=== PATIENT | male | born 1945 | race Caucasian/White ===

== ENCOUNTER 2016-10-09 08:51 | Observation (INO) ==
--- NOTE | 2016-10-09 09:13 | Emergency Department Note ---
Disposition Clinical Impression: Weakness Anemia Qualifiers: Anemia type: unspecified type Qualified Code(s): D64.9 - Disposition: Admitted As Inpatient Condition: Good Weakness HPI - General Chief complaint: ED Weakness Stated complaint: SOB/low hemoglobin Time Seen by Provider: 10/09/16 09:03 Source: patient Limitations: no limitations Nursing Notes Reviewed: Yes Vital Signs Reviewed: Yes - History of Present Illness HPI Narrative: 71-year-old male presents with concerns of increasing shortness of breath and weakness. Patient states symptoms have become progressively worse over the past 2-3 weeks. He states he has had his hemoglobin checked by his primary care provider and has not seen dropping over the past week. Patient states his most recent hemoglobin was 7.6 on Saturday. Patient denies hematochezia, melena. Had a recent colonoscopy with Dr. Casey which did not reveal an obvious source of bleeding. Patient reports she is unable to walk across the room without becoming short of breath which is abnormal for him. He has swelling in the left lower extremity over the past 2 weeks. Denies history of DVT or PE. He is not on anticoagulation medication. Pain Scale: 0 - Related Data Home Medications Medication Instructions Recorded Confirmed Amlodipine Besylate [Norvasc] 10 mg PO DAILY 02/10/15 10/09/16 Aspirin [Eloy Chewable Aspirin] 81 mg PO DAILY 02/10/15 10/09/16 Lisinopril [Zestril] 2.5 mg PO DAILY 02/10/15 10/09/16 Metoprolol Tartrate 50 mg PO BID 02/10/15 10/09/16 Simvastatin [Zocor] 20 mg PO DAILY 02/10/15 10/09/16 Renal Vitamin [Renal Caps Softgel] 1 mg PO DAILY 04/10/16 10/09/16 Previous Rx's Medication Instructions Recorded Omeprazole [PriLOSEC] 40 mg PO DAILY #30 cap 04/13/16 Allergies Allergy/AdvReac Type Severity Reaction Status Date / Time No Known Allergies Allergy Verified 10/09/16 08:58 All systems ED: reviewed and negative except as stated. Constitutional: Reports: weakness. Denies: fever, chills Cardiovascular: Reports: dyspnea on exertion. Denies: chest pain, palpitations , orthopnea, syncope Respiratory: Denies: cough, dyspnea, wheezes, hemoptysis Gastrointestinal: Denies: abdominal pain, nausea, vomiting, diarrhea, hematemesis, melena, hematochezia Musculoskeletal: Denies: back pain Past Medical History - Past Medical History Attestation: Yes The following information was validated with the patient. Source: patient Medical history: Reports: cancer, coronary artery disease, diabetes, dialysis, hyperlipidemia, hypertension, renal disease, other Surgical history: Reports: angioplasty/stent, appendectomy, other Psychiatric history: Reports: no psych history - Social History Smoking Status: Former smoker Smokeless Tobacco Status: No Alcohol use: Reports: rarely Drug use: Reports: none Physical Exam General: Alert and in no acute distress Skin: Warm, dry, intact Head: Normocephalic and atraumatic Neck: Supple, trachea midline and no tenderness Cardiovascular: RRR, no murmur, normal perfusion Respiratory: CTAB, no wheezing, cough, or respiratory distress Musculoskeletal: Normal strength, no tenderness, swelling or deformity GI: Soft, nontender, nondistended. Bowel sounds present Neuro: A&O to person, place, time and situation. No focal deficits noted on exam Psychiatric: cooperative and appropriate mood and affect. - General Limitations: no limitations General appearance: alert Course Vital Signs Temperature 98.1 F 10/09/16 08:54 Pulse Rate 70 10/09/16 08:54 Respiratory Rate 18 10/09/16 08:54 Blood Pressure 149/72 10/09/16 08:54 O2 Sat by Pulse Oximetry 93 10/09/16 08:54 Temperature 98.3 F 10/10/16 19:00 Pulse Rate 75 10/10/16 18:58 Respiratory Rate 18 10/10/16 19:00 Blood Pressure 137/57 10/10/16 19:00 O2 Sat by Pulse Oximetry 94 10/10/16 18:58 Oxygen Delivery Oxygen Delivery Nasal Cannula Weakness - Medical Records Medical records reviewed: Yes I reviewed the patient's medical records. - Lab Data Lab results reviewed: Yes I reviewed the patient's lab results. Result diagrams: 10/09/16 09:18 10/10/16 09:59 Lab Results 10/09/16 10/09/16 10/09/16 Range/Units 09:18 09:18 09:18 WBC 5.3 (4.3-11.1) K/mcL RBC 2.53 L (4.19-5.50) M/mcL Hgb 8.3 L (12.9-16.9) g/dL Hct 24.9 L (37.5-50.1) % MCV 98.4 (83.0-100.0) fL MCH 32.8 (28.0-33.3) pg MCHC 33.3 (31.6-35.5) g/dL RDW 13.5 (11.5-14.5) % Plt Count 158 (140-400) K/mcL MPV 10.3 (9.4-12.4) fL Immature Gran % 0.6 (0-4) % Seg Neutrophils % 79.4 % Lymphocytes % 10.2 % Monocytes % 6.6 % Eosinophils % 2.6 % Basophils % 0.6 % Neutrophils # 4.2 (1.6-8.9) K/mcL Lymphocytes # 0.5 L (0.6-4.6) K/mcL Monocytes # 0.4 (0.0-1.3) K/mcL Eosinophils # 0.1 (0.0-0.6) K/mcL Basophils # 0.0 (0.0-0.2) K/mcL D-Dimer (0-500) ng/mLFEU Sodium 140 (136-145) mEq/L Potassium 4.0 (3.5-4.5) mEq/L Chloride 102 (98-109) mEq/L Carbon Dioxide 24 (19-29) mEq/L BUN 27 H (8-26) mg/dL Creatinine 6.86 H (0.72-1.25) mg/dL Est GFR ( Amer) 10 L (> 60) Est GFR (Non-Af Amer) 8 L (> 60) BUN/Creatinine Ratio 4 L (6-26) Glucose 135 H (70-99) mg/dL Calculated Osmolality 297 (280-300) Calcium 9.0 (8.6-10.8) mg/dL Total Bilirubin 0.9 (0.2-1.2) mg/dL AST 16 (5-34) Units/L ALT 16 (0-55) Units/L Alkaline Phosphatase 75 (38-126) Units/L Troponin I 0.05 H* (0-0.03) ng/mL B-Natriuretic Peptide (0-100) pg/mL Serum Total Protein 6.8 (6.0-8.3) g/dL Albumin 3.3 L (3.5-5.0) g/dL Globulin 3.5 (2.4-3.5) g/dL Albumin/Globulin Ratio 0.9 L (1.1-2.2) Stool Occult Blood (Negative) Hep Bs Antigen (Nonreactive) Hep Bs Antibody mIU/mL 10/09/16 10/09/16 10/09/16 Range/Units 09:18 09:18 09:18 WBC (4.3-11.1) K/mcL RBC (4.19-5.50) M/mcL Hgb (12.9-16.9) g/dL Hct (37.5-50.1) % MCV (83.0-100.0) fL MCH (28.0-33.3) pg MCHC (31.6-35.5) g/dL RDW (11.5-14.5) % Plt Count (140-400) K/mcL MPV (9.4-12.4) fL Immature Gran % (0-4) % Seg Neutrophils % % Lymphocytes % % Monocytes % % Eosinophils % % Basophils % % Neutrophils # (1.6-8.9) K/mcL Lymphocytes # (0.6-4.6) K/mcL Monocytes # (0.0-1.3) K/mcL Eosinophils # (0.0-0.6) K/mcL Basophils # (0.0-0.2) K/mcL D-Dimer 630 H (0-500) ng/mLFEU Sodium (136-145) mEq/L Potassium (3.5-4.5) mEq/L Chloride (98-109) mEq/L Carbon Dioxide (19-29) mEq/L BUN (8-26) mg/dL Creatinine (0.72-1.25) mg/dL Est GFR ( Amer) (> 60) Est GFR (Non-Af Amer) (> 60) BUN/Creatinine Ratio (6-26) Glucose (70-99) mg/dL Calculated Osmolality (280-300) Calcium (8.6-10.8) mg/dL Total Bilirubin (0.2-1.2) mg/dL AST (5-34) Units/L ALT (0-55) Units/L Alkaline Phosphatase (38-126) Units/L Troponin I (0-0.03) ng/mL B-Natriuretic Peptide 1660 H (0-100) pg/mL Serum Total Protein (6.0-8.3) g/dL Albumin (3.5-5.0) g/dL Globulin (2.4-3.5) g/dL Albumin/Globulin Ratio (1.1-2.2) Stool Occult Blood (Negative) Hep Bs Antigen Nonreactive (Nonreactive) Hep Bs Antibody 67.50 mIU/mL 10/09/16 Range/Units 09:27 WBC (4.3-11.1) K/mcL RBC (4.19-5.50) M/mcL Hgb (12.9-16.9) g/dL Hct (37.5-50.1) % MCV (83.0-100.0) fL MCH (28.0-33.3) pg MCHC (31.6-35.5) g/dL RDW (11.5-14.5) % Plt Count (140-400) K/mcL MPV (9.4-12.4) fL Immature Gran % (0-4) % Seg Neutrophils % % Lymphocytes % % Monocytes % % Eosinophils % % Basophils % % Neutrophils # (1.6-8.9) K/mcL Lymphocytes # (0.6-4.6) K/mcL Monocytes # (0.0-1.3) K/mcL Eosinophils # (0.0-0.6) K/mcL Basophils # (0.0-0.2) K/mcL D-Dimer (0-500) ng/mLFEU Sodium (136-145) mEq/L Potassium (3.5-4.5) mEq/L Chloride (98-109) mEq/L Carbon Dioxide (19-29) mEq/L BUN (8-26) mg/dL Creatinine (0.72-1.25) mg/dL Est GFR ( Amer) (> 60) Est GFR (Non-Af Amer) (> 60) BUN/Creatinine Ratio (6-26) Glucose (70-99) mg/dL Calculated Osmolality (280-300) Calcium (8.6-10.8) mg/dL Total Bilirubin (0.2-1.2) mg/dL AST (5-34) Units/L ALT (0-55) Units/L Alkaline Phosphatase (38-126) Units/L Troponin I (0-0.03) ng/mL B-Natriuretic Peptide (0-100) pg/mL Serum Total Protein (6.0-8.3) g/dL Albumin (3.5-5.0) g/dL Globulin (2.4-3.5) g/dL Albumin/Globulin Ratio (1.1-2.2) Stool Occult Blood Negative (Negative) Hep Bs Antigen (Nonreactive) Hep Bs Antibody mIU/mL - Radiology Data Radiology results reviewed: Yes I reviewed the patient's radiology results. - EKG Data EKG attestation: Yes I reviewed and interpreted this EKG. EKG results narrative: ECG - interpreted by ED physician. Rate 70, normal sinus rhythm, no STEMI, NM, QT intervals, and QRS within normal limits
[2016-10-09 09:27] LABS: Basophils % 0.6 %; Eosinophils # 0.1 K/mcL (0.0-0.6); Eosinophils % 2.6 %; Hematocrit 24.9 % (37.5-50.1); Hemoglobin 8.3 g/dL (12.9-16.9); Immature Granulocytes % 0.6 % (0-4); Lymphocytes # 0.5 K/mcL (0.6-4.6); Lymphocytes % 10.2 %; Mean Corpuscular HGB Conc 33.3 g/dL (31.6-35.5); Mean Corpuscular Hemoglobin 32.8 pg (28.0-33.3); Mean Corpuscular Volume 98.4 fL (83.0-100.0); Mean Platelet Volume 10.3 fL (9.4-12.4); Monocytes # 0.4 K/mcL (0.0-1.3); Monocytes % 6.6 %; Neutrophils # 4.2 K/mcL (1.6-8.9); Platelet Count 158 K/mcL (140-400); Red Blood Count 2.53 M/mcL (4.19-5.50); Red Cell Distribution Width 13.5 % (11.5-14.5); Segmented Neutrophils % 79.4 %
[2016-10-09 09:40] LABS: Albumin 3.3 g/dL (3.5-5.0); Albumin/Globulin Ratio 0.9 (1.1-2.2); Bilirubin,Total 0.9 mg/dL (0.2-1.2); Globulin 3.5 g/dL (2.4-3.5); Total Protein 6.8 g/dL (6.0-8.3)
--- NOTE | 2016-10-09 14:34 | Nephrology Consult Note ---
Date of Encounter: 10/09/16 Time of Encounter: 13:30 Assessment and Plan (1) Dyspnea on exertion Current Visit: No Status: Acute Dyspnea secondary to fluid overload. Likely secondary to acute CHF in the setting of ESRD with excess fluid. Patient presents with dyspnea, reporting weight gain and lower extremity edema ( doppler negative for DVT). History of symptoms that improved with removal of excess fluid. Plan: HD for fluid removal with goal of 2 hours and net negative 3kg as tolerated by patient. (2) Acute diastolic (congestive) heart failure Current Visit: Yes Status: Acute Dyspnea likely secondary to acute diastolic CHF with fluid overload. Echo on 04/11/16 with LVEF 50%, moderate LVDD, and severely dilated left and right atriums. BNP elevated at 1660, this is relatively stable from previous. Patient had been getting regularly schedule hemodialysis 3 days weekly, but has had worsening dyspnea and fatigue for 2 weeks. Plan for HD today for fluid removal. (3) ESRD (end stage renal disease) on dialysis Current Visit: No Status: Chronic Patient of Dr. Turpin, that has regular HD on . HD today for symptomatic fluid overload. Plan for regular HD tomorrow per regular dialysis schedule. (4) Elevated troponin Current Visit: No Status: Acute Elevated at 0.05, this appears to be unchanged from patient's baseline. (5) Hypertension Current Visit: No Status: Chronic Patient reports taking AM dose of HTN medication, but admits to forgetting last night's medications. Continue to monitor blood pressure. Plan for fluid removal today with dialysis. Qualifiers: Hypertension type: essential hypertension Qualified Code(s): I10 - Essential (primary) hypertension (6) Diabetes mellitus Current Visit: Yes Status: Chronic Management per primary medicine service. 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 Qualifiers: Coronary Disease-Associated Artery/Lesion type: [place] artery [place] vs. transplanted heart: [place] heart Associated angina: without angina Qualified Code(s): I25.10 - Atherosclerotic heart disease of [place] coronary artery without angina pectoris (8) Anemia Current Visit: No Status: Chronic History of Chronic anemia. Denies blood in stool. Stool occult blood negative. Hgb 8.3 today. Continue to monitor for signs of bleeding and monitor patient's hemodynamic stability. Qualifiers: Anemia type: unspecified type Qualified Code(s): D64.9 - Anemia, unspecified History of Present Illness - Reason for Consult Consult date: 10/09/16 end stage renal disease Requesting physician: Jamshid Gil - Chief Complaint Shortness of breath, weakness - History of Present Illness Mr. Hong is a 71 year old male, patient of Dr. Turpin, that presents to the ED for increasing dyspnea and weakness for 2-3 and LLE swelling for 2 weeks. PMHx includes DM, HLD, HTN, ESRD on HD , and CAD s/p 4 stents in 2014, and anemia. Patient reports similar episode in March 2016 inwhich he underwent dialysis and reports improvement of symptoms. He notes also having colonscopy at that time which was negative for active bleeding. He currently denies any nausea voming, abdominal pain, chest pain, blood in his stool/no black stools. Past Med Surg Social Fam HX - Past Medical History Attestation: Yes The following information was validated with the patient. Source: patient, old records reviewed Medical history: cancer (?), coronary artery disease, diabetes, dialysis, hyperlipidemia, hypertension, renal disease, other Psychiatric history: no psych history - Past Surgical History Surgical History: angioplasty/stent, appendectomy, other - Social History Smoking Status: Former smoker Smokeless Tobacco Status: No Alcohol use: none Drug use: none - Family History Mother Living Status: Hx Family Cardiac Disorders: Yes Medications and Allergies Amlodipine Besylate [Norvasc] 10 mg PO DAILY 02/10/15 [History] Aspirin [Eloy Chewable Aspirin] 81 mg PO DAILY 02/10/15 [History] Lisinopril [Zestril] 2.5 mg PO DAILY 02/10/15 [History] Metoprolol Tartrate 50 mg PO BID 02/10/15 [History] Simvastatin [Zocor] 20 mg PO DAILY 02/10/15 [History] Renal Vitamin [Renal Caps Softgel] 1 mg PO DAILY 04/10/16 [History] Omeprazole [PriLOSEC] 40 mg PO DAILY #30 cap 04/13/16 [Rx] Allergies No Known Allergies Allergy (Verified 10/09/16 08:58) Review of Systems All Systems: reviewed and no additional remarkable complaints except as stated Constitutional: fatigue, weakness, weight gain Nose, mouth and throat: no disequilibrium, no dizziness Cardiovascular: leg edema, no chest pain Respiratory: dyspnea, dyspnea on exertion Gastrointestinal: no abdominal pain, no hematochezia, no melena, no nausea, no vomiting Musculoskeletal: no radiating pain into limb Integumentary: no rash Neurological: no dizziness, no syncope, no vertigo Endocrine: fatigue Exam - Vital Signs Vital signs: Initial Vital Signs Temp Pulse Resp BP Pulse Ox 98.1 F 70 18 149/72 93 10/09/16 08:54 10/09/16 08:54 10/09/16 08:54 10/09/16 08:54 10/09/16 08:54 Vital Signs - Last 8 Hours Resp BP 10/09/16 13:09 16 178/89 - General Appearance General appearance: well-developed, well-nourished, appears started age EENT: ATNC, mucous membranes moist, hearing intact, vision intact Respiratory: clear Cardiology: no murmurs, no rub, no gallops, edema (trace edema bilaterally), regular rate, regular rhythm - Dialysis Access Dialysis Vascular Access: Arteriovenous Fistula thrill: Yes bruit: Yes Gastrointestinal: normoactive bowel sounds, no tenderness, no guarding, no masses Integumentary: no rash, warm and dry Neurologic: no focal deficit, alert and oriented x3 Musculoskeletal: no deformities, no erythema, no cyanosis, no clubbing Psychiatric: mood/affect appropriate, cooperative Results - Lab Results 10/09/16 09:18 10/09/16 09:18 Most recent lab results Calcium 9.0 mg/dL (8.6-10.8) 10/09/16 09:18 Consult Discharge Plan - Plan Referrals: Tahir Herrera Jr, MD [Primary Care Provider] -
--- NOTE | 2016-10-09 15:44 | Internal Med History&Physical ---
Date of Encounter: 10/09/16 Time of Encounter: 15:35 Assessment and Plan (1) ESRD (end stage renal disease) on dialysis Current visit: No Status: Chronic Patient follows with Dr. Haro, regular dialysis days are Saturday and Saturday,last HD yesterday. renal has been consulted, planned for additional HD today given CHF findings in CXR. (2) Dyspnea on exertion Current visit: No Status: Acute possible 2/2 CHF 2/2 moderate DD. Echo done March 2016 shows moderate diastolic dysfunction, EF of 50%. Chest x-ray done today shows signs of congestive heart failure. getting additional HD today, repeat CXR tomm. denies any chest pain at this time, will continue home cardiac meds. (3) Elevated troponin Current visit: No Status: Acute elevated in the setting of CKD, always elevated on trend, no chest pain. less likely ACS> (4) Anemia Current visit: No Status: Chronic Patient denies any history of melena or hematemesis. Repeat hemoglobin today is better around 8.3 which is normally his baseline. stool occult was done at ED that is negative. He may have anemia of chronic disease secondary to CKD, recent colonoscopy in March 2016 did not show any active bleeding. if the repeat hb starts trending down he might need additional work up. Qualifiers: Anemia type: unspecified type Qualified Code(s): D64.9 - Anemia, unspecified Internal Medicine - H&P: HPI Chief complaint: sob Admitted From: Home Plans for Post Hospital Care: Home History of present illness: Mr. Hong is a 71 year old male patient of Dr. Haro's, that presents to the ED for increasing dyspnea and weakness for 2-3 and LLE swelling for 2 weeks. PMHx includes DM, HLD, HTN, ESRD on HD M/W/F and CAD s/p 4 stents in 2014, and anemia. He says he was told by the dialysis people to see Dr. Kirkland because his Hb dropped to 7.3 and is lower than his usual, when he called Dr. Kirkland , he told him to go to ED, he says basically thats why he is here. He notes having colonscopy 04/15, when they found angiectasia with no active bleeding. He currently denies any nausea voming, abdominal pain, chest pain, blood in his stool/no black stools. Pricer has been consulted from ED and he is getting additional dialysis today, his usual days are Saturday and Saturday, he has no history of missed dialysis, his last dialysis was yesterday. Chest x-ray done at ED shows mild congestion. No signs of pneumonia. Past Med Surg Social Fam HX - Past Medical History Medical history: cancer (?), coronary artery disease, diabetes, dialysis, hyperlipidemia, hypertension, renal disease, other Psychiatric history: no psych history - Past Surgical History Surgical History: angioplasty/stent, appendectomy, other - Social History Smoking Status: Former smoker Smokeless Tobacco Status: No Alcohol use: none Drug use: none - Family History Mother Living Status: Hx Family Cardiac Disorders: Yes Internal Medicine - H&P: Meds Amlodipine Besylate [Norvasc] 10 mg PO DAILY 02/10/15 [History] Aspirin [Eloy Chewable Aspirin] 81 mg PO DAILY 02/10/15 [History] Lisinopril [Zestril] 2.5 mg PO DAILY 02/10/15 [History] Metoprolol Tartrate 50 mg PO BID 02/10/15 [History] Simvastatin [Zocor] 20 mg PO DAILY 02/10/15 [History] Renal Vitamin [Renal Caps Softgel] 1 mg PO DAILY 04/10/16 [History] Omeprazole [PriLOSEC] 40 mg PO DAILY #30 cap 04/13/16 [Rx] Allergies No Known Allergies Allergy (Verified 10/09/16 08:58) All Systems PM: A 10-system review of systems was performed and is negative for pertinent findings except as documented above in the HPI. - Constitutional Constitutional: weakness - EENT Eyes: no change in vision, no discharge, no pain, no photophobia Ears: no ear discharge, no ear pain, no tinnitus Nose, mouth and throat: no dysphagia, no nasal discharge, no neck pain, no sore throat - Cardiovascular Cardiovascular ROS IM: dyspnea, dyspnea on exertion, edema, no chest pain, no diaphoresis, no lightheadedness, no palpitations, no syncope - Respiratory Respiratory: dyspnea, no cough, no wheezing, no excessive phlegm production - Gastrointestinal Gastrointestinal: no abdominal pain, no diarrhea, no hematemesis, no hematochezia, no melena, no nausea, no vomiting - Musculoskeletal Musculoskeletal ROS IM: no numbness, no tingling - Integumentary Integumentary IM: no rash, no unusual bruising - Neurological Neurological ROS: no confusion, no convulsions, no focal weakness, no numbness, no tingling, no tremor(s) - Constitutional Vitals: Temp Pulse Resp BP Pulse Ox 98.1 F 70 16 178/89 97 10/09/16 08:54 10/09/16 12:27 10/09/16 13:09 10/09/16 13:09 10/09/16 12:27 General appearance: Present: A&O X 3 Exam: HEENT: ATNC, mucous membranes moist, hearing intact, vision intact Respiratory : b/l decreased breath sounds at the bases, no wheezing or crepitations. Cardiology: no murmurs, no rub, no gallops, edema (trace edema bilaterally), regular rate, regular rhythm Gastrointestinal: normoactive bowel sounds, no tenderness, no guarding, no masses Integumentary: no rash, warm and dry Neurologic: no focal deficit, alert and oriented x3 Musculoskeletal: no deformities, no erythema, no cyanosis, no clubbing Psychiatric: mood/affect appropriate, cooperative Internal Med - H&P Results - Labs CBC & Chem 7: 10/09/16 09:18 10/09/16 09:18
[2016-10-09] MEDS ORDERED: Naloxone 0.4 MG/ML INJ IVP PRN (15:54)
[2016-10-09] MEDS: amLODIPine 5 MG TABLET PO SCH (16:31)
[2016-10-09 17:34] LABS: Hepatitis B Surface Antigen Nonreactive (Nonreactive)
[2016-10-09] MEDS ORDERED: 0.9 % Sodium Chloride 250 ML IVC PRN (17:56)
[2016-10-09] MEDS ORDERED: 0.9 % Sodium Chloride 1,000 ML PRIME SCH (18:00)
--- NOTE | 2016-10-09 18:01 | Venous Imaging Report ---
LE Venous Duplex Patient Name:Moses Hong Order Number:[id number] Procedure Date:10/09/2016 Date:1945ge:71 yrs Gender:Male Location:[facility] ED Room #: 22 Procurement Intern:Sheri Ocampo RVT Referring MD:Jamshid Gil DO material controller:Tahir Herrera MD Reading MD:Andi Goodrich MD Primary Indications:left lower extremity swelling Secondary Indications: Risk Factors Yes/No Hx of DVT No Hx of Chemotherapy No Trauma to Veins No Impressions: Normal left lower extremity deep and superficial venous exam. Normal contralateral common femoral vein. Recommendations: Critical findings reported to ED by phone by Sheri Ocampo RVT. Findings Venous Duplex Results: Right: Venous imaging of the lower extremity reveals full patency and normal vessel compressibility of the right common femoral. Doppler signals in the evaluated veins were normal. Left: Venous imaging of the lower extremity reveals full patency and normal vessel compressibility of the left distal iliac, left common femoral, left superficial femoral, left popliteal, left posterior tibial, left peroneal, left great saphenous and left lesser saphenous. Doppler signals in the evaluated veins were normal. Prior Study: No prior study available for comparison. Lower Extremity Venous Duplex Side Vein Compress Spontaneous Flow Augment Diameter (cm) Depth (cm) Left Distal Iliac Normal Yes Phasic Yes Left Common Femoral Normal Yes Phasic Yes Left Superficial Femoral Normal Yes Phasic Yes Left Popliteal Normal Yes Phasic Yes Left Posterior Tibial Normal Yes Phasic Yes Left Peroneal Normal Yes Phasic Yes Left Great Saphenous Normal Yes Phasic Yes Left Lesser Saphenous Normal Yes Phasic Yes Right Common Femoral Normal Yes Phasic Yes Updated by Andi Goodrich MD on 10/09/2016 5:54:48 PM electronically signed on 10/09/2016 5:55:04 PM with status of Final
[2016-10-09] MEDS ORDERED: 0.9 % Sodium Chloride 2,000 ML ONE (18:24)
[2016-10-10] MEDS: amLODIPine 5 MG TABLET PO SCH (07:45)
[2016-10-10] MEDS ORDERED: Aspirin 81 MG TAB.CHEW PO SCH (09:00)
--- NOTE | 2016-10-10 10:19 | Nephrology Progress Note ---
Date of Encounter: 10/10/16 Time of Encounter: 09:45 - Assessment and Plan (1) Dyspnea on exertion Current Visit: No Status: Acute Dyspnea secondary to fluid overload. Likely secondary to acute CHF in the setting of ESRD with excess fluid. Patient presents with dyspnea, reporting weight gain and lower extremity edema ( doppler negative for DVT). History of symptoms that improved with removal of excess fluid. Notes improvement with fluid removal yesterday. Reports he has a fluid restriction of 1.5L, though he notes he is not strict with following that. Plan: Regularly scheduled HD today, continue with fluid removal for symptomatic relief. (2) Acute diastolic (congestive) heart failure Current Visit: Yes Status: Acute Dyspnea likely secondary to acute diastolic CHF with fluid overload. Echo on 04/11/16 with LVEF 50%, moderate LVDD, and severely dilated left and right atriums. BNP elevated at 1660, this is relatively stable from previous. Patient had been getting regularly schedule hemodialysis 3 days weekly, but has had worsening dyspnea and fatigue for 2 weeks. Noted improvement with HD yesterday, plan for HD again today. (3) ESRD (end stage renal disease) on dialysis Current Visit: No Status: Chronic Patient of Dr. Turpin, that has regular HD on . HD yesterday for symptomatic fluid overload, plan for regularly scheduled session today. (4) Elevated troponin Current Visit: No Status: Acute Elevated at 0.05, this appears to be unchanged from patient's baseline. (5) Hypertension Current Visit: No Status: Chronic BP continues to be elevated. Patient has been taking home medications. Consider HD with fluid removal, or supplemental medications for HTN. Qualifiers: Qualified Code(s): I10 - Essential (primary) hypertension (6) Diabetes mellitus Current Visit: Yes Status: Chronic Management per primary service. Qualifiers: Qualified Code(s): E11.9 - Type 2 diabetes mellitus without complications (7) CAD (coronary artery disease) Current Visit: No Status: Chronic Management per primary service. Qualifiers: Qualified Code(s): I25.10 - Atherosclerotic heart disease of [place] coronary artery without angina pectoris (8) Anemia Current Visit: No Status: Chronic History of Chronic anemia, likely 2/2 to CKD. Denies blood in stool. Stool occult blood negative. Hgb 8.3 appears to be at patient's baseline. Qualifiers: Qualified Code(s): D64.9 - Anemia, unspecified Subjective Principal diagnosis: Acute CHF, ESRD Interval history: Patient states he feels better today, notes decreased swelling in his legs and easier breathing. No events overnight. BP continues to be elevated. Objective - Vital Signs Vital signs: Vital Signs Temp Pulse Resp BP Pulse Ox 10/10/16 07:31 98.2 F 95 17 179/93 96 10/10/16 03:18 98.9 F 69 16 179/80 91 10/09/16 23:34 98.0 F 73 16 176/80 90 10/09/16 21:18 98.4 F 73 15 170/82 92 10/09/16 21:02 97.8 F 22 164/84 10/09/16 20:30 166/83 10/09/16 20:15 159/82 10/09/16 20:00 161/82 10/09/16 19:45 172/88 10/09/16 19:30 164/78 10/09/16 19:15 168/80 10/09/16 19:00 168/80 10/09/16 18:45 166/85 10/09/16 18:30 97.4 F L 20 166/85 10/09/16 16:43 98.0 F 73 15 182/83 90 10/09/16 13:09 16 178/89 Intake and Output 10/09/16 10/10/16 10/10/16 23:59 07:59 15:59 Intake Total 720 / 720 480 / 480 Output Total 3600 / 3600 Balance -2880 / -2880 480 / 480 Intake: Oral 120 / 120 480 / 480 Intake, Rinseback and 600 / 600 Flushes Output: Urine 0 / 0 Total Dialysis Output 3600 / 3600 Other: Meal Dinner Breakfast Percent of Meal Consumed 50% 100% Weight 99.8 kg 98.2 kg Blood Glucose* 113 90 Hemodialysis Net Fluid 3000 Removed (mL) Patient Weight 10/10/16 23:59 Weight 98.2 kg - General Appearance General appearance: Present: well-developed, well-nourished, appears started age EENT: Present: ATNC, mucous membranes moist, hearing intact, vision intact. Absent: conjunctiva injected Respiratory: Present: clear Cardiology: Present: regular rate, regular rhythm. Absent: edema Dialysis Vascular Access: Arteriovenous Fistula thrill: Yes Integumentary: Present: no rash, warm and dry Neurologic: Present: no focal deficit, alert and oriented x3 Musculoskeletal: Present: no deformities, no erythema, no cyanosis, no clubbing Psychiatric: Present: mood/affect appropriate, cooperative - Lab 10/09/16 09:18 10/10/16 09:59 Most recent lab results Calcium 9.0 mg/dL (8.6-10.8) 10/09/16 09:18 Consult Discharge Plan - Plan Referrals: Tahir Herrera Jr, MD [Primary Care Provider] -
[2016-10-10 10:21] LABS: Potassium 4.2 mEq/L (3.5-4.5)
[2016-10-10] MEDS ORDERED: 0.9 % Sodium Chloride 250 ML IVC PRN (10:23)
--- NOTE | 2016-10-10 16:04 | Discharge Summary ---
Date of Encounter: 10/10/16 Time of Encounter: 11:00 - Discharge Diagnosis (1) Acute congestive heart failure Priority: Primary Status: Acute Qualifiers: Congestive heart failure type: diastolic Qualified Code(s): I50.31 - Acute diastolic (congestive) heart failure (2) ESRD (end stage renal disease) on dialysis Priority: Primary Status: Chronic (3) Anemia Priority: Primary Status: Chronic Qualifiers: Anemia type: unspecified type Qualified Code(s): D64.9 - Anemia, unspecified (4) Hypertension Priority: Secondary Status: Chronic Qualifiers: Hypertension type: essential hypertension Qualified Code(s): I10 - Essential (primary) hypertension (5) Diabetes mellitus Priority: Secondary Status: Chronic Qualifiers: Diabetes mellitus type: type 2 Diabetes mellitus complication status: without complication Diabetes mellitus mcfp insulin use: without mcfp use Qualified Code(s): E11.9 - Type 2 diabetes mellitus without complications - Discharge Medications Home Medications: Amlodipine Besylate [Norvasc] 10 mg PO DAILY 02/10/15 [History] Aspirin [Eloy Chewable Aspirin] 81 mg PO DAILY 02/10/15 [History] Lisinopril [Zestril] 2.5 mg PO DAILY 02/10/15 [History] Metoprolol Tartrate 50 mg PO BID 02/10/15 [History] Simvastatin [Zocor] 20 mg PO DAILY 02/10/15 [History] Renal Vitamin [Renal Caps Softgel] 1 mg PO DAILY 04/10/16 [History] Omeprazole [PriLOSEC] 40 mg PO DAILY #30 cap 04/13/16 [Rx] Allergies/Adverse Reactions: Allergies No Known Allergies Allergy (Verified 10/09/16 08:58) Date of admission: 10/09/16 13:05 Primary care physician: Tahir Herrera Jr, MD Consults: 10/09/16 15:55 Consult to Nephrology [CONS] Routine Consulting Provider: Kidney Vandana/LEMUEL/RYAN/WILL Reason for Consult: ESRD patinet on HD presenting with sob and b/l lower leg swelling Call Completed: Yes 10/09/16 18:00 Consult to Dialysis [CONS] ONCE 10/10/16 10:30 Consult to Dialysis [CONS] ONCE Discharging clinician: Shay Fagan Anticipated date of discharge: 10/10/16 - Patient Status Disposition: Home, Self-Care Condition: Good Functional capacity at discharge: independent ambulation Overall status at discharge: patient is back to baseline - Discharge Instructions Follow Up With: Tahir Herrera Jr, MD [Primary Care Provider] - - Diet and Activity Activity: increase activity as tolerated Diet: other (Renal diet) Interval History: Mr. Hong is a 71 year old male patient of Dr. Turpin, that presents to the ED for increasing dyspnea and weakness for 2-3 and LLE swelling for 2 weeks. PMHx includes DM, HLD, HTN, ESRD on HD M/W/F and CAD s/p 4 stents in 2014, and anemia. He says he was told by the dialysis people to see Dr. Casey because his Hb dropped to 7.3 and is lower than his usual, when he called Dr. Casey , he told him to go to ED, he says basically thats why he is here. He notes having colonscopy 04/15, when they found angiectasia with no active bleeding. He currently denies any nausea voming, abdominal pain, chest pain, blood in his stool/no black stools. Service Superintendent has been consulted from ED and he is getting additional dialysis today, his usual days are Saturday and Saturday, he has no history of missed dialysis, his last dialysis was yesterday. Chest x-ray done at ED shows mild congestion. No signs of pneumonia. Hospital course: Mr. Hong is a 71 year old male admitted for shortness of breath. He was considered fluid overload and hemodialysis has been arranged yesterday.after dialysis, his shortness of breath has improved significantly. he has a mild Hgb drop, guaiac test negative, consider caused by chronic renal disease. patient will have another hemodialysis today and plan to discharge home after HD. I saw and examined the patient today. He is awake alert, oriented 3. Vital signs stable. Stable to discharge home - Time Spent with Patient Total time spent providing and/or coordinating discharge services:25 minute Less than 30 minutes - Constitutional Vitals: Temp Pulse Resp BP Pulse Ox 97.6 F 75 16 168/54 92 10/10/16 15:07 10/10/16 15:07 10/10/16 15:07 10/10/16 15:07 10/10/16 15:07 General appearance: Present: A&O X 3 - Head Head exam: Present: atraumatic, normocephalic - Eye Eye exam: Present: PERRL, conjuntiva pink, sclera anicteric Pupils: Present: PERRL - Neck Neck exam general surgery: Present: supple, trachea midline. Absent: lymphadenopathy - Respiratory Respiratory exam: Present: CTAB. Absent: accessory muscle use, rales, rhonchi, wheezes - Cardiovascular Cardiovascular exam: Present: RRR, +S1, +S2. Absent: diastolic murmur, gallop, rubs, systolic murmur - GI/Abdominal GI/Abdominal exam: Present: normal bowel sounds, soft, no peritoneal signs. Absent: distended, tenderness - Extremities Exam Extremities exam: Present: warm, radial pulses palpable and symetrical. Absent : calf tenderness, cyanotic, pedal edema - Neurological Exam Neurological exam: Present: CN II-XII intact, oriented X3, no focal deficits. Absent: pronater drift, facial droop, speech deficit - Skin Skin exam: Present: dry, intact
--- NOTE | 2016-10-10 17:30 | Electrocardiograph Report ---
[address] [address] Test Date: 2016-10-09 Pat Name: Moses Hong Department: 103 Room: 3B45 Gender: M [employer] Tender: FLORA : 1945 Requested By: Jamshid Gil Order Number: [id number] Reading MD: Adriana Sanders Measurements Intervals Viola Rate: 70 P: 24 RI: 228 QRS: -5 QRSD: 106 T: 76 QT: 445 QTc: 466 Interpretive Statements SINUS RHYTHM WITH FIRST DEGREE AV BLOCK INCOMPLETE RIGHT BUNDLE BRANCH BLOCK NONSPECIFIC ST \T\ T-WAVE ABNORMALITY PROLONGED QT INTERVAL Electronically Signed On 10-10-2016 17:28:39 EDT by Adriana Sanders
[2016-10-10 22:32] VITALS: BP 137/57
== END 2016-10-10 19:30 | disposition home or self-care (01) ==
LOC: EMEROO 08:51 → 3BNU 08:51 → SUATTDRO 13:05 → 3BNU 13:39
PROVIDERS: ADMIT Internal Medicine Endocrinology, Diabetes & Metabolism; ATTEND Internal Medicine

== ENCOUNTER 2017-10-07 23:04 | Inpatient (IN) ==
[2017-10-07 23:53] LABS: Lymphocytes % 2.3 %; Mean Platelet Volume 10.8 fL (9.4-12.4); Red Blood Count 3.47 M/mcL (4.19-5.50)
[2017-10-07 23:54] LABS: Eosinophils % 0.6 %; Hematocrit 34.1 % (37.5-50.1); Mean Corpuscular HGB Conc 32.3 g/dL (31.6-35.5); Mean Corpuscular Hemoglobin 31.7 pg (28.0-33.3); Mean Corpuscular Volume 98.3 fL (83.0-100.0); Monocytes % 0.6 %; Neutrophils # 1.6 K/mcL (1.6-8.9); Platelet Count 100 K/mcL (140-400); Red Cell Distribution Width 14.8 % (11.5-14.5); Segmented Neutrophils % 96.5 %
[2017-10-08 00:04] LABS: VBG HCO3 24 mEq/L (21-27); VBG PCO2 34 mmHg (41-51); VBG PH 7.45 pH Units (7.32-7.42); VBG PO2 94 mmHg (25-50)
[2017-10-08 00:15] LABS: Calcium 8.9 mg/dL (8.6-10.3)
[2017-10-08 00:29] LABS: Platelet Estimate Decreased (Normal); Toxic Granulation Present (Not Present); Troponin I 0.07 ng/mL (< 0.04)
[2017-10-08] MEDS ORDERED: Furosemide 40 MG/4 ML VIAL IVP ONE (00:35)
--- NOTE | 2017-10-08 00:42 | Emergency Department Note ---
Disposition Clinical Impression: CKD (chronic kidney disease) stage V requiring chronic dialysis, Shortness of breath Fluid overload Qualifiers: Hypervolemia type: unspecified Qualified Code(s): E87.70 - Fluid overload, unspecified Disposition: Admitted As Inpatient Condition: Fair Time of Disposition: 00:52 General Adult HPI - General Chief complaint: ED Shortness of Breath/Dyspnea Stated complaint: SoB n/v/d Time Seen by Provider: 10/07/17 23:07 Source: patient, family, EMS Limitations: no limitations Nursing Notes Reviewed: Yes Vital Signs Reviewed: Yes - History of Present Illness HPI Narrative: Patient is a 72 old male that presents the emergency department with shortness of breath that began this evening. Patient denies any home oxygen use and states that his shortness of breath has been getting worse. Patient states that he is a dialysis patient who dialyzes Saturday, Saturday and Saturday. States that he did dialyze today. Patient does note some swelling in his lower extremities however he states that this is at his baseline. Patient denies any chest pain or abdominal pain at this time. Patient also reports that he has been having some vomiting and diarrhea with his shortness of breath. Pain Scale: 0 - Related Data Home Medications Medication Instructions Recorded Confirmed Amlodipine Besylate 10 mg PO DAILY 10/07/17 10/07/17 Aspirin [Lo-Dose Aspirin EC] 81 mg PO DAILY 10/07/17 10/07/17 Calcium Acetate [Phos-LO] 2,001 mg PO TIDWM 10/07/17 10/07/17 Lisinopril 2.5 mg PO DAILY 10/07/17 10/07/17 Metoprolol Tartrate 50 mg PO DAILY 10/07/17 10/07/17 Omeprazole [PriLOSEC] 40 mg PO DAILY 10/07/17 10/07/17 Renal Vitamin [Renal Caps Softgel] 1 mg PO DAILY 10/07/17 10/07/17 Simvastatin [Zocor] 20 mg PO HS 10/07/17 10/07/17 Allergies Allergy/AdvReac Type Severity Reaction Status Date / Time No Known Allergies Allergy Verified 03/12/17 07:42 All systems ED: reviewed and negative except as stated. Cardiovascular: Denies: chest pain Respiratory: Reports: dyspnea Gastrointestinal: Reports: vomiting, diarrhea. Denies: abdominal pain Past Medical History - Past Medical History Medical history: Reports: coronary artery disease, diabetes, dialysis, hyperlipidemia, hypertension, renal disease, other Surgical history: Reports: angioplasty/stent, appendectomy, other Psychiatric history: Reports: no psych history - Social History Smoking Status: Former smoker Smokeless Tobacco Status: No Alcohol use: Reports: none Drug use: Reports: none Physical Exam - General Limitations: no limitations General appearance: alert, in no apparent distress - Head Head exam: atraumatic, normocephalic - Eye Eye exam: Present: normal appearance, EOMI - Neck Neck exam: Present: normal inspection, full ROM, trachea midline - Respiratory Respiratory exam: Present: normal lung sounds bilaterally. Absent: respiratory distress, wheezes - Cardiovascular Cardiovascular exam: Present: normal rhythm, tachycardia, normal heart sounds, + S1, +S2 - Abdominal Exam Abdominal exam: Present: soft, Non-Tender, normal bowel sounds - Extremities Exam Extremities exam: Present: other (2+ pitting edema bilateral lower extremity is. ) - Neurological Exam Neurological exam: Present: alert, oriented X3 - Psychiatric Psychiatric exam: Present: normal affect, normal mood - Skin Skin exam: Present: warm, dry, intact Course Vital Signs Temperature 99.0 F 10/07/17 23:09 Pulse Rate 105 10/07/17 23:09 Respiratory Rate 18 10/07/17 23:09 Blood Pressure 169/81 10/07/17 23:09 O2 Sat by Pulse Oximetry 94 10/07/17 23:09 Temperature 99.5 F 10/08/17 03:52 Pulse Rate 95 10/08/17 03:52 Respiratory Rate 18 10/08/17 03:52 Blood Pressure 146/76 10/08/17 03:52 O2 Sat by Pulse Oximetry 93 10/08/17 03:52 Oxygen Delivery Oxygen Delivery Nasal Cannula Medical Decision Making - [facility] Narrative Medical decision making narrative: Due the patient having acute onset shortness of breath we have obtained a CBC, BMP and troponin, chest x-ray, CT of the chest and abdomen and pelvis. Troponin was mildly elevated at 0.07 however this appears to be chronic for the patient likely secondary to his chronic renal failure requiring dialysis. Patient does have a low white blood cell count of 1.7. This appears to be lower than normal. Patient has an elevated creatinine which appears to be at his baseline. CT of the chest shows there is right-sided pleural effusion which is consistent with mild congestive heart failure. There is an elevated BNP. Due to the patient likely having a CHF exacerbation we will give the patient a dose of Lasix here in the emergency department we will admit the patient for further evaluation and management. Consult the hospitalist and they have accepted the patient to their service. Patient will be admitted to the hospital this time. - Medical Records Medical records reviewed: Yes I reviewed the patient's medical records. - Lab Data Lab results reviewed: Yes I reviewed the patient's lab results. Result diagrams: 10/08/17 03:33 10/08/17 03:33 Lab Results 10/07/17 10/07/17 10/07/17 Range/Units 23:13 23:13 23:13 WBC 1.7 L (4.3-11.1) K/mcL RBC 3.47 L (4.19-5.50) M/mcL Hgb 11.0 L (12.9-16.9) g/dL Hct 34.1 L (37.5-50.1) % MCV 98.3 (83.0-100.0) fL MCH 31.7 (28.0-33.3) pg MCHC 32.3 (31.6-35.5) g/dL RDW 14.8 H (11.5-14.5) % Plt Count 100 L (140-400) K/mcL MPV 10.8 (9.4-12.4) fL Immature Gran % 0.0 (0-4) % Seg Neutrophils % 96.5 % Lymphocytes % 2.3 % Monocytes % 0.6 % Eosinophils % 0.6 % Basophils % 0.0 % Neutrophils # 1.6 (1.6-8.9) K/mcL Lymphocytes # 0.0 L (0.6-4.6) K/mcL Monocytes # 0.0 (0.0-1.3) K/mcL Eosinophils # 0.0 (0.0-0.6) K/mcL Basophils # 0.0 (0.0-0.2) K/mcL Toxic Granulation Present A (Not Present) Platelet Estimate Decreased L (Normal) VBG pH (7.32-7.42) pH Units VBG pCO2 (41-51) mmHg VBG pO2 (25-50) mmHg VBG HCO3 (21-27) mEq/L Sodium 140 (136-145) mEq/L Potassium 4.0 (3.5-5.1) mEq/L Chloride 103 (98-107) mEq/L Carbon Dioxide 25 (23-29) mEq/L BUN 27 H (8-23) mg/dL Creatinine 5.53 H (0.70-1.30) mg/dL Est GFR ( Amer) 12 L (> 60) Est GFR (Non-Af Amer) 10 L (> 60) BUN/Creatinine Ratio 5 L (6-26) Glucose 107 H (70-105) mg/dL Calculated Osmolality 296 (280-300) Lactic Acid (0.5-2.2) mmol/L Calcium 8.9 (8.6-10.3) mg/dL Total Bilirubin 2.0 H (0.3-1.0) mg/dL Direct Bilirubin 1.4 H (0.0-0.2) mg/dL Indirect Bilirubin 0.6 (0.0-1.2) mg/dL AST 219 H (13-39) Units/L ALT 147 H (7-52) Units/L Alkaline Phosphatase 138 H (34-104) Units/L Troponin I 0.07 H* (< 0.04) ng/mL B-Natriuretic Peptide 2477 H (Less than 100) pg/mL Serum Total Protein 6.5 (6.4-8.9) g/dL Albumin 4.0 (3.5-5.7) g/dL Globulin 2.5 (2.4-3.5) g/dL Albumin/Globulin Ratio 1.6 (1.1-2.2) Lipase 35 (11-82) Units/L 10/07/17 10/08/17 Range/Units 23:42 00:01 WBC (4.3-11.1) K/mcL RBC (4.19-5.50) M/mcL Hgb (12.9-16.9) g/dL Hct (37.5-50.1) % MCV (83.0-100.0) fL MCH (28.0-33.3) pg MCHC (31.6-35.5) g/dL RDW (11.5-14.5) % Plt Count (140-400) K/mcL MPV (9.4-12.4) fL Immature Gran % (0-4) % Seg Neutrophils % % Lymphocytes % % Monocytes % % Eosinophils % % Basophils % % Neutrophils # (1.6-8.9) K/mcL Lymphocytes # (0.6-4.6) K/mcL Monocytes # (0.0-1.3) K/mcL Eosinophils # (0.0-0.6) K/mcL Basophils # (0.0-0.2) K/mcL Toxic Granulation (Not Present) Platelet Estimate (Normal) VBG pH 7.45 H (7.32-7.42) pH Units VBG pCO2 34 L (41-51) mmHg VBG pO2 94 H (25-50) mmHg VBG HCO3 24 (21-27) mEq/L Sodium (136-145) mEq/L Potassium (3.5-5.1) mEq/L Chloride (98-107) mEq/L Carbon Dioxide (23-29) mEq/L BUN (8-23) mg/dL Creatinine (0.70-1.30) mg/dL Est GFR ( Amer) (> 60) Est GFR (Non-Af Amer) (> 60) BUN/Creatinine Ratio (6-26) Glucose (70-105) mg/dL Calculated Osmolality (280-300) Lactic Acid 2.9 H (0.5-2.2) mmol/L Calcium (8.6-10.3) mg/dL Total Bilirubin (0.3-1.0) mg/dL Direct Bilirubin (0.0-0.2) mg/dL Indirect Bilirubin (0.0-1.2) mg/dL AST (13-39) Units/L ALT (7-52) Units/L Alkaline Phosphatase (34-104) Units/L Troponin I (< 0.04) ng/mL B-Natriuretic Peptide (Less than 100) pg/mL Serum Total Protein (6.4-8.9) g/dL Albumin (3.5-5.7) g/dL Globulin (2.4-3.5) g/dL Albumin/Globulin Ratio (1.1-2.2) Lipase (11-82) Units/L - Radiology Data Radiology results reviewed: Yes I reviewed the patient's radiology results. Chest X-Ray 10/07/17 23:13 IMPRESSION: Mild cardiomegaly. Mild interstitial prominence without overt signs of congestive heart failure. Persistent left lower lobe mild atelectatic changes. D/ / Ajay Crawford MD / Ajay Crawford MD Interpreting Provider: Ajay Crawford MD Abdomen/Pelvis CT 10/07/17 23:20 IMPRESSION: 1. Cardiomegaly with diffuse pulmonary interlobular septal thickening and small layering right pleural effusion in keeping with mild acute congestive heart failure. 2. No acute abdominopelvic abnormality. 3. Mild splenomegaly. 4. Mild anasarca likely related to volume overload. 5. Mild sigmoid diverticulosis. 6. Moderate fat containing umbilical hernia. D/ / Omi Smart / Omi Smart Interpreting Provider: Omi Smart Chest CT 10/07/17 23:20 IMPRESSION: 1. Cardiomegaly with diffuse pulmonary interlobular septal thickening and small layering right pleural effusion in keeping with mild acute congestive heart failure. 2. No acute abdominopelvic abnormality. 3. Mild splenomegaly. 4. Mild anasarca likely related to volume overload. 5. Mild sigmoid diverticulosis. 6. Moderate fat containing umbilical hernia. D/ / Omi Smart / Omi Smart Interpreting Provider: Omi Smart Attestation Statement - Attestation Attestation: I examined this patient and my medical decision-making was reviewed with the Resident Physician. I agree with the documented findings, disposition and treatment plan as described except to the extent set forth below. Patient with findings of dyspnea, possible CHF exacerbation. We will diurese, hemoglobin shows mild anemia as well as pancytopenia.The patient does meet SIRS criteria,I would defer 30 ml / kg fluid bolus due to CHF. Patient will be admitted to hospital for evaluation of pancytopenia in the setting of anemia and CHF exacerbation.
--- NOTE | 2017-10-08 02:02 | Internal Med History&Physical ---
Date of Encounter: 10/08/17 Time of Encounter: 02:00 Internal Medicine - H&P: HPI Chief complaint: shortness of breath Admitted From: Emergency Dept Plans for Post Hospital Care: Home History of present illness: Mr. Hong is a 72 year old male with past medical history of diabetes, CAD (s/p C with 4 stents), ESRD on dialysis, HLD, HTN, and chronic fatigue syndrome who presented to [facility] on 02/06/2018 via ambulance with chief complaint of new onset shortness of breath. Per patient and his who was present at the bedside, patient started becoming short of breath at around 7 PM. At that time, he developed some nausea and an episode of vomiting. He also had one black diarrhea bowel movement at that time. Patient denied any chest pain, palpitations, or diaphoresis at the time. Patient's called EMS. On the way to the hospital, patient was noted to have a fever to 100.1. In the emergency department, patient was found to have new onset WBC of 1.7, platelets of 100, and toxic granulation. CT of the chest, abdomen and pelvis demonstrated cardiomegaly with diffuse pulmonary interlobular septal thickening and small layering right pleural effusion suggestive of mild acute congestive heart failure. Patient was given a one-time dose of IV Lasix 40 mg for presumed acute exacerbation of CHF. Patient was also tachycardic in the emergency department. Upon admission to the hospital, patient stated his shortness of breath had improved. He was complaining of a nonproductive cough. He states he has been feeling colder than usual, and felt very chilled during his onset of shortness of breath earlier in the day. Patient's said he had recently taken Pepto-Bismol which she thinks is the reason for his blackened stool. Patient receives dialysis Saturday and Saturday. He went to dialysis earlier today. He has been worked up by heme/onc in the past for his anemia with the workup largely coming back as benign. Patient does have past medical history of exposure to asbestos. He is currently resting comfortably. He denies fevers, chills, night sweats, chest pain, palpitations, abdominal pain, hematemesis, hematochezia, dysuria, or hematuria. He does still report some mild nausea and a mild cough. Past Med Surg Social Fam HX - Past Medical History Attestation: Yes The following information was validated with the patient. Source: patient, obtained from family Medical history: coronary artery disease, diabetes, dialysis, hyperlipidemia, hypertension, renal disease, other Psychiatric history: no psych history - Past Surgical History Surgical History: angioplasty/stent, appendectomy, other - Social History Smoking Status: Former smoker Smokeless Tobacco Status: No Alcohol use: none Drug use: none - Family History Mother Living Status: Hx Family Cardiac Disorders: Yes Internal Medicine - H&P: Meds Amlodipine Besylate 10 mg PO DAILY 10/07/17 [History] Aspirin [Lo-Dose Aspirin EC] 81 mg PO DAILY 10/07/17 [History] Calcium Acetate [Phos-LO] 2,001 mg PO TIDWM 10/07/17 [History] Lisinopril 2.5 mg PO DAILY 10/07/17 [History] Metoprolol Tartrate 50 mg PO DAILY 10/07/17 [History] Omeprazole [PriLOSEC] 40 mg PO DAILY 10/07/17 [History] Renal Vitamin [Renal Caps Softgel] 1 mg PO DAILY 10/07/17 [History] Simvastatin [Zocor] 20 mg PO HS 10/07/17 [History] 3 Allergy/AdvReac Type Severity Reaction Status Date / Time No Known Allergies Allergy Verified 03/12/17 07:42 All Systems PM: A 10-system review of systems was performed and is negative for pertinent findings except as documented above in the HPI. - Constitutional Constitutional: chills, fever(s), no anorexia, no lethargy, no night sweats, no weakness, no weight gain - Cardiovascular Cardiovascular ROS IM: dyspnea, dyspnea on exertion, edema, orthopnea, no chest pain, no claudication, no diaphoresis, no irregular heart rhythm, no lightheadedness, no palpitations - Respiratory Respiratory: cough, dyspnea, no chest congestion, no excessive phlegm production - Gastrointestinal Gastrointestinal: loose stools (dark in color), nausea, vomiting, no abdominal pain, no coffee ground emesis, no constipation, no cramping - Genitourinary Genitourinary ROS male: no difficulty urinating, no dysuria - Integumentary Integumentary IM: other (ecchymosis over right upper extremity. ), no unusual bruising - Endocrine Endocrine IM: cold intolerance - Hematologic/Lymphatic Hematologic/Lymphatic: easy bruising - Constitutional Vitals: Temp Pulse Resp BP Pulse Ox 99.0 F 95 18 159/76 94 10/07/17 23:09 10/08/17 00:55 10/08/17 01:55 10/08/17 01:55 10/08/17 00:55 General appearance: Present: cooperative, mild distress, A&O X 3, answers questions appropriately - Head Head exam: Present: atraumatic, normocephalic - Eye Eye exam: Present: PERRL, conjuntiva pink, sclera anicteric Pupils: Present: PERRL - Neck Neck exam general surgery: Present: supple, trachea midline. Absent: lymphadenopathy - Respiratory Respiratory exam: Present: decreased breath sounds (bilateral bases), rales ( bilaterally). Absent: accessory muscle use, rhonchi, wheezes - Cardiovascular Cardiovascular exam: Present: +S1, +S2, tachycardia (irregular). Absent: diastolic murmur, gallop, rubs, systolic murmur - GI/Abdominal GI/Abdominal exam: Present: normal bowel sounds, soft, no peritoneal signs. Absent: distended, tenderness - Extremities Exam Extremities exam: Present: pedal edema, warm, radial pulses palpable and symmetrical. Absent: calf tenderness, cyanotic Additional comments: right upper extremity fistula in place - Skin Skin exam: Present: dry, intact, warm (echymosis over right upper extremity) Internal Med - H&P Results - Labs CBC & Chem 7: 10/07/17 23:13 10/08/17 03:33 - Assessment and plan (1) Acute exacerbation of CHF (congestive heart failure) Current Visit: Yes Status: Acute Assessment and plan: A 72-year-old male with past medical history of CAD S/p 4 stents. Patient with SOB and pedal edema, which he states is chronic, somewhat improved after diuresis given in ED. - Echocardiogram in March 2016 demonstrates LVEF of 50% with left ventricular hypertrophy, left ventricular diastolic dysfunction, and dilated atria. -BMP 2400 -Daily weights, strict I's and O's. -IV diuresis. -cardiac monitoring Qualifiers: Heart failure type: unspecified Qualified Code(s): I50.9 - Heart failure, unspecified (2) Shortness of breath Current Visit: Yes Status: Acute Assessment and plan: 72-year-old male with new onset shortness of breath and tachycardia. -CT of the chest obtained in the emergency department without contrast. -Risks of pulmonary embolus outweigh risk of contrast exposure. Will get a CTA of the chest. (3) SIRS (systemic inflammatory response syndrome) Current Visit: Yes Status: Acute Assessment and plan: Patient with WBC of 1.7 and tachycardia. Lactic acid trending downwards, 2.9, then 2.3. -CT of the chest with a pleural effusion and findings consistent with exacerbation of CHF. However, patient is reporting a cough which could indicate a source of infection being the lungs. -We will provide broad-spectrum coverage as patient is on dialysis with Zosyn and vancomycin. Primary team to de-escalate as needed. -We will get a peripheral blood smear. -Blood cultures. -Due to patient's WBC and thrombocytopenia, we will look for underlying viral illnesses including a rapid influenza. (4) Elevated troponin Current Visit: No Status: Acute Assessment and plan: Likely secondary to ESRD. We will trend troponins for 2 more sets every 6 hours. (5) Melena Current Visit: Yes Status: Acute Assessment and plan: Patient with single loose bowel movement earlier in the day that he described as black. -Patient's states is secondary to Pepto-Bismol. -We will get a Hemoccult test as patient with history of angiodysplastic lesions on colonoscopy in 2017. (6) CAD (coronary artery disease) Current Visit: No Status: Chronic Assessment and plan: Continue home medications. -Aspirin, statin, NIEVES inhibitor, beta joie. Qualifiers: Coronary Disease-Associated Artery/Lesion type: [place] artery [place] vs. transplanted heart: [place] heart Associated angina: without angina Qualified Code(s): I25.10 - Atherosclerotic heart disease of [place] coronary artery without angina pectoris (7) ESRD (end stage renal disease) on dialysis Current Visit: Yes Status: Chronic Assessment and plan: Patient on chronic dialysis. (8) Anemia Current Visit: No Status: Chronic Assessment and plan: Chronic. Hemoglobin 11.0. Last hemoglobin in March 2017 was 9.4. -As patient's white blood cell count and platelets are low, and he has followed with heme/onc in the past, we will consult oncology during this hospitalization. -Primary team to call in the morning. Qualifiers: Anemia type: unspecified type Qualified Code(s): D64.9 - Anemia, unspecified (9) Hypertension Current Visit: No Status: Chronic Assessment and plan: Continue home medications. Qualifiers: Hypertension type: essential hypertension Qualified Code(s): I10 - Essential (primary) hypertension - Time Spent With Patient Total time spent is greater than 50% in coordination of care (as documented) at patient's floor/unit and/or counseling patient:
[2017-10-08] MEDS ORDERED: Naloxone 0.4 MG/ML INJ IVP PRN (02:47)
[2017-10-08] MEDS ORDERED: Piperacillin/Tazobactam 3.375 GM in 0.9 % Sodium Chloride Mini Bag 100 ML IVPB ONE (03:01)
[2017-10-08 03:10] LABS: Albumin/Globulin Ratio 1.6 (1.1-2.2); Bilirubin,Direct 1.4 mg/dL (0.0-0.2); Bilirubin,Indirect 0.6 mg/dL (0.0-1.2); Globulin 2.5 g/dL (2.4-3.5); Total Protein 6.5 g/dL (6.4-8.9)
[2017-10-08 03:53] LABS: Mean Corpuscular Hemoglobin 32.8 pg (28.0-33.3); Mean Platelet Volume 11.2 fL (9.4-12.4); Segmented Neutrophils % 95.1 %
[2017-10-08 03:55] LABS: Basophils % 0.2 %; Hematocrit 32.9 % (37.5-50.1); Hemoglobin 10.8 g/dL (12.9-16.9); Immature Granulocytes % 0.5 % (0-4); Immature Platelets 5.1 % (1.1-6.1); Lymphocytes # 0.1 K/mcL (0.6-4.6); Lymphocytes % 1.2 %; Mean Corpuscular HGB Conc 32.8 g/dL (31.6-35.5); Monocytes # 0.1 K/mcL (0.0-1.3); Neutrophils # 3.9 K/mcL (1.6-8.9); Red Blood Count 3.29 M/mcL (4.19-5.50); Red Cell Distribution Width 14.7 % (11.5-14.5)
[2017-10-08 04:09] LABS: Calcium 8.8 mg/dL (8.6-10.3); Magnesium 1.4 mg/dL (1.6-2.6); Phosphorous 2.4 mg/dL (2.7-4.5); Potassium 3.7 mEq/L (3.5-5.1)
[2017-10-08 04:16] LABS: Platelet Count 89 K/mcL (140-400)
[2017-10-08 04:17] LABS: INR 1.3; Prothrombin Time 14.6 Seconds (9.4-12.1)
[2017-10-08 04:29] LABS: Platelet Estimate Decreased (Normal); Toxic Granulation Present (Not Present)
[2017-10-08] MEDS ORDERED: Aminoglycoside Consult 1 EACH MC ONE (08:33)
[2017-10-08] MEDS: Renal Vitamin 1 MG CAPSULE PO SCH (09:53)
[2017-10-08] MEDS: Calcium Acetate 667 MG CAPSULE PO SCH ×3 (09:53→17:31)
[2017-10-08] MEDS: amLODIPine 5 MG TABLET PO SCH (09:54)
[2017-10-08] MEDS: Aspirin Enteric Coated 81 MG Tablet PO SCH (09:54)
--- NOTE | 2017-10-08 14:24 | Internal Med Progress Note ---
Date of Encounter: 10/08/17 Time of Encounter: 14:22 - Assessment and plan (1) Dyspnea on exertion Current Visit: Yes Status: Acute Assessment and plan: -Chest x-ray and chest CT both revealed pulmonary edema. -ESRD with HD, last dialysis this Saturday. -Patient produces minimum urine. -Nephrology consult, to schedule dialysis today. (2) ESRD (end stage renal disease) on dialysis Current Visit: Yes Status: Chronic Assessment and plan: - HD Saturday/Saturday/Saturday. - May need an extra dialysis today due to volume overload. (3) Elevated troponin Current Visit: No Status: Acute Assessment and plan: - Chronic troponin leak due to ESRD and CHF. - No chest pain, no EKG change. (4) Diabetes mellitus Current Visit: No Status: Chronic Assessment and plan: - EG well controlled with diet control. Qualifiers: Diabetes mellitus type: type 2 Diabetes mellitus care home insulin use: without superintendent [employer] use Diabetes mellitus complication status: without complication Qualified Code(s): E11.9 - Type 2 diabetes mellitus without complications (5) Hypertension Current Visit: No Status: Chronic Assessment and plan: -Well-controlled with current treatment. Qualifiers: Hypertension type: essential hypertension Qualified Code(s): I10 - Essential (primary) hypertension - Time Spent With Patient Total time spent is greater than 50% in coordination of care (as documented) at patient's floor/unit and/or counseling patient: Greater than 35 minutes - Subjective Interval history: c/o PND and orthopnea, denies fever, chills, or night sweats. No chest pain, or palpitation. - Constitutional Vitals: Temp Pulse Resp BP Pulse Ox 98 F 80 16 115/67 93 10/08/17 11:52 10/08/17 11:52 10/08/17 11:52 10/08/17 11:52 10/08/17 11:52 General appearance: Present: cooperative, mild distress, A&O X 3, answers questions appropriately Exam: PHYSICAL EXAMINATION: GENERAL APPEARANCE: The patient is alert, oriented and in no acute distress. HEENT: Head is normocephalic. The sinuses are nontender. Pupils are equal and reactive. The nares are patent. Oropharynx clear without lesions. NECK: Supple without lymphadenopathy. HEART: Regular rate and rhythm. LUNGS: No crackles or wheezes are heard. ABDOMEN: Soft, nontender, nondistended with good bowel sounds heard. Inguinal area is normal. EXTREMITIES: Without cyanosis, clubbing or edema. NEUROLOGICAL: Gross nonfocal. SKIN: Warm and dry without any rash. Internal Medicine: Result - Labs CBC & Chem 7: 10/08/17 03:33 04 03:33 - ABG Interpretation ABG results: PT/INR, D-dimer PT 14.6 Seconds (9.4-12.1) H 10/08/17 03:33 Consult Discharge Plan - Plan Referrals: Tahir Herrera Jr, MD [Primary Care Provider] -
[2017-10-08 19:14] LABS: Acinetobacter baumannii by PCR Not Detected (Not Detect); Candida albicans by PCR Not Detected (Not Detect); Candida glabrata by PCR Not Detected (Not Detect); Candida krusei by PCR Not Detected (Not Detect); Candida parapsilosis by PCR Not Detected (Not Detect); Candida tropicalis by PCR Not Detected (Not Detect); Enterococcus by PCR Not Detected (Not Detect); Escherichia coli by PCR ***DETECTED*** (Not Detect); Klebsiella oxytoca by PCR Not Detected (Not Detect); Klebsiella pneumoniae by PCR Not Detected (Not Detect); Pseudomonas aeruginosa by PCR Not Detected (Not Detect); Serratia marcescens by PCR Not Detected (Not Detect); Staphylococcus aureus by PCR Not Detected (Not Detect); Streptococcus agalactiae(B)PCR Not Detected (Not Detect); Streptococcus by PCR Not Detected (Not Detect); Streptococcus pneumoniae PCR Not Detected (Not Detect); Streptococcus pyogenes (A) PCR Not Detected (Not Detect); blaKPC Carbapenem-Resist Gene Not Detected (Not Detect); mecA Methicillin-Resist Gene Not Detected (Not Detect); vanA/B Vancomycin-Resist Genes Not Detected (Not Detect)
--- NOTE | 2017-10-08 19:48 | Event Note ---
Date of Encounter: 10/08/17 Time of Encounter: 19:40 Alerted by pts. nurse that the pts. microbiology report showed gram negative rods. Pts. vancomycin and Zosyn had been discontinued. Will begin levaquin 750 mg IVPB once today and follow w/500 mg IVPB Q48HR starting on October 10 d/t pts. current renal dysfunction per Pharmacy dosing and discussion w/Jamshid in Pharmacy. Will monitor pt. and f/u labs.
[2017-10-08] MEDS ORDERED: Levofloxacin 750 MG/150 ML 750 MG/150 ML BAG IVPB ONE ×2 (20:00→20:15)
[2017-10-09 05:29] LABS: Eosinophils % 0.1 %; Mean Corpuscular Volume 99.4 fL (83.0-100.0)
[2017-10-09 05:30] LABS: Basophils % 0.2 %; Hematocrit 31.7 % (37.5-50.1); Hemoglobin 10.3 g/dL (12.9-16.9); Immature Granulocytes % 4.4 % (0-4); Immature Platelets 10.8 % (1.1-6.1); Lymphocytes # 0.1 K/mcL (0.6-4.6); Lymphocytes % 1.2 %; Mean Corpuscular HGB Conc 32.5 g/dL (31.6-35.5); Mean Corpuscular Hemoglobin 32.3 pg (28.0-33.3); Monocytes # 0.4 K/mcL (0.0-1.3); Neutrophils # 7.5 K/mcL (1.6-8.9); Red Blood Count 3.19 M/mcL (4.19-5.50); Red Cell Distribution Width 14.7 % (11.5-14.5); Segmented Neutrophils % 89.1 %
[2017-10-09 05:43] LABS: Calcium 8.9 mg/dL (8.6-10.3); Potassium 5.5 mEq/L (3.5-5.1)
[2017-10-09 05:45] LABS: Platelet Count 75 K/mcL (140-400)
[2017-10-09 06:39] LABS: Platelet Estimate Decreased (Normal)
[2017-10-09 08:17] LABS: Hepatitis B Surface Antibody 4.93 mIU/mL; Hepatitis B Surface Antigen Nonreactive (Nonreactive)
[2017-10-09] MEDS ORDERED: 0.9 % Sodium Chloride 250 ML IVC PRN (08:46)
[2017-10-09] MEDS ORDERED: 0.9 % Sodium Chloride 1,000 ML PRIME SCH (09:00)
--- NOTE | 2017-10-09 11:51 | Internal Med Progress Note ---
Date of Encounter: 10/09/17 Time of Encounter: 11:49 - Assessment and plan (1) Sepsis Current Visit: Yes Status: Acute Assessment and plan: - Presented with fever, chills, tachypnea, labs revealed pancytopenia with WBC less than 2. - SIRS was suspected, and antibiotics with Zosyn and vancomycin was given upon admission. - Blood culture grows enterococcus, patient received 1 dose of Levaquin last night. - We will continue dosing Levaquin based on renal function. Qualifiers: Sepsis type: sepsis due to unspecified organism Qualified Code(s): A41.9 - Sepsis, unspecified organism (2) Dyspnea on exertion Current Visit: Yes Status: Acute Assessment and plan: -Chest x-ray and chest CT both revealed pulmonary edema, no PNA. -ESRD with HD, last dialysis this Saturday. -Patient produces minimum urine. -Nephrology consulted, to schedule dialysis today. (3) ESRD (end stage renal disease) on dialysis Current Visit: Yes Status: Chronic Assessment and plan: - HD Saturday/Saturday/Saturday. - Need dialysis today due to volume overload. (4) Elevated troponin Current Visit: No Status: Acute Assessment and plan: - Chronic troponin leak due to ESRD and CHF. - No chest pain, no EKG change. (5) Diabetes mellitus Current Visit: No Status: Chronic Assessment and plan: - EG well controlled with diet control. Qualifiers: Diabetes mellitus type: type 2 Diabetes mellitus group home insulin use: without group home use Diabetes mellitus complication status: without complication Qualified Code(s): E11.9 - Type 2 diabetes mellitus without complications (6) Hypertension Current Visit: No Status: Chronic Assessment and plan: -Well-controlled with current treatment. Qualifiers: Hypertension type: essential hypertension Qualified Code(s): I10 - Essential (primary) hypertension - Time Spent With Patient Total time spent is greater than 50% in coordination of care (as documented) at patient's floor/unit and/or counseling patient: Greater than 35 minutes - Subjective Interval history: c/o PND and orthopnea, denies fever, chills, or night sweats. No chest pain, or palpitation. - Constitutional Vitals: Temp Pulse Resp BP Pulse Ox 97.4 F L 75 18 125/78 95 10/09/17 11:12 10/09/17 11:12 10/09/17 11:12 10/09/17 11:12 10/09/17 11:12 General appearance: Present: cooperative, mild distress, A&O X 3, answers questions appropriately Exam: PHYSICAL EXAMINATION: GENERAL APPEARANCE: The patient is alert, oriented and in no acute distress. HEENT: Head is normocephalic. The sinuses are nontender. Pupils are equal and reactive. The nares are patent. Oropharynx clear without lesions. NECK: Supple without lymphadenopathy. HEART: Regular rate and rhythm. LUNGS: No crackles or wheezes are heard. ABDOMEN: Soft, nontender, nondistended with good bowel sounds heard. Inguinal area is normal. EXTREMITIES: Without cyanosis, clubbing or edema. NEUROLOGICAL: Gross nonfocal. SKIN: Warm and dry without any rash. Internal Medicine: Result - Labs CBC & Chem 7: 10/09/17 05:02 10/09/17 05:02 Labs: Short CBC 10/09/17 Range/Units 05:02 WBC 8.4 D (4.3-11.1) K/mcL Hgb 10.3 L (12.9-16.9) g/dL Hct 31.7 L (37.5-50.1) % Plt Count 75 L (140-400) K/mcL Neutrophils # 7.5 (1.6-8.9) K/mcL BMP 10/09/17 05:02 Sodium 134 L Potassium 5.5 H Chloride 99 Carbon Dioxide 23 BUN 48 H Creatinine 7.36 H Glucose 86 Calcium 8.9 - ABG Interpretation ABG results: PT/INR, D-dimer PT 14.6 Seconds (9.4-12.1) H 10/08/17 03:33 Consult Discharge Plan - Plan Referrals: Sharon Bhagat MIX TECHNICIAN [Advanced Practice Nurse] - 10/17/17 1:00 pm
[2017-10-09] MEDS: Calcium Acetate 667 MG CAPSULE PO SCH ×2 (12:36→17:32)
--- NOTE | 2017-10-09 12:47 | Nephrology Consult Note ---
Date of Encounter: 10/09/17 Time of Encounter: 12:46 Assessment and Plan (1) ESRD (end stage renal disease) on dialysis Current Visit: Yes Status: Chronic HD MWF. Renal vitamins. Renal dose medications. Renal diet. Additional dialysis and ultrafiltration as needed. He was seen on dialysis. (2) Acute exacerbation of CHF (congestive heart failure) Current Visit: Yes Status: Acute Qualifiers: Heart failure type: unspecified Qualified Code(s): I50.9 - Heart failure, unspecified (3) Hypertension Current Visit: No Status: Chronic Qualifiers: Hypertension type: essential hypertension Qualified Code(s): I10 - Essential (primary) hypertension History of Present Illness - Reason for Consult Consult date: 10/09/17 end stage renal disease - Chief Complaint ESRD - History of Present Illness Patient is seen. He is awaiting dialysis. He has no new complaint. Past Med Surg Social Fam HX - Past Medical History Medical history: coronary artery disease, diabetes, dialysis, hyperlipidemia, hypertension, renal disease, other Psychiatric history: no psych history - Past Surgical History Surgical History: angioplasty/stent, appendectomy, other - Social History Smoking Status: Former smoker Smokeless Tobacco Status: No Alcohol use: none Drug use: none - Family History Mother Living Status: Age at : 82 Hx Family Cardiac Disorders: Yes Hx Family Cancer: Yes (stomach) Medications and Allergies Amlodipine Besylate 10 mg PO DAILY 10/07/17 [History] Aspirin [Lo-Dose Aspirin EC] 81 mg PO DAILY 10/07/17 [History] Calcium Acetate [Phos-LO] 2,001 mg PO TIDWM 10/07/17 [History] Lisinopril 2.5 mg PO DAILY 10/07/17 [History] Metoprolol Tartrate 50 mg PO DAILY 10/07/17 [History] Omeprazole [PriLOSEC] 40 mg PO DAILY 10/07/17 [History] Simvastatin [Zocor] 20 mg PO HS 10/07/17 [History] Triphocaps 1 tab PO DAILY 10/08/17 [History] 3 Allergy/AdvReac Type Severity Reaction Status Date / Time No Known Allergies Allergy Verified 10/08/17 08:52 Review of Systems All Systems: reviewed and no additional remarkable complaints except as stated ( As documented in history of present illness.) Exam - Vital Signs Vital signs: Initial Vital Signs Temp Pulse Resp BP Pulse Ox 99.0 F 105 18 169/81 94 10/07/17 23:09 10/07/17 23:09 10/07/17 23:09 10/07/17 23:09 10/07/17 23:09 Vital Signs - Last 8 Hours Temp Pulse Resp BP Pulse Ox 10/09/17 11:12 97.4 F L 75 18 125/78 95 10/09/17 09:25 93 10/09/17 09:23 16 93 10/09/17 08:08 97.8 F 76 18 117/68 95 10/09/17 05:37 98.0 F Intake and Output 10/08/17 10/09/17 10/09/17 23:59 07:59 15:59 Intake Total 120 / 120 240 / 240 240 / 240 Output Total 100 / 100 100 / 100 Balance 20 / 20 140 / 140 240 / 240 Intake: Oral 120 / 120 240 / 240 240 / 240 Output: Urine 100 / 100 100 / 100 Other: Meal Dinner Breakfast Percent of Meal Consumed 5% 50% Stool Size Small Stool Consistency loose Stool Characteristics Mucoid Stool Color Green Weight 95 kg Blood Glucose* 76 75 97 Patient Weight 10/09/17 23:59 Weight 95 kg - General Appearance General appearance: well-developed, well-nourished EENT: ATNC Neck: supple Respiratory: clear Cardiology: edema, regular rate - Dialysis Access Dialysis Vascular Access: Arteriovenous Fistula (Right forearm) thrill: Yes bruit: Yes Gastrointestinal: no tenderness Integumentary: warm and dry Neurologic: alert and oriented x3 Musculoskeletal: no cyanosis Psychiatric: mood/affect appropriate Results - Lab Results 10/09/17 05:02 10/09/17 05:02 Most recent lab results Calcium 8.9 mg/dL (8.6-10.3) 10/09/17 05:02 Phosphorus 2.4 mg/dL (2.7-4.5) L 10/08/17 03:33 Magnesium 1.4 mg/dL (1.6-2.6) L 10/08/17 03:33 Consult Discharge Plan - Plan Referrals: Sharon Bhagat LINING MAKER [Advanced Practice Nurse] - 10/17/17 1:00 pm
[2017-10-09] MEDS ORDERED: 0.9 % Sodium Chloride 1,000 ML ONE (16:21)
[2017-10-09] MEDS: amLODIPine 5 MG TABLET PO SCH (17:32)
[2017-10-09] MEDS: Aspirin Enteric Coated 81 MG Tablet PO SCH (17:32)
[2017-10-09] MEDS: Renal Vitamin 1 MG CAPSULE PO SCH (17:33)
[2017-10-09] MEDS: *HR* Heparin 5,000 UNIT/ML VIAL SQ SCH (17:34)
[2017-10-09] MEDS ORDERED: Levofloxacin 500 MG/100 ML 500 MG/100 ML BAG IVPB SCH (21:00)
[2017-10-10] MEDS: *HR* Heparin 5,000 UNIT/ML VIAL SQ SCH ×2 (05:48→16:23)
[2017-10-10 06:04] LABS: Hematocrit 31.2 % (37.5-50.1); Hemoglobin 10.3 g/dL (12.9-16.9); Mean Corpuscular Hemoglobin 32.8 pg (28.0-33.3); Mean Corpuscular Volume 99.4 fL (83.0-100.0); Mean Platelet Volume 11.9 fL (9.4-12.4); Red Blood Count 3.14 M/mcL (4.19-5.50); Red Cell Distribution Width 14.5 % (11.5-14.5)
[2017-10-10 06:06] LABS: Platelet Count 72 K/mcL (140-400)
[2017-10-10 06:20] LABS: Calcium 8.7 mg/dL (8.6-10.3); Potassium 4.2 mEq/L (3.5-5.1)
[2017-10-10] MEDS: amLODIPine 5 MG TABLET PO SCH (10:18)
[2017-10-10] MEDS: Renal Vitamin 1 MG CAPSULE PO SCH (10:18)
[2017-10-10] MEDS: Aspirin Enteric Coated 81 MG Tablet PO SCH (10:19)
[2017-10-10] MEDS: Calcium Acetate 667 MG CAPSULE PO SCH ×4 (10:28→16:23)
[2017-10-10] MEDS ORDERED: cefTRIAXone 2,000 MG in Water for inj. (sterile) 20 ML 20 ML IVP SCH (12:00)
--- NOTE | 2017-10-10 12:49 | Nephrology Progress Note ---
Date of Encounter: 10/10/17 Time of Encounter: 12:47 - Assessment and Plan (1) ESRD (end stage renal disease) on dialysis Current Visit: Yes Status: Chronic Plan for HD tomorrow Continue renal diet Avoid nephrotoxins if possible (2) Dyspnea on exertion Current Visit: Yes Status: Acute per primary team (3) Sepsis Current Visit: Yes Status: Acute per primary team Qualifiers: Sepsis type: sepsis due to unspecified organism Qualified Code(s): A41.9 - Sepsis, unspecified organism Subjective Principal diagnosis: ESRD on dialysis, sepsis Interval history: Patient seen and examined. States he is not feeling well. Objective - Vital Signs Vital signs: Vital Signs Temp Pulse Resp BP Pulse Ox 10/10/17 11:04 92 10/10/17 10:43 92 10/10/17 10:20 93 10/10/17 07:30 97.9 F 70 17 130/67 93 10/10/17 04:23 98.3 F 71 15 130/70 94 10/09/17 21:00 98.1 F 83 17 129/69 93 10/09/17 17:30 87 16 125/63 96 10/09/17 17:25 98.0 F 18 157/72 10/09/17 17:10 135/74 10/09/17 16:55 127/70 10/09/17 16:40 139/69 10/09/17 16:25 128/72 10/09/17 16:10 136/72 10/09/17 15:55 123/66 10/09/17 15:40 122/68 10/09/17 15:25 129/69 10/09/17 15:10 125/71 10/09/17 14:55 120/68 10/09/17 14:40 128/68 10/09/17 14:25 129/68 10/09/17 14:10 129/70 10/09/17 13:55 129/70 10/09/17 13:40 97.7 F 18 129/70 Intake and Output 10/09/17 10/10/17 10/10/17 23:59 07:59 15:59 Intake Total 280 / 280 400 / 400 380 / 380 Output Total 3600 / 3600 0 / 0 0 / 0 Balance -3320 / -3320 400 / 400 380 / 380 Intake: IV Fluids 100 / 100 20 / 20 Rocephin 2,000 MG In Water for 20 / 20 inj. (sterile) 20 ML @ 600 mls/ hr IVP Q24H [facility] Rx#:[id number] Levaquin Premix 500mg/100mL 500 100 / 100 mg In 100 ml @ 66.667 mls/hr IVPB Q48H [facility] Rx#:[id number] Oral 180 / 180 400 / 400 360 / 360 Output: Urine 0 / 0 0 / 0 Total Dialysis (HD) Output 3600 / 3600 Other: Meal Dinner Breakfast Percent of Meal Consumed 25% 90% Weight 93.6 kg Blood Glucose* 89 76 99 Hemodialysis Net Fluid Removed 3000 (mL) Patient Weight 10/10/17 23:59 Weight 93.6 kg - General Appearance General appearance: Present: well-developed, well-nourished EENT: Present: ATNC, mucous membranes moist, hearing intact, vision intact Neck: Present: supple Respiratory: Present: clear Cardiology: Present: no edema, normal S1, normal S2 Dialysis Vascular Access: Arteriovenous Fistula Gastrointestinal: Present: no tenderness, no guarding Integumentary: Present: warm and dry Neurologic: Present: alert and oriented x3 Psychiatric: Present: mood/affect appropriate, cooperative - Lab 10/10/17 05:23 10/10/17 05:23 Most recent lab results Calcium 8.7 mg/dL (8.6-10.3) 10/10/17 05:23 Phosphorus 2.4 mg/dL (2.7-4.5) L 10/08/17 03:33 Magnesium 1.4 mg/dL (1.6-2.6) L 10/08/17 03:33 Consult Discharge Plan - Plan Referrals: Sharon Bhagat, [employer] [Advanced Practice Nurse] - 10/17/17 1:00 pm
--- NOTE | 2017-10-10 16:09 | Internal Med Progress Note ---
Date of Encounter: 10/10/17 Time of Encounter: 16:05 - Assessment and plan (1) Sepsis Current Visit: Yes Status: Acute Assessment and plan: - Presented with fever, chills, tachypnea, labs revealed pancytopenia with WBC less than 2 on admission. - SIRS was suspected, and antibiotics with Zosyn and vancomycin was given upon admission. - Blood culture grows enterococcus, Antibiotics subsequently was D escalated to Levaquin. Sensitivity results this morning showed resistant to Levaquin, antibiotics changed to Rocephin by pharmacist, appreciated their help. - Patient received 1 dose of Rocephin this morning. Qualifiers: Sepsis type: sepsis due to unspecified organism Qualified Code(s): A41.9 - Sepsis, unspecified organism (2) Dyspnea on exertion Current Visit: Yes Status: Acute Assessment and plan: -Chest x-ray and chest CT both revealed pulmonary edema, no PNA. Received HD yesterday, dyspnea improved. He will have another dialysis tomorrow. (3) ESRD (end stage renal disease) on dialysis Current Visit: Yes Status: Chronic Assessment and plan: - HD Saturday/Saturday/Saturday. Have HD yesterday, HD scheduled tomorrow. (4) Elevated troponin Current Visit: No Status: Acute (5) Diabetes mellitus Current Visit: No Status: Chronic Assessment and plan: - EG well controlled with diet control. 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 Qualifiers: Hypertension type: essential hypertension Qualified Code(s): I10 - Essential (primary) hypertension - Time Spent With Patient Total time spent is greater than 50% in coordination of care (as documented) at patient's floor/unit and/or counseling patient: Greater than 35 minutes - Subjective Interval history: Patient reported improved breathing. He has no fever, chills, or night sweats. - Constitutional Vitals: Temp Pulse Resp BP Pulse Ox 97.7 F 69 17 125/68 92 10/10/17 15:47 10/10/17 15:47 10/10/17 15:47 10/10/17 15:47 10/10/17 15:47 General appearance: Present: cooperative, mild distress, A&O X 3, answers questions appropriately Exam: PHYSICAL EXAMINATION: GENERAL APPEARANCE: The patient is alert, oriented and in no acute distress. HEENT: Head is normocephalic. The sinuses are nontender. Pupils are equal and reactive. The nares are patent. Oropharynx clear without lesions. NECK: Supple without lymphadenopathy. HEART: Regular rate and rhythm. LUNGS: No crackles or wheezes are heard. ABDOMEN: Soft, nontender, nondistended with good bowel sounds heard. Inguinal area is normal. EXTREMITIES: Without cyanosis, clubbing or edema. NEUROLOGICAL: Gross nonfocal. SKIN: Warm and dry without any rash. Internal Medicine: Result - Labs CBC & Chem 7: 10/10/17 05:23 10/10/17 05:23 Labs: Short CBC 10/10/17 Range/Units 05:23 WBC 5.4 (4.3-11.1) K/mcL Hgb 10.3 L (12.9-16.9) g/dL Hct 31.2 L (37.5-50.1) % Plt Count 72 L (140-400) K/mcL BMP 10/10/17 05:23 Sodium 136 Potassium 4.2 Chloride 95 L Carbon Dioxide 31 H BUN 37 H Creatinine 5.75 H Glucose 73 Calcium 8.7 - ABG Interpretation ABG results: PT/INR, D-dimer PT 14.6 Seconds (9.4-12.1) H 10/08/17 03:33 Consult Discharge Plan - Plan Referrals: Sharon Bhagat CNP [Advanced Practice Nurse] - 10/17/17 1:00 pm
[2017-10-10] MEDS: Acetaminophen 325 MG TABLET PO PRN (16:29)
--- NOTE | 2017-10-10 16:53 | Electrocardiograph Report ---
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
[2017-10-10] MEDS ORDERED: Levofloxacin 500 MG/100 ML 500 MG/100 ML BAG IVPB SCH (20:00)
[2017-10-11 05:21] LABS: Hemoglobin 10.2 g/dL (12.9-16.9); Mean Corpuscular Volume 97.2 fL (83.0-100.0)
[2017-10-11 05:23] LABS: Hematocrit 30.8 % (37.5-50.1); Immature Platelets 7.4 % (1.1-6.1); Mean Corpuscular HGB Conc 33.1 g/dL (31.6-35.5); Mean Corpuscular Hemoglobin 32.2 pg (28.0-33.3); Mean Platelet Volume 12.6 fL (9.4-12.4); Red Blood Count 3.17 M/mcL (4.19-5.50); Red Cell Distribution Width 14.2 % (11.5-14.5)
[2017-10-11 05:37] LABS: Calcium 8.7 mg/dL (8.6-10.3); Potassium 4.2 mEq/L (3.5-5.1)
[2017-10-11] MEDS: *HR* Heparin 5,000 UNIT/ML VIAL SQ SCH ×2 (06:06→17:47)
[2017-10-11] MEDS ORDERED: 0.9 % Sodium Chloride 250 ML IVC PRN (07:52)
[2017-10-11] MEDS ORDERED: 0.9 % Sodium Chloride 1,000 ML PRIME SCH (08:00)
[2017-10-11] MEDS ORDERED: 0.9 % Sodium Chloride 1,000 ML ONE (08:10)
[2017-10-11] MEDS: Calcium Acetate 667 MG CAPSULE PO SCH ×3 (08:33→17:47)
[2017-10-11] MEDS: Renal Vitamin 1 MG CAPSULE PO SCH (08:33)
[2017-10-11] MEDS: Aspirin Enteric Coated 81 MG Tablet PO SCH (08:33)
[2017-10-11] MEDS: Acetaminophen 325 MG TABLET PO PRN (08:37)
--- NOTE | 2017-10-11 12:47 | Internal Med Progress Note ---
Date of Encounter: 10/11/17 Time of Encounter: 12:44 - Assessment and plan (1) Sepsis Current Visit: Yes Status: Acute Assessment and plan: - Presented with fever, chills, tachypnea, labs revealed pancytopenia with WBC less than 2 on admission. - SIRS was suspected, and antibiotics with Zosyn and vancomycin was given upon admission. - Blood culture grows E.coli., Antibiotics subsequently was de-escalated to Levaquin. Sensitivity showed resistant to Levaquin, ABX changed to rocephin . change to oral augmentin today, plan to dc tomorrow if continue to do well. Plan: Patient admitted for sepsis and dyspnea. Chest x-ray and CT chest no PE. Fluid overloaded on physical exam. Received 2 times dialysis since admission. Received antibiotics for sepsis. Blood culture grew Escherichia coli, and about his de-escalated to oral Augmentin, plan to discharge tomorrow if continuing doing well. Qualifiers: Sepsis type: Escherichia coli, in Qualified Code(s): P36.4 - Sepsis of due to Escherichia coli (2) Dyspnea on exertion Current Visit: Yes Status: Acute Assessment and plan: -Chest x-ray and chest CT both revealed pulmonary edema, no PNA. Received HD yesterday, dyspnea improved. Had HD today. (3) ESRD (end stage renal disease) on dialysis Current Visit: Yes Status: Chronic Assessment and plan: - HD Saturday/Saturday/Saturday. HD today. (4) Elevated troponin Current Visit: No Status: Acute Assessment and plan: - Chronic troponin leak due to ESRD and CHF. - No chest pain, no EKG change. (5) Diabetes mellitus Current Visit: No Status: Chronic Assessment and plan: - EG well controlled with diet control. 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 Qualifiers: Hypertension type: essential hypertension Qualified Code(s): I10 - Essential (primary) hypertension - Time Spent With Patient Total time spent is greater than 50% in coordination of care (as documented) at patient's floor/unit and/or counseling patient: Greater than 35 minutes - Subjective Interval history: Patient reported improved breathing. He has no fever, chills, or night sweats. - Constitutional Vitals: Temp Pulse Resp BP Pulse Ox 97.4 F L 69 18 146/75 94 10/11/17 09:20 10/11/17 07:09 10/11/17 09:20 10/11/17 12:20 10/11/17 08:47 General appearance: Present: cooperative, mild distress, A&O X 3, answers questions appropriately Exam: PHYSICAL EXAMINATION: GENERAL APPEARANCE: The patient is alert, oriented and in no acute distress. HEENT: Head is normocephalic. The sinuses are nontender. Pupils are equal and reactive. The nares are patent. Oropharynx clear without lesions. NECK: Supple without lymphadenopathy. HEART: Regular rate and rhythm. LUNGS: No crackles or wheezes are heard. ABDOMEN: Soft, nontender, nondistended with good bowel sounds heard. Inguinal area is normal. EXTREMITIES: Without cyanosis, clubbing or edema. NEUROLOGICAL: Gross nonfocal. SKIN: Warm and dry without any rash. Internal Medicine: Result - Labs CBC & Chem 7: 10/11/17 04:56 10/11/17 04:56 Labs: Short CBC 10/11/17 Range/Units 04:56 WBC 4.3 (4.3-11.1) K/mcL Hgb 10.2 L (12.9-16.9) g/dL Hct 30.8 L (37.5-50.1) % Plt Count 68 L (140-400) K/mcL BMP 10/11/17 04:56 Sodium 134 L Potassium 4.2 Chloride 95 L Carbon Dioxide 28 BUN 51 H Creatinine 7.15 H Glucose 101 Calcium 8.7 - ABG Interpretation ABG results: PT/INR, D-dimer PT 14.6 Seconds (9.4-12.1) H 10/08/17 03:33 Consult Discharge Plan - Plan Referrals: Sharon Bhagat CNP [Advanced Practice Nurse] - 10/17/17 1:00 pm
[2017-10-11] MEDS: amLODIPine 5 MG TABLET PO SCH (14:07)
--- NOTE | 2017-10-11 16:24 | Nephrology Progress Note ---
Date of Encounter: 10/12/17 Time of Encounter: 15:00 - Assessment and Plan (1) ESRD (end stage renal disease) on dialysis Current Visit: Yes Status: Chronic next HD planned for saturday outpatient (2) Sepsis Current Visit: Yes Status: Resolved Abx per primary team, will need po regimen or iv that can be taken in HD Will repeat blood culture after abx in outpatient Qualifiers: Sepsis type: Escherichia coli Qualified Code(s): A41.51 - Sepsis due to Escherichia coli [E. coli] Subjective Principal diagnosis: ESRD on dialysis, sepsis Interval history: Pt ashia and examined feeling very tired, at bedside Objective - Vital Signs Vital signs: Vital Signs Temp Pulse Resp BP Pulse Ox 10/11/17 13:15 97.2 F L 18 160/77 10/11/17 12:50 150/77 10/11/17 12:35 154/79 10/11/17 12:20 146/75 10/11/17 12:05 154/79 10/11/17 11:50 156/79 10/11/17 11:35 156/82 10/11/17 11:20 151/78 10/11/17 11:05 136/78 10/11/17 10:50 152/70 10/11/17 10:35 149/78 10/11/17 10:20 144/82 10/11/17 10:05 138/75 10/11/17 09:50 153/74 10/11/17 09:35 136/76 10/11/17 09:20 97.4 F L 18 138/75 10/11/17 08:47 94 10/11/17 07:09 98.9 F 69 16 139/73 94 10/11/17 07:05 97.8 F 98 16 130/60 91 10/11/17 03:53 98.6 F 70 16 136/69 94 10/10/17 21:00 96 10/10/17 19:20 99.3 F 71 19 116/74 96 Intake and Output 10/11/17 10/11/17 10/11/17 07:59 15:59 23:59 Intake Total 200 / 200 600 / 600 Output Total 3600 / 3600 Balance 200 / 200 -3000 / -3000 Intake: Oral 200 / 200 0 / 0 Intake, Rinseback and Flushes 600 / 600 Output: Urine 0 / 0 Total Dialysis (HD) Output 3600 / 3600 Other: Stool Size Copious Stool Consistency soft Stool Color Brown # Voids 0 # Bowel Movements 1 Weight 94.1 kg Blood Glucose* 99 Hemodialysis Net Fluid Removed 3000 (mL) Patient Weight 10/11/17 23:59 Weight 94.1 kg - General Appearance General appearance: Present: chronically ill, frail EENT: Present: ATNC, mucous membranes moist Neck: Present: no JVD, supple Respiratory: Present: clear Cardiology: Present: no edema, normal S1, normal S2 Gastrointestinal: Present: no tenderness, no guarding Integumentary: Present: warm and dry Neurologic: Present: no focal deficit Musculoskeletal: Present: no deformities Psychiatric: Present: mood/affect appropriate, cooperative - Lab 10/12/17 04:33 10/12/17 04:33 Most recent lab results Calcium 8.7 mg/dL (8.6-10.3) 10/11/17 04:56 Phosphorus 2.4 mg/dL (2.7-4.5) L 10/08/17 03:33 Magnesium 1.4 mg/dL (1.6-2.6) L 10/08/17 03:33 Consult Discharge Plan - Plan Instructions: Amoxicillin/Clavulanate Potassium (By mouth), Heart Failure (DC) , Diabetes Mellitus Type 2 in Adults (DC), Sepsis (DC) Referrals: Sharon Bhagat CNP [Advanced Practice Nurse] - 10/17/17 1:00 pm Prescriptions: Amoxicillin/Clavulanate [Augmentin] 250 mg PO BIDWM #23 tablet
[2017-10-11] MEDS: Amoxicillin/Clavulanate 250 MG TABLET PO SCH (17:47)
[2017-10-11 20:27] LABS: Bilirubin,Urine Small (Negative); Blood,Urine Small (Negative); Clarity,Urine Cloudy (Clear); Color,Urine Dark Yellow (Yellow); Glucose,Urine (UA) 100 mg/dL (Normal); Ketones,Urine Trace mg/dL (Negative); Leukocyte Esterase,Urine Moderate (Negative); Nitrite,Urine Negative (Negative); Protein,Urine >=300 mg/dL (Neg-Trace); Specific Gravity,Urine 1.018 (1.010-1.025); Urobilinogen,Urine Normal (Normal)
[2017-10-11 20:29] LABS: Bacteria,Urine None Seen per hpf (None-Few); Hyaline Casts,Urine Few per lpf (None-Few); RBC,Urine 15-30 per hpf (0-3); Squamous Epithelial Cell,Urine Many per lpf (None-Few); WBC,Urine 50-100 per hpf (0-3)
[2017-10-11 21:23] LABS: Transitional Epi Cells,Urine Few per hpf (None-Few)
[2017-10-12 04:59] LABS: Mean Platelet Volume 12.5 fL (9.4-12.4)
[2017-10-12 05:01] LABS: Hematocrit 31.9 % (37.5-50.1); Hemoglobin 10.4 g/dL (12.9-16.9); Immature Platelets 8.6 % (1.1-6.1); Mean Corpuscular HGB Conc 32.6 g/dL (31.6-35.5); Mean Corpuscular Hemoglobin 31.9 pg (28.0-33.3); Mean Corpuscular Volume 97.9 fL (83.0-100.0); Red Blood Count 3.26 M/mcL (4.19-5.50); Red Cell Distribution Width 14.1 % (11.5-14.5)
[2017-10-12] MEDS: *HR* Heparin 5,000 UNIT/ML VIAL SQ SCH (06:17)
[2017-10-12 06:48] VITALS: BP 141/82
[2017-10-12] MEDS: Calcium Acetate 667 MG CAPSULE PO SCH ×2 (08:04→12:11)
[2017-10-12] MEDS: Renal Vitamin 1 MG CAPSULE PO SCH (08:05)
[2017-10-12] MEDS: Amoxicillin/Clavulanate 250 MG TABLET PO SCH (08:05)
[2017-10-12] MEDS: Aspirin Enteric Coated 81 MG Tablet PO SCH (08:05)
[2017-10-12] MEDS: amLODIPine 5 MG TABLET PO SCH (08:05)
--- NOTE | 2017-10-12 12:56 | Discharge Summary ---
- NOTES TO OUTPATIENT PROVIDER Notes to Outpatient Provider: Pt admitted with E coli bacteremia. Repeat blood cx negative at 24 hours. Going home on PO Augmentin. Orders not resulted at time of discharge: Pending orders 10/11/17 10:18 Culture,Blood,Additional [BC] Routine 10/13/17 04:00 Chem 7 [Basic Metabolic Panel] AM 0400 Complete Blood Count w/o Diff [HEME] AM 04010/14/17 04:00 Chem 7 [Basic Metabolic Panel] AM 0400 Complete Blood Count w/o Diff [HEME] AM 04010/15/17 04:00 Chem 7 [Basic Metabolic Panel] AM 0400 Complete Blood Count w/o Diff [HEME] AM 04010/16/17 04:00 Chem 7 [Basic Metabolic Panel] AM 0400 Complete Blood Count w/o Diff [HEME] AM 04010/17/17 04:00 Chem 7 [Basic Metabolic Panel] AM 0400 Complete Blood Count w/o Diff [HEME] AM 0400 Date of Encounter: 10/12/17 Time of Encounter: 12:54 - Discharge Diagnosis (1) Sepsis Priority: Primary Status: Resolved Qualifiers: Sepsis type: Escherichia coli Qualified Code(s): A41.51 - Sepsis due to Escherichia coli [E. coli] (2) Acute exacerbation of CHF (congestive heart failure) Priority: Secondary Status: Resolved Qualifiers: Heart failure type: diastolic Qualified Code(s): I50.33 - Acute on chronic diastolic (congestive) heart failure (3) ESRD (end stage renal disease) on dialysis Priority: Secondary Status: Chronic (4) Elevated troponin Priority: Secondary Status: Resolved (5) Hypertension Priority: Secondary Status: Chronic Qualifiers: Hypertension type: essential hypertension Qualified Code(s): I10 - Essential (primary) hypertension (6) Diabetes mellitus Priority: Secondary Status: Chronic Qualifiers: Diabetes mellitus type: type 2 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 Diabetes mellitus complication status: with kidney complications Diabetes mellitus complication detail: with chronic kidney disease Chronic kidney disease stage: on chronic dialysis Qualified Code(s) : E11.22 - Type 2 diabetes mellitus with diabetic chronic kidney disease; N18.6 - End stage renal disease; N18.6 - End stage renal disease; N18.6 - End stage renal disease; N18.6 - End stage renal disease; Z99.2 - Dependence on renal dialysis; Z99.2 - Dependence on renal dialysis; Z99.2 - Dependence on renal dialysis; Z99.2 - Dependence on renal dialysis (7) CAD (coronary artery disease) Priority: Secondary Status: Chronic Qualifiers: Coronary Disease-Associated Artery/Lesion type: [place] artery [place] vs. transplanted heart: [place] heart Associated angina: without angina Qualified Code(s): I25.10 - Atherosclerotic heart disease of [place] coronary artery without angina pectoris (8) Anemia Priority: Secondary Status: Chronic Qualifiers: Anemia type: due to chronic kidney disease Chronic kidney disease stage: on chronic dialysis Qualified Code(s): N18.6 - End stage renal disease; D63.1 - Anemia in chronic kidney disease; D63.1 - Anemia in chronic kidney disease; Z99.2 - Dependence on renal dialysis; Z99.2 - Dependence on renal dialysis; Z99.2 - Dependence on renal dialysis; Z99.2 - Dependence on renal dialysis Hospital course: Mr. Hong is a 72 year old male with ESRD on HD presented to the ED with worsening dyspnea. He was felt to have exac CHF and admitted for further treatment. Mr Hong was admitted to [facility]. He was also noted to have a low grade fever and pancytopenia. Blood cx ordered and abx started. His blood cx grew E coli which was resistent to Levaquin. Abx were changed to Rocephin and then to PO Augmentin. He was seen by nephrology and dialysis continued. His CBC improved with treatment of his E coli sepsis. He was tolerating the medications and remained afebrile. Today he feels well. He is tolerating PO Augmentin. He is afebrile. His repeat blood cx are negative at 24 hours. He feels baseline and is ready for discharge home. He will complete 2 week course of abx (through 10/23). Discharge discussed with: patient, family - Time Spent with Patient Total time spent providing and/or coordinating discharge services: 41min - Discharge Medications Prescriptions: Amoxicillin/Clavulanate [Augmentin] 250 mg PO BIDWM #23 tablet Home Medications: Amlodipine Besylate 10 mg PO DAILY 10/07/17 [History] Aspirin [Lo-Dose Aspirin EC] 81 mg PO DAILY 10/07/17 [History] Calcium Acetate [Phos-LO] 2,001 mg PO TIDWM 10/07/17 [History] Lisinopril 2.5 mg PO DAILY 10/07/17 [History] Metoprolol Tartrate 50 mg PO DAILY 10/07/17 [History] Omeprazole [PriLOSEC] 40 mg PO DAILY 10/07/17 [History] Simvastatin [Zocor] 20 mg PO HS 10/07/17 [History] Triphocaps 1 tab PO DAILY 10/08/17 [History] Amoxicillin/Clavulanate [Augmentin] 250 mg PO BIDWM #23 tablet 10/12/17 [Rx] Allergies/Adverse Reactions: 3 Allergy/AdvReac Type Severity Reaction Status Date / Time No Known Allergies Allergy Verified 10/08/17 08:52 Date of admission: 10/08/17 11:45 Primary care physician: Tahir Herrera Jr, MD Consults: 10/08/17 15:56 Consult to Nephrology [CONS] Routine Consulting Provider: Kidney Vandana/LEMUEL/RYAN/WILL Reason for Consult: patient a M/W/F diaylsis patient at [facility]. Admitted for SOB R/T fluid overload Time Notified: 15:57 Call Completed: Yes 10/09/17 09:00 Consult to Dialysis [CONS] ONCE 10/11/17 08:00 Consult to Dialysis [CONS] ONCE Discharging clinician: Mio Nath Anticipated date of discharge: 10/12/17 - Constitutional Vitals: Temp Pulse Resp BP Pulse Ox 98.9 F 69 16 141/82 92 10/12/17 06:47 10/12/17 06:47 10/12/17 08:11 10/12/17 06:47 10/12/17 08:11 General appearance: Present: cooperative, A&O X 3, answers questions appropriately - Head Head exam: Present: normocephalic - Eye Eye exam: Present: conjuntiva pink - ENT ENT exam: Present: mucous membranes moist - Respiratory Respiratory exam: Present: CTAB. Absent: rales, rhonchi, wheezes - Cardiovascular Cardiovascular exam: Present: RRR. Absent: tachycardia - GI/Abdominal GI/Abdominal exam: Present: soft. Absent: tenderness - Extremities Exam Extremities exam: Present: warm. Absent: tenderness - Neurological Exam Neurological exam: Present: alert, oriented X3 - Skin Skin exam: Present: dry, warm - Patient Status Disposition: Home, Self-Care Condition: Good Functional capacity at discharge: independent ambulation Overall status at discharge: patient is progressing back to baseline - Discharge Instructions Follow Up With: Sharon Bhagat CNP [Advanced Practice Nurse] - 10/17/17 1:00 pm - Diet and Activity Activity: resume usual activities as tolerated Diet: advance to your usual diet
--- NOTE | 2017-10-12 14:43 | Nephrology Progress Note ---
Date of Encounter: 10/12/17 Time of Encounter: 13:00 - Assessment and Plan (1) ESRD (end stage renal disease) on dialysis Current Visit: Yes Status: Chronic next HD planned for saturday outpatient (2) Sepsis Current Visit: Yes Status: Resolved Abx per primary team, now on augmentin Will repeat blood culture after abx in outpatient Qualifiers: Sepsis type: Escherichia coli Qualified Code(s): A41.51 - Sepsis due to Escherichia coli [E. coli] Subjective Principal diagnosis: ESRD on dialysis, sepsis Interval history: Pt seen and examined with at bedside and feels much better today and is eager to go home Objective - Vital Signs Vital signs: Vital Signs Temp Pulse Resp BP Pulse Ox 10/12/17 08:11 16 92 10/12/17 06:47 98.9 F 69 15 141/82 94 10/12/17 03:24 98.4 F 73 16 143/81 94 10/11/17 23:20 98.2 F 69 17 142/81 94 10/11/17 19:54 98.3 F 71 17 125/68 91 10/11/17 17:09 97.6 F 72 16 136/71 Intake and Output 10/11/17 10/12/17 10/12/17 23:59 07:59 15:59 Intake Total 575 / 575 450 / 450 Output Total 0 / 0 0 / 0 Balance 575 / 575 450 / 450 Intake: Oral 575 / 575 450 / 450 Output: Urine 0 / 0 0 / 0 Other: # Voids 1 Weight 91.1 kg Blood Glucose* 99 91 135 Patient Weight 10/12/17 23:59 Weight 91.1 kg - General Appearance General appearance: Present: frail (NAD) EENT: Present: ATNC, mucous membranes moist Neck: Present: no JVD, supple Respiratory: Present: clear Cardiology: Present: no edema, normal S1, normal S2 Dialysis Vascular Access: Arteriovenous Fistula thrill: Yes bruit: Yes Gastrointestinal: Present: no tenderness, no guarding Integumentary: Present: warm and dry Neurologic: Present: no focal deficit Musculoskeletal: Present: no deformities Psychiatric: Present: mood/affect appropriate, cooperative - Lab 10/12/17 04:33 10/12/17 04:33 Most recent lab results Calcium 9.0 mg/dL (8.6-10.3) 10/12/17 04:33 Phosphorus 2.4 mg/dL (2.7-4.5) L 10/08/17 03:33 Magnesium 1.4 mg/dL (1.6-2.6) L 10/08/17 03:33 Consult Discharge Plan - Plan Instructions: Amoxicillin/Clavulanate Potassium (By mouth), Heart Failure (DC) , Diabetes Mellitus Type 2 in Adults (DC), Sepsis (DC) Referrals: Sharon Bhagat CNP [Advanced Practice Nurse] - 10/17/17 1:00 pm Prescriptions: Amoxicillin/Clavulanate [Augmentin] 250 mg PO BIDWM #23 tablet
== END 2017-10-12 14:41 | disposition home or self-care (01) | DRG 871 ==
LOC: 2NENU 23:04 → EMEROO 23:04 → 2NENU 10-08 01:58
PROVIDERS: ADMIT Family Medicine; ATTEND Internal Medicine

== ENCOUNTER 2018-02-08 12:28 | Inpatient (IN) ==
--- NOTE | 2018-02-08 12:56 | Emergency Department Note ---
Disposition Clinical Impression: Elevated troponin I level, Hypoxemia, Retroperitoneal hematoma, Abdominal wall hematoma, Pelvic hematoma, ESRD (end stage renal disease) on dialysis Altered mental status Qualifiers: Altered mental status type: unspecified Qualified Code(s): R41.82 - Altered mental status, unspecified Abdominal pain Qualifiers: Abdominal location: left lower quadrant Qualified Code(s): R10.32 - Left lower quadrant pain Disposition: Admitted As Inpatient Condition: Fair General Adult HPI - General Chief complaint: ED Weakness Stated complaint: lethargic Time Seen by Provider: 02/08/18 12:36 Source: EMS Limitations: altered mental status Nursing Notes Reviewed: Yes Vital Signs Reviewed: Yes - History of Present Illness Pain Scale: 4 - Related Data Home Medications Medication Instructions Recorded Confirmed Amlodipine Besylate 10 mg PO DAILY 10/07/17 02/08/18 Aspirin [Lo-Dose Aspirin EC] 81 mg PO DAILY 10/07/17 02/08/18 Calcium Acetate [Phos-LO] 2,001 mg PO TIDWM 10/07/17 02/08/18 Lisinopril 2.5 mg PO DAILY 10/07/17 02/08/18 Metoprolol Tartrate 50 mg PO DAILY 10/07/17 02/08/18 Omeprazole [PriLOSEC] 40 mg PO DAILY 10/07/17 02/08/18 Simvastatin [Zocor] 20 mg PO HS 10/07/17 02/08/18 Renal Vitamin [Renal Caps Softgel] 1 mg PO DAILY 02/07/18 02/08/18 Previous Rx's Medication Instructions Recorded Docusate [Colace] 100 mg PO DAILY 10 Days #10 capsule 02/07/18 OxyCODONE Immed Rel [Roxicodone 5 5 mg PO Q6HR PRN 7 Days #28 tablet 02/07/18 MG] Allergies Allergy/AdvReac Type Severity Reaction Status Date / Time No Known Allergies Allergy Verified 01/30/18 11:03 Past Medical History - Past Medical History Medical history: Reports: CHF, coronary artery disease, diabetes, dialysis, GERD , hyperlipidemia, hypertension, renal disease, other Surgical history: Reports: appendectomy, other Psychiatric history: Reports: no psych history - Social History Smoking Status: Former smoker Smokeless Tobacco Status: No Alcohol use: Reports: none Drug use: Reports: none Physical Exam - General Limitations: altered mental status General appearance: lethargic Course Vital Signs Temperature 98.1 F 02/08/18 12:31 Pulse Rate 85 02/08/18 12:31 Respiratory Rate 18 02/08/18 12:31 Blood Pressure 107/60 02/08/18 12:31 O2 Sat by Pulse Oximetry 90 02/08/18 12:31 Temperature 98.2 F 02/08/18 17:15 Pulse Rate 82 02/08/18 17:15 Respiratory Rate 16 02/08/18 17:15 Blood Pressure 109/65 02/08/18 17:15 O2 Sat by Pulse Oximetry 91 02/08/18 17:36 Oxygen Delivery Oxygen Delivery Nasal Cannula Medical Decision Making - Lab Data Result diagrams: 02/08/18 12:55 02/08/18 12:55 Lab Results 02/08/18 02/08/18 02/08/18 Range/Units 12:55 12:55 12:55 WBC 12.5 H (4.3-11.1) K/mcL RBC 2.79 L (4.19-5.50) M/mcL Hgb 9.4 L (12.9-16.9) g/dL Hct 28.0 L (37.5-50.1) % MCV 100.4 H (83.0-100.0) fL MCH 33.7 H (28.0-33.3) pg MCHC 33.6 (31.6-35.5) g/dL RDW 14.3 (11.5-14.5) % Plt Count 186 (140-400) K/mcL MPV 10.6 (9.4-12.4) fL Immature Gran % 0.4 (0-4) % Seg Neutrophils % 89.1 % Lymphocytes % 2.5 % Monocytes % 7.8 % Eosinophils % 0.0 % Basophils % 0.2 % Neutrophils # 11.1 H (1.6-8.9) K/mcL Lymphocytes # 0.3 L (0.6-4.6) K/mcL Monocytes # 1.0 (0.0-1.3) K/mcL Eosinophils # 0.0 (0.0-0.6) K/mcL Basophils # 0.0 (0.0-0.2) K/mcL PT (9.4-12.1) Seconds INR APTT (26.0-36.0) Seconds VBG pH (7.32-7.42) pH Units VBG pCO2 (41-51) mmHg VBG pO2 (25-50) mmHg VBG HCO3 (21-27) mEq/L Sodium (136-145) mEq/L Potassium (3.5-5.1) mEq/L Chloride (98-107) mEq/L Carbon Dioxide (23-29) mEq/L BUN (8-23) mg/dL Creatinine (0.70-1.30) mg/dL Est GFR ( Amer) (> 60) Est GFR (Non-Af Amer) (> 60) BUN/Creatinine Ratio (6-26) Glucose (70-105) mg/dL POC Glucose (70-99) mg/dL Calculated Osmolality (280-300) Lactic Acid 1.9 (0.5-2.2) mmol/L Calcium (8.6-10.3) mg/dL Phosphorus 6.8 H (2.7-4.5) mg/dL Magnesium 1.7 (1.6-2.6) mg/dL Total Bilirubin (0.3-1.0) mg/dL AST (13-39) Units/L ALT (7-52) Units/L Alkaline Phosphatase (34-104) Units/L Troponin I (< 0.04) ng/mL Serum Total Protein (6.4-8.9) g/dL Albumin (3.5-5.7) g/dL Globulin (2.4-3.5) g/dL Albumin/Globulin Ratio (1.1-2.2) Hep Bs Antigen (Nonreactive) 02/08/18 02/08/18 02/08/18 Range/Units 12:55 12:55 12:55 WBC (4.3-11.1) K/mcL RBC (4.19-5.50) M/mcL Hgb (12.9-16.9) g/dL Hct (37.5-50.1) % MCV (83.0-100.0) fL MCH (28.0-33.3) pg MCHC (31.6-35.5) g/dL RDW (11.5-14.5) % Plt Count (140-400) K/mcL MPV (9.4-12.4) fL Immature Gran % (0-4) % Seg Neutrophils % % Lymphocytes % % Monocytes % % Eosinophils % % Basophils % % Neutrophils # (1.6-8.9) K/mcL Lymphocytes # (0.6-4.6) K/mcL Monocytes # (0.0-1.3) K/mcL Eosinophils # (0.0-0.6) K/mcL Basophils # (0.0-0.2) K/mcL PT 13.3 H (9.4-12.1) Seconds INR 1.2 APTT 30.2 (26.0-36.0) Seconds VBG pH (7.32-7.42) pH Units VBG pCO2 (41-51) mmHg VBG pO2 (25-50) mmHg VBG HCO3 (21-27) mEq/L Sodium 137 (136-145) mEq/L Potassium 5.0 (3.5-5.1) mEq/L Chloride 98 (98-107) mEq/L Carbon Dioxide 22 L (23-29) mEq/L BUN 30 H (8-23) mg/dL Creatinine 6.62 H (0.70-1.30) mg/dL Est GFR ( Amer) 10 L (> 60) Est GFR (Non-Af Amer) 8 L (> 60) BUN/Creatinine Ratio 5 L (6-26) Glucose 101 (70-105) mg/dL POC Glucose (70-99) mg/dL Calculated Osmolality 290 (280-300) Lactic Acid (0.5-2.2) mmol/L Calcium 8.7 (8.6-10.3) mg/dL Phosphorus (2.7-4.5) mg/dL Magnesium (1.6-2.6) mg/dL Total Bilirubin 0.8 (0.3-1.0) mg/dL AST 14 (13-39) Units/L ALT 7 (7-52) Units/L Alkaline Phosphatase 66 (34-104) Units/L Troponin I 0.17 H* (< 0.04) ng/mL Serum Total Protein 6.3 L (6.4-8.9) g/dL Albumin 3.7 (3.5-5.7) g/dL Globulin 2.6 (2.4-3.5) g/dL Albumin/Globulin Ratio 1.4 (1.1-2.2) Hep Bs Antigen Nonreactive (Nonreactive) 02/08/18 02/08/18 Range/Units 13:00 13:07 WBC (4.3-11.1) K/mcL RBC (4.19-5.50) M/mcL Hgb (12.9-16.9) g/dL Hct (37.5-50.1) % MCV (83.0-100.0) fL MCH (28.0-33.3) pg MCHC (31.6-35.5) g/dL RDW (11.5-14.5) % Plt Count (140-400) K/mcL MPV (9.4-12.4) fL Immature Gran % (0-4) % Seg Neutrophils % % Lymphocytes % % Monocytes % % Eosinophils % % Basophils % % Neutrophils # (1.6-8.9) K/mcL Lymphocytes # (0.6-4.6) K/mcL Monocytes # (0.0-1.3) K/mcL Eosinophils # (0.0-0.6) K/mcL Basophils # (0.0-0.2) K/mcL PT (9.4-12.1) Seconds INR APTT (26.0-36.0) Seconds VBG pH 7.28 L (7.32-7.42) pH Units VBG pCO2 49 (41-51) mmHg VBG pO2 49 (25-50) mmHg VBG HCO3 23 (21-27) mEq/L Sodium (136-145) mEq/L Potassium (3.5-5.1) mEq/L Chloride (98-107) mEq/L Carbon Dioxide (23-29) mEq/L BUN (8-23) mg/dL Creatinine (0.70-1.30) mg/dL Est GFR ( Amer) (> 60) Est GFR (Non-Af Amer) (> 60) BUN/Creatinine Ratio (6-26) Glucose (70-105) mg/dL POC Glucose 91 (70-99) mg/dL Calculated Osmolality (280-300) Lactic Acid (0.5-2.2) mmol/L Calcium (8.6-10.3) mg/dL Phosphorus (2.7-4.5) mg/dL Magnesium (1.6-2.6) mg/dL Total Bilirubin (0.3-1.0) mg/dL AST (13-39) Units/L ALT (7-52) Units/L Alkaline Phosphatase (34-104) Units/L Troponin I (< 0.04) ng/mL Serum Total Protein (6.4-8.9) g/dL Albumin (3.5-5.7) g/dL Globulin (2.4-3.5) g/dL Albumin/Globulin Ratio (1.1-2.2) Hep Bs Antigen (Nonreactive) Attestation Statement - Attestation Attestation: This documentation is done with the assistance of Dragon dictation. Despite efforts made to ensure accuracy, there may be inaccuracies in leasing property manager or spelling and typographical errors. I examined this patient and my medical decision-making was reviewed with the Resident Physician. I agree with the documented findings, disposition and treatment plan as described except to the extent set forth below. Patient seen and evaluated by Dr. Law myself, agree with his evaluation and management plan, supervise care the patient's stay. Patient presents today postop from hernia surgery. thinks she has been a little more sleepy than usual he is getting oxycodone twice a day he does not have any myosis. This could be due to that however we are going to do some lab work image his abdomen also since is some tenderness in the area and there is no signs of secondary infection. And then we will reassess once those are back and speak with surgery. Chest X-Ray 02/08/18 12:37 IMPRESSION: Basilar opacities due to pleural effusions and atelectasis. D/ / 02/08/2018 13:45:08 Lul Alfonso MD / [facility] Interpreting Provider: Lul Alfonso MD Abdomen/Pelvis CT 02/08/18 12:41 IMPRESSION: Acute pelvic and retroperitoneal hematoma. Smaller ventral abdominal wall hematoma. Moderate right and small left pleural effusions with basilar atelectasis. D/ / Lul Alfonso MD / Lul Alfonso MD Interpreting Provider: Lul Alfonso MD 1400 hrs.: We will speak with surgery and then probable admission. 1445 hrs.: Patient's hemoglobin is dropping about 3 points. That may be consistent with a hematoma in his abdomen. He also has chronic renal insufficiency we will speak with nephrology. And surgery. And admission.
[2018-02-08 13:12] LABS: VBG HCO3 23 mEq/L (21-27); VBG PCO2 49 mmHg (41-51); VBG PH 7.28 pH Units (7.32-7.42); VBG PO2 49 mmHg (25-50)
--- NOTE | 2018-02-08 13:13 | Emergency Department Note ---
Disposition Clinical Impression: Elevated troponin I level, Hypoxemia, Retroperitoneal hematoma, Pelvic hematoma , ESRD (end stage renal disease) on dialysis Altered mental status Qualifiers: Altered mental status type: unspecified Qualified Code(s): R41.82 - Altered mental status, unspecified Abdominal pain Qualifiers: Abdominal location: left lower quadrant Qualified Code(s): R10.32 - Left lower quadrant pain Abdominal wall hematoma Qualifiers: Encounter type: initial encounter Qualified Code(s): S30.1XXA - Contusion of abdominal wall, initial encounter Disposition: Admitted As Inpatient Condition: Fair Time of Disposition: 16:17 General Adult HPI - General Chief complaint: ED Weakness Stated complaint: lethargic Time Seen by Provider: 02/08/18 12:36 Source: EMS Limitations: altered mental status Nursing Notes Reviewed: Yes Vital Signs Reviewed: Yes - History of Present Illness HPI Narrative: Patient is a 73-year-old male who presents to [facility] ED with a chief complaint of lethargy. is concerned since he has been not as vocally responsive today. States he also is complaining of left lower quadrant abdominal pain. States he just had a hernia repair done by Dr. York yesterday. Patient states he was pain-free when he went home. states she has been giving him oxycodone 5 mg every 6 hours as prescribed. Denies any nausea, vomiting, fever or chills. No chest pain, difficulty breathing, problems with urination or bowel movements. Per EMS, when they arrived, his oxygen saturation was in the 70s on room air. Patient is not normally on any home oxygen. He has no history of COPD or smoking. Onset (ago): Just [employer] Pain Severity: moderate Pain Scale: 4 Consistency: constant Improves with: nothing Worsens with: nothing Associated symptoms: Reports: confusion Treatments Prior to Arrival: none - Related Data Home Medications Medication Instructions Recorded Confirmed Amlodipine Besylate 10 mg PO DAILY 10/07/17 02/08/18 Aspirin [Lo-Dose Aspirin EC] 81 mg PO DAILY 10/07/17 02/08/18 Calcium Acetate [Phos-LO] 2,001 mg PO TIDWM 10/07/17 02/08/18 Lisinopril 2.5 mg PO DAILY 10/07/17 02/08/18 Metoprolol Tartrate 50 mg PO DAILY 10/07/17 02/08/18 Omeprazole [PriLOSEC] 40 mg PO DAILY 10/07/17 02/08/18 Simvastatin [Zocor] 20 mg PO HS 10/07/17 02/08/18 Renal Vitamin [Renal Caps Softgel] 1 mg PO DAILY 02/07/18 02/08/18 Previous Rx's Medication Instructions Recorded Docusate [Colace] 100 mg PO DAILY 10 Days #10 capsule 02/07/18 OxyCODONE Immed Rel [Roxicodone 5 5 mg PO Q6HR PRN 7 Days #28 tablet 02/07/18 MG] Allergies Allergy/AdvReac Type Severity Reaction Status Date / Time No Known Allergies Allergy Verified 01/30/18 11:03 All systems ED: reviewed and negative except as stated. Past Medical History - Past Medical History Attestation: Yes The following information was validated with the patient. Source: patient Medical history: Reports: CHF, coronary artery disease, diabetes, dialysis, GERD , hyperlipidemia, hypertension, renal disease, other Surgical history: Reports: appendectomy, other Psychiatric history: Reports: no psych history - Social History Smoking Status: Former smoker Smokeless Tobacco Status: No Alcohol use: Reports: none Drug use: Reports: none Physical Exam - General Limitations: altered mental status General appearance: lethargic - Head Head exam: atraumatic, normocephalic, normal inspection - Eye Eye exam: Present: EOMI - ENT ENT exam: normal exam, normal oropharynx, mucous membranes moist - Neck Neck exam: Present: normal inspection, full ROM, trachea midline - Chest Chest inspection: Present: normal inspection, symmetric chest wall rise - Respiratory Respiratory exam: Present: normal lung sounds bilaterally - Cardiovascular Cardiovascular exam: Present: regular rate, normal rhythm, normal heart sounds - Abdominal Exam Abdominal exam: Present: soft, tenderness Abdominal tenderness: Present: LLQ, moderate - Extremities Exam Extremities exam: Present: normal inspection, full ROM. Absent: tenderness, pedal edema - Neurological Exam Neurological exam: Present: alert - Psychiatric Psychiatric exam: Present: normal affect, normal mood - Skin Skin exam: Present: warm, dry, intact, normal color Course Course Narrative: Patient seen and examined. Complaining of left lower quadrant abdominal pain and lethargy. Patient is awake and able to answer my questions. However his oxygen saturation on room air was as well as 69% with good waveform. He was immediately placed on nasal cannula at 6 L and then a nonrebreather and his oxygen improved to 91%. Patient denies any chest pain or difficulty breathing. Generalized workup including lab work, EKG, chest x-ray, urine analysis and a CT of the abdomen and pelvis ordered. - Reevaluation(s) Reevaluation #1: Patient's lab work shows an anemia of 9.4. Previously over 12. He has signs of acute pelvic and retroperitoneal hematoma as well as umbilical hematoma. I discussed these findings with surgery Dr. Booth who will see the patient in consultation. She would like Sanjiv ordered. Patient's lab work shows a potassium of 5, creatinine of over 6. However he is a dialysis patient. I discussed patient's findings with recreation technician Dr. Broussard who states they will get patient set up for dialysis possibly tonight. I discussed the patient with hospitalist Dr. Nath who has accepted patient for admission. Time: 16:15 Vital Signs Temperature 98.1 F 02/08/18 12:31 Pulse Rate 85 02/08/18 12:31 Respiratory Rate 18 02/08/18 12:31 Blood Pressure 107/60 02/08/18 12:31 O2 Sat by Pulse Oximetry 90 02/08/18 12:31 Temperature 98.1 F 02/08/18 12:31 Pulse Rate 81 02/08/18 15:51 Respiratory Rate 14 02/08/18 13:29 Blood Pressure 139/66 02/08/18 15:51 O2 Sat by Pulse Oximetry 93 02/08/18 15:51 Oxygen Delivery Oxygen Delivery Nasal Cannula Medical Decision Making - Medical Records Medical records reviewed: Yes I reviewed the patient's medical records. - Lab Data Lab results reviewed: Yes I reviewed the patient's lab results. Result diagrams: 02/08/18 12:55 02/08/18 12:55 Lab Results 02/08/18 02/08/18 02/08/18 Range/Units 12:55 12:55 12:55 WBC 12.5 H (4.3-11.1) K/mcL RBC 2.79 L (4.19-5.50) M/mcL Hgb 9.4 L (12.9-16.9) g/dL Hct 28.0 L (37.5-50.1) % MCV 100.4 H (83.0-100.0) fL MCH 33.7 H (28.0-33.3) pg MCHC 33.6 (31.6-35.5) g/dL RDW 14.3 (11.5-14.5) % Plt Count 186 (140-400) K/mcL MPV 10.6 (9.4-12.4) fL Immature Gran % 0.4 (0-4) % Seg Neutrophils % 89.1 % Lymphocytes % 2.5 % Monocytes % 7.8 % Eosinophils % 0.0 % Basophils % 0.2 % Neutrophils # 11.1 H (1.6-8.9) K/mcL Lymphocytes # 0.3 L (0.6-4.6) K/mcL Monocytes # 1.0 (0.0-1.3) K/mcL Eosinophils # 0.0 (0.0-0.6) K/mcL Basophils # 0.0 (0.0-0.2) K/mcL PT (9.4-12.1) Seconds INR APTT (26.0-36.0) Seconds VBG pH (7.32-7.42) pH Units VBG pCO2 (41-51) mmHg VBG pO2 (25-50) mmHg VBG HCO3 (21-27) mEq/L Sodium (136-145) mEq/L Potassium (3.5-5.1) mEq/L Chloride (98-107) mEq/L Carbon Dioxide (23-29) mEq/L BUN (8-23) mg/dL Creatinine (0.70-1.30) mg/dL Est GFR ( Amer) (> 60) Est GFR (Non-Af Amer) (> 60) BUN/Creatinine Ratio (6-26) Glucose (70-105) mg/dL POC Glucose (70-99) mg/dL Calculated Osmolality (280-300) Lactic Acid 1.9 (0.5-2.2) mmol/L Calcium (8.6-10.3) mg/dL Phosphorus 6.8 H (2.7-4.5) mg/dL Magnesium 1.7 (1.6-2.6) mg/dL Total Bilirubin (0.3-1.0) mg/dL AST (13-39) Units/L ALT (7-52) Units/L Alkaline Phosphatase (34-104) Units/L Troponin I (< 0.04) ng/mL Serum Total Protein (6.4-8.9) g/dL Albumin (3.5-5.7) g/dL Globulin (2.4-3.5) g/dL Albumin/Globulin Ratio (1.1-2.2) Hep Bs Antigen (Nonreactive) 02/08/18 02/08/18 02/08/18 Range/Units 12:55 12:55 12:55 WBC (4.3-11.1) K/mcL RBC (4.19-5.50) M/mcL Hgb (12.9-16.9) g/dL Hct (37.5-50.1) % MCV (83.0-100.0) fL MCH (28.0-33.3) pg MCHC (31.6-35.5) g/dL RDW (11.5-14.5) % Plt Count (140-400) K/mcL MPV (9.4-12.4) fL Immature Gran % (0-4) % Seg Neutrophils % % Lymphocytes % % Monocytes % % Eosinophils % % Basophils % % Neutrophils # (1.6-8.9) K/mcL Lymphocytes # (0.6-4.6) K/mcL Monocytes # (0.0-1.3) K/mcL Eosinophils # (0.0-0.6) K/mcL Basophils # (0.0-0.2) K/mcL PT 13.3 H (9.4-12.1) Seconds INR 1.2 APTT 30.2 (26.0-36.0) Seconds VBG pH (7.32-7.42) pH Units VBG pCO2 (41-51) mmHg VBG pO2 (25-50) mmHg VBG HCO3 (21-27) mEq/L Sodium 137 (136-145) mEq/L Potassium 5.0 (3.5-5.1) mEq/L Chloride 98 (98-107) mEq/L Carbon Dioxide 22 L (23-29) mEq/L BUN 30 H (8-23) mg/dL Creatinine 6.62 H (0.70-1.30) mg/dL Est GFR ( Amer) 10 L (> 60) Est GFR (Non-Af Amer) 8 L (> 60) BUN/Creatinine Ratio 5 L (6-26) Glucose 101 (70-105) mg/dL POC Glucose (70-99) mg/dL Calculated Osmolality 290 (280-300) Lactic Acid (0.5-2.2) mmol/L Calcium 8.7 (8.6-10.3) mg/dL Phosphorus (2.7-4.5) mg/dL Magnesium (1.6-2.6) mg/dL Total Bilirubin 0.8 (0.3-1.0) mg/dL AST 14 (13-39) Units/L ALT 7 (7-52) Units/L Alkaline Phosphatase 66 (34-104) Units/L Troponin I 0.17 H* (< 0.04) ng/mL Serum Total Protein 6.3 L (6.4-8.9) g/dL Albumin 3.7 (3.5-5.7) g/dL Globulin 2.6 (2.4-3.5) g/dL Albumin/Globulin Ratio 1.4 (1.1-2.2) Hep Bs Antigen Nonreactive (Nonreactive) 02/08/18 02/08/18 Range/Units 13:00 13:07 WBC (4.3-11.1) K/mcL RBC (4.19-5.50) M/mcL Hgb (12.9-16.9) g/dL Hct (37.5-50.1) % MCV (83.0-100.0) fL MCH (28.0-33.3) pg MCHC (31.6-35.5) g/dL RDW (11.5-14.5) % Plt Count (140-400) K/mcL MPV (9.4-12.4) fL Immature Gran % (0-4) % Seg Neutrophils % % Lymphocytes % % Monocytes % % Eosinophils % % Basophils % % Neutrophils # (1.6-8.9) K/mcL Lymphocytes # (0.6-4.6) K/mcL Monocytes # (0.0-1.3) K/mcL Eosinophils # (0.0-0.6) K/mcL Basophils # (0.0-0.2) K/mcL PT (9.4-12.1) Seconds INR APTT (26.0-36.0) Seconds VBG pH 7.28 L (7.32-7.42) pH Units VBG pCO2 49 (41-51) mmHg VBG pO2 49 (25-50) mmHg VBG HCO3 23 (21-27) mEq/L Sodium (136-145) mEq/L Potassium (3.5-5.1) mEq/L Chloride (98-107) mEq/L Carbon Dioxide (23-29) mEq/L BUN (8-23) mg/dL Creatinine (0.70-1.30) mg/dL Est GFR ( Amer) (> 60) Est GFR (Non-Af Amer) (> 60) BUN/Creatinine Ratio (6-26) Glucose (70-105) mg/dL POC Glucose 91 (70-99) mg/dL Calculated Osmolality (280-300) Lactic Acid (0.5-2.2) mmol/L Calcium (8.6-10.3) mg/dL Phosphorus (2.7-4.5) mg/dL Magnesium (1.6-2.6) mg/dL Total Bilirubin (0.3-1.0) mg/dL AST (13-39) Units/L ALT (7-52) Units/L Alkaline Phosphatase (34-104) Units/L Troponin I (< 0.04) ng/mL Serum Total Protein (6.4-8.9) g/dL Albumin (3.5-5.7) g/dL Globulin (2.4-3.5) g/dL Albumin/Globulin Ratio (1.1-2.2) Hep Bs Antigen (Nonreactive) - Radiology Data Radiology results reviewed: Yes I reviewed the patient's radiology results. Chest X-Ray 02/08/18 12:37 IMPRESSION: Basilar opacities due to pleural effusions and atelectasis. D/ / 02/08/2018 13:45:08 Lul Alfonso MD / [facility] Interpreting Provider: Lul Alfonso MD Abdomen/Pelvis CT 02/08/18 12:41 IMPRESSION: Acute pelvic and retroperitoneal hematoma. Smaller ventral abdominal wall hematoma. Moderate right and small left pleural effusions with basilar atelectasis. D/ / 02/08/2018 13:58:16 Lul Alfonso MD / [facility] Interpreting Provider: Lul Alfonso MD - EKG Data EKG #1 EKG attestation: Yes I reviewed and interpreted this EKG. EKG results narrative: EKG done at 1235 shows normal sinus rhythm with a rate of [address] elevation. Mild ST depression noted in leads 1, aVL, V5 and V6. First-degree AV block noted. Appears unchanged from prior EKG done 10/07/2017.
[2018-02-08 13:25] LABS: Magnesium 1.7 mg/dL (1.6-2.6); Phosphorous 6.8 mg/dL (2.7-4.5)
[2018-02-08 13:27] LABS: Basophils % 0.2 %; Hemoglobin 9.4 g/dL (12.9-16.9); Immature Granulocytes % 0.4 % (0-4); Lymphocytes # 0.3 K/mcL (0.6-4.6); Lymphocytes % 2.5 %; Mean Corpuscular HGB Conc 33.6 g/dL (31.6-35.5); Mean Corpuscular Hemoglobin 33.7 pg (28.0-33.3); Mean Corpuscular Volume 100.4 fL (83.0-100.0); Mean Platelet Volume 10.6 fL (9.4-12.4); Monocytes % 7.8 %; Neutrophils # 11.1 K/mcL (1.6-8.9); Platelet Count 186 K/mcL (140-400); Red Blood Count 2.79 M/mcL (4.19-5.50); Red Cell Distribution Width 14.3 % (11.5-14.5); Segmented Neutrophils % 89.1 %
[2018-02-08 13:28] LABS: Albumin 3.7 g/dL (3.5-5.7); Albumin/Globulin Ratio 1.4 (1.1-2.2); Bilirubin,Total 0.8 mg/dL (0.3-1.0); Calcium 8.7 mg/dL (8.6-10.3); Globulin 2.6 g/dL (2.4-3.5); Total Protein 6.3 g/dL (6.4-8.9)
[2018-02-08 13:33] LABS: Troponin I 0.17 ng/mL (< 0.04)
[2018-02-08] MEDS ORDERED: Piperacillin/Tazobactam 3.375 GM in 0.9 % Sodium Chloride Mini Bag 100 ML IVPB ONE (14:41)
[2018-02-08 15:15] LABS: INR 1.2; Prothrombin Time 13.3 Seconds (9.4-12.1)
[2018-02-08 15:18] LABS: Activated Partial Thrombo Time 30.2 Seconds (26.0-36.0)
[2018-02-08 16:04] LABS: Hepatitis B Surface Antigen Nonreactive (Nonreactive)
--- NOTE | 2018-02-08 16:48 | Internal Med History&Physical ---
<Nette Phelps Blade - Last Filed: 02/08/18 17:44> Date of Encounter: 02/08/18 Time of Encounter: 16:43 Internal Medicine - H&P: HPI Chief complaint: Abdominal Pain, dyspnea, and Hypoxia Admitted From: Home Plans for Post Hospital Care: Home History of present illness: Mr. Hong is a 73 year old male with history of ESRD with dialysis, height HTN, DM, CHF, and elevated troponin. Patient presents to the ED with complaints of left lower quadrant pain and hypoxia. The patient indicated that he had a hernia repair done yesterday he began to have some abnormal discomfort today. EGD discovered with CT scan that the patient had an acute pelvic and retroperitoneal hematoma and a smaller ventral abdominal wall hematoma. Chest x -ray showed basilar opacities due to pleural effusion and atelectasis. Surgery consulted in the ED and evaluated patient. Patient's creatinine is 6.62, BUN 30 , sodium is 137, potassium is 5.0, and troponin is 0.17. Patient denies any chest pain, only shortness of breath. History of cardiac disease and previous elevated troponins. Lactate is 1.9. Spoke with nephrology, , he indicated his team plans for dialysis (maybe a partial treatment) this evening. WBC is 12.5, will continue pipercillin Q8 hours IV. Past Med Surg Social Fam HX - Past Medical History Medical history: CHF, coronary artery disease, diabetes, dialysis, GERD, hyperlipidemia, hypertension, renal disease, other Additional medical history: kidney disease, fistula, bph, hx rheumatic fever, chronic fatigue, ESRD, anemia, CVD, cardiac stents x 4 Psychiatric history: no psych history - Past Surgical History Surgical History: appendectomy, other Additional surgical history: ear surgery, cardiac stents, fistula, BCC, lung bx , PTCA, Hernia - Social History Smoking Status: Former smoker Smokeless Tobacco Status: No Alcohol use: none Drug use: none - Family History Mother Living Status: Hx Family Cardiac Disorders: Yes Hx Family Cancer: Yes (stomach) Internal Medicine - H&P: Meds Amlodipine Besylate 10 mg PO DAILY 10/07/17 [History] Aspirin [Lo-Dose Aspirin EC] 81 mg PO DAILY 10/07/17 [History] Calcium Acetate [Phos-LO] 2,001 mg PO TIDWM 10/07/17 [History] Lisinopril 2.5 mg PO DAILY 10/07/17 [History] Metoprolol Tartrate 50 mg PO DAILY 10/07/17 [History] Omeprazole [PriLOSEC] 40 mg PO DAILY 10/07/17 [History] Simvastatin [Zocor] 20 mg PO HS 10/07/17 [History] Docusate [Colace] 100 mg PO DAILY 10 Days #10 capsule 02/07/18 [Rx] OxyCODONE Immed Rel [Roxicodone 5 MG] 5 mg PO Q6HR PRN 7 Days #28 tablet [Rx] Renal Vitamin [Renal Caps Softgel] 1 mg PO DAILY 02/07/18 [History] 3 Allergy/AdvReac Type Severity Reaction Status Date / Time No Known Allergies Allergy Verified 01/30/18 11:03 All Systems PM: A 10-system review of systems was performed and is negative for pertinent findings except as documented above in the HPI. - Constitutional Constitutional: no chills, no fever(s), no night sweats - EENT Eyes: no change in vision, no discharge, no pain, no photophobia Ears: no ear discharge, no ear pain, no tinnitus Nose, mouth and throat: no dysphagia, no nasal discharge, no neck pain, no sore throat - Cardiovascular Cardiovascular ROS IM: dyspnea, no chest pain, no diaphoresis, no lightheadedness, no palpitations, no syncope - Respiratory Respiratory: dyspnea, no cough, no wheezing, no excessive phlegm production - Gastrointestinal Gastrointestinal: abdominal pain, no diarrhea, no hematemesis, no hematochezia, no melena, no nausea, no vomiting - Musculoskeletal Musculoskeletal ROS IM: no numbness, no tingling - Integumentary Integumentary IM: no rash, no unusual bruising - Neurological Neurological ROS: no confusion, no convulsions, no focal weakness, no numbness, no tingling, no tremor(s) - Hematologic/Lymphatic Hematologic/Lymphatic: no easy bruising - Constitutional Vitals: Temp Pulse Resp BP Pulse Ox 98.1 F 81 14 139/66 93 02/08/18 12:31 02/08/18 15:51 02/08/18 13:29 02/08/18 15:51 02/08/18 15:51 General appearance: Present: A&O X 3, answers questions appropriately - Head Head exam: Present: atraumatic, normocephalic - Eye Eye exam: Present: PERRL, conjuntiva pink, sclera anicteric Pupils: Present: PERRL - Neck Neck exam general surgery: Present: supple, trachea midline. Absent: lymphadenopathy - Respiratory Respiratory exam: Present: CTAB. Absent: accessory muscle use, rales, rhonchi, wheezes - Cardiovascular Cardiovascular exam: Present: RRR, +S1, +S2. Absent: diastolic murmur, gallop, rubs, systolic murmur - GI/Abdominal GI/Abdominal exam: Present: normal bowel sounds, soft, no peritoneal signs. Absent: distended, tenderness - Extremities Exam Extremities exam: Present: warm, radial pulses palpable and symmetrical. Absent : calf tenderness, cyanotic, pedal edema - Neurological Exam Neurological exam: Present: CN II-XII intact, oriented X3, no focal deficits. Absent: pronater drift, facial droop, speech deficit - Skin Skin exam: Present: dry, intact Internal Med - H&P Results - Labs CBC & Chem 7: 02/08/18 12:55 02/08/18 12:55 - Assessment and plan (1) Retroperitoneal hematoma Current Visit: Yes Status: Acute Assessment and plan: Surgery is managing H and H q6 h Monitor daily labs Will continue Pipercillin for leukocytosis of 12.5 (2) Elevated troponin I level Current Visit: Yes Status: Chronic Assessment and plan: Trend serial cardiac troponins, elevation possibly due to hypoxia and blood loss Monitor daily labs Patient has had elevated troponins in past History of cardiac disease with stents (3) Hypoxemia Current Visit: Yes Status: Acute Assessment and plan: Likely related to need for HD Oxygen prn to keep sats gt 92% Respiratory consult Incentive spirometry basilar opacities related to pleural effusions and atelectasis (4) Diabetes mellitus Current Visit: No Status: Chronic Assessment and plan: Blood sugar is 91, patient indicated he has been off metformin due to blood sugar controlled since starting hemodialysis Monitor daily labs Qualifiers: Diabetes mellitus type: type 2 Diabetes mellitus exterminator termite insulin use: without [facility] use Diabetes mellitus complication status: with kidney complications Diabetes mellitus complication detail: with chronic kidney disease Chronic kidney disease stage: on chronic dialysis Qualified Code(s) : E11.22 - Type 2 diabetes mellitus with diabetic chronic kidney disease; N18.6 - End stage renal disease; Z99.2 - Dependence on renal dialysis (5) Hypertension Current Visit: Yes Status: Chronic Assessment and plan: Blood pressure controlled 109/65. Continue home meds-metoprolol, lisinopril and amlodipine Qualifiers: Hypertension type: essential hypertension Qualified Code(s): I10 - Essential (primary) hypertension (6) ESRD (end stage renal disease) on dialysis Current Visit: Yes Status: Chronic Assessment and plan: Discussed case with nephrology. Plan for dialysis this evening. Monitor daily labs Strict I and O's - Time Spent With Patient Total time spent is greater than 50% in coordination of care (as documented) at patient's floor/unit and/or counseling patient: 25 - 35 minutes <Alex Key - Last Filed: 02/08/18 18:29> Date of Encounter: 02/08/18 Internal Medicine - H&P: HPI History of present illness: Mr. Hong is a 73 year old male All Systems PM: A 10-system review of systems was performed and is negative for pertinent findings except as documented above in the HPI. - Constitutional Vitals: Temp Pulse Resp BP Pulse Ox 98.2 F 82 16 109/65 91 02/08/18 17:15 02/08/18 17:15 02/08/18 17:15 02/08/18 17:15 02/08/18 17:36 Internal Med - H&P Results - Labs CBC & Chem 7: 02/08/18 12:55 02/08/18 12:55 - Attending Attestation I have seen the patient and performed my own history and physical examination. I have discussed the case with the admitting KELLY MACHINE OPERATOR, and I agree with her assessment and plan of care as documented in her H&P. Briefly, patient admitted for increased lethargy, altered mental status, and hypoxemia after undergoing hernia surgery yesterday. CT abdomen/pelvis today showed multiple hematomas. Surgery has been consulted and is following. Will await their recommendations. NPO overnight. Serial H&Hs. Transfuse if necessary. Place on cardiac technologist and trend cardiac enzymes (chronically elevated but above baseline, no chest pain). Will consult RT for hypoxemia. Continue supplemental O2 and wean as tolerated to room air. Hypoxemia likely secondary to fluid overload with bilateral pleural effusions and atelectasis. Nephrology is consulted and plan to start hemodialysis tonight. Start incentive spirometry. Recheck labwork in AM. - Time Spent With Patient Total time spent is greater than 50% in coordination of care (as documented) at patient's floor/unit and/or counseling patient:
[2018-02-08] MEDS ORDERED: Naloxone 0.4 MG/ML INJ IVP PRN (17:05)
--- NOTE | 2018-02-08 17:06 | General Surgery Consult Note ---
<Nette Phelps - Last Filed: 02/08/18 17:21> Date of Encounter: 02/08/18 Assessment and Plan (1) Retroperitoneal hematoma Current Visit: Yes Status: Acute (2) Elevated troponin I level Current Visit: Yes Status: Acute (3) Hypoxemia Current Visit: Yes Status: Acute (4) Diabetes mellitus Current Visit: No Status: Chronic Qualifiers: Diabetes mellitus type: type 2 Diabetes mellitus longterm insulin use: without post framer use Diabetes mellitus complication status: with kidney complications Diabetes mellitus complication detail: with chronic kidney disease Chronic kidney disease stage: on chronic dialysis Qualified Code(s) : E11.22 - Type 2 diabetes mellitus with diabetic chronic kidney disease; N18.6 - End stage renal disease; Z99.2 - Dependence on renal dialysis (5) Hypertension Current Visit: No Status: Chronic Qualifiers: Hypertension type: essential hypertension Qualified Code(s): I10 - Essential (primary) hypertension (6) ESRD (end stage renal disease) on dialysis Current Visit: Yes Status: Chronic Medications and Allergies Amlodipine Besylate 10 mg PO DAILY 10/07/17 [History] Aspirin [Lo-Dose Aspirin EC] 81 mg PO DAILY 10/07/17 [History] Calcium Acetate [Phos-LO] 2,001 mg PO TIDWM 10/07/17 [History] Lisinopril 2.5 mg PO DAILY 10/07/17 [History] Metoprolol Tartrate 50 mg PO DAILY 10/07/17 [History] Omeprazole [PriLOSEC] 40 mg PO DAILY 10/07/17 [History] Simvastatin [Zocor] 20 mg PO HS 10/07/17 [History] Docusate [Colace] 100 mg PO DAILY 10 Days #10 capsule 02/07/18 [Rx] OxyCODONE Immed Rel [Roxicodone 5 MG] 5 mg PO Q6HR PRN 7 Days #28 tablet [Rx] Renal Vitamin [Renal Caps Softgel] 1 mg PO DAILY 02/07/18 [History] 3 Allergy/AdvReac Type Severity Reaction Status Date / Time No Known Allergies Allergy Verified 01/30/18 11:03 Review of Systems All systems PM: The remainder of the systems were reviewed and are negative General Surgery Exam Initial Vital Signs Temp Pulse Resp BP Pulse Ox 98.1 F 85 18 107/60 90 02/08/18 12:31 08/11/18 12:31 02/08/18 12:31 02/08/18 12:31 02/08/18 12:31 Exam Initial Vital Signs Temp Pulse Resp BP Pulse Ox 98.1 F 85 18 107/60 90 02/08/18 12:31 02/08/18 12:31 02/08/18 12:31 02/08/18 12:31 02/08/18 12:31 Results - Labs 02/08/18 12:55 02/08/18 12:55 Abnormal lab results WBC 12.5 K/mcL (4.3-11.1) H 02/08/18 12:55 RBC 2.79 M/mcL (4.19-5.50) L 02/08/18 12:55 Hgb 9.4 g/dL (12.9-16.9) L 02/08/18 12:55 Hct 28.0 % (37.5-50.1) L 02/08/18 12:55 MCV 100.4 fL (83.0-100.0) H 02/08/18 12:55 MCH 33.7 pg (28.0-33.3) H 02/08/18 12:55 Neutrophils # 11.1 K/mcL (1.6-8.9) H 02/08/18 12:55 Lymphocytes # 0.3 K/mcL (0.6-4.6) L 02/08/18 12:55 PT 13.3 Seconds (9.4-12.1) H 02/08/18 12:55 VBG pH 7.28 pH Units (7.32-7.42) L 02/08/18 13:07 Carbon Dioxide 22 mEq/L (23-29) L 02/08/18 12:55 BUN 30 mg/dL (8-23) H 02/08/18 12:55 Creatinine 6.62 mg/dL (0.70-1.30) H 02/08/18 12:55 Est GFR ( Amer) 10 (> 60) L 02/08/18 12:55 Est GFR (Non-Af Amer) 8 (> 60) L 02/08/18 12:55 BUN/Creatinine Ratio 5 (6-26) L 02/08/18 12:55 Phosphorus 6.8 mg/dL (2.7-4.5) H 02/08/18 12:55 Troponin I 0.17 ng/mL (< 0.04) H* 02/08/18 12:55 Serum Total Protein 6.3 g/dL (6.4-8.9) L 02/08/18 12:55 All other labs normal. Consult Discharge Plan - Plan Referrals: Tahir Herrera Jr, MD [Primary Care Provider] - <GrettaGurmeet brothersCharissa E - Last Filed: 02/09/18 05:35> Date of Encounter: 02/09/18 Time of Encounter: 17:03 Assessment and Plan (1) Abdominal wall hematoma Current Visit: Yes Status: Acute Trend H&H Serial Abdominal exams IV fluids as per primary pain control as per primary Possible follow up imaging Supportive care Qualifiers: Encounter type: initial encounter Qualified Code(s): S30.1XXA - Contusion of abdominal wall, initial encounter (2) Pelvic hematoma Current Visit: Yes Status: Acute Trend H&H Serial Abdominal exams IV fluids as per primary pain control as per primary Possible follow up imaging Supportive care History of Present Illness Consult date: 02/08/18 Reason for consult: abdominal pain Requesting physician: Aide Law History of present illness: Patient had abdominal hernia and left inguinal hernia repair yesterday with Dr. York. When he went home he had some groin pain and abdominal pain, his called in asking about pain medication last night. He started taking his pain medication about 8:30 last night. Second pill was given approximately 6 hours later. This did not help. Today he still has pain in his abdomen. Also is very tired. His states he has only had a few subsequent broth and some ice and water since getting home. He had an abdomen and pelvis CT without contrast in the ED. Past Med Surg Social Fam HX - Past Medical History Medical history: CHF, coronary artery disease, diabetes, dialysis, GERD, hyperlipidemia, hypertension, renal disease, other Additional medical history: kidney disease, fistula, bph, hx rheumatic fever, chronic fatigue, ESRD, anemia, CVD, cardiac stents x 4 Psychiatric history: no psych history - Past Surgical History Surgical History: appendectomy, other Additional surgical history: ear surgery, cardiac stents, fistula, BCC, lung bx , PTCA, Hernia - Social History Smoking Status: Former smoker Smokeless Tobacco Status: No Alcohol use: none Drug use: none - Family History Mother Living Status: Hx Family Cardiac Disorders: Yes Hx Family Cancer: Yes (stomach) Review of Systems All systems PM: The remainder of the systems were reviewed and are negative - Constitutional as per HPI - Cardiovascular no chest pain, no irregular heart rhythm, no radiating jaw, neck or arm pain - Respiratory dyspnea, no cough, no chest congestion - Gastrointestinal abdominal pain, other (Has not had a bowel movement or flatus since surgery yesterday.) General Surgery Exam Initial Vital Signs Temp Pulse Resp BP Pulse Ox 98.1 F 85 18 107/60 90 02/08/18 12:31 02/08/18 12:31 02/08/18 12:31 02/08/18 12:31 02/08/18 12:31 - General physical appearance well developed, well nourished, moderate distress, moderate pain - Respiratory normal expansion, normal respiratory effort, clear to auscultation - Cardiovascular Cardiovascular exam: Present: RRR, murmurs (2+ murmur heard at the aortic listening post, known to the patient ) - Abdomen Abdomen general surgery: Present: bowel sounds present, tender Abdominal Tenderness: Present: epigastic - Incision Incision: Present: clean and dry, intact - Integumentary Integumentary general surgery: Present: warm and dry, no abnormal pigmentation - Neurologic Present: other (Patient answers questions properly, but does doze off occasionally. States he has been very tired.) - Musculoskeletal Present: normal posture - Psychiatric Psychiatric general surgery: Present: oriented to person, oriented to place, oriented to time Exam Initial Vital Signs Temp Pulse Resp BP Pulse Ox 98.1 F 85 18 107/60 90 02/08/18 12:31 02/08/18 12:31 02/08/18 12:31 02/08/18 12:31 02/08/18 12:31 Results - Labs 02/09/18 03:20 02/09/18 03:20 Abnormal lab results WBC 12.5 K/mcL (4.3-11.1) H 02/08/18 12:55 RBC 2.79 M/mcL (4.19-5.50) L 02/08/18 12:55 Hgb 9.4 g/dL (12.9-16.9) L 02/08/18 12:55 Hct 28.0 % (37.5-50.1) L 02/08/18 12:55 MCV 100.4 fL (83.0-100.0) H 02/08/18 12:55 MCH 33.7 pg (28.0-33.3) H 02/08/18 12:55 Neutrophils # 11.1 K/mcL (1.6-8.9) H 02/08/18 12:55 Lymphocytes # 0.3 K/mcL (0.6-4.6) L 02/08/18 12:55 PT 13.3 Seconds (9.4-12.1) H 02/08/18 12:55 VBG pH 7.28 pH Units (7.32-7.42) L 02/08/18 13:07 Carbon Dioxide 22 mEq/L (23-29) L 02/08/18 12:55 BUN 30 mg/dL (8-23) H 02/08/18 12:55 Creatinine 6.62 mg/dL (0.70-1.30) H 02/08/18 12:55 Est GFR ( Amer) 10 (> 60) L 02/08/18 12:55 Est GFR (Non-Af Amer) 8 (> 60) L 02/08/18 12:55 BUN/Creatinine Ratio 5 (6-26) L 02/08/18 12:55 Phosphorus 6.8 mg/dL (2.7-4.5) H 02/08/18 12:55 Troponin I 0.17 ng/mL (< 0.04) H* 02/08/18 12:55 Serum Total Protein 6.3 g/dL (6.4-8.9) L 02/08/18 12:55 All other labs normal. <Meli Booth - Last Filed: 02/09/18 14:32> Date of Encounter: 02/08/18 Assessment and Plan (1) Postoperative haemorrhage Current Visit: Yes Status: Acute discussed with the patient and his family that I have viewed his CT scan and it appears he has had a postoperative bleed from his surgical site with blood in left groin and in pelvis. Discussed that these usually stop on their own and do not require IR or surgical intervention we will plan conservative therapy currently trend Hb hold aspirin prn pain control npo serial abdominal exams Qualifiers: Surgical complication system/body Area: circulatory system Procedure type: non-circulatory Qualified Code(s): I97.620 - Postprocedural hemorrhage of a circulatory system organ or structure following other procedure History of Present Illness History of present illness: Patient states when he went home he was feeling ok after his robotic left inguinal and umbilical hernia repairs. He started having increasing pain during the night. The pain has progressed that he is having difficulting bending. He has no appetite. He was having shortness of breath and EMS was called and patients O2 sats were in the 70's. He was transported to the hospital where labs showed a decreased Hb and CT showed hemorrhage likely from left groin surgical site with blood at left groin and in pelvis. Past Med Surg Social Fam HX - Past Medical History Source: patient Review of Systems All systems PM: reviewed and no additional remarkable complaints except as stated All systems PM: The remainder of the systems were reviewed and are negative General Surgery Exam Initial Vital Signs Temp Pulse Resp BP Pulse Ox 98.1 F 85 18 107/60 90 02/08/18 12:31 02/08/18 12:31 02/08/18 12:31 02/08/18 12:31 02/08/18 12:31 - General physical appearance well developed, well nourished, moderate distress, moderate pain - Eyes PERRL, normal ocular movement - ENT normal mucosa, normocephalic - Neck trachea midline - Respiratory normal expansion, clear to auscultation - Cardiovascular Cardiovascular exam: Present: RRR - Abdomen Abdomen general surgery: Present: soft, tender Abdominal Tenderness: Present: LUQ, LLQ, suprapubic - Incision Incision: Present: clean and dry, intact - Integumentary Integumentary general surgery: Present: warm and dry, no abnormal pigmentation - Neurologic Present: CN 2-12 grossly intact - Musculoskeletal Present: normal posture - Psychiatric Psychiatric general surgery: Present: A&Ox3, oriented to time Exam Initial Vital Signs Temp Pulse Resp BP Pulse Ox 98.1 F 85 18 107/60 90 02/08/18 12:31 02/08/18 12:31 02/08/18 12:31 02/08/18 12:31 02/08/18 12:31 Results - Labs 02/09/18 13:05 02/09/18 03:20 Abnormal lab results RBC 2.42 M/mcL (4.19-5.50) L 02/09/18 03:20 Hgb 8.0 g/dL (12.9-16.9) L 02/09/18 13:05 Hct 23.6 % (37.5-50.1) L 02/09/18 13:05 MCH 33.9 pg (28.0-33.3) H 02/09/18 03:20 Plt Count 132 K/mcL (140-400) L 02/09/18 03:20 Lymphocytes # 0.5 K/mcL (0.6-4.6) L 02/09/18 03:20 PT 13.3 Seconds (9.4-12.1) H 02/08/18 12:55 VBG pH 7.28 pH Units (7.32-7.42) L 02/08/18 13:07 BUN 25 mg/dL (8-23) H 02/09/18 03:20 Creatinine 5.03 mg/dL (0.70-1.30) H 02/09/18 03:20 Est GFR ( Amer) 14 (> 60) L 02/09/18 03:20 Est GFR (Non-Af Amer) 11 (> 60) L 02/09/18 03:20 BUN/Creatinine Ratio 5 (6-26) L 02/09/18 03:20 POC Glucose 101 mg/dL (70-99) H 02/08/18 17:11 Calcium 8.4 mg/dL (8.6-10.3) L 02/09/18 03:20 Phosphorus 6.8 mg/dL (2.7-4.5) H 02/08/18 12:55 Troponin I 0.73 ng/mL (< 0.04) H* 02/09/18 03:20 B-Natriuretic Peptide 1282 pg/mL (Less than 100) H 02/08/18 17:30 Serum Total Protein 6.3 g/dL (6.4-8.9) L 02/08/18 12:55 HDL Cholesterol 22 mg/dL (40-59) L 02/09/18 03:20 Diabetes panel 02/09/18 Range/Units 03:20 Sodium 137 (136-145) mEq/L Potassium 4.3 (3.5-5.1) mEq/L Chloride 99 (98-107) mEq/L Carbon Dioxide 27 (23-29) mEq/L BUN 25 H (8-23) mg/dL Creatinine 5.03 H (0.70-1.30) mg/dL Glucose 101 (70-105) mg/dL Calcium 8.4 L (8.6-10.3) mg/dL Triglycerides 75 (< 150) mg/dL HDL Cholesterol 22 L (40-59) mg/dL Calcium panel 02/09/18 Range/Units 03:20 Calcium 8.4 L (8.6-10.3) mg/dL Pituitary panel 02/09/18 Range/Units 03:20 Sodium 137 (136-145) mEq/L Potassium 4.3 (3.5-5.1) mEq/L Chloride 99 (98-107) mEq/L Carbon Dioxide 27 (23-29) mEq/L BUN 25 H (8-23) mg/dL Creatinine 5.03 H (0.70-1.30) mg/dL Glucose 101 (70-105) mg/dL Calcium 8.4 L (8.6-10.3) mg/dL Adrenal panel 02/09/18 Range/Units 03:20 Sodium 137 (136-145) mEq/L Potassium 4.3 (3.5-5.1) mEq/L Chloride 99 (98-107) mEq/L Carbon Dioxide 27 (23-29) mEq/L BUN 25 H (8-23) mg/dL Creatinine 5.03 H (0.70-1.30) mg/dL Glucose 101 (70-105) mg/dL Calcium 8.4 L (8.6-10.3) mg/dL All other labs normal. - Imaging CT scan - abdomen: report reviewed, image reviewed CT scan - pelvis: report reviewed, image reviewed - Attending Attestation I examined this patient and my medical decision-making was reviewed with the Resident Physician. I agree with the documented findings, disposition and treatment plan as described except to the extent set forth below.
[2018-02-08] MEDS ORDERED: 0.9 % Sodium Chloride 1,000 ML ONE (17:43)
[2018-02-08] MEDS ORDERED: 0.9 % Sodium Chloride 250 ML IVC PRN (17:54)
[2018-02-08] MEDS: 0.9 % Sodium Chloride 1,000 ML PRIME SCH (18:45)
[2018-02-08 22:28] LABS: Hematocrit 27.1 % (37.5-50.1); Hemoglobin 9.1 g/dL (12.9-16.9)
[2018-02-09] MEDS: Piperacillin/Tazobactam 3.375 GM in 0.9 % Sodium Chloride Mini Bag 100 ML IVPB SCH ×2 (00:33→12:33)
[2018-02-09 03:29] LABS: Basophils % 0.4 %; Eosinophils % 0.3 %; Hematocrit 24.2 % (37.5-50.1); Hemoglobin 8.2 g/dL (12.9-16.9); Immature Granulocytes % 0.3 % (0-4); Lymphocytes # 0.5 K/mcL (0.6-4.6); Lymphocytes % 6.9 %; Mean Corpuscular HGB Conc 33.9 g/dL (31.6-35.5); Mean Corpuscular Hemoglobin 33.9 pg (28.0-33.3); Monocytes # 0.7 K/mcL (0.0-1.3); Monocytes % 9.5 %; Neutrophils # 6.4 K/mcL (1.6-8.9); Platelet Count 132 K/mcL (140-400); Red Blood Count 2.42 M/mcL (4.19-5.50); Red Cell Distribution Width 14.4 % (11.5-14.5); Segmented Neutrophils % 82.6 %
[2018-02-09 03:49] LABS: Calcium 8.4 mg/dL (8.6-10.3); Potassium 4.3 mEq/L (3.5-5.1)
--- NOTE | 2018-02-09 08:10 | Nephrology Consult Note ---
Date of Encounter: 02/09/18 Time of Encounter: 08:08 Assessment and Plan (1) ESRD (end stage renal disease) on dialysis Current Visit: Yes Status: Chronic ESRD on HD MWF with typical time of 210 min via RUE AVF and typical heparin bolus at [facility] of treatment of 2000 units. Based upon the [facility] mobile EHR, I see that he had 183 min of dialysis on 02/06/18 (to work around his surgery date) and prior to that on his typical Monday 02/05: 212 min of dialysis. I arranged for a short evening dialysis treatment last night (Saturday evening) for missed HD. His next dialysis would be planned to resume MWF timing. (2) Constipation Current Visit: Yes Status: Acute The pt said that he's not had a BM since surgery. Will defer to the Surgery team. Qualifiers: Constipation type: unspecified constipation type Qualified Code(s): K59.00 - Constipation, unspecified (3) Abdominal wall hematoma Current Visit: Yes Status: Acute Appreciate Gen Surg Qualifiers: Encounter type: initial encounter Qualified Code(s): S30.1XXA - Contusion of abdominal wall, initial encounter History of Present Illness - Reason for Consult Consult date: 02/08/18 end stage renal disease Requesting physician: Mio Nath - Chief Complaint ESRD - History of Present Illness 73 y/o gentleman with a pmh of ESRD who presented with worsen abd pain and findings of RP bleed s/p recent abd surgery. Nephrology was consulted as he is a dialysis pt and yesterday he was arranged in the evening for HD d/t missed treatments. He did not affirm active N/V, though he has felt quite weak since the surgery on Saturday and was largely unable to stand/walk, according to his . He denied any unilateral weakness or slurred speech. He did not affirm F/ C or worsening shortness of breath or active CP. He still has some abd discomfort he affirmed. He reported that he's not had a BM since the surgery. Past Med Surg Social Fam HX - Past Medical History Medical history: CHF, coronary artery disease, diabetes, dialysis, GERD, hyperlipidemia, hypertension, renal disease, other Additional medical history: kidney disease, fistula, bph, hx rheumatic fever, chronic fatigue, ESRD, anemia, CVD, cardiac stents x 4 Psychiatric history: no psych history - Past Surgical History Surgical History: appendectomy, other Additional surgical history: ear surgery, cardiac stents, fistula, BCC, lung bx , PTCA, Hernia - Social History Smoking Status: Former smoker Smokeless Tobacco Status: No Alcohol use: none Drug use: none - Family History Mother Adopted: Marvel: Alda Living Status: Hx Family Cardiac Disorders: Yes Hx Family Cancer: Yes (stomach) Medications and Allergies Amlodipine Besylate 10 mg PO DAILY 10/07/17 [History] Aspirin [Lo-Dose Aspirin EC] 81 mg PO DAILY 10/07/17 [History] Calcium Acetate [Phos-LO] 2,001 mg PO TIDWM 10/07/17 [History] Lisinopril 2.5 mg PO DAILY 10/07/17 [History] Metoprolol Tartrate 50 mg PO DAILY 10/07/17 [History] Omeprazole [PriLOSEC] 40 mg PO DAILY 10/07/17 [History] Simvastatin [Zocor] 20 mg PO HS 10/07/17 [History] Docusate [Colace] 100 mg PO DAILY 10 Days #10 capsule 02/07/18 [Rx] OxyCODONE Immed Rel [Roxicodone 5 MG] 5 mg PO Q6HR PRN 7 Days #28 tablet [Rx] Renal Vitamin [Renal Caps Softgel] 1 mg PO DAILY 02/07/18 [History] 3 Allergy/AdvReac Type Severity Reaction Status Date / Time No Known Allergies Allergy Verified 01/30/18 11:03 Review of Systems All Systems: reviewed and no additional remarkable complaints except as stated Exam - Vital Signs Vital signs: Initial Vital Signs Temp Pulse Resp BP Pulse Ox 98.1 F 85 18 107/60 90 02/08/18 12:31 02/08/18 12:31 02/08/18 12:31 02/08/18 12:31 02/08/18 12:31 Vital Signs - Last 8 Hours Temp Pulse Resp BP Pulse Ox 02/09/18 07:28 98.2 F 76 17 153/85 96 02/09/18 03:58 98.8 F 75 15 126/76 95 Intake and Output 02/08/18 02/09/18 02/09/18 23:59 07:59 15:59 Intake Total 600 / 600 Output Total 3100 / 3100 Balance -2500 / -2500 Intake: Oral 0 / 0 Intake, Rinseback and Flushes 600 / 600 Output: Urine 0 / 0 Total Dialysis (HD) Output 3100 / 3100 Other: Weight 95.5 kg Blood Glucose* 96 100 Hemodialysis Net Fluid Removed 2500 (mL) - General Appearance General appearance: well-developed, well-nourished, appears started age, chronically ill, fatigue, frail EENT: ATNC, PERRL, mucous membranes moist Neck: supple Respiratory: clear Cardiology: no murmurs, edema (2-3+ LLE edema and 2+ RLLE (the pt said that this is about normal for him)), regular rhythm, normal S1, normal S2 - Dialysis Access Dialysis Vascular Access: Arteriovenous Fistula (RUE AVF) thrill: Yes bruit: Yes Gastrointestinal: hypoactive bowel sounds, tenderness (in the mid line near epigastrum), guarding, distended (mildly but not rigid) Integumentary: warm and dry Neurologic: no asterixis, alert and oriented x3 Musculoskeletal: no cyanosis, no clubbing Psychiatric: mood/affect appropriate, cooperative Results - Lab Results 02/09/18 13:05 02/09/18 03:20 Most recent lab results Calcium 8.4 mg/dL (8.6-10.3) L 02/09/18 03:20 Phosphorus 6.8 mg/dL (2.7-4.5) H 02/08/18 12:55 Magnesium 1.7 mg/dL (1.6-2.6) 02/08/18 12:55 I reviewed the labs, vitals, imaging, med lists progress notes in both [facility] and [facility] EHR. Consult Discharge Plan - Plan Referrals: Tahir Herrera Jr, MD [Primary Care Provider] -
[2018-02-09] MEDS: Renal Vitamin 1 CAP CAPSULE PO SCH (08:32)
[2018-02-09] MEDS: Calcium Acetate 667 MG CAPSULE PO SCH ×3 (08:33→16:44)
[2018-02-09] MEDS: amLODIPine 5 MG TABLET PO SCH (08:33)
--- NOTE | 2018-02-09 10:06 | General Surgery Progress Note ---
<Charissa Solorzano E - Last Filed: 02/09/18 10:02> Date of Encounter: 02/09/18 Time of Encounter: 10:02 - Assessment and Plan (1) Abdominal wall hematoma Current Visit: Yes Status: Acute trend H&H (Hgb decreased to 8.2 today compared to 9.1 on admission. Hct decreased to 24.2 from 27.2 on admission) Serial abdominal exams IV fluids as per primary pain control as per primary possible follow up imaging supportive care Qualifiers: Encounter type: initial encounter Qualified Code(s): S30.1XXA - Contusion of abdominal wall, initial encounter (2) Pelvic hematoma Current Visit: Yes Status: Acute trend H&H (Hgb decreased to 8.2 today compared to 9.1 on admission. Hct decreased to 24.2 from 27.2 on admission) Serial abdominal exams IV fluids as per primary pain control as per primary possible follow up imaging supportive care Subjective Patient reports: feels better, still having pain, flatus, no bowel movement, other (PAtient states he is feeling a bit better today and although he is still haivng pain it is not as bad. ) Objective Vital Signs - Last 8 Hours Temp Pulse Resp BP Pulse Ox 02/09/18 07:28 98.2 F 76 17 153/85 96 02/09/18 03:58 98.8 F 75 15 126/76 95 Intake and Output 02/08/18 02/09/18 02/09/18 23:59 07:59 15:59 Intake Total 600 / 600 100 / 100 Output Total 3100 / 3100 Balance -2500 / -2500 100 / 100 Intake: IV Fluids 100 / 100 Zosyn 3.375 GM In 0.9 % Sodium 100 / 100 Chloride (Mini-Bag +) 100 ML @ 25 mls/hr IVPB Q12H [facility] Rx#: [id number] Oral 0 / 0 0 / 0 Intake, Rinseback and Flushes 600 / 600 Output: Urine 0 / 0 Total Dialysis (HD) Output 3100 / 3100 Other: Meal Breakfast Percent of Meal Consumed 0% Weight 95.5 kg Blood Glucose* 96 100 Hemodialysis Net Fluid Removed 2500 (mL) - General physical appearance well developed, well nourished, moderate distress - Respiratory normal expansion, normal respiratory effort crackles: bilateral (lower lobes) - Cardiovascular Cardiovascular exam: Present: RRR, murmurs (2+ murmur heard at luis aortic post) - Abdomen Abdomen: Present: bowel sounds present, soft, tender Abdominal Tenderness: diffusely - Incision Incision: Present: clean and dry, intact - Integumentary no rash, no growths, no abnormal pigmentation - Musculoskeletal normal posture - Psychiatric oriented to time, oriented to person, oriented to place - Labs 02/09/18 03:20 02/09/18 03:20 Diabetes panel 02/09/18 Range/Units 03:20 Sodium 137 (136-145) mEq/L Potassium 4.3 (3.5-5.1) mEq/L Chloride 99 (98-107) mEq/L Carbon Dioxide 27 (23-29) mEq/L BUN 25 H (8-23) mg/dL Creatinine 5.03 H (0.70-1.30) mg/dL Glucose 101 (70-105) mg/dL Calcium 8.4 L (8.6-10.3) mg/dL Triglycerides 75 (< 150) mg/dL HDL Cholesterol 22 L (40-59) mg/dL Calcium panel 02/09/18 Range/Units 03:20 Calcium 8.4 L (8.6-10.3) mg/dL Pituitary panel 02/09/18 Range/Units 03:20 Sodium 137 (136-145) mEq/L Potassium 4.3 (3.5-5.1) mEq/L Chloride 99 (98-107) mEq/L Carbon Dioxide 27 (23-29) mEq/L BUN 25 H (8-23) mg/dL Creatinine 5.03 H (0.70-1.30) mg/dL Glucose 101 (70-105) mg/dL Calcium 8.4 L (8.6-10.3) mg/dL Adrenal panel 02/09/18 Range/Units 03:20 Sodium 137 (136-145) mEq/L Potassium 4.3 (3.5-5.1) mEq/L Chloride 99 (98-107) mEq/L Carbon Dioxide 27 (23-29) mEq/L BUN 25 H (8-23) mg/dL Creatinine 5.03 H (0.70-1.30) mg/dL Glucose 101 (70-105) mg/dL Calcium 8.4 L (8.6-10.3) mg/dL Consult Discharge Plan - Plan Referrals: Tahir Herrera Jr, MD [Primary Care Provider] - <Meli Booth - Last Filed: 02/09/18 14:35> Date of Encounter: 02/09/18 - Assessment and Plan (1) Postoperative haemorrhage Current Visit: Yes Status: Acute continue conservative therapy currently Hb 8.0, trend ok diet prn pain control discussed with patient and his family that it is likely he has stopped bleeding , will take weeks for body to reabsorb blood he has fluid beneath his umbilical hernia repair and it is not a recurrence, they understand OOB to chair with meal ambulate with assistance DR York will return tomorrow Qualifiers: Surgical complication system/body Area: circulatory system Procedure type: non-circulatory Qualified Code(s): I97.620 - Postprocedural hemorrhage of a circulatory system organ or structure following other procedure Subjective Patient reports: no new complaints, feels better, still having pain, pain is less, flatus, no bowel movement Objective Vital Signs - Last 8 Hours Temp Pulse Resp BP Pulse Ox 02/09/18 11:47 97.8 F 88 17 133/84 97 02/09/18 07:28 98.2 F 76 17 153/85 96 Intake and Output 02/08/18 02/09/18 02/09/18 23:59 07:59 15:59 Intake Total 600 / 600 220 / 220 Output Total 3100 / 3100 Balance -2500 / -2500 220 / 220 Intake: IV Fluids 100 / 100 Zosyn 3.375 GM In 0.9 % Sodium 100 / 100 Chloride (Mini-Bag +) 100 ML @ 25 mls/hr IVPB Q12H [facility] Rx#: [id number] Oral 0 / 0 120 / 120 Intake, Rinseback and Flushes 600 / 600 Output: Urine 0 / 0 Total Dialysis (HD) Output 3100 / 3100 Other: Meal Lunch Percent of Meal Consumed 25% Weight 95.5 kg Blood Glucose* 96 100 122 Hemodialysis Net Fluid Removed 2500 (mL) - General physical appearance well developed, well nourished, no distress, moderate pain - Eyes PERRL, normal ocular movement - ENT normal mucosa, normocephalic - Neck Neck exam: trachea midline - Respiratory normal expansion, normal respiratory effort - Cardiovascular Cardiovascular exam: Present: RRR - Abdomen Abdomen: Present: soft, tender Abdominal Tenderness: LUQ, LLQ, suprapubic - Incision Incision: Present: clean and dry, intact - Integumentary no rash, no growths - Neurologic CN 2-12 grossly intact - Musculoskeletal normal posture - Psychiatric oriented to time, oriented to person, oriented to place, speech is normal, memory intact - Labs 02/09/18 13:05 02/09/18 03:20 Diabetes panel 02/09/18 Range/Units 03:20 Sodium 137 (136-145) mEq/L Potassium 4.3 (3.5-5.1) mEq/L Chloride 99 (98-107) mEq/L Carbon Dioxide 27 (23-29) mEq/L BUN 25 H (8-23) mg/dL Creatinine 5.03 H (0.70-1.30) mg/dL Glucose 101 (70-105) mg/dL Calcium 8.4 L (8.6-10.3) mg/dL Triglycerides 75 (< 150) mg/dL HDL Cholesterol 22 L (40-59) mg/dL Calcium panel 02/09/18 Range/Units 03:20 Calcium 8.4 L (8.6-10.3) mg/dL Pituitary panel 02/09/18 Range/Units 03:20 Sodium 137 (136-145) mEq/L Potassium 4.3 (3.5-5.1) mEq/L Chloride 99 (98-107) mEq/L Carbon Dioxide 27 (23-29) mEq/L BUN 25 H (8-23) mg/dL Creatinine 5.03 H (0.70-1.30) mg/dL Glucose 101 (70-105) mg/dL Calcium 8.4 L (8.6-10.3) mg/dL Adrenal panel 02/09/18 Range/Units 03:20 Sodium 137 (136-145) mEq/L Potassium 4.3 (3.5-5.1) mEq/L Chloride 99 (98-107) mEq/L Carbon Dioxide 27 (23-29) mEq/L BUN 25 H (8-23) mg/dL Creatinine 5.03 H (0.70-1.30) mg/dL Glucose 101 (70-105) mg/dL Calcium 8.4 L (8.6-10.3) mg/dL - Attending Attestation I examined this patient and my medical decision-making was reviewed with the Resident Physician. I agree with the documented findings, disposition and treatment plan as described except to the extent set forth below.
--- NOTE | 2018-02-09 10:11 | Internal Med Progress Note ---
Hospitalist Progress Note - Encounter Date of Encounter: 02/09/18 Time of Encounter: 10:08 - Subjective Interval History: Patient had no acute events overnight. He still has moderate abdominal tenderness, worse with movement, but better than yesterday. Breathing is much better after dialysis yesterday evening. He denies fever, chills, chest pain, nausea, or vomiting. He has no other complaints at this time. - Exam Vitals: Temp Pulse Resp BP Pulse Ox 98.2 F 76 17 153/85 96 02/09/18 07:28 02/09/18 07:28 02/09/18 07:28 02/09/18 07:28 02/09/18 07:28 Exam: Gen - Awake, alert, sitting up in chair, no acute distress HEENT - NCAT, PERRLA, EOMI, hearing grossly intact, oropharynx benign CV - RRR, normal S1 and S2, no M/R/G, trace BLE edema Resp - Normal WOB, CTAB, no W/R/R GI - Soft, non-distended, mild TTP diffusely across abdomen without rebound or guarding, multiple surgical scars on abdomen, normal bowel sounds, no HSP Skin - Warm, dry, no rashes/lesions/ulcers Psych - Normal mood and affect, no depression or anxiety - Assessment and Plan (1) Retroperitoneal hematoma Current Visit: Yes Status: Acute Assessment and Plan: Surgery consulted; appreciate input. Pain is improved, but still significant. Hemoglobin down 1 point to 8.2. Continue to observe with serial abdominal examinations. Continue supportive care with pain control. Continue IV zosyn per surgery recommendations. Leukocytosis improved today. Recheck H/H this afternoon and CBC in AM. Consider re-imaging if condition worsens. (2) Abdominal wall hematoma Current Visit: Yes Status: Acute Assessment and Plan: Management as per above. (3) Pelvic hematoma Current Visit: Yes Status: Acute Assessment and Plan: Management as per above. (4) Altered mental status Current Visit: Yes Status: Resolved Assessment and Plan: Resolved. (5) ESRD (end stage renal disease) on dialysis Current Visit: Yes Status: Chronic Assessment and Plan: Nephrology consulted; appreciate input. Continue MWF dialysis schedule. Recheck BMP in AM. (6) Elevated troponin I level Current Visit: Yes Status: Chronic Assessment and Plan: Trended up a little. No chest pain. Low suspicion for ACS at this time. Likely secondary to demand ischemia from blood loss anemia and hypoxemia. Continue telemetry. (7) Hypertension Current Visit: Yes Status: Chronic Assessment and Plan: Continue home medications. (8) Acute diastolic (congestive) heart failure Current Visit: Yes Status: Acute Assessment and Plan: Fluid overloaded. Much better after dialysis yesterday evening. Continue supplemental O2 PRN; wean as tolerated to room air. Continue dialysis as per above. Continue home medications. (9) DVT prophylaxis Current Visit: Yes Status: Acute Assessment and Plan: Continue SCDs. Defer anticoagulation due to hematomas and anemia. - Time Spent with Patient Total time spent is greater than 50% in coordination of care (as documented) at patient's floor/unit and/or counseling patient: less than 15 minutes Plan of Care Discussed with: patient (Nurse) Internal Medicine: Result - Labs CBC & Chem 7: 02/09/18 03:20 02/09/18 03:20 Labs: Short CBC 02/08/18 02/09/18 Range/Units 21:40 03:20 WBC 7.7 (4.3-11.1) K/mcL Hgb 9.1 L 8.2 L (12.9-16.9) g/dL Hct 27.1 L 24.2 L (37.5-50.1) % Plt Count 132 L (140-400) K/mcL Neutrophils # 6.4 (1.6-8.9) K/mcL BMP 02/09/18 03:20 Sodium 137 Potassium 4.3 Chloride 99 Carbon Dioxide 27 BUN 25 H Creatinine 5.03 H Glucose 101 Calcium 8.4 L Cardiac Enzymes 02/08/18 02/09/18 Range/Units 21:40 03:20 Troponin I 0.67 H* 0.73 H* (< 0.04) ng/mL - ABG Interpretation ABG results: PT/INR, D-dimer PT 13.3 Seconds (9.4-12.1) H 02/08/18 12:55 - VTE Reasons for not Prescribing Prophylaxis: Medical contraindication (Hematomas/ Anemia) Documentation of Mechanical Device: Intermittent pneumatic compression device Consult Discharge Plan - Plan Referrals: Tahir Herrera Jr, MD [Primary Care Provider] - (2) Abdominal wall hematoma Qualifiers: Encounter type: initial encounter Qualified Code(s): S30.1XXA - Contusion of abdominal wall, initial encounter (4) Altered mental status Qualifiers: Altered mental status type: unspecified Qualified Code(s): R41.82 - Altered mental status, unspecified (7) Hypertension Qualifiers: Hypertension type: essential hypertension Qualified Code(s): I10 - Essential (primary) hypertension
[2018-02-09 13:14] LABS: Hematocrit 23.6 % (37.5-50.1)
[2018-02-09] MEDS: *HR* OxyCODONE Immed Rel 5 MG TABLET PO PRN (14:04)
[2018-02-10 01:47] LABS: Hepatitis B Surface Antibody 0.94 mIU/mL
[2018-02-10] MEDS: Piperacillin/Tazobactam 3.375 GM in 0.9 % Sodium Chloride Mini Bag 100 ML IVPB SCH ×2 (03:10→16:53)
[2018-02-10 05:17] LABS: Basophils % 0.3 %; Eosinophils # 0.1 K/mcL (0.0-0.6); Eosinophils % 1.5 %; Hemoglobin 7.7 g/dL (12.9-16.9); Immature Granulocytes % 0.6 % (0-4); Lymphocytes # 0.5 K/mcL (0.6-4.6); Lymphocytes % 6.5 %; Mean Corpuscular HGB Conc 33.5 g/dL (31.6-35.5); Mean Corpuscular Hemoglobin 33.8 pg (28.0-33.3); Mean Corpuscular Volume 100.9 fL (83.0-100.0); Mean Platelet Volume 10.6 fL (9.4-12.4); Monocytes # 0.6 K/mcL (0.0-1.3); Monocytes % 7.9 %; Platelet Count 149 K/mcL (140-400); Red Blood Count 2.28 M/mcL (4.19-5.50); Red Cell Distribution Width 14.3 % (11.5-14.5); Segmented Neutrophils % 83.2 %
[2018-02-10 05:44] LABS: Calcium 8.2 mg/dL (8.6-10.3); Potassium 4.5 mEq/L (3.5-5.1)
[2018-02-10] MEDS ORDERED: 0.9 % Sodium Chloride 250 ML IVC PRN (07:15)
[2018-02-10] MEDS: *HR* OxyCODONE Immed Rel 5 MG TABLET PO PRN ×2 (07:28→20:32)
[2018-02-10] MEDS ORDERED: 0.9 % Sodium Chloride 1,000 ML ONE (07:49)
--- NOTE | 2018-02-10 08:05 | General Surgery Progress Note ---
<Charissa Solorzano E - Last Filed: 02/10/18 08:03> Date of Encounter: 02/10/18 Time of Encounter: 08:03 - Assessment and Plan (1) Abdominal wall hematoma Current Visit: Yes Status: Acute trend H&H (Hgb decreased to 8.2 today compared to 9.1 on admission. Hct decreased to 24.2 from 27.2 on admission) Serial abdominal exams IV fluids as per primary pain control as per primary possible follow up imaging supportive care Qualifiers: Encounter type: initial encounter Qualified Code(s): S30.1XXA - Contusion of abdominal wall, initial encounter (2) Pelvic hematoma Current Visit: Yes Status: Acute trend H&H (Hgb decreased to 8.2 today compared to 9.1 on admission. Hct decreased to 24.2 from 27.2 on admission) Serial abdominal exams IV fluids as per primary pain control as per primary possible follow up imaging supportive care Subjective Patient reports: feels better, flatus, bowel movement Objective Vital Signs - Last 8 Hours Temp Pulse Resp BP Pulse Ox 02/10/18 07:17 98.1 F 89 17 135/79 95 02/10/18 03:36 98.5 F 92 15 117/74 97 Intake and Output 02/09/18 02/10/18 02/10/18 23:59 07:59 15:59 Intake Total 100 / 100 Balance 100 / 100 Intake: IV Fluids 100 / 100 Zosyn 3.375 GM In 0.9 % Sodium 100 / 100 Chloride (Mini-Bag +) 100 ML @ 25 mls/hr IVPB Q12H [facility] Rx#: [id number] Other: Weight 96.4 kg Blood Glucose* 137 122 - General physical appearance well developed, well nourished, no distress - Respiratory normal expansion, normal respiratory effort, clear to auscultation - Cardiovascular Cardiovascular exam: Present: RRR, murmurs (3+ aortic post) - Abdomen Abdomen: Present: bowel sounds present, soft, tender Abdominal Tenderness: diffusely - Musculoskeletal normal posture - Psychiatric oriented to time, oriented to person, oriented to place - Labs 02/10/18 04:50 02/10/18 04:50 Diabetes panel 02/10/18 Range/Units 04:50 Sodium 133 L (136-145) mEq/L Potassium 4.5 (3.5-5.1) mEq/L Chloride 99 (98-107) mEq/L Carbon Dioxide 24 (23-29) mEq/L BUN 40 H (8-23) mg/dL Creatinine 6.56 H (0.70-1.30) mg/dL Glucose 122 H (70-105) mg/dL Calcium 8.2 L (8.6-10.3) mg/dL Calcium panel 02/10/18 Range/Units 04:50 Calcium 8.2 L (8.6-10.3) mg/dL Pituitary panel 02/10/18 Range/Units 04:50 Sodium 133 L (136-145) mEq/L Potassium 4.5 (3.5-5.1) mEq/L Chloride 99 (98-107) mEq/L Carbon Dioxide 24 (23-29) mEq/L BUN 40 H (8-23) mg/dL Creatinine 6.56 H (0.70-1.30) mg/dL Glucose 122 H (70-105) mg/dL Calcium 8.2 L (8.6-10.3) mg/dL Adrenal panel 02/10/18 Range/Units 04:50 Sodium 133 L (136-145) mEq/L Potassium 4.5 (3.5-5.1) mEq/L Chloride 99 (98-107) mEq/L Carbon Dioxide 24 (23-29) mEq/L BUN 40 H (8-23) mg/dL Creatinine 6.56 H (0.70-1.30) mg/dL Glucose 122 H (70-105) mg/dL Calcium 8.2 L (8.6-10.3) mg/dL - VTE Reasons for not Prescribing Prophylaxis: Medical contraindication (Hematomas/ Anemia) Documentation of Mechanical Device: Intermittent pneumatic compression device Consult Discharge Plan - Plan Referrals: Tahir Herrera Jr, MD [Primary Care Provider] - <Andrey York - Last Filed: 02/11/18 07:57> Date of Encounter: 02/11/18 Objective Vital Signs - Last 8 Hours Temp Pulse Resp BP Pulse Ox 02/11/18 07:27 97.6 F 80 17 116/64 97 02/11/18 04:08 97.8 F 89 16 143/84 97 02/11/18 00:46 98.4 F 60 14 120/75 96 Intake and Output 02/10/18 02/10/1818 15:59 23:59 07:59 Intake Total 960 / 960 100 / 100 Output Total 3600 / 3600 Balance -2640 / -2640 100 / 100 Intake: IV Fluids 100 / 100 Zosyn 3.375 GM In 0.9 % Sodium 100 / 100 Chloride (Mini-Bag +) 100 ML @ 25 mls/hr IVPB 0500,1700 [facility] Rx #:[id number] Oral 360 / 360 Intake, Rinseback and Flushes 600 / 600 Output: Urine 0 / 0 Total Dialysis (HD) Output 3600 / 3600 Other: Meal Lunch Percent of Meal Consumed 50% Weight 90.945 kg Blood Glucose* 115 168 111 Hemodialysis Net Fluid Removed 3000 (mL) Patient Weight 02/11/18 23:59 Weight 90.945 kg - Labs 02/11/18 03:59 02/11/18 03:59 Diabetes panel 02/11/18 Range/Units 03:59 Sodium 136 (136-145) mEq/L Potassium 4.0 (3.5-5.1) mEq/L Chloride 98 (98-107) mEq/L Carbon Dioxide 27 (23-29) mEq/L BUN 30 H (8-23) mg/dL Creatinine 5.12 H (0.70-1.30) mg/dL Glucose 108 H (70-105) mg/dL Calcium 8.8 (8.6-10.3) mg/dL Calcium panel 02/11/18 Range/Units 03:59 Calcium 8.8 (8.6-10.3) mg/dL Pituitary panel 02/11/18 Range/Units 03:59 Sodium 136 (136-145) mEq/L Potassium 4.0 (3.5-5.1) mEq/L Chloride 98 (98-107) mEq/L Carbon Dioxide 27 (23-29) mEq/L BUN 30 H (8-23) mg/dL Creatinine 5.12 H (0.70-1.30) mg/dL Glucose 108 H (70-105) mg/dL Calcium 8.8 (8.6-10.3) mg/dL Adrenal panel 02/11/18 Range/Units 03:59 Sodium 136 (136-145) mEq/L Potassium 4.0 (3.5-5.1) mEq/L Chloride 98 (98-107) mEq/L Carbon Dioxide 27 (23-29) mEq/L BUN 30 H (8-23) mg/dL Creatinine 5.12 H (0.70-1.30) mg/dL Glucose 108 H (70-105) mg/dL Calcium 8.8 (8.6-10.3) mg/dL - Attending Attestation patient seen and examined; i have reviewed all labs, imaging, and notes including this one. I agree with the above assessment and plan
[2018-02-10] MEDS: Renal Vitamin 1 CAP CAPSULE PO SCH (08:22)
[2018-02-10] MEDS: Calcium Acetate 667 MG CAPSULE PO SCH ×3 (08:23→16:52)
[2018-02-10] MEDS: amLODIPine 5 MG TABLET PO SCH (08:25)
[2018-02-10] MEDS: 0.9 % Sodium Chloride 1,000 ML PRIME SCH (09:55)
--- NOTE | 2018-02-10 11:18 | Nephrology Progress Note ---
<Madelny Guardado - Last Filed: 02/10/18 13:08> Date of Encounter: 02/10/18 Time of Encounter: 11:16 - Assessment and Plan (1) ESRD (end stage renal disease) on dialysis Status: Chronic ESRD on HD MWF HD ordered today. Renal dose all medications and avoid nephrotoxins. Renal diet, if able to eat. Plan for HD Saturday. (2) Abdominal wall hematoma Status: Acute Per surgery. Qualifiers: Encounter type: initial encounter Qualified Code(s): S30.1XXA - Contusion of abdominal wall, initial encounter (3) HTN (hypertension) Status: Acute BP is 111/76 at bedside, stable. Qualifiers: Qualified Code(s): I10 - Essential (primary) hypertension Subjective Principal diagnosis: lethargic Interval history: Pt seen and examined during HD, tolerating well. Denies CP,SOB,nausea/vomiting or diarrhea. Objective - Vital Signs Vital signs: Vital Signs Temp Pulse Resp BP Pulse Ox 02/10/18 10:40 111/76 02/10/18 10:25 116/73 02/10/18 10:10 117/73 02/10/18 09:55 97.5 F L 17 120/74 02/10/18 08:34 95 02/10/18 07:17 98.1 F 89 17 135/79 95 02/10/18 03:36 98.5 F 92 15 117/74 97 02/09/18 23:37 98.2 F 77 16 114/81 97 02/09/18 19:15 98.5 F 88 15 99/55 96 02/09/18 16:20 97.9 F 84 17 119/76 95 02/09/18 11:47 97.8 F 88 17 133/84 97 Intake and Output 02/09/18 02/10/18 02/10/18 23:59 07:59 15:59 Intake Total 100 / 100 840 / 840 Balance 100 / 100 840 / 840 Intake: IV Fluids 100 / 100 Zosyn 3.375 GM In 0.9 % Sodium 100 / 100 Chloride (Mini-Bag +) 100 ML @ 25 mls/hr IVPB Q12H [facility] Rx#: [id number] Oral 240 / 240 Intake, Rinseback and Flushes 600 / 600 Other: Meal Breakfast Percent of Meal Consumed 50% Weight 96.4 kg Blood Glucose* 137 122 Hemodialysis Net Fluid Removed 671 (mL) - General Appearance General appearance: Present: well-developed, well-nourished, appears started age EENT: Present: ATNC, hearing intact, vision intact Neck: Present: supple Respiratory: Present: clear Cardiology: Present: edema (Trace bilateral lower extremity edema noted.), normal S1, normal S2 Dialysis Vascular Access: Arteriovenous Fistula thrill: Yes bruit: Yes Gastrointestinal: Present: normoactive bowel sounds, no tenderness, no guarding Integumentary: Present: no rash, warm and dry Neurologic: Present: alert and oriented x3 Psychiatric: Present: mood/affect appropriate, cooperative - Lab 02/10/18 04:50 02/10/18 04:50 Most recent lab results Calcium 8.2 mg/dL (8.6-10.3) L 02/10/18 04:50 Phosphorus 6.8 mg/dL (2.7-4.5) H 02/08/18 12:55 Magnesium 1.7 mg/dL (1.6-2.6) 02/08/18 12:55 - VTE Reasons for not Prescribing Prophylaxis: Medical contraindication (Hematomas/ Anemia) Documentation of Mechanical Device: Intermittent pneumatic compression device Consult Discharge Plan - Plan Instructions: Anemia (GEN) Referrals: Tahir Herrera Jr, MD [Primary Care Provider] - 02/18/18 2:00 pm (Please follow up as schedule with Sharon Bhagat) <Yesenia King - Last Filed: 02/21/18 10:04> Date of Encounter: 02/10/18 - Assessment and Plan (1) ESRD (end stage renal disease) on dialysis Status: Chronic (2) Abdominal wall hematoma Status: Acute Qualifiers: Encounter type: initial encounter Qualified Code(s): S30.1XXA - Contusion of abdominal wall, initial encounter (3) HTN (hypertension) Status: Acute Qualifiers: Qualified Code(s): I10 - Essential (primary) hypertension (4) Anemia Status: Acute Qualifiers: Qualified Code(s): D64.9 - Anemia, unspecified Objective - Lab 02/13/18 05:28 02/13/18 05:28 Most recent lab results Calcium 9.2 mg/dL (8.6-10.3) 02/13/18 05:28 Phosphorus 6.8 mg/dL (2.7-4.5) H 02/08/18 12:55 Magnesium 1.7 mg/dL (1.6-2.6) 02/08/18 12:55 - Attending Attestation I examined this patient and my medical decision-making was reviewed with the Resident Physician/PARTITION SETTER. I agree with the documented findings, disposition and treatment plan as described except to the extent set forth below. Pt seen and examined on HD doing well. Feels tired though. Hgb noted at 7.7. Exam shows elderly male NAD with LE edema bilat. Continue HD with UF as tolerated. Transfusion parameters per primary team.
[2018-02-10 15:47] LABS: Hematocrit 25.2 % (37.5-50.1); Hemoglobin 8.6 g/dL (12.9-16.9)
--- NOTE | 2018-02-10 16:08 | Internal Med Progress Note ---
Hospitalist Progress Note - Encounter Date of Encounter: 02/10/18 Time of Encounter: 16:06 - Subjective Interval History: Patient had no acute events overnight. He still has moderate abdominal tenderness, though slightly better today. Breathing is "good" per patient, but still with significant supplemental O2 requirement. He denies fever, chills, chest pain, nausea, or vomiting. He has no other complaints at this time. - Exam Vitals: Temp Pulse Resp BP Pulse Ox 97.2 F L 89 16 111/75 95 02/10/18 13:50 02/10/18 07:17 02/10/18 13:50 02/10/18 13:50 02/10/18 08:34 Exam: Gen - Awake, alert, no acute distress HEENT - NCAT, PERRLA, EOMI, hearing grossly intact, oropharynx benign CV - RRR, normal S1 and S2, no M/R/G, trace BLE edema Resp - Normal WOB, CTAB, no W/R/R GI - Soft, non-distended, mild TTP diffusely across abdomen without rebound or guarding, multiple surgical scars on abdomen, normal bowel sounds, no HSP Skin - Warm, dry, no rashes/lesions/ulcers Psych - Normal mood and affect, no depression or anxiety - Assessment and Plan (1) Retroperitoneal hematoma Current Visit: Yes Status: Acute Assessment and Plan: Surgery consulted; appreciate input. Pain is slowly improving. Hemoglobin continues to trend down to 7.7 today. Continue to observe with serial abdominal examinations. Continue supportive care with pain control. Continue IV zosyn per surgery recommendations. Leukocytosis resolved. Recheck H/H this afternoon and CBC in AM. Consider re-imaging if condition worsens. (2) Abdominal wall hematoma Current Visit: Yes Status: Acute Assessment and Plan: Management as per above. (3) Pelvic hematoma Current Visit: Yes Status: Acute Assessment and Plan: Management as per above. (4) Altered mental status Current Visit: Yes Status: Resolved Assessment and Plan: Resolved. (5) ESRD (end stage renal disease) on dialysis Current Visit: Yes Status: Chronic Assessment and Plan: Nephrology consulted; appreciate input. Continue MWF dialysis schedule. Recheck BMP in AM. (6) Elevated troponin I level Current Visit: Yes Status: Chronic Assessment and Plan: Trended up to 0.73. No chest pain. Low suspicion for ACS at this time. Likely secondary to demand ischemia from blood loss anemia and hypoxemia. Continue telemetry. (7) Hypertension Current Visit: Yes Status: Chronic Assessment and Plan: Continue home medications. (8) Acute diastolic (congestive) heart failure Current Visit: Yes Status: Acute Assessment and Plan: Fluid overloaded. Much better after dialysis. Continue supplemental O2 PRN; wean as tolerated to room air. Continue dialysis as per above. Continue home medications. (9) DVT prophylaxis Current Visit: Yes Status: Acute Assessment and Plan: Continue SCDs. Defer anticoagulation due to hematomas and anemia. - Time Spent with Patient Total time spent is greater than 50% in coordination of care (as documented) at patient's floor/unit and/or counseling patient: less than 15 minutes Plan of Care Discussed with: patient (Family, Nurse, Pharmacist, Case Management ) Internal Medicine: Result - Labs CBC & Chem 7: 02/10/18 15:09 02/10/18 04:50 Labs: Short CBC 02/10/18 02/10/18 Range/Units 04:50 15:09 WBC 7.2 (4.3-11.1) K/mcL Hgb 7.7 L 8.6 L (12.9-16.9) g/dL Hct 23.0 L 25.2 L (37.5-50.1) % Plt Count 149 (140-400) K/mcL Neutrophils # 6.0 (1.6-8.9) K/mcL BMP 02/10/18 04:50 Sodium 133 L Potassium 4.5 Chloride 99 Carbon Dioxide 24 BUN 40 H Creatinine 6.56 H Glucose 122 H Calcium 8.2 L - ABG Interpretation ABG results: PT/INR, D-dimer PT 13.3 Seconds (9.4-12.1) H 02/08/18 12:55 - VTE Reasons for not Prescribing Prophylaxis: Medical contraindication (Hematomas/ Anemia) Documentation of Mechanical Device: Intermittent pneumatic compression device Consult Discharge Plan - Plan Referrals: Tahir Herrera Jr, MD [Primary Care Provider] - (2) Abdominal wall hematoma Qualifiers: Encounter type: initial encounter Qualified Code(s): S30.1XXA - Contusion of abdominal wall, initial encounter (4) Altered mental status Qualifiers: Altered mental status type: unspecified Qualified Code(s): R41.82 - Altered mental status, unspecified (7) Hypertension Qualifiers: Hypertension type: essential hypertension Qualified Code(s): I10 - Essential (primary) hypertension
--- NOTE | 2018-02-10 16:23 | Electrocardiograph Report ---
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
--- NOTE | 2018-02-10 16:30 | Electrocardiograph Report ---
[address] [place] [address] Test Date: 2018-02-08 Pat Name: Moses Hong Department: 102 Room: 2A37 Gender: M Him Tech: Daniel : 1945 Requested By: Aide Law Order Number: [id number] Reading MD: Adriana Sanders Measurements Intervals [place] Rate: 91 P: 82 [place]: 244 QRS: -30 QRSD: 108 T: 93 QT: 394 QTc: 443 Interpretive Statements SINUS RHYTHM WITH FIRST DEGREE AV BLOCK BORDERLINE LEFT AXIS DEVIATION [QRS AXIS < -20] ST DEVIATION AND MODERATE T-WAVE ABNORMALITY, CONSIDER LATERAL ISCHEMIA [-0.1+ mV T WAVE IN I/aVL/V5/V6] Electronically Signed On 02-10-2018 16:28:48 EDT by Adriana Sanders
[2018-02-11 04:53] LABS: Basophils % 0.3 %; Eosinophils # 0.2 K/mcL (0.0-0.6); Eosinophils % 2.4 %; Hemoglobin 7.7 g/dL (12.9-16.9); Immature Granulocytes % 0.3 % (0-4); Lymphocytes # 0.5 K/mcL (0.6-4.6); Lymphocytes % 8.3 %; Mean Corpuscular HGB Conc 33.5 g/dL (31.6-35.5); Mean Corpuscular Hemoglobin 33.3 pg (28.0-33.3); Mean Corpuscular Volume 99.6 fL (83.0-100.0); Mean Platelet Volume 10.6 fL (9.4-12.4); Monocytes # 0.5 K/mcL (0.0-1.3); Monocytes % 8.3 %; Neutrophils # 4.9 K/mcL (1.6-8.9); Platelet Count 175 K/mcL (140-400); Red Blood Count 2.31 M/mcL (4.19-5.50); Red Cell Distribution Width 14.2 % (11.5-14.5); Segmented Neutrophils % 80.4 %
[2018-02-11] MEDS: Piperacillin/Tazobactam 3.375 GM in 0.9 % Sodium Chloride Mini Bag 100 ML IVPB SCH ×2 (05:17→16:49)
[2018-02-11 05:18] LABS: Calcium 8.8 mg/dL (8.6-10.3)
--- NOTE | 2018-02-11 07:46 | General Surgery Progress Note ---
<Charissa Solorzano E - Last Filed: 02/11/18 07:43> Date of Encounter: 02/11/18 Time of Encounter: 07:43 - Assessment and Plan (1) Abdominal wall hematoma Current Visit: Yes Status: Acute trend H&H (hemoglobin yesterday of 7.7, later was measured 8.6. Morning labs hemoglobin 7.7 hematocrit 23.) Serial abdominal exams IV fluids as per primary pain control as per primary possible follow up imaging supportive care Continue to monitor clinical status Qualifiers: Encounter type: initial encounter Qualified Code(s): S30.1XXA - Contusion of abdominal wall, initial encounter (2) Pelvic hematoma Current Visit: Yes Status: Acute trend H&H (hemoglobin managing at 7.7 yesterday later measured at 8.6. Today's labs show hemoglobin 7.7 hematocrit 23.) Serial abdominal exams IV fluids as per primary pain control as per primary possible follow up imaging supportive care Continue to monitor clinical course Subjective Patient reports: feels better, flatus, bowel movement, other (Patient states he is starting to feel better. Feels that he can tolerate more food.) Objective Vital Signs - Last 8 Hours Temp Pulse Resp BP Pulse Ox 02/11/18 07:27 97.6 F 80 17 116/64 97 02/11/18 04:08 97.8 F 89 16 143/84 97 02/11/18 00:46 98.4 F 60 14 120/75 96 Intake and Output 02/10/18 02/10/18 02/11/18 15:59 23:59 07:59 Intake Total 960 / 960 100 / 100 Output Total 3600 / 3600 Balance -2640 / -2640 100 / 100 Intake: IV Fluids 100 / 100 Zosyn 3.375 GM In 0.9 % Sodium 100 / 100 Chloride (Mini-Bag +) 100 ML @ 25 mls/hr IVPB 0500,1700 [facility] Rx #:[id number] Oral 360 / 360 Intake, Rinseback and Flushes 600 / 600 Output: Urine 0 / 0 Total Dialysis (HD) Output 3600 / 3600 Other: Meal Lunch Percent of Meal Consumed 50% Weight 90.945 kg Blood Glucose* 115 168 111 Hemodialysis Net Fluid Removed 3000 (mL) Patient Weight 02/11/18 23:59 Weight 90.945 kg - General physical appearance well developed, well nourished, moderate distress - Respiratory normal expansion, normal respiratory effort, clear to auscultation - Cardiovascular Cardiovascular exam: Present: RRR, murmurs (3+ aortic post) - Abdomen Abdomen: Present: bowel sounds present, soft, tender (Left lower quadrant to minimal palpation, slightly tender diffusely to moderate palpation) Abdominal Tenderness: LLQ - Incision Incision: Present: clean and dry, intact - Musculoskeletal normal posture - Psychiatric oriented to time, oriented to person, oriented to place - Labs 02/11/18 03:59 02/11/18 03:59 Diabetes panel 02/11/18 Range/Units 03:59 Sodium 136 (136-145) mEq/L Potassium 4.0 (3.5-5.1) mEq/L Chloride 98 (98-107) mEq/L Carbon Dioxide 27 (23-29) mEq/L BUN 30 H (8-23) mg/dL Creatinine 5.12 H (0.70-1.30) mg/dL Glucose 108 H (70-105) mg/dL Calcium 8.8 (8.6-10.3) mg/dL Calcium panel 02/11/18 Range/Units 03:59 Calcium 8.8 (8.6-10.3) mg/dL Pituitary panel 02/11/18 Range/Units 03:59 Sodium 136 (136-145) mEq/L Potassium 4.0 (3.5-5.1) mEq/L Chloride 98 (98-107) mEq/L Carbon Dioxide 27 (23-29) mEq/L BUN 30 H (8-23) mg/dL Creatinine 5.12 H (0.70-1.30) mg/dL Glucose 108 H (70-105) mg/dL Calcium 8.8 (8.6-10.3) mg/dL Adrenal panel 02/11/18 Range/Units 03:59 Sodium 136 (136-145) mEq/L Potassium 4.0 (3.5-5.1) mEq/L Chloride 98 (98-107) mEq/L Carbon Dioxide 27 (23-29) mEq/L BUN 30 H (8-23) mg/dL Creatinine 5.12 H (0.70-1.30) mg/dL Glucose 108 H (70-105) mg/dL Calcium 8.8 (8.6-10.3) mg/dL - VTE Reasons for not Prescribing Prophylaxis: Medical contraindication (Hematomas/ Anemia) Documentation of Mechanical Device: Intermittent pneumatic compression device Consult Discharge Plan - Plan Referrals: Tahir Herrera Jr, MD [Primary Care Provider] - <Andrey York - Last Filed: 02/11/18 08:12> Date of Encounter: 02/11/18 Objective Vital Signs - Last 8 Hours Temp Pulse Resp BP Pulse Ox 02/11/18 07:27 97.6 F 80 17 116/64 97 02/11/18 04:08 97.8 F 89 16 143/84 97 02/11/18 00:46 98.4 F 60 14 120/75 96 Intake and Output 02/10/18 02/11/18 02/11/18 23:59 07:59 15:59 Intake Total 100 / 100 Balance 100 / 100 Intake: IV Fluids 100 / 100 Zosyn 3.375 GM In 0.9 % Sodium 100 / 100 Chloride (Mini-Bag +) 100 ML @ 25 mls/hr IVPB 0500,1700 [facility] Rx #:[id number] Other: Weight 90.945 kg Blood Glucose* 168 111 Patient Weight 02/11/18 23:59 Weight 90.945 kg - Labs 02/11/18 03:59 02/11/18 03:59 Diabetes panel 02/11/18 Range/Units 03:59 Sodium 136 (136-145) mEq/L Potassium 4.0 (3.5-5.1) mEq/L Chloride 98 (98-107) mEq/L Carbon Dioxide 27 (23-29) mEq/L BUN 30 H (8-23) mg/dL Creatinine 5.12 H (0.70-1.30) mg/dL Glucose 108 H (70-105) mg/dL Calcium 8.8 (8.6-10.3) mg/dL Calcium panel 02/11/18 Range/Units 03:59 Calcium 8.8 (8.6-10.3) mg/dL Pituitary panel 02/11/18 Range/Units 03:59 Sodium 136 (136-145) mEq/L Potassium 4.0 (3.5-5.1) mEq/L Chloride 98 (98-107) mEq/L Carbon Dioxide 27 (23-29) mEq/L BUN 30 H (8-23) mg/dL Creatinine 5.12 H (0.70-1.30) mg/dL Glucose 108 H (70-105) mg/dL Calcium 8.8 (8.6-10.3) mg/dL Adrenal panel 02/11/18 Range/Units 03:59 Sodium 136 (136-145) mEq/L Potassium 4.0 (3.5-5.1) mEq/L Chloride 98 (98-107) mEq/L Carbon Dioxide 27 (23-29) mEq/L BUN 30 H (8-23) mg/dL Creatinine 5.12 H (0.70-1.30) mg/dL Glucose 108 H (70-105) mg/dL Calcium 8.8 (8.6-10.3) mg/dL - Attending Attestation patient seen and examined. i have reviewed all labs, imaging, and notes, including this one. i agree with the above assessment and plan and wish to add the following... s/p robotic UHR and LIHR while still on ASA per cards recommendations; patient had expected hematoma post op with drop in hgb of ~ 3g; currently at hgb of 7.7 , hemodynamically stable; platelets are appropriate; patient with appetite and bowel function; recommend advancing diet as tolerated cont current pain regimen transfuse as needed per primary team no acute surgery needed; general surgery will sign off; please call with any new questions or concerns
[2018-02-11] MEDS: Renal Vitamin 1 CAP CAPSULE PO SCH (09:04)
[2018-02-11] MEDS: Calcium Acetate 667 MG CAPSULE PO SCH ×3 (09:04→16:49)
--- NOTE | 2018-02-11 10:31 | Nephrology Progress Note ---
<Madelyn Guardado - Last Filed: 02/11/18 13:36> Date of Encounter: 02/11/18 Time of Encounter: 10:29 - Assessment and Plan (1) ESRD (end stage renal disease) on dialysis Status: Chronic ESRD on HD MWF HD completed yesterday, without complication. Renal dose all medications and avoid nephrotoxins. Renal diet. (2) Abdominal wall hematoma Status: Acute Per surgery. Qualifiers: Encounter type: initial encounter Qualified Code(s): S30.1XXA - Contusion of abdominal wall, initial encounter (3) HTN (hypertension) Status: Acute BP is 111/76 at bedside, stable. Qualifiers: Qualified Code(s): I10 - Essential (primary) hypertension (4) Anemia Status: Acute Goal Hgb is 10-11. Hgb is 7.7 today was 8.6 last night. If Hgb is still low, will order 2 units PRBCs to be infused with HD tomorrow. Qualifiers: Qualified Code(s): D64.9 - Anemia, unspecified Subjective Principal diagnosis: lethargic Interval history: Pt seen and examined doing well. Denies CP,SOB,nausea/vomiting or diarrhea. Objective - Vital Signs Vital signs: Vital Signs Temp Pulse Resp BP Pulse Ox 02/11/18 07:27 97.6 F 80 17 116/64 97 02/11/18 04:08 97.8 F 89 16 143/84 97 02/11/18 00:46 98.4 F 60 14 120/75 96 02/10/18 20:40 95 02/10/18 18:59 98.7 F 90 18 116/69 95 02/10/18 16:26 97.9 F 89 17 153/84 95 02/10/18 13:50 97.2 F L 16 111/75 02/10/18 13:25 107/66 02/10/18 13:10 100/72 02/10/18 12:55 112/63 02/10/18 12:40 111/68 02/10/18 12:25 120/77 02/10/18 12:10 118/72 02/10/18 11:55 122/73 02/10/18 11:40 114/76 02/10/18 11:25 115/66 02/10/18 11:10 112/73 02/10/18 10:55 114/74 02/10/18 10:40 111/76 Intake and Output 02/10/18 02/11/18 02/11/18 23:59 07:59 15:59 Intake Total 100 / 100 380 / 380 Balance 100 / 100 380 / 380 Intake: IV Fluids 100 / 100 Zosyn 3.375 GM In 0.9 % Sodium 100 / 100 Chloride (Mini-Bag +) 100 ML @ 25 mls/hr IVPB 0500,1700 [facility] Rx #:[id number] Oral 380 / 380 Other: Meal Breakfast Percent of Meal Consumed 60% Weight 90.945 kg Blood Glucose* 168 111 Patient Weight 02/11/18 23:59 Weight 90.945 kg - General Appearance General appearance: Present: well-developed, well-nourished EENT: Present: ATNC, hearing intact, vision intact Neck: Present: supple Respiratory: Present: clear Cardiology: Present: edema (+1 pitting edema noted to bilat lower extremities.) , normal S1, normal S2 Dialysis Vascular Access: Arteriovenous Fistula thrill: Yes bruit: Yes Gastrointestinal: Present: normoactive bowel sounds, no tenderness, no guarding Integumentary: Present: no rash, warm and dry Neurologic: Present: alert and oriented x3 Psychiatric: Present: mood/affect appropriate, cooperative - Lab 02/11/18 03:59 02/11/18 03:59 Most recent lab results Calcium 8.8 mg/dL (8.6-10.3) 02/11/18 03:59 Phosphorus 6.8 mg/dL (2.7-4.5) H 02/08/18 12:55 Magnesium 1.7 mg/dL (1.6-2.6) 02/08/18 12:55 - VTE Reasons for not Prescribing Prophylaxis: Medical contraindication (Hematomas/ Anemia) Documentation of Mechanical Device: Intermittent pneumatic compression device Consult Discharge Plan - Plan Instructions: Anemia (GEN) Referrals: Tahir Herrera Jr, MD [Primary Care Provider] - 02/18/18 2:00 pm (Please follow up as schedule with Sharon Bhagat) <Yesenia King - Last Filed: 02/21/18 11:23> Date of Encounter: 02/11/18 - Assessment and Plan (1) ESRD (end stage renal disease) on dialysis Status: Chronic (2) Abdominal wall hematoma Status: Acute Qualifiers: Encounter type: initial encounter Qualified Code(s): S30.1XXA - Contusion of abdominal wall, initial encounter (3) HTN (hypertension) Status: Acute Qualifiers: Qualified Code(s): I10 - Essential (primary) hypertension (4) Anemia Status: Acute Qualifiers: Qualified Code(s): D64.9 - Anemia, unspecified Objective - Lab 02/13/18 05:28 02/13/18 05:28 Most recent lab results Calcium 9.2 mg/dL (8.6-10.3) 02/13/18 05:28 Phosphorus 6.8 mg/dL (2.7-4.5) H 02/08/18 12:55 Magnesium 1.7 mg/dL (1.6-2.6) 02/08/18 12:55 - Attending Attestation I examined this patient and my medical decision-making was reviewed with the Resident Physician/SITE INSPECTOR. I agree with the documented findings, disposition and treatment plan as described except to the extent set forth below. Pt seen and examined feeling tired. s/p HD yesterday which he tolerated well. Exam NAD, LE edema present. Abdomen with small surgical incisions with no drainage. Labs reviewed with low hgb noted. Next HD planned tomorrow. Will consider transfusion pRBCs if hgb continues to drop.
[2018-02-11] MEDS: *HR* OxyCODONE Immed Rel 5 MG TABLET PO PRN (11:19)
[2018-02-11] MEDS: amLODIPine 5 MG TABLET PO SCH (11:34)
[2018-02-11] MEDS ORDERED: Acetaminophen IV 1,000 MG/100 ML INFUS..BTL IVPB SCH (12:00)
--- NOTE | 2018-02-11 13:19 | Internal Med Progress Note ---
Hospitalist Progress Note - Encounter Date of Encounter: 02/11/18 Time of Encounter: 13:00 - Exam Vitals: Temp Pulse Resp BP Pulse Ox 97.8 F 81 18 160/89 98 02/11/18 11:29 02/11/18 11:29 02/11/18 11:29 02/11/18 11:29 02/11/18 11:29 Exam: Gen - Awake, alert, no acute distress HEENT - NCAT, PERRLA, EOMI, hearing grossly intact, oropharynx benign CV - RRR, normal S1 and S2, no M/R/G, trace BLE edema Resp - Normal WOB, CTAB, no W/R/R GI - Soft, non-distended, mild TTP diffusely across abdomen without rebound or guarding, multiple surgical scars on abdomen, normal bowel sounds, no HSP Skin - Warm, dry, no rashes/lesions/ulcers Psych - Normal mood and affect, no depression or anxiety - Assessment and Plan (1) Retroperitoneal hematoma Current Visit: Yes Status: Acute Assessment and Plan: Surgery consulted; appreciate input. Pain is slowly improving. Hemoglobin continues to trend down to 7.7 today. Continue to observe with serial abdominal examinations. Continue supportive care with pain control. Continue IV zosyn per surgery recommendations. Leukocytosis resolved. Recheck H/H this afternoon and CBC in AM. 02/11 Plan to transfuse one unit PRBC in am during dialysis if hemoglobin continues to drop (2) Acute diastolic (congestive) heart failure Current Visit: Yes Status: Acute Assessment and Plan: Fluid overloaded. Much better after dialysis. Continue supplemental O2 PRN; wean as tolerated to room air. Continue dialysis as per above. Continue home medications. (3) ESRD (end stage renal disease) on dialysis Current Visit: Yes Status: Chronic Assessment and Plan: Nephrology consulted; appreciate input. Continue MWF dialysis schedule. Recheck BMP in AM. (4) Hypertension Current Visit: Yes Status: Chronic Assessment and Plan: Continue home medications. (5) Altered mental status Current Visit: Yes Status: Resolved Assessment and Plan: Resolved. (6) Elevated troponin I level Current Visit: Yes Status: Chronic Assessment and Plan: Trended up to 0.73. No chest pain. Low suspicion for ACS at this time. Likely secondary to demand ischemia from blood loss anemia and hypoxemia. Continue telemetry. (7) Abdominal wall hematoma Current Visit: Yes Status: Acute Assessment and Plan: Management as per above. (8) Pelvic hematoma Current Visit: Yes Status: Acute Assessment and Plan: Management as per above. (9) DVT prophylaxis Current Visit: Yes Status: Acute Assessment and Plan: Continue SCDs. Defer anticoagulation due to hematomas and anemia. - Time Spent with Patient Total time spent is greater than 50% in coordination of care (as documented) at patient's floor/unit and/or counseling patient: Internal Medicine: Result - Labs CBC & Chem 7: 02/11/18 03:59 02/11/18 03:59 Labs: Short CBC 02/10/18 02/11/18 Range/Units 15:09 03:59 WBC 6.2 (4.3-11.1) K/mcL Hgb 8.6 L 7.7 L (12.9-16.9) g/dL Hct 25.2 L 23.0 L (37.5-50.1) % Plt Count 175 (140-400) K/mcL Neutrophils # 4.9 (1.6-8.9) K/mcL BMP 02/11/18 03:59 Sodium 136 Potassium 4.0 Chloride 98 Carbon Dioxide 27 BUN 30 H Creatinine 5.12 H Glucose 108 H Calcium 8.8 - ABG Interpretation ABG results: PT/INR, D-dimer PT 13.3 Seconds (9.4-12.1) H 02/08/18 12:55 - VTE Reasons for not Prescribing Prophylaxis: Medical contraindication Documentation of Mechanical Device: Intermittent pneumatic compression device Consult Discharge Plan - Plan Referrals: Tahir Herrera Jr, MD [Primary Care Provider] - (4) Hypertension Qualifiers: Hypertension type: essential hypertension Qualified Code(s): I10 - Essential (primary) hypertension (5) Altered mental status Qualifiers: Altered mental status type: unspecified Qualified Code(s): R41.82 - Altered mental status, unspecified (7) Abdominal wall hematoma Qualifiers: Encounter type: initial encounter Qualified Code(s): S30.1XXA - Contusion of abdominal wall, initial encounter
--- NOTE | 2018-02-11 17:50 | Electrocardiograph Report ---
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
[2018-02-11] MEDS: Acetaminophen 325 MG TABLET PO PRN (20:22)
[2018-02-12 04:37] LABS: Hematocrit 23.7 % (37.5-50.1); Hemoglobin 7.9 g/dL (12.9-16.9); Mean Corpuscular HGB Conc 33.3 g/dL (31.6-35.5); Mean Corpuscular Hemoglobin 33.5 pg (28.0-33.3); Mean Corpuscular Volume 100.4 fL (83.0-100.0); Mean Platelet Volume 10.4 fL (9.4-12.4); Platelet Count 174 K/mcL (140-400); Red Blood Count 2.36 M/mcL (4.19-5.50); Red Cell Distribution Width 14.4 % (11.5-14.5)
[2018-02-12 04:53] LABS: Potassium 4.2 mEq/L (3.5-5.1)
[2018-02-12] MEDS: Calcium Acetate 667 MG CAPSULE PO SCH ×3 (07:54→16:43)
[2018-02-12] MEDS: Renal Vitamin 1 CAP CAPSULE PO SCH (07:55)
[2018-02-12] MEDS: Acetaminophen 325 MG TABLET PO PRN ×2 (07:58→19:49)
[2018-02-12] MEDS ORDERED: 0.9 % Sodium Chloride 250 ML IVC PRN (08:13)
[2018-02-12] MEDS ORDERED: 0.9 % Sodium Chloride 1,000 ML PRIME SCH (08:15)
[2018-02-12] MEDS ORDERED: 0.9 % Sodium Chloride 1,000 ML ONE ×2 (08:38→09:51)
--- NOTE | 2018-02-12 10:12 | Internal Med Progress Note ---
Hospitalist Progress Note - Encounter Date of Encounter: 02/12/18 Time of Encounter: 10:00 - Subjective Interval History: No acute events overnight - Exam Vitals: Temp Pulse Resp BP Pulse Ox 97.9 F 75 17 156/91 98 02/12/18 07:25 02/12/18 07:25 02/12/18 07:25 02/12/18 07:25 02/12/18 07:25 Exam: Gen - Awake, alert, no acute distress HEENT - NCAT, PERRLA, EOMI, hearing grossly intact, oropharynx benign CV - RRR, normal S1 and S2, no M/R/G, trace BLE edema Resp - Normal WOB, CTAB, no W/R/R GI - Soft, non-distended, mild TTP diffusely across abdomen without rebound or guarding, multiple surgical scars on abdomen, normal bowel sounds, no HSP Skin - Warm, dry, no rashes/lesions/ulcers Psych - Normal mood and affect, no depression or anxiety - Assessment and Plan (1) Retroperitoneal hematoma Current Visit: Yes Status: Acute Assessment and Plan: Surgery consulted; appreciate input. Pain is slowly improving. Hemoglobin continues to trend down to 7.7 today. Continue to observe with serial abdominal examinations. Continue supportive care with pain control. Continue IV zosyn per surgery recommendations. Leukocytosis resolved. Recheck H/H this afternoon and CBC in AM. 02/12 Went for hemodialysis this am. Hemoglobin trended up to 7.9 from 7.7. Was transfused 2units of PRBC this am (2) Acute diastolic (congestive) heart failure Current Visit: Yes Status: Acute Assessment and Plan: Fluid overloaded. Much better after dialysis. Continue supplemental O2 PRN; wean as tolerated to room air. Continue dialysis as per above. Continue home medications. (3) ESRD (end stage renal disease) on dialysis Current Visit: Yes Status: Chronic Assessment and Plan: Nephrology consulted; appreciate input. Continue MWF dialysis schedule. Recheck BMP in AM. (4) Hypertension Current Visit: Yes Status: Chronic Assessment and Plan: Continue home medications. (5) Altered mental status Current Visit: Yes Status: Resolved Assessment and Plan: Resolved. (6) Elevated troponin I level Current Visit: Yes Status: Chronic Assessment and Plan: Trended up to 0.73. No chest pain. Low suspicion for ACS at this time. Likely secondary to demand ischemia from blood loss anemia and hypoxemia. Continue telemetry. (7) Abdominal wall hematoma Current Visit: Yes Status: Acute Assessment and Plan: Management as per above. (8) Pelvic hematoma Current Visit: Yes Status: Acute Assessment and Plan: Management as per above. (9) DVT prophylaxis Current Visit: Yes Status: Acute Assessment and Plan: Continue SCDs. Defer anticoagulation due to hematomas and anemia. - Time Spent with Patient Total time spent is greater than 50% in coordination of care (as documented) at patient's floor/unit and/or counseling patient: Internal Medicine: Result - Labs CBC & Chem 7: 02/12/18 03:48 02/12/18 03:48 Labs: Short CBC 02/12/18 Range/Units 03:48 WBC 6.0 (4.3-11.1) K/mcL Hgb 7.9 L (12.9-16.9) g/dL Hct 23.7 L (37.5-50.1) % Plt Count 174 (140-400) K/mcL BMP 02/12/18 03:48 Sodium 134 L Potassium 4.2 Chloride 97 L Carbon Dioxide 26 BUN 38 H Creatinine 6.39 H Glucose 125 H Calcium 9.0 - ABG Interpretation ABG results: PT/INR, D-dimer PT 13.3 Seconds (9.4-12.1) H 02/08/18 12:55 - VTE Reasons for not Prescribing Prophylaxis: Medical contraindication Documentation of Mechanical Device: Intermittent pneumatic compression device Consult Discharge Plan - Plan Referrals: Tahir Herrera Jr, MD [Primary Care Provider] - (4) Hypertension Qualifiers: Hypertension type: essential hypertension Qualified Code(s): I10 - Essential (primary) hypertension (5) Altered mental status Qualifiers: Altered mental status type: unspecified Qualified Code(s): R41.82 - Altered mental status, unspecified (7) Abdominal wall hematoma Qualifiers: Encounter type: initial encounter Qualified Code(s): S30.1XXA - Contusion of abdominal wall, initial encounter
--- NOTE | 2018-02-12 11:15 | Nephrology Progress Note ---
<Madelyn Guardado - Last Filed: 02/12/18 11:13> Date of Encounter: 02/12/18 Time of Encounter: 11:13 - Assessment and Plan (1) ESRD (end stage renal disease) on dialysis Status: Chronic ESRD on HD MWF HD ordered today. Renal dose all medications and avoid nephrotoxins. Renal diet. (2) Abdominal wall hematoma Status: Acute Per surgery. Qualifiers: Encounter type: initial encounter Qualified Code(s): S30.1XXA - Contusion of abdominal wall, initial encounter (3) HTN (hypertension) Status: Acute BP is 118/67 at bedside, stable. Qualifiers: Qualified Code(s): I10 - Essential (primary) hypertension (4) Anemia Status: Acute Goal Hgb is 10-11. Hgb 7.9 today. 2 units PRBCS given in HD. 1 time order of 200 mcg of Aranesp ordered for today. Qualifiers: Qualified Code(s): D64.9 - Anemia, unspecified Subjective Principal diagnosis: lethargic Interval history: Pt seen and examined during HD. Denies CP,SOB,nausea/vomiting or diarrhea. Objective - Vital Signs Vital signs: Vital Signs Temp Pulse Resp BP Pulse Ox 02/12/18 10:50 97.2 F L 74 18 118/67 02/12/18 10:45 130/71 02/12/18 10:30 126/71 02/12/18 10:15 127/71 02/12/18 10:00 122/71 02/12/18 09:45 142/76 02/12/18 09:30 97.2 F L 18 139/79 02/12/18 07:25 97.9 F 75 17 156/91 98 02/12/18 04:40 97.6 F 81 15 146/89 96 02/11/18 23:22 97.6 F 89 16 123/70 86 02/11/18 20:28 98 02/11/18 19:07 97.6 F 84 16 136/76 98 02/11/18 16:09 97.7 F 82 18 133/69 96 02/11/18 11:29 97.8 F 81 18 160/89 98 Intake and Output 02/11/18 02/12/18 02/12/18 23:59 07:59 15:59 Intake Total 240 / 240 780 / 780 Output Total 150 / 150 Balance 90 / 90 780 / 780 Intake: Oral 240 / 240 180 / 180 Blood Product 0 / 0 Rbcs Leuko Poor As-1 Unit 0 / 0 [id number] Intake, Rinseback and Flushes 600 / 600 Output: Urine 150 / 150 Other: Meal Dinner Percent of Meal Consumed 85% 45% Stool Size Smear Stool Consistency soft Stool Color Brown # Bowel Movements 1 Weight 92.079 kg Blood Glucose* 140 115 109 Hemodialysis Net Fluid Removed 1175 (mL) - General Appearance General appearance: Present: well-developed, well-nourished EENT: Present: ATNC, hearing intact, vision intact Neck: Present: supple Respiratory: Present: clear Cardiology: Present: edema (+2 pitting edema noted to LLE (chronic) RLE is +1.) , normal S1, normal S2 Dialysis Vascular Access: Arteriovenous Fistula thrill: Yes bruit: Yes Gastrointestinal: Present: normoactive bowel sounds, no tenderness, no guarding Integumentary: Present: no rash, warm and dry Neurologic: Present: alert and oriented x3 Psychiatric: Present: mood/affect appropriate, cooperative - Lab 02/12/18 03:48 02/12/18 03:48 Most recent lab results Calcium 9.0 mg/dL (8.6-10.3) 02/12/18 03:48 Phosphorus 6.8 mg/dL (2.7-4.5) H 02/08/18 12:55 Magnesium 1.7 mg/dL (1.6-2.6) 02/08/18 12:55 - VTE Reasons for not Prescribing Prophylaxis: Medical contraindication Documentation of Mechanical Device: Intermittent pneumatic compression device Consult Discharge Plan - Plan Instructions: Anemia (GEN) Referrals: Tahir Herrera Jr, MD [Primary Care Provider] - 02/18/18 2:00 pm (Please follow up as schedule with Sharon Bhagat) <Yesenia King - Last Filed: 02/21/18 12:41> Date of Encounter: 02/12/18 - Assessment and Plan (1) ESRD (end stage renal disease) on dialysis Status: Chronic (2) Abdominal wall hematoma Status: Acute Qualifiers: Encounter type: initial encounter Qualified Code(s): S30.1XXA - Contusion of abdominal wall, initial encounter (3) HTN (hypertension) Status: Acute Qualifiers: Qualified Code(s): I10 - Essential (primary) hypertension (4) Anemia Status: Acute Qualifiers: Qualified Code(s): D64.9 - Anemia, unspecified Objective - Lab 02/13/18 05:28 02/13/18 05:28 Most recent lab results Calcium 9.2 mg/dL (8.6-10.3) 02/13/18 05:28 Phosphorus 6.8 mg/dL (2.7-4.5) H 02/08/18 12:55 Magnesium 1.7 mg/dL (1.6-2.6) 02/08/18 12:55 - Attending Attestation I examined this patient and my medical decision-making was reviewed with the Resident Physician/[employer]. I agree with the documented findings, disposition and treatment plan as described except to the extent set forth below. Pt seen and examined on HD doing well. No new complaints. Exam unremarkable except for LE edema. Hgb at 7.9. Continue HD with UF as tolerated. Will transfuse 2unit pRBCs with HD today.
[2018-02-12] MEDS: amLODIPine 5 MG TABLET PO SCH (11:35)
[2018-02-12] MEDS ORDERED: Acetaminophen 325 MG TABLET PO PRN (12:00)
[2018-02-13 05:50] LABS: Basophils # 0.1 K/mcL (0.0-0.2); Basophils % 0.9 %; Eosinophils # 0.2 K/mcL (0.0-0.6); Eosinophils % 3.5 %; Hematocrit 30.1 % (37.5-50.1); Immature Granulocytes % 0.6 % (0-4); Lymphocytes # 0.6 K/mcL (0.6-4.6); Lymphocytes % 8.6 %; Mean Corpuscular HGB Conc 33.2 g/dL (31.6-35.5); Mean Corpuscular Hemoglobin 32.2 pg (28.0-33.3); Mean Corpuscular Volume 96.8 fL (83.0-100.0); Monocytes # 0.6 K/mcL (0.0-1.3); Monocytes % 9.6 %; Platelet Count 180 K/mcL (140-400); Red Blood Count 3.11 M/mcL (4.19-5.50); Red Cell Distribution Width 15.7 % (11.5-14.5); Segmented Neutrophils % 76.8 %
[2018-02-13 06:06] LABS: Calcium 9.2 mg/dL (8.6-10.3); Potassium 3.9 mEq/L (3.5-5.1)
--- NOTE | 2018-02-13 06:35 | Event Note ---
Date of Encounter: 02/13/18 Time of Encounter: 05:00 Called to patient's room by the nurse for concerning swelling in the left inguinal area and scrotum that had previously not been noticed. Patient has history of hematoma, and anemia s/p hernia repair last week. Patient states that he had not felt it before, though denied pain. Ordered stat CT abdomen and pelvis to evaluate if the hematoma was worsening, also ordered stat H&H as his morning lab work had not been drawn at that time. Results of the CT showed stable pelvic retroperitoneal hematoma, ventral periumbilical abdominal wall fluid collection focal gas component, slightly increased in size. There were also persistent pleural effusions and basilar atelectasis. Patient's hemoglobin came back at 10.0, from 7.9 previously. Patient was transfused yesterday. We will continue to monitor at this time.
[2018-02-13] MEDS: amLODIPine 5 MG TABLET PO SCH (08:48)
[2018-02-13] MEDS: Renal Vitamin 1 CAP CAPSULE PO SCH (08:48)
[2018-02-13] MEDS: Calcium Acetate 667 MG CAPSULE PO SCH ×2 (08:49→12:15)
--- NOTE | 2018-02-13 08:56 | Discharge Summary ---
Orders not resulted at time of discharge: Pending orders 02/14/18 04:00 Basic Metabolic Panel AM 0400 CBC no Diff [Complete Blood Count w/o Diff] [HEME] AM 04002/15/18 04:00 Basic Metabolic Panel AM 0400 CBC no Diff [Complete Blood Count w/o Diff] [HEME] AM 0400 02/16/18 04:00 Basic Metabolic Panel AM 0400 CBC no Diff [Complete Blood Count w/o Diff] [HEME] AM 04002/17/18 04:00 Basic Metabolic Panel AM 0400 CBC no Diff [Complete Blood Count w/o Diff] [HEME] AM 0400 Date of Encounter: 02/13/18 Time of Encounter: 08:45 - Discharge Diagnosis (1) Retroperitoneal hematoma Priority: Primary Status: Acute Assessment and Plan: 73 year old male with history of ESRD with dialysis, height HTN, DM, CHF, and elevated troponin. Patient presents to the ED with complaints of left lower quadrant pain and hypoxia. The patient indicated that he had a hernia repair done on 02/07 and he began to have some abnormal discomfort afterwards. CT scan done in the ED showed that the patient had an acute pelvic and retroperitoneal hematoma and a smaller ventral abdominal wall hematoma. Surgery was consulted and he was seen by them daily. He had serial abdominal exams and pain control for his abdominal wall and pelvic hematoma. He had a leukocytosis on admission which resolved with a course of zosyn. He also had a mild drop in his hemoglobin during his hospital course and was transfused 2 units of PRBC. His post transfusion hemoglobin was 10 and stayed stable. Surgery determined there was no acute need for any surgical intervention based on his clinical progression and imaging and he was discharged once cleared by them. He was also noted to have acute diastolic CHF and this resolved with regular dialysis. He remained mildly hypoxic and has qualified for home oxygen which he was provided with. He was discharged home in a stable condition and will follow up with surgery. 35minutes was spent discharging this patient. (2) Acute diastolic (congestive) heart failure Priority: Secondary Status: Acute (3) ESRD (end stage renal disease) on dialysis Priority: Secondary Status: Chronic (4) Hypertension Priority: Secondary Status: Chronic Qualifiers: Hypertension type: essential hypertension Qualified Code(s): I10 - Essential (primary) hypertension (5) Elevated troponin I level Priority: Secondary Status: Chronic (6) Abdominal wall hematoma Priority: Secondary Status: Acute Qualifiers: Encounter type: initial encounter Qualified Code(s): S30.1XXA - Contusion of abdominal wall, initial encounter (7) Pelvic hematoma Priority: Secondary Status: Acute (8) DVT prophylaxis Priority: Secondary Status: Acute Hospital course: Mr. Hong is a 73 year old male - Time Spent with Patient Total time spent providing and/or coordinating discharge services: - Discharge Medications Home Medications: Amlodipine Besylate 10 mg PO DAILY 10/07/17 [History] Aspirin [Lo-Dose Aspirin EC] 81 mg PO DAILY 10/07/17 [History] Calcium Acetate [Phos-LO] 2,001 mg PO TIDWM 10/07/17 [History] Lisinopril 2.5 mg PO DAILY 10/07/17 [History] Metoprolol Tartrate 75 mg PO BID 10/07/17 [History] Omeprazole [PriLOSEC] 40 mg PO DAILY 10/07/17 [History] Simvastatin [Zocor] 20 mg PO HS 10/07/17 [History] Docusate [Colace] 100 mg PO DAILY 10 Days #10 capsule 02/07/18 [Rx] OxyCODONE Immed Rel [Roxicodone 5 MG] 5 mg PO Q6HR PRN 7 Days #28 tablet [Rx] Renal Vitamin [Renal Caps Softgel] 1 mg PO DAILY 02/07/18 [History] Allergies/Adverse Reactions: 3 Allergy/AdvReac Type Severity Reaction Status Date / Time No Known Allergies Allergy Verified 01/30/18 11:03 Date of admission: 02/11/18 11:23 Primary care physician: Tahir Herrera Jr, MD Consults: 02/12/18 08:15 Consult to Dialysis [CONS] ONCE - Constitutional Vitals: Temp Pulse Resp BP Pulse Ox 97.7 F 89 16 155/89 99 02/13/18 07:09 02/13/18 07:09 02/13/18 07:09 02/13/18 07:09 02/13/18 07:09 General appearance: Present: A&O X 3, answers questions appropriately - Head Head exam: Present: atraumatic, normocephalic - Eye Eye exam: Present: PERRL, conjuntiva pink, sclera anicteric Pupils: Present: PERRL - Neck Neck exam general surgery: Present: supple, trachea midline. Absent: lymphadenopathy - Respiratory Respiratory exam: Present: CTAB. Absent: accessory muscle use, rales, rhonchi, wheezes - Cardiovascular Cardiovascular exam: Present: RRR, +S1, +S2. Absent: diastolic murmur, gallop, rubs, systolic murmur - GI/Abdominal GI/Abdominal exam: Present: normal bowel sounds, soft, no peritoneal signs. Absent: distended, tenderness - Extremities Exam Extremities exam: Present: warm, radial pulses palpable and symmetrical. Absent : calf tenderness, cyanotic, pedal edema - Neurological Exam Neurological exam: Present: CN II-XII intact, oriented X3, no focal deficits. Absent: pronater drift, facial droop, speech deficit - Skin Skin exam: Present: dry, intact - Patient Status Disposition: Home, Self-Care Condition: Fair - Discharge Instructions Instructions: Anemia (GEN) Follow Up With: Tahir Herrera Jr, MD [Primary Care Provider] - 02/18/18 2:00 pm (Please follow up as schedule with Sharon Bhagat) - VTE Reasons for not Prescribing Prophylaxis: Medical contraindication Documentation of Mechanical Device: Intermittent pneumatic compression device
[2018-02-13 11:15] VITALS: BP 143/79
--- NOTE | 2018-02-13 11:32 | Nephrology Progress Note ---
Date of Encounter: 02/13/18 Time of Encounter: 11:29 - Assessment and Plan (1) ESRD (end stage renal disease) on dialysis Current Visit: Yes Status: Chronic ESRD on HD MWF Renal dose all medications and avoid nephrotoxins. Renal diet. (2) Anemia Current Visit: Yes Status: Acute Goal Hgb is 10-11. Hgb is 10 today. Qualifiers: Qualified Code(s): D64.9 - Anemia, unspecified (3) Abdominal wall hematoma Current Visit: Yes Status: Acute Per surgery. Qualifiers: Encounter type: initial encounter Qualified Code(s): S30.1XXA - Contusion of abdominal wall, initial encounter (4) HTN (hypertension) Current Visit: Yes Status: Acute BP is 143/79 at bedside, stable. Qualifiers: Qualified Code(s): I10 - Essential (primary) hypertension Subjective Principal diagnosis: lethargic Interval history: Pt seen and examined doing well. Denies CP,SOB,nausea/vomiting or diarrhea. States he is ready to go home. Objective - Vital Signs Vital signs: Vital Signs Temp Pulse Resp BP Pulse Ox 02/13/18 11:07 97.1 F L 82 16 143/79 92 02/13/18 07:09 97.7 F 89 16 155/89 99 02/13/18 00:56 97.9 F 89 16 136/81 99 02/12/18 19:56 98 02/12/18 19:28 98 F 74 15 146/68 98 02/12/18 16:28 97.5 F L 84 19 135/76 99 02/12/18 14:17 97 02/12/18 13:36 97.4 F L 18 135/77 02/12/18 13:00 131/74 02/12/18 12:45 137/65 02/12/18 12:33 97.0 F L 78 18 131/68 02/12/18 12:30 144/76 02/12/18 12:15 134/73 02/12/18 12:02 97.2 F L 76 18 141/78 02/12/18 12:00 136/72 02/12/18 11:47 97.2 F L 78 18 138/80 02/12/18 11:45 130/70 02/12/18 11:44 138/80 02/12/18 11:35 97.1 F L 77 18 133/72 02/12/18 11:30 135/67 Intake and Output 02/12/18 02/13/18 02/13/18 23:59 07:59 15:59 Intake Total 120 / 120 Balance 120 / 120 Intake: Oral 120 / 120 Other: Meal Dinner Percent of Meal Consumed 10% Weight 93.5 kg Blood Glucose* 138 110 100 Patient Weight 02/13/18 23:59 Weight 93.5 kg - General Appearance General appearance: Present: well-developed, well-nourished EENT: Present: ATNC, hearing intact, vision intact Neck: Present: supple Respiratory: Present: clear Cardiology: Present: edema (LLE +2 pitting edema (chronic) RLE + 1 pitting edema.), normal S1, normal S2 Dialysis Vascular Access: Arteriovenous Fistula thrill: Yes bruit: Yes Gastrointestinal: Present: normoactive bowel sounds, no tenderness, no guarding Integumentary: Present: no rash, warm and dry Neurologic: Present: alert and oriented x3 Psychiatric: Present: mood/affect appropriate, cooperative - Lab 02/13/18 05:28 02/13/18 05:28 Most recent lab results Calcium 9.2 mg/dL (8.6-10.3) 02/13/18 05:28 Phosphorus 6.8 mg/dL (2.7-4.5) H 02/08/18 12:55 Magnesium 1.7 mg/dL (1.6-2.6) 02/08/18 12:55 - VTE Reasons for not Prescribing Prophylaxis: Medical contraindication Documentation of Mechanical Device: Intermittent pneumatic compression device Consult Discharge Plan - Plan Instructions: Anemia (GEN) Referrals: Tahir Herrera Jr, MD [Primary Care Provider] - 02/18/18 2:00 pm (Please follow up as schedule with Sharon Bhagat)
== END 2018-02-13 12:21 | disposition home or self-care (01) | DRG 919 ==
LOC: 2ANU 12:28 → EMEROO 12:28 → 2ANU 16:49
PROVIDERS: ADMIT Internal Medicine; ATTEND Internal Medicine

== ENCOUNTER 2018-11-03 05:28 | Inpatient (IN) ==
--- NOTE | 2018-11-03 05:37 | Emergency Department Note ---
Disposition Clinical Impression: Generalized weakness, Pneumonia, Frequent falls Disposition: Admitted As Inpatient Condition: Undetermined General Adult HPI - General Stated complaint: head injury Time Seen by Provider: 11/03/18 05:32 - Related Data Home Medications Medication Instructions Recorded Confirmed Amlodipine Besylate 10 mg PO DAILY 10/07/17 11/03/18 Aspirin [Lo-Dose Aspirin EC] 81 mg PO DAILY 10/07/17 11/03/18 Lisinopril 2.5 mg PO DAILY 10/07/17 11/03/18 Metoprolol Tartrate 50 mg PO DAILY 10/07/17 11/03/18 Omeprazole [PriLOSEC] 40 mg PO DAILY 10/07/17 11/03/18 Simvastatin [Zocor] 20 mg PO HS 10/07/17 11/03/18 Renal Vitamin [Renal Caps Softgel] 1 mg PO DAILY 02/07/18 11/03/18 Warfarin [Coumadin] 2 mg PO MOWEFR 05/30/18 11/03/18 Albuterol Sulfate [Ventolin Hfa] 2 puff IH Q4H PRN 11/03/18 11/03/18 Calcium Acetate [Phos-LO] 2,001 mg PO TIDWM 11/03/18 11/03/18 Furosemide [Lasix] 80 mg PO SUTUTHSA@0900 11/03/18 11/03/18 Midodrine HCl 2.5 mg PO MOWEFR@0800 PRN MDD On 11/03/18 11/03/18 Dialysis Days Warfarin Sodium 3 mg PO SUTUTHSA 11/03/18 11/03/18 Allergies Allergy/AdvReac Type Severity Reaction Status Date / Time No Known Allergies Allergy Verified 11/03/18 06:06 Past Medical History - Past Medical History Medical history: Reports: CHF, coronary artery disease, diabetes, dialysis, GERD, hyperlipidemia, hypertension, renal disease, other Surgical history: Reports: appendectomy, other Psychiatric history: Reports: no psych history - Social History Smoking Status: Former smoker Smokeless Tobacco Status: No Alcohol use: Reports: none Drug use: Reports: none Course Vital Signs Temperature 97.6 F 11/03/18 05:33 Pulse Rate 89 11/03/18 05:33 Respiratory Rate 20 11/03/18 05:33 Blood Pressure 139/86 11/03/18 05:33 O2 Sat by Pulse Oximetry 86 11/03/18 05:33 Temperature 97.5 F L 11/04/18 12:00 Pulse Rate 88 11/04/18 12:00 Respiratory Rate 18 11/04/18 12:00 Blood Pressure 145/84 11/04/18 12:00 O2 Sat by Pulse Oximetry 96 11/04/18 12:00 Oxygen Delivery Oxygen Delivery Room Air Medical Decision Making - Lab Data Result diagrams: 11/04/18 01:21 11/04/18 01:21 Lab Results 11/03/18 11/03/18 11/03/18 Range/Units 06:28 06:28 06:28 WBC 6.4 (4.3-11.1) K/mcL RBC 2.97 L (4.19-5.50) M/mcL Hgb 9.7 L (12.9-16.9) g/dL Hct 30.8 L (37.5-50.1) % MCV 103.7 H (83.0-100.0) fL MCH 32.7 (28.0-33.3) pg MCHC 31.5 L (31.6-35.5) g/dL RDW 14.7 H (11.5-14.5) % Plt Count 146 (140-400) K/mcL MPV 10.9 (9.4-12.4) fL Immature Gran % 0.6 (0-4) % Seg Neutrophils % 85.5 % Lymphocytes % 4.2 % Monocytes % 5.9 % Eosinophils % 3.0 % Basophils % 0.8 % Neutrophils # 5.5 (1.6-8.9) K/mcL Lymphocytes # 0.3 L (0.6-4.6) K/mcL Monocytes # 0.4 (0.0-1.3) K/mcL Eosinophils # 0.2 (0.0-0.6) K/mcL Basophils # 0.1 (0.0-0.2) K/mcL PT 33.5 H (9.4-12.1) Seconds INR 3.0 APTT 43.1 H (26.0-36.0) Seconds Sodium 139 (136-145) mEq/L Potassium 5.0 (3.5-5.1) mEq/L Chloride 100 (98-107) mEq/L Carbon Dioxide 26 (23-29) mEq/L BUN 40 H (8-23) mg/dL Creatinine 6.69 H (0.70-1.30) mg/dL Est GFR ( Amer) 10 L (> 60) Est GFR (Non-Af Amer) 8 L (> 60) BUN/Creatinine Ratio 6 (6-26) Glucose 139 H (70-105) mg/dL Calculated Osmolality 300 (280-300) Lactic Acid (0.5-2.2) mmol/L Calcium 8.9 (8.6-10.3) mg/dL Phosphorus (2.7-4.5) mg/dL Magnesium 1.9 (1.6-2.6) mg/dL Total Bilirubin (0.3-1.0) mg/dL AST (13-39) Units/L ALT (7-52) Units/L Alkaline Phosphatase (34-104) Units/L Troponin I 0.03 (< 0.04) ng/mL B-Natriuretic Peptide (Less than 100) pg/mL Serum Total Protein (6.4-8.9) g/dL Albumin (3.5-5.7) g/dL Globulin (2.4-3.5) g/dL Albumin/Globulin Ratio (1.1-2.2) Procalcitonin (0.00-0.15) ng/mL TSH 2.178 (0.340-5.600) mcIU/mL Hep Bs Antigen (Nonreactive) Hep Bs Antibody (10.00 - ) mIU/mL 11/03/18 11/03/18 11/03/18 Range/Units 06:28 08:10 08:10 WBC (4.3-11.1) K/mcL RBC (4.19-5.50) M/mcL Hgb (12.9-16.9) g/dL Hct (37.5-50.1) % MCV (83.0-100.0) fL MCH (28.0-33.3) pg MCHC (31.6-35.5) g/dL RDW (11.5-14.5) % Plt Count (140-400) K/mcL MPV (9.4-12.4) fL Immature Gran % (0-4) % Seg Neutrophils % % Lymphocytes % % Monocytes % % Eosinophils % % Basophils % % Neutrophils # (1.6-8.9) K/mcL Lymphocytes # (0.6-4.6) K/mcL Monocytes # (0.0-1.3) K/mcL Eosinophils # (0.0-0.6) K/mcL Basophils # (0.0-0.2) K/mcL PT (9.4-12.1) Seconds INR APTT (26.0-36.0) Seconds Sodium (136-145) mEq/L Potassium (3.5-5.1) mEq/L Chloride (98-107) mEq/L Carbon Dioxide (23-29) mEq/L BUN (8-23) mg/dL Creatinine (0.70-1.30) mg/dL Est GFR ( Amer) (> 60) Est GFR (Non-Af Amer) (> 60) BUN/Creatinine Ratio (6-26) Glucose (70-105) mg/dL Calculated Osmolality (280-300) Lactic Acid 0.7 (0.5-2.2) mmol/L Calcium (8.6-10.3) mg/dL Phosphorus (2.7-4.5) mg/dL Magnesium (1.6-2.6) mg/dL Total Bilirubin (0.3-1.0) mg/dL AST (13-39) Units/L ALT (7-52) Units/L Alkaline Phosphatase (34-104) Units/L Troponin I (< 0.04) ng/mL B-Natriuretic Peptide 960 H (Less than 100) pg/mL Serum Total Protein (6.4-8.9) g/dL Albumin (3.5-5.7) g/dL Globulin (2.4-3.5) g/dL Albumin/Globulin Ratio (1.1-2.2) Procalcitonin 1.06 H (0.00-0.15) ng/mL TSH (0.340-5.600) mcIU/mL Hep Bs Antigen (Nonreactive) Hep Bs Antibody (10.00 - ) mIU/mL 11/03/18 11/04/18 11/04/18 Range/Units 15:00 01:21 01:21 WBC 5.6 (4.3-11.1) K/mcL RBC 2.85 L (4.19-5.50) M/mcL Hgb 9.4 L (12.9-16.9) g/dL Hct 29.4 L (37.5-50.1) % MCV 103.2 H (83.0-100.0) fL MCH 33.0 (28.0-33.3) pg MCHC 32.0 (31.6-35.5) g/dL RDW 14.5 (11.5-14.5) % Plt Count 133 L (140-400) K/mcL MPV 10.8 (9.4-12.4) fL Immature Gran % 0.2 (0-4) % Seg Neutrophils % 82.5 % Lymphocytes % 6.3 % Monocytes % 7.6 % Eosinophils % 2.5 % Basophils % 0.9 % Neutrophils # 4.6 (1.6-8.9) K/mcL Lymphocytes # 0.4 L (0.6-4.6) K/mcL Monocytes # 0.4 (0.0-1.3) K/mcL Eosinophils # 0.1 (0.0-0.6) K/mcL Basophils # 0.1 (0.0-0.2) K/mcL PT 37.3 H (9.4-12.1) Seconds INR 3.3 APTT (26.0-36.0) Seconds Sodium (136-145) mEq/L Potassium (3.5-5.1) mEq/L Chloride (98-107) mEq/L Carbon Dioxide (23-29) mEq/L BUN (8-23) mg/dL Creatinine (0.70-1.30) mg/dL Est GFR ( Amer) (> 60) Est GFR (Non-Af Amer) (> 60) BUN/Creatinine Ratio (6-26) Glucose (70-105) mg/dL Calculated Osmolality (280-300) Lactic Acid (0.5-2.2) mmol/L Calcium (8.6-10.3) mg/dL Phosphorus (2.7-4.5) mg/dL Magnesium (1.6-2.6) mg/dL Total Bilirubin (0.3-1.0) mg/dL AST (13-39) Units/L ALT (7-52) Units/L Alkaline Phosphatase (34-104) Units/L Troponin I (< 0.04) ng/mL B-Natriuretic Peptide (Less than 100) pg/mL Serum Total Protein (6.4-8.9) g/dL Albumin (3.5-5.7) g/dL Globulin (2.4-3.5) g/dL Albumin/Globulin Ratio (1.1-2.2) Procalcitonin (0.00-0.15) ng/mL TSH (0.340-5.600) mcIU/mL Hep Bs Antigen Nonreactive (Nonreactive) Hep Bs Antibody 17.74 (10.00 - ) mIU/mL 11/04/18 Range/Units 01:21 WBC (4.3-11.1) K/mcL RBC (4.19-5.50) M/mcL Hgb (12.9-16.9) g/dL Hct (37.5-50.1) % MCV (83.0-100.0) fL MCH (28.0-33.3) pg MCHC (31.6-35.5) g/dL RDW (11.5-14.5) % Plt Count (140-400) K/mcL MPV (9.4-12.4) fL Immature Gran % (0-4) % Seg Neutrophils % % Lymphocytes % % Monocytes % % Eosinophils % % Basophils % % Neutrophils # (1.6-8.9) K/mcL Lymphocytes # (0.6-4.6) K/mcL Monocytes # (0.0-1.3) K/mcL Eosinophils # (0.0-0.6) K/mcL Basophils # (0.0-0.2) K/mcL PT (9.4-12.1) Seconds INR APTT (26.0-36.0) Seconds Sodium 138 (136-145) mEq/L Potassium 4.2 (3.5-5.1) mEq/L Chloride 100 (98-107) mEq/L Carbon Dioxide 28 (23-29) mEq/L BUN 27 H (8-23) mg/dL Creatinine 5.45 H (0.70-1.30) mg/dL Est GFR ( Amer) 13 L (> 60) Est GFR (Non-Af Amer) 10 L (> 60) BUN/Creatinine Ratio 5 L (6-26) Glucose 95 (70-105) mg/dL Calculated Osmolality 291 (280-300) Lactic Acid (0.5-2.2) mmol/L Calcium 8.9 (8.6-10.3) mg/dL Phosphorus 4.6 H (2.7-4.5) mg/dL Magnesium 1.8 (1.6-2.6) mg/dL Total Bilirubin 0.6 (0.3-1.0) mg/dL AST 15 (13-39) Units/L ALT 10 (7-52) Units/L Alkaline Phosphatase 59 (34-104) Units/L Troponin I (< 0.04) ng/mL B-Natriuretic Peptide (Less than 100) pg/mL Serum Total Protein 6.5 (6.4-8.9) g/dL Albumin 3.5 (3.5-5.7) g/dL Globulin 3.0 (2.4-3.5) g/dL Albumin/Globulin Ratio 1.2 (1.1-2.2) Procalcitonin (0.00-0.15) ng/mL TSH (0.340-5.600) mcIU/mL Hep Bs Antigen (Nonreactive) Hep Bs Antibody (10.00 - ) mIU/mL Attestation Statement - Attestation Attestation: For this encounter, I have reviewed the POWDER CARRIER or PA documentation, treatment plan, and medical decision making; and I have had face to face time with this patient. [id number] time provided Patient arrives after mechanical fall. He has a hematoma and abrasion to his posterior occiput. The patient is otherwise alert. He does take Coumadin. CT head ordered by the nurse practitioner
--- NOTE | 2018-11-03 06:03 | Emergency Department Note ---
Disposition Clinical Impression: Generalized weakness Fall with injury Qualifiers: Encounter type: initial encounter Qualified Code(s): W19.XXXA - Unspecified fall, initial encounter Disposition: Still a Patient Condition: Undetermined Fall HPI - General Chief Complaint: ED Fall Stated Complaint: head injury Time Seen by Provider: 11/03/18 05:32 Source: patient, family, EMS Mode of arrival: private vehicle Limitations: no limitations Nursing Notes Reviewed: Yes Vital Signs Reviewed: Yes - History of Present Illness HPI Narrative: 73-year-old male with multiple comorbidities presents emergency department after sustaining a fall. Patient was utilizing his walker in ago the walker to ambulate to the car, he fell hitting the back of his head off a concrete, he did have positive loss of consciousness, he was down for a couple of minutes before coming to. states patient was alert and oriented at baseline when he did come to wheeze complaining of head pain, neck pain. Patient states he has chronic shortness of breath, he is on 5 L of oxygen at home, he states this has not been worse but it is "hard to breathe, I always feel like I cannot breathe". States patient has becoming more and more weak over the last several months. She states he used to utilize 3 L of O2 per the last several months he has been on 5 L, he can only take a couple steps at the time, he absolutely has to use his walker now. She states continues to follow-up, he is on dialysis but he just seems to be declining. denies any fevers, coughing, increasing breathing, edema. 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 Fall From: other Fall Witnessed: yes Place Fall Occurred: street Loss of Consciousness: yes Prolonged Down Time?: no Symptoms Prior to Fall: none Context: other Location of injury: head Severity: mild Associated symptoms (after fall): Reports: neck pain - Related Data Home Medications Medication Instructions Recorded Confirmed Amlodipine Besylate 10 mg PO DAILY 10/07/17 05/30/18 Aspirin [Lo-Dose Aspirin EC] 81 mg PO DAILY 10/07/17 05/30/18 Lisinopril 2.5 mg PO DAILY 10/07/17 05/30/18 Metoprolol Tartrate 50 mg PO DAILY 10/07/17 05/30/18 Omeprazole [PriLOSEC] 40 mg PO DAILY 10/07/17 05/30/18 Simvastatin [Zocor] 20 mg PO HS 10/07/17 05/30/18 Renal Vitamin [Renal Caps Softgel] 1 mg PO DAILY 02/07/18 05/30/18 Warfarin [Coumadin] 2 mg PO DAILY 05/30/18 05/30/18 Furosemide [Lasix] 80 mg PO 11/03/18 11/03/18 Midodrine HCl 2.5 mg PO PRN MDD on dialysis days 11/03/18 Allergies Allergy/AdvReac Type Severity Reaction Status Date / Time No Known Allergies Allergy Verified 11/03/18 06:06 All systems ED: reviewed and negative except as stated. Review of Systems: As Per HPI Constitutional: Denies: fever, chills Cardiovascular: Denies: chest pain, palpitations Respiratory: Denies: cough, dyspnea Gastrointestinal: Denies: abdominal pain Musculoskeletal: Reports: neck pain. Denies: back pain Integumentary: Reports: abrasion Neurological: Reports: weakness (Not new, chronic over several months). Denies: headache, numbness, paresthesias, abnormal gait Fall PMH - Past Medical History Medical history: Reports: CHF, coronary artery disease, diabetes, dialysis, GERD, hyperlipidemia, hypertension, renal disease, other Surgical history: Reports: appendectomy, other Psychiatric history: Reports: no psych history - Social History Smoking Status: Former smoker Alcohol use: Reports: none Drug use: Reports: none Physical Exam - General Limitations: no limitations General appearance: alert, in no apparent distress - Head Head exam: atraumatic, normocephalic, normal inspection - Eye Eye exam: Present: normal appearance - ENT ENT exam: mucous membranes moist - Neck Neck exam: Present: normal inspection, full ROM, trachea midline - Chest Chest inspection: Present: normal inspection, symmetric chest wall rise - Respiratory Respiratory exam: Present: normal lung sounds bilaterally - Cardiovascular Cardiovascular exam: Present: regular rate, normal rhythm, normal heart sounds - Extremities Exam Extremities exam: Present: normal inspection, full ROM. Absent: tenderness, pedal edema - Back Exam Back exam: Present: normal inspection - Neurological Exam Neurological exam: Present: alert, oriented X3 - Psychiatric Psychiatric exam: Present: normal affect, normal mood - Skin Skin exam: Present: warm, dry, intact, normal color Course Course Narrative: Well-hydrated female in no acute distress. He is alert and oriented 3, neurologically intact. Patient does have an abrasion with secondary hematoma to the occipital region of the head, no step-offs, deformities. He does have pain in the neck again no step-offs or deformities, is on a severely midline however retouch to the posterior neck he complains of pain, lungs are severely diminished. He is 88-92% on 5 L, no edema, heart rate regular rhythm. We will obtain CT of the head and neck, coagulation labs for the fall, patient stating increasing weakness, we will obtain basic labs to ensure no medical reason for the declination. At this time care [facility]. Vital Signs Temperature 97.6 F 11/03/18 05:33 Pulse Rate 89 11/03/18 05:33 Respiratory Rate 20 11/03/18 05:33 Blood Pressure 139/86 11/03/18 05:33 O2 Sat by Pulse Oximetry 86 11/03/18 05:33 Temperature 97.6 F 11/03/18 05:33 Pulse Rate 89 11/03/18 05:33 Respiratory Rate 20 11/03/18 05:33 Blood Pressure 139/86 11/03/18 05:33 O2 Sat by Pulse Oximetry 86 11/03/18 05:33 Oxygen Delivery Oxygen Delivery Nasal Cannula S.B.A.R. - S.B.A.R. Situation: Demographics, MOA Background: Presenting Complaint, Relevant PMH, Meds, & Allergies Assessment: Vital Signs, Course and respsone to treatment, Exam Concerns, Patient/Family Expectation, Pertinant Lab Results, Outstanding Labs Recommendation: Barrier(s) to disposition, Recommendation based on pending studies, treatments, or consults S.B.A.R. Report Given to: Ronald Johnson CNP S.B.A.R. Repor Time: 06:00
[2018-11-03] MEDS ORDERED: Tdap (Boostrix) Vaccine 0.5 ML SYRINGE IM ONE (06:07)
[2018-11-03 06:38] LABS: Basophils # 0.1 K/mcL (0.0-0.2); Basophils % 0.8 %; Eosinophils # 0.2 K/mcL (0.0-0.6); Hematocrit 30.8 % (37.5-50.1); Hemoglobin 9.7 g/dL (12.9-16.9); Immature Granulocytes % 0.6 % (0-4); Lymphocytes # 0.3 K/mcL (0.6-4.6); Lymphocytes % 4.2 %; Mean Corpuscular HGB Conc 31.5 g/dL (31.6-35.5); Mean Corpuscular Hemoglobin 32.7 pg (28.0-33.3); Mean Corpuscular Volume 103.7 fL (83.0-100.0); Mean Platelet Volume 10.9 fL (9.4-12.4); Monocytes # 0.4 K/mcL (0.0-1.3); Monocytes % 5.9 %; Neutrophils # 5.5 K/mcL (1.6-8.9); Platelet Count 146 K/mcL (140-400); Red Blood Count 2.97 M/mcL (4.19-5.50); Red Cell Distribution Width 14.7 % (11.5-14.5); Segmented Neutrophils % 85.5 %
[2018-11-03 06:44] LABS: Prothrombin Time 33.5 Seconds (9.4-12.1)
[2018-11-03 06:46] LABS: Activated Partial Thrombo Time 43.1 Seconds (26.0-36.0)
[2018-11-03 06:56] LABS: Calcium 8.9 mg/dL (8.6-10.3)
[2018-11-03] MEDS ORDERED: Azithromycin 500 MG in D5% in Water 250 ML IVPB ONE (07:20)
[2018-11-03] MEDS ORDERED: cefTRIAXone 2,000 MG in 0.9 % Sodium Chloride Mini Bag 100 ML IVPB ONE (07:20)
--- NOTE | 2018-11-03 07:28 | Emergency Department Note ---
Disposition Clinical Impression: Generalized weakness, Frequent falls Pneumonia Qualifiers: Pneumonia type: due to unspecified organism Laterality: right Lung location: unspecified part of lung Qualified Code(s): J18.9 - Pneumonia, unspecified organism Disposition: Admitted As Inpatient Condition: Undetermined Referrals: Tahir Herrera Jr, MD [Primary Care Provider] - Forms: ED Satisfaction Letter General Adult HPI - General Chief complaint: ED Fall Stated complaint: head injury Time Seen by Provider: 11/03/18 05:32 Source: patient, family, EMS Mode of arrival: private vehicle Limitations: no limitations - History of Present Illness Pain Scale: 5 - Related Data Home Medications Medication Instructions Recorded Confirmed Amlodipine Besylate 10 mg PO DAILY 10/07/17 11/03/18 Aspirin [Lo-Dose Aspirin EC] 81 mg PO DAILY 10/07/17 11/03/18 Lisinopril 2.5 mg PO DAILY 10/07/17 11/03/18 Metoprolol Tartrate 50 mg PO DAILY 10/07/17 11/03/18 Omeprazole [PriLOSEC] 40 mg PO DAILY 10/07/17 11/03/18 Simvastatin [Zocor] 20 mg PO HS 10/07/17 11/03/18 Renal Vitamin [Renal Caps Softgel] 1 mg PO DAILY 02/07/18 11/03/18 Warfarin [Coumadin] 2 mg PO DAILY 05/30/18 11/03/18 Furosemide [Lasix] 80 mg PO 11/03/18 11/03/18 Midodrine HCl 2.5 mg PO PRN MDD on dialysis days 11/03/18 Allergies Allergy/AdvReac Type Severity Reaction Status Date / Time No Known Allergies Allergy Verified 11/03/18 06:06 Constitutional: Denies: fever, chills Cardiovascular: Denies: chest pain, palpitations Respiratory: Denies: cough, dyspnea Gastrointestinal: Denies: abdominal pain Musculoskeletal: Reports: neck pain. Denies: back pain Integumentary: Reports: abrasion Neurological: Reports: weakness (Not new, chronic over several months). Denies: headache, numbness, paresthesias, abnormal gait Past Medical History - Past Medical History Medical history: Reports: CHF, coronary artery disease, diabetes, dialysis, GERD, hyperlipidemia, hypertension, renal disease, other Surgical history: Reports: appendectomy, other Psychiatric history: Reports: no psych history - Social History Smoking Status: Former smoker Smokeless Tobacco Status: No Alcohol use: Reports: none Drug use: Reports: none Physical Exam - General Limitations: no limitations General appearance: alert, in no apparent distress Course Vital Signs Temperature 97.6 F 11/03/18 05:33 Pulse Rate 89 11/03/18 05:33 Respiratory Rate 20 11/03/18 05:33 Blood Pressure 139/86 11/03/18 05:33 O2 Sat by Pulse Oximetry 86 11/03/18 05:33 Temperature 97.6 F 11/03/18 05:33 Pulse Rate 88 11/03/18 06:15 Respiratory Rate 20 11/03/18 06:15 Blood Pressure 128/81 11/03/18 06:15 O2 Sat by Pulse Oximetry 97 11/03/18 06:17 Oxygen Delivery Oxygen Delivery Nasal Cannula Medical Decision Making - MDM Narrative Medical decision making narrative: Site out from shift coordinator provider: Genesis Mane PRODUCTION RECOVERY OPERATOR: 73-year-old male presents for fall evaluation. Patient was walking with walker at home. Suddenly he fe ll on the ground and hit his back of the head. Patient lost consciousness for a few minutes. Patient reported generalized weakness in the past several months. Patient reported hard to breathe. Patient is on home oxygen. Patient has history of end stage renal disease, on dialysis (Saturday), [place], on Coumadin, CHF. Denied hospitalization in the past 3 months. Labs: Hemoglobin 9.7 (on his baseline). Chest x-ray indicated right pleura infusion, which indicated pneumonia. Blood culture and lactic acid ordered. Patient started antibiotics Rocephin and Azithromycin. Pt is alert and oriented, no headache, back to his baseline mental status, negative head and cervical CT. Patient will be admitted to hospital for IV antibiotics. Dr. Bertrand has seen the patient and agrees the above plan. - Lab Data Lab results reviewed: Yes I reviewed the patient's lab results. Result diagrams: 11/03/18 06:28 11/03/18 06:28 Lab Results 11/03/18 11/03/18 11/03/18 Range/Units 06:28 06:28 06:28 WBC 6.4 (4.3-11.1) K/mcL RBC 2.97 L (4.19-5.50) M/mcL Hgb 9.7 L (12.9-16.9) g/dL Hct 30.8 L (37.5-50.1) % MCV 103.7 H (83.0-100.0) fL MCH 32.7 (28.0-33.3) pg MCHC 31.5 L (31.6-35.5) g/dL RDW 14.7 H (11.5-14.5) % Plt Count 146 (140-400) K/mcL MPV 10.9 (9.4-12.4) fL Immature Gran % 0.6 (0-4) % Seg Neutrophils % 85.5 % Lymphocytes % 4.2 % Monocytes % 5.9 % Eosinophils % 3.0 % Basophils % 0.8 % Neutrophils # 5.5 (1.6-8.9) K/mcL Lymphocytes # 0.3 L (0.6-4.6) K/mcL Monocytes # 0.4 (0.0-1.3) K/mcL Eosinophils # 0.2 (0.0-0.6) K/mcL Basophils # 0.1 (0.0-0.2) K/mcL PT 33.5 H (9.4-12.1) Seconds INR 3.0 APTT 43.1 H (26.0-36.0) Seconds Sodium 139 (136-145) mEq/L Potassium 5.0 (3.5-5.1) mEq/L Chloride 100 (98-107) mEq/L Carbon Dioxide 26 (23-29) mEq/L BUN 40 H (8-23) mg/dL Creatinine 6.69 H (0.70-1.30) mg/dL Est GFR ( Amer) 10 L (> 60) Est GFR (Non-Af Amer) 8 L (> 60) BUN/Creatinine Ratio 6 (6-26) Glucose 139 H (70-105) mg/dL Calculated Osmolality 300 (280-300) Calcium 8.9 (8.6-10.3) mg/dL B-Natriuretic Peptide (Less than 100) pg/mL 11/03/18 Range/Units 06:28 WBC (4.3-11.1) K/mcL RBC (4.19-5.50) M/mcL Hgb (12.9-16.9) g/dL Hct (37.5-50.1) % MCV (83.0-100.0) fL MCH (28.0-33.3) pg MCHC (31.6-35.5) g/dL RDW (11.5-14.5) % Plt Count (140-400) K/mcL MPV (9.4-12.4) fL Immature Gran % (0-4) % Seg Neutrophils % % Lymphocytes % % Monocytes % % Eosinophils % % Basophils % % Neutrophils # (1.6-8.9) K/mcL Lymphocytes # (0.6-4.6) K/mcL Monocytes # (0.0-1.3) K/mcL Eosinophils # (0.0-0.6) K/mcL Basophils # (0.0-0.2) K/mcL PT (9.4-12.1) Seconds INR APTT (26.0-36.0) Seconds Sodium (136-145) mEq/L Potassium (3.5-5.1) mEq/L Chloride (98-107) mEq/L Carbon Dioxide (23-29) mEq/L BUN (8-23) mg/dL Creatinine (0.70-1.30) mg/dL Est GFR ( Amer) (> 60) Est GFR (Non-Af Amer) (> 60) BUN/Creatinine Ratio (6-26) Glucose (70-105) mg/dL Calculated Osmolality (280-300) Calcium (8.6-10.3) mg/dL B-Natriuretic Peptide 960 H (Less than 100) pg/mL - Radiology Data Radiology results reviewed: Yes I reviewed the patient's radiology results. EXAMINATION: SINGLE XRAY VIEW OF THE CHEST 11/03/2018 5:50 am COMPARISON: 09/02/2018 HISTORY: ORDERING SYSTEM PROVIDED HISTORY: SOB FINDINGS: Pulmonary edema is present. There is right pleural effusion and there is bibasilar airspace disease. The heart size is mildly to moderately enlarged. There is no discernible pneumothorax. XR/XR chest 1V portable IMPRESSION: Pulmonary edema with right pleural effusion and bibasilar atelectasis and/or pneumonia. D/ / Maulik Zarate MD / Maulik Zarate MD Interpreting Provider: Maulik Zarate MD ORY: ORDERING SYSTEM PROVIDED HISTORY: fall with injury FINDINGS: BRAIN/VENTRICLES: There is no acute intracranial hemorrhage, mass effect or midline shift. No abnormal extra-axial fluid collection. The rosenberg-white differentiation is maintained without evidence of an acute infarct. There is no evidence of hydrocephalus. ORBITS: The visualized portion of the orbits demonstrate no acute abnormality. SINUSES: The visualized paranasal sinuses demonstrate no acute abnormality. Opacification of the bilateral mastoids. SOFT TISSUES/SKULL: Left posterior scalp edema without underlying calvarial fracture. CT/CT head/brain wo con IMPRESSION: No acute intracranial abnormality. Opacification of the bilateral mastoid air cells. D/ / Cristhian Magana MD / Cristhian Magana MD Interpreting Provider: Cristhian Magana MD ARISON: None. HISTORY: ORDERING SYSTEM PROVIDED HISTORY: fall with injury FINDINGS: BONES/ALIGNMENT: There is no evidence of an acute cervical spine fracture. There is normal alignment of the cervical spine. DEGENERATIVE CHANGES: No significant degenerative changes. SOFT TISSUES: There is a right-sided pleural effusion CT/CT cervical spine wo con IMPRESSION: Normal CT scan cervical spine Right-sided pleural effusion D/ / Hector Vázquez MD / Hector Vázquez MD Interpreting Provider: Hector Vázquez MD
--- NOTE | 2018-11-03 07:59 | Emergency Department Note ---
Disposition Clinical Impression: Generalized weakness, Frequent falls Pneumonia Qualifiers: Pneumonia type: due to unspecified organism Laterality: right Lung location: unspecified part of lung Qualified Code(s): J18.9 - Pneumonia, unspecified organism Disposition: Admitted As Inpatient Condition: Undetermined Referrals: Tahir Herrera Jr, MD [Primary Care Provider] - Forms: ED Satisfaction Letter General Adult HPI - General Chief complaint: ED Fall Stated complaint: head injury Time Seen by Provider: 11/03/18 05:32 Source: patient, family, EMS Mode of arrival: private vehicle Limitations: no limitations Nursing Notes Reviewed: Yes Vital Signs Reviewed: Yes - History of Present Illness Pain Scale: 5 - Related Data Home Medications Medication Instructions Recorded Confirmed Amlodipine Besylate 10 mg PO DAILY 10/07/17 11/03/18 Aspirin [Lo-Dose Aspirin EC] 81 mg PO DAILY 10/07/17 11/03/18 Lisinopril 2.5 mg PO DAILY 10/07/17 11/03/18 Metoprolol Tartrate 50 mg PO DAILY 10/07/17 11/03/18 Omeprazole [PriLOSEC] 40 mg PO DAILY 10/07/17 11/03/18 Simvastatin [Zocor] 20 mg PO HS 10/07/17 11/03/18 Renal Vitamin [Renal Caps Softgel] 1 mg PO DAILY 02/07/18 11/03/18 Warfarin [Coumadin] 2 mg PO DAILY 05/30/18 11/03/18 Furosemide [Lasix] 80 mg PO 11/03/18 11/03/18 Midodrine HCl 2.5 mg PO PRN MDD on dialysis days 11/03/18 Allergies Allergy/AdvReac Type Severity Reaction Status Date / Time No Known Allergies Allergy Verified 11/03/18 06:06 Constitutional: Denies: fever, chills Cardiovascular: Denies: chest pain, palpitations Respiratory: Denies: cough, dyspnea Gastrointestinal: Denies: abdominal pain Musculoskeletal: Reports: neck pain. Denies: back pain Integumentary: Reports: abrasion Neurological: Reports: weakness (Not new, chronic over several months). Denies: headache, numbness, paresthesias, abnormal gait Past Medical History - Past Medical History Medical history: Reports: CHF, coronary artery disease, diabetes, dialysis, GERD, hyperlipidemia, hypertension, renal disease, other Surgical history: Reports: appendectomy, other Psychiatric history: Reports: no psych history - Social History Smoking Status: Former smoker Smokeless Tobacco Status: No Alcohol use: Reports: none Drug use: Reports: none Physical Exam - General Limitations: no limitations General appearance: alert, in no apparent distress Course Vital Signs Temperature 97.6 F 11/03/18 05:33 Pulse Rate 89 11/03/18 05:33 Respiratory Rate 20 11/03/18 05:33 Blood Pressure 139/86 11/03/18 05:33 O2 Sat by Pulse Oximetry 86 11/03/18 05:33 Temperature 97.6 F 11/03/18 05:33 Pulse Rate 88 11/03/18 06:15 Respiratory Rate 20 11/03/18 06:15 Blood Pressure 128/81 11/03/18 06:15 O2 Sat by Pulse Oximetry 97 11/03/18 06:17 Oxygen Delivery Oxygen Delivery Nasal Cannula Medical Decision Making - Lab Data Result diagrams: 11/03/18 06:28 11/03/18 06:28 Lab Results 11/03/18 11/03/18 11/03/18 Range/Units 06:28 06:28 06:28 WBC 6.4 (4.3-11.1) K/mcL RBC 2.97 L (4.19-5.50) M/mcL Hgb 9.7 L (12.9-16.9) g/dL Hct 30.8 L (37.5-50.1) % MCV 103.7 H (83.0-100.0) fL MCH 32.7 (28.0-33.3) pg MCHC 31.5 L (31.6-35.5) g/dL RDW 14.7 H (11.5-14.5) % Plt Count 146 (140-400) K/mcL MPV 10.9 (9.4-12.4) fL Immature Gran % 0.6 (0-4) % Seg Neutrophils % 85.5 % Lymphocytes % 4.2 % Monocytes % 5.9 % Eosinophils % 3.0 % Basophils % 0.8 % Neutrophils # 5.5 (1.6-8.9) K/mcL Lymphocytes # 0.3 L (0.6-4.6) K/mcL Monocytes # 0.4 (0.0-1.3) K/mcL Eosinophils # 0.2 (0.0-0.6) K/mcL Basophils # 0.1 (0.0-0.2) K/mcL PT 33.5 H (9.4-12.1) Seconds INR 3.0 APTT 43.1 H (26.0-36.0) Seconds Sodium 139 (136-145) mEq/L Potassium 5.0 (3.5-5.1) mEq/L Chloride 100 (98-107) mEq/L Carbon Dioxide 26 (23-29) mEq/L BUN 40 H (8-23) mg/dL Creatinine 6.69 H (0.70-1.30) mg/dL Est GFR ( Amer) 10 L (> 60) Est GFR (Non-Af Amer) 8 L (> 60) BUN/Creatinine Ratio 6 (6-26) Glucose 139 H (70-105) mg/dL Calculated Osmolality 300 (280-300) Calcium 8.9 (8.6-10.3) mg/dL B-Natriuretic Peptide (Less than 100) pg/mL 11/03/18 Range/Units 06:28 WBC (4.3-11.1) K/mcL RBC (4.19-5.50) M/mcL Hgb (12.9-16.9) g/dL Hct (37.5-50.1) % MCV (83.0-100.0) fL MCH (28.0-33.3) pg MCHC (31.6-35.5) g/dL RDW (11.5-14.5) % Plt Count (140-400) K/mcL MPV (9.4-12.4) fL Immature Gran % (0-4) % Seg Neutrophils % % Lymphocytes % % Monocytes % % Eosinophils % % Basophils % % Neutrophils # (1.6-8.9) K/mcL Lymphocytes # (0.6-4.6) K/mcL Monocytes # (0.0-1.3) K/mcL Eosinophils # (0.0-0.6) K/mcL Basophils # (0.0-0.2) K/mcL PT (9.4-12.1) Seconds INR APTT (26.0-36.0) Seconds Sodium (136-145) mEq/L Potassium (3.5-5.1) mEq/L Chloride (98-107) mEq/L Carbon Dioxide (23-29) mEq/L BUN (8-23) mg/dL Creatinine (0.70-1.30) mg/dL Est GFR ( Amer) (> 60) Est GFR (Non-Af Amer) (> 60) BUN/Creatinine Ratio (6-26) Glucose (70-105) mg/dL Calculated Osmolality (280-300) Calcium (8.6-10.3) mg/dL B-Natriuretic Peptide 960 H (Less than 100) pg/mL Attestation Statement - Attestation Attestation: Patient was a sign out from the evening ER physician Dr. Hernandez. Patient had a minor head injury after fall. No lacerations no headache CT is negative here. We will bring him into the hospital as he has been having weakness and has a pneumonia. Has not been in the hospital since May. So we will treat him as an outpatient pneumonia. Family is in agreement with plan. Hospitalist wondering if he should be transferred to [place] for head trauma but he does not meet any criteria is alert person place and time GCS is 15 he has no injury negative for bleed. So I think it appropriate that he stays here. I told him that they could come down and evaluate the patient if they felt uncomfortable with that they could transfer him but they said to go ahead and admit him here. Patient's agreement with plan
[2018-11-03] MEDS ORDERED: Naloxone 0.4 MG/ML INJ IVP PRN (08:36)
[2018-11-03] MEDS ORDERED: 0.9 % Sodium Chloride 2,000 ML ONE ×2 (08:36→12:10)
--- NOTE | 2018-11-03 08:49 | Internal Med History&Physical ---
Date of Encounter: 11/03/18 Time of Encounter: 08:46 Internal Medicine - H&P: HPI Chief complaint: LOC, fall head trauma Admitted From: Home Plans for Post Hospital Care: Transfer [facility] History of present illness: Mr. Hong is a 73 year old male with history of ESRD on dialysis MWF, CHF, severe obstructive pulmonary disease and CAD presented to the emergency department with complaint of fall adn head trauma +ve LOC. As per patient and at bedside he was walking to his car using his walker a nd next thing her remebers was that he was on the ground. He reports that he hit the back of his head however denies loss of consciousness. He denies pre-or post fall diaphoresis, chest pain, palpi tations, vision changes, headache, nausea, shortness of breath. He did also report that he hit his back. He denies mechanical fall. He reports that he has been weak for many months now and has been following up with his primary care physician however the cause is unknown. He denies bowel or bladder incontinence, denies seizure like activity, there was no foaming of the mouth or tongue biting. reports that immediately after he fell his eyes were open however for about 2-3 minutes he was unable to communicate verbally with her. He reports that his weakness is chronic and has been using his walker. Does have history of falls however no recent falls with head trauma. He has atrial fibrillation and is on Coumadin. In addition to above he is had chronic shortness of breath, follows up with Dr. Farias who did a thoracocentesis in August 2018 which was negative for malignancy or infection. He is compliant with his fluid restriction however when asked how much is his fluid restriction he cannot modify. Currently he denies headache, vision changes, neck pain, nausea, vomiting, diarr hea, chest pain, SOB, orthopnea, PND. does report some back pain however denies saddle anesthesia, leag weakness, leg numbness or paresthesia. On the emergency department CT head and cervical spine was negative for any acute abnormalities. i discussed with ED physician who has cleared the patient from trauma perspective. i discussed/ recommended transfer to trauma center, that given his age and therapeutic INR he is at risk of ICH, SDH however he recommended against transferring the patient to a facility with capabilities for neurosurgery and trauma understanding that he is at risk for ICH. he communicated to me that he cannot report back to his supervisor blood of why he has transferred a patient with negative head CT. i again explained that he is at risk of ICH and SDH which can happen a few hours after the initial fall. case was discussed with director pharmacology who discussed case with neurologist and it was recommended to me to admit patient to [facility] and follow his neurological status and repeat CT head in 48hrs and if there is signs of ICH then we can transfer the patient. the patiet understands the risks of ICH and he is agreeable for admission Past Med Surg Social Fam HX - Past Medical History Medical history: CHF, coronary artery disease, diabetes, dialysis, GERD, hyperlipidemia, hypertension, renal disease, other Additional medical history: kidney disease, fistula, bph, hx rheumatic fever, chronic fatigue, ESRD, anemia, CVD, cardiac stents x 4 Psychiatric history: no psych history - Past Surgical History Surgical History: appendectomy, other Additional surgical history: ear surgery, cardiac stents, fistula, BCC, lung bx, PTCA, Hernia - Social History Smoking Status: Former smoker Smokeless Tobacco Status: No Alcohol use: none Drug use: none - Family History Mother Adopted: No Living Status: Hx Family Cardiac Disorders: Yes Hx Family Respiratory Disorders: No Hx Family Cancer: No Hx Family GI Disorders: No Hx Family Endocrine Disorder: No Hx Family Neuromuscular Disorders: No Hx Family Neurologic Disorders: No Hx Family HEENT Disorders: No Hx Family Autoimmune Disorders: No Internal Medicine - H&P: Meds Amlodipine Besylate 10 mg PO DAILY 10/07/17 [History] Aspirin [Lo-Dose Aspirin EC] 81 mg PO DAILY 10/07/17 [History] Lisinopril 2.5 mg PO DAILY 10/07/17 [History] Metoprolol Tartrate 50 mg PO DAILY 10/07/17 [History] Omeprazole [PriLOSEC] 40 mg PO DAILY 10/07/17 [History] Simvastatin [Zocor] 20 mg PO HS 10/07/17 [History] Renal Vitamin [Renal Caps Softgel] 1 mg PO DAILY 02/07/18 [History] Warfarin [Coumadin] 2 mg PO DAILY 05/30/18 [History] Calcium Acetate [Phos-LO] 2,001 mg PO TIDWM 11/03/18 [History] Furosemide [Lasix] 80 mg PO SUTUTHSA@0900 05/06/19 [History] Midodrine HCl 2.5 mg PO MOWEFR@0800 PRN MDD On Dialysis Days 11/03/18 [History] Allergy/AdvReac Type Severity Reaction Status Date / Time No Known Allergies Allergy Verified 11/03/18 06:06 All Systems PM: A 10-system review of systems was performed and is negative for pertinent findings except as documented above in the HPI. - Constitutional Vitals: Temp Pulse Resp BP Pulse Ox 97.6 F 88 20 128/81 97 11/03/18 05:33 11/03/18 06:15 11/03/18 06:15 11/03/18 06:15 11/03/18 06:17 Exam: General: Patient is alert, oriented, no acute distress, looks ill Head: atraumatic, normocephalic, no bruising noticed Eye: normal appearance, PERRL, no scleral icterus, no conjunctival injection ENT: mucous membranes moist, normal external ear exam Neck: normal inspection, trachea midline, full ROM Chest: normal inspection, symmetric chest rise Respiratory: breath soundsBLT, absent breath sound sin the Right posterior lung field infrascapularly, has crackles of the LLL Cardiovascular: irregular s1 and s2 No clicks, rubs, gallops, or murmors. Abdomen: Bowel sounds present normoactive x-4 quadrants. Abdomen is soft, nondistended. no Epigastric tenderness. No guarding or rebound. No organomegaly noted, obese musculoskeletal: Spontaneously moving all extremities. 3 + edema of bilateral LE below knee R>L , no calf tenderness Skin: warm, dry, intact. right forearm with AV fistula with thrill and bruit Neuro: Alert and oriented x 3 moving all extremities, no focal deficit, CN 2-12 intact , sensation intact Psych: Patient's affect is normal in addition to that Internal Med - H&P Results - Labs CBC & Chem 7: 11/03/18 06:28 11/03/18 06:28 Labs: Short CBC 11/03/18 Range/Units 06:28 WBC 6.4 (4.3-11.1) K/mcL Hgb 9.7 L (12.9-16.9) g/dL Hct 30.8 L (37.5-50.1) % Plt Count 146 (140-400) K/mcL Neutrophils # 5.5 (1.6-8.9) K/mcL BMP 11/03/18 06:28 Sodium 139 Potassium 5.0 Chloride 100 Carbon Dioxide 26 BUN 40 H Creatinine 6.69 H Glucose 139 H Calcium 8.9 - EKG Data -: EKG Interpreted by Myself (afib, incomplete Rbbb and LAFB, prolonged QT 501) - EKG Data Prior EKG available for review: yes When compared to previous EKG: there are significant changes - Impressions ITS Impressions Cervical Spine CT 11/03/18 05:37 IMPRESSION: Normal CT scan cervical spine Right-sided pleural effusion D/ / Hector Vázquez MD / Hector Vázquez MD Interpreting Provider: Hector Vázquez MD Head CT 11/03/18 05:37 IMPRESSION: No acute intracranial abnormality. Opacification of the bilateral mastoid air cells. D/ / Cristhian Magana MD / Cristhian Magana MD Interpreting Provider: Cristhian Magana MD Chest X-Ray 11/03/18 05:39 IMPRESSION: Pulmonary edema with right pleural effusion and bibasilar atelectasis and/or pneumonia. D/ / Maulik Zarate MD / Maulik Zarate MD Interpreting Provider: Maulik Zarate MD - Assessment and Plan (1) Headache, post-traumatic, acute Current Visit: Yes Status: Acute Assessment and plan: s/p fall and LOC has therapeutic INR as he is on coumadin i discussed with ED physician who has cleared the patient from trauma perspective. i discussed/ recommended transfer to trauma center, that given his age and therapeutic INR he is at risk of ICH, SDH however he recommended against transferring the patient to a facility with capabilities for neurosurgery and trauma understanding that he is at risk for ICH. case was discussed with director pharmacology/ neurologist and he recommended to admit patient to [facility] and follow his neurological status and repeat CT head in 48hrs and if there is signs of ICH then we will transfer patient continue with neurochecks aspiration, fall precautions if he develops neurological deficit get CT head stat CT thoracic spine and lumbar spine ordered - follow as he also hit his back hold coumadin for now as his INR is therapeutic At [address] head in AM if WNL consider resuming coumadin Pt/OT consulted Qualifiers: Intractability: not intractable Qualified Code(s): G44.319 - Acute post- traumatic headache, not intractable (2) Syncope and collapse Current Visit: Yes Status: Acute Assessment and plan: syncope r/o arrhythmia vs vasovagal rule out other etiologies cardiac monitoring cardiology consulted as he has new ekg changes RBBB, LAFB TTE troponin stat neurochecks Q4H orthostatics carotid doppler TTE 2018- LVEF 45%. Mildly dilated left ventricle. Mild global left ventricular systolic dysfunction. Atypical septal motion consistent with bundle branch block. Moderate left ventricular diastolic dysfunction. Mildly dilated right ventricle with normal function. Severely dilated left atrium. Severely dilated right atrium. Mild mitral regurgitation. Mild tricuspid regurgitation. Severe pulmonary hypertension. Estimated RVSP is 64 mmHg. (3) Pulmonary edema Current Visit: Yes Status: Acute Assessment and plan: most likely secondary to fluid overload and acute on chrnic systolic + diastolic CHF BNP 960 TTE ordered nephrology consulted for dialysis continue home medication if not CI Strict I/O daily weights FR to <1500 bipap if in respiratory distress CXR with pulm edema and with right pleural effusion and bibasilar atelectasis and/or pneumonia. TTE 2018- LVEF 45%. Mildly dilated left ventricle. Mild global left ventricular systolic dysfunction. Atypical septal motion consistent with bundle branch block. Moderate left ventricular diastolic dysfunction. Mildly dilated right ventricle with normal function. Severely dilated left atrium. Severely dilated right atrium. Mild mitral regurgitation. Mild tricuspid regurgitation. Severe pulmonary hypertension. Estimated RVSP is 64 mmHg. Qualifiers: Chronicity: acute Qualified Code(s): J81.0 - Acute pulmonary edema (4) Pleural effusion, right Current Visit: Yes Status: Acute Assessment and plan: s/p thoracocentesis by Dr. marshall in august 2018 pathology was negatiev for malignancy obtain CXR post dialysis if not improved consider pulm consult for repeat th oracocentesis CT thoracic spine is pending follow to see if there is any lung abnormalities. was started on Abx for CAP will continue (5) CAP (community acquired pneumonia) Current Visit: Yes Status: Acute Assessment and plan: ceftraixone and azithromycin makes urine- urine antigens consider thoracocentesis if no improvemet with dialysis Duo-nebs Sputm cx influenza procalcitonin Qualifiers: Laterality: right Lung location: lower lobe of lung Qualified Code(s): J18.1 - Lobar pneumonia, unspecified organism (6) Frequent falls Current Visit: Yes Status: Acute Assessment and plan: PT/OT consulted CT head negative TSH CT thoracic spine and lumbar spine orthostatics. (7) ESRD (end stage renal disease) on dialysis Current Visit: No Status: Chronic Assessment and plan: nephrology consulted for dialysis Phosphorus in AM continue with renal vitamins rest of the management as per nephrology (8) Swelling of lower extremity Current Visit: Yes Status: Acute Assessment and plan: bilateral lower extremity swelling R>L dvt study ordered (9) Pulmonary HTN Current Visit: Yes Status: Acute Assessment and plan: Severe pulmonary hypertension. Estimated RVSP is 64 mmHg omn TTE in 2018 PFTs 08/2018- Spirometry shows severe to very severe airway obstructive pattern continue with oxygen via nasal cannula Duo-nebs (10) Weakness Current Visit: Yes Status: Acute Assessment and plan: reports increasing weakness for the past few months TSH, Pt/OT ordered rest of the management and work up as above (11) Chronic disease anemia Current Visit: Yes Status: Acute Assessment and plan: H/h at baseline continue to monitor H/h closely transfuse <7 (12) Prolonged QT interval Current Visit: Yes Status: Acute Assessment and plan: QT 501 magnesium stat cardiac monitoring serial EKGs (13) HTN (hypertension) Current Visit: No Status: Acute Assessment and plan: continue home medications if not CI Qualifiers: Hypertension type: unspecified secondary hypertension Qualified Code(s): I15.9 - Secondary hypertension, unspecified; I15 - Secondary hypertension (14) DVT prophylaxis Current Visit: No Status: Acute Assessment and plan: therapeutic INR - Time Spent With Patient Total time spent is greater than 50% in coordination of care (as documented) at patient's floor/unit and/or counseling patient:
[2018-11-03 09:35] LABS: Troponin I 0.03 ng/mL (< 0.04)
--- NOTE | 2018-11-03 09:36 | Electrocardiograph Report ---
[address] [place], [place] [address] Test Date: 2018-11-03 Pat Name: Moses Hong Department: [id number] Room: 2A39 Gender: M Size Changer: : 1945 Requested By: Alejandra Quan Order Number: [id number] Reading MD: Adriana Sanders Measurements Intervals [place] Rate: 88 P: OK: QRS: -47 QRSD: 113 T: 75 QT: 414 QTc: 501 Interpretive Statements Atrial fibrillation Incomplete RBBB and LAFB Abnormal R-wave progression, late transition Electronically Signed On 11-03-2018 9:34:55 EDT by Adriana Sanders
[2018-11-03] MEDS ORDERED: cefTRIAXone 2,000 MG in 0.9 % Sodium Chloride Mini Bag 100 ML IVPB SCH (10:00)
[2018-11-03 10:03] LABS: Magnesium 1.9 mg/dL (1.6-2.6)
[2018-11-03 10:17] LABS: Thyroid Stimulating Hormone 2.178 mcIU/mL (0.340-5.600)
[2018-11-03] MEDS: Ipratropium/Albuterol Neb 3 ML IH SCH ×3 (10:59→20:10)
[2018-11-03] MEDS ORDERED: Calcium Acetate 667 MG CAPSULE PO SCH (12:00)
[2018-11-03] MEDS: Renal Vitamin 1 CAP CAPSULE PO SCH (12:19)
[2018-11-03] MEDS: Calcium Acetate 667 MG CAPSULE PO SCH ×2 (12:23→17:52)
--- NOTE | 2018-11-03 13:17 | Nephrology Consult Note ---
Date of Encounter: 11/03/18 Time of Encounter: 12:00 Assessment and Plan (1) ESRD (end stage renal disease) on dialysis Current Visit: No Status: Chronic - Patient to resume HD MWF schedule with ultrafiltration as tolerated. - Hgb at baseline. - Renal diet. - Fluid restrictions. - Resume renal related home meds. (2) Peripheral edema Current Visit: Yes Status: Acute - DVT study pending. (3) CAP (community acquired pneumonia) Current Visit: Yes Status: Acute Qualifiers: Laterality: right Lung location: lower lobe of lung Qualified Code(s): J18.1 - Lobar pneumonia, unspecified organism (4) Pleural effusion, right Current Visit: Yes Status: Chronic - s/p thoracocentesis by Dr. marshall in august 2018 - pathology was negatiev for malignancy - obtain CXR post dialysis if not improved consider pulm consult for repeat thoracocentesis - was staretd for Abx for CAP will continue History of Present Illness - Reason for Consult Consult date: 11/03/18 - Chief Complaint S/P head trauma, LOC - History of Present Illness Patient is a 73 year old male with history of ESRD on dialysis MWF, CHF, severe obstructive pulmonary disease and CAD presented to the emergency department with complaint of fall and head trauma with LOC. Denies mechanical fall. Reports chronic weakness. Denies bowel or bladder incontinence, denies seizure like activity, there was no foaming of the mouth or tongue biting. reports that immediately after he fell his eyes were open however for about 2-3 minutes he was unable to communicate verbally with her. He has atrial fibrillation and is on Coumadin. When seen today, patient says his FAJARDO has improved and says it is at a 3/10 in severity. He denies any dizziness or light-headedness. Denies any chest pain. Denies any SOB. Denies nausea or vomiting. Does admit to increased LE swelling in both legs. Past Med Surg Social Fam HX - Past Medical History Medical history: CHF, coronary artery disease, diabetes, dialysis, GERD, hyperlipidemia, hypertension, renal disease, other Additional medical history: kidney disease, fistula, bph, hx rheumatic fever, chronic fatigue, ESRD, anemia, CVD, cardiac stents x 4 Psychiatric history: no psych history - Past Surgical History Surgical History: appendectomy, other Additional surgical history: ear surgery, cardiac stents, fistula, BCC, lung bx, PTCA, Hernia x2 - Social History Smoking Status: Former smoker Smokeless Tobacco Status: No Alcohol use: none Drug use: none - Family History Mother Adopted: No Living Status: Hx Family Cardiac Disorders: Yes Hx Family Respiratory Disorders: No Hx Family Cancer: No Hx Family GI Disorders: No Hx Family Endocrine Disorder: No Hx Family Neuromuscular Disorders: No Hx Family Neurologic Disorders: No Hx Family HEENT Disorders: No Hx Family Autoimmune Disorders: No Medications and Allergies Amlodipine Besylate 10 mg PO DAILY 10/07/17 [History] Aspirin [Lo-Dose Aspirin EC] 81 mg PO DAILY 10/07/17 [History] Lisinopril 2.5 mg PO DAILY 10/07/17 [History] Metoprolol Tartrate 50 mg PO DAILY 10/07/17 [History] Omeprazole [PriLOSEC] 40 mg PO DAILY 10/07/17 [History] Simvastatin [Zocor] 20 mg PO HS 10/07/17 [History] Renal Vitamin [Renal Caps Softgel] 1 mg PO DAILY 02/07/18 [History] Warfarin [Coumadin] 2 mg PO DAILY 05/30/18 [History] Calcium Acetate [Phos-LO] 2,001 mg PO TIDWM 11/03/18 [History] Furosemide [Lasix] 80 mg PO SUTUTHSA@0900 11/03/18 [History] Midodrine HCl 2.5 mg PO MOWEFR@0800 PRN MDD On Dialysis Days 11/03/18 [History] Allergy/AdvReac Type Severity Reaction Status Date / Time No Known Allergies Allergy Verified 11/03/18 06:06 Review of Systems Constitutional: headache(s), no fever(s) Nose, mouth and throat: headache(s), no dizziness Cardiovascular: edema, irregular heart rhythm, leg edema, syncope, no chest pain, no chest pain at rest, no chest pain with activity, no dyspnea, no lightheadedness Respiratory: no cough, no dyspnea Gastrointestinal: no abdominal pain, no nausea, no vomiting Musculoskeletal: muscle weakness Neurological: headache(s), syncope, weakness, no confusion, no convulsions, no dizziness Exam - Vital Signs Vital signs: Initial Vital Signs Temp Pulse Resp BP Pulse Ox 97.6 F 89 20 139/86 86 11/03/18 05:33 11/03/18 05:33 11/03/18 05:33 11/03/18 05:33 11/03/18 05:33 Vital Signs - Last 8 Hours Temp Pulse Resp BP Pulse Ox 11/03/18 12:02 97.6 F 82 20 119/69 91 11/03/18 10:59 18 92 11/03/18 09:58 16 126/82 11/03/18 06:17 97 11/03/18 06:15 88 20 128/81 96 11/03/18 06:00 90 20 129/86 97 11/03/18 05:33 97.6 F 89 20 139/86 86 Intake and Output 11/02/18 11/03/18 11/03/18 23:59 07:59 15:59 Intake Total 220 / 220 Balance 220 / 220 Intake: IV Fluids 100 / 100 Rocephin 2,000 MG In 0.9 % 100 / 100 Sodium Chloride (Mini-Bag +) 100 ML @ 200 mls/hr IVPB ONCE ONE Rx#:[id number] Oral 120 / 120 Other: Meal Lunch Percent of Meal Consumed 20% Weight 95.254 kg Patient Weight 11/03/18 23:59 Weight 95.254 kg - General Appearance General appearance: well-developed, well-nourished EENT: mucous membranes moist Additional Comments: Wound on back of neck bandaged. Neck: no JVD Respiratory: clear Cardiology: no murmurs, no rub, no gallops, edema, irregular rhythm (Atrial Fibrillation), normal S1, normal S2 Integumentary: no rash, warm and dry Neurologic: no focal deficit, alert and oriented x3 Musculoskeletal: no deformities, no erythema, no cyanosis, no clubbing Psychiatric: mood/affect appropriate, cooperative Results - Lab Results 11/03/18 06:28 11/03/18 06:28 Most recent lab results 11/03/18 06:28 Calcium 8.9 Magnesium 1.9 Consult Discharge Plan - Plan Referrals: Tahir Herrera Jr, MD [Primary Care Provider] -
[2018-11-03] MEDS ORDERED: *HR* Heparin 10,000 UNIT/10 ML VIAL IV PRN (13:56)
[2018-11-03] MEDS ORDERED: 0.9 % Sodium Chloride 250 ML IVC PRN (13:56)
[2018-11-03] MEDS ORDERED: 0.9 % Sodium Chloride 1,000 ML PRIME SCH (14:00)
--- NOTE | 2018-11-03 16:19 | Pulmonology Consult Note ---
Date of Encounter: 11/03/18 Time of Encounter: 15:00 Assessment and Plan (1) Pulmonary HTN Status: Chronic This is secondary type of pulmonary hypertension and I suspect his symptoms with loss of consciousness might be related to this, however he chronically had have volume overload and unfortunately dialysis is not been optimal for fluid management that might help his symptoms even though he is very compliant. Patient already is on anticoagulation and he was started empirically with bronchodilator and he feels it was helping him for that reason I will add Symbicort that might help him more. This is very complicated situation and they have explained to him this as outpatient. (2) Pleural effusion, right Status: Chronic This is chronic in nature and previously had thoracentesis mainly to check if he would clinically feels better with his severe dyspnea, unfortunately this did not help and that this time with his coagulopathy there is no plan for any procedure and I have explained to the patient if he feels that we could try again and see the result then this can be done when his INR level at least less than 2 and he will think about it. I have also explained to him the other option will be more invasive and evaluation by thoracic surgeon, but we both agreed this is more invasive and he is not candidate at this time. (3) Pneumonia Status: Suspected I do not feel strongly pneumonia is the cause, however empiric treatment is reasonable unti cultures comes back. There is evidence of mucous plugs and explained to patient about bronchoscopy and he will think about it, however he is coagulopathic and he is at risk of bleeding. Qualifiers: Pneumonia type: due to unspecified organism Laterality: right Lung location: unspecified part of lung Qualified Code(s): J18.9 - Pneumonia, unspecified organism (4) ESRD (end stage renal disease) on dialysis Status: Chronic History of Present Illness Consult date: 11/03/18 Requesting physician: Alejandra Quan Reason for consult: pleural effusion, abnormal CXR/CT Chief complaint: Fall History of present illness: This is a pleasant 73-year-old male who is known to me from outpatient Hospital and he has diagnosis of secondary pulmonary hypertension and also has been having worsening of shortness of breath. He has not officially been diagnosed with COPD, however he has significant hypoxia mainly on exertion and is very limited. He does have chronic pleural effusion and he had thoracentesis as outpatient without significant improvement in his condition. Patient was empirically started on bronchodilator as outpatient and he feels there is some improvement. Patient was admitted to the hospital after fall and apparently had loss of consciousness. Patient has end-stage renal disease and also history of congestive heart failure. He feels his shortness of breath is getting worse and denies any significant productive cough or wheezing. He denies any fever or chills. Patient is being on warfarin and he is coagulopathic from the treatment. He does have history of atrial fibrillation on Coumadin. He had trauma workup and was found to have pleural effusion and pulmonary consulted for evaluation. Past Med Surg Social Fam HX - Past Medical History Medical history: CHF, coronary artery disease, diabetes, dialysis, GERD, hyperlipidemia, hypertension, renal disease, other Additional medical history: kidney disease, fistula, bph, hx rheumatic fever, chronic fatigue, ESRD, anemia, CVD, cardiac stents x 4 Psychiatric history: no psych history - Past Surgical History Surgical History: appendectomy, other Additional surgical history: ear surgery, cardiac stents, fistula, BCC, lung bx, PTCA, Hernia x2 - Social History Smoking Status: Former smoker Smokeless Tobacco Status: No Alcohol use: none Drug use: none - Family History Mother Adopted: No Living Status: Hx Family Cardiac Disorders: Yes Hx Family Respiratory Disorders: No Hx Family Cancer: No Hx Family GI Disorders: No Hx Family Endocrine Disorder: No Hx Family Neuromuscular Disorders: No Hx Family Neurologic Disorders: No Hx Family HEENT Disorders: No Hx Family Autoimmune Disorders: No Medications and Allergies Amlodipine Besylate 10 mg PO DAILY 10/07/17 [History] Aspirin [Lo-Dose Aspirin EC] 81 mg PO DAILY 10/07/17 [History] Lisinopril 2.5 mg PO DAILY 10/07/17 [History] Metoprolol Tartrate 50 mg PO DAILY 10/07/17 [History] Omeprazole [PriLOSEC] 40 mg PO DAILY 10/07/17 [History] Simvastatin [Zocor] 20 mg PO HS 10/07/17 [History] Renal Vitamin [Renal Caps Softgel] 1 mg PO DAILY 02/07/18 [History] Warfarin [Coumadin] 2 mg PO MOWEFR 05/30/18 [History] Albuterol Sulfate [Ventolin Hfa] 2 puff IH Q4H PRN 11/03/18 [History] Calcium Acetate [Phos-LO] 2,001 mg PO TIDWM 11/03/18 [History] Furosemide [Lasix] 80 mg PO SUTUTHSA@0900 11/03/18 [History] Midodrine HCl 2.5 mg PO MOWEFR@0800 PRN MDD On Dialysis Days 11/03/18 [History] Warfarin Sodium 3 mg PO SUTUTHSA 11/03/18 [History] Doxycycline 100 mg PO BID #10 capsule 11/07/18 [Rx] Allergy/AdvReac Type Severity Reaction Status Date / Time No Known Allergies Allergy Verified 11/03/18 06:06 All Systems: The remainder of the systems were reviewed and are negative Physical Examination Vital Signs: Please refer to nursing documentation for vital signs General appearance: appears uncomfortable Eyes: nonicteric ENT: oropharynx dry Neck: supple, JVD Effort: mildly labored Auscultation: left: rales, right: diminished breath sounds Percussion: left: not dull, right: dull Cardiovascular: irregular rhythm, murmur noted Gastrointestinal: normoactive bowel sounds, non-distended Extremities: edema normal mental status, non-focal exam mood appropriate Results - Laboratory Findings CBC and BMP: 11/07/18 02:00 11/07/18 02:00 PT/INR, D-dimer PT 33.5 Seconds (9.4-12.1) H 11/03/18 06:28 Abnormal lab findings: Abnormal lab results RBC 2.97 M/mcL (4.19-5.50) L 11/03/18 06:28 Hgb 9.7 g/dL (12.9-16.9) L 11/03/18 06:28 Hct 30.8 % (37.5-50.1) L 11/03/18 06:28 MCV 103.7 fL (83.0-100.0) H 11/03/18 06:28 MCHC 31.5 g/dL (31.6-35.5) L 11/03/18 06:28 RDW 14.7 % (11.5-14.5) H 11/03/18 06:28 0.3 K/mcL (0.6-4.6) L 11/03/18 06:28 PT 33.5 Seconds (9.4-12.1) H 11/03/18 06:28 APTT 43.1 Seconds (26.0-36.0) H 11/03/18 06:28 BUN 40 mg/dL (8-23) H 11/03/18 06:28 6.69 mg/dL (0.70-1.30) H 11/03/18 06:28 Est GFR ( Amer) 10 (> 60) L 11/03/18 06:28 Est GFR (Non-Af Amer) 8 (> 60) L 11/03/18 06:28 Glucose 139 mg/dL (70-105) H 11/03/18 06:28 B-Natriuretic Peptide 960 pg/mL (Less than 100) H 11/03/18 06:28 1.06 ng/mL (0.00-0.15) H 11/03/18 08:10 - Microbiology Findings Microbiology Findings: Microbiology, Last 48 Hours 11/03/18 12:00 Influenza Types A,B Antigen - Final Nasopharyngeal 11/03/18 08:05 Blood Culture - Preliminary Peripheral Venipuncture Culture is incubating and being continuously monitored for growth. Final report to follow. 11/03/18 08:10 Blood Culture - Preliminary Peripheral Venipuncture Culture is incubating and being continuously monitored for growth. Final report to follow. - Diagnostic Findings CT scan - chest: report reviewed, image reviewed - Clinical Findings Intake & Output: Intake & Output 11/03/18 11/03/18 11/03/18 07:59 15:59 23:59 Intake Total 220 / 220 Balance 220 / 220 Weight 95.254 kg Consult Discharge Plan - Plan Instructions: Community-acquired Pneumonia (DC) Referrals: Tahir Herrera Jr, MD [Primary Care Provider] - Prescriptions: Doxycycline 100 mg PO BID #10 capsule
[2018-11-03 16:27] LABS: Hepatitis B Surface Antibody 17.74 mIU/mL
[2018-11-03 16:39] LABS: Hepatitis B Surface Antigen Nonreactive (Nonreactive)
[2018-11-03] MEDS: Doxycycline 100 MG in 0.9 % Sodium Chloride Mini Bag 100 ML IVPB SCH (17:53)
--- NOTE | 2018-11-03 19:06 | Event Note ---
Date of Encounter: 11/03/18 Time of Encounter: 19:04 I have received a call from echo office today and from nursing staff at 6:59 pm reporting headache in this patient. I am not following this patient and have had no interaction with him. Unclear why staff is paging me as pt is listed under admitter provider correctly. I informed staff immediately they had contacted the wrong provider and I personally informed the admitting physician and the two it programmer analyst physicians of the call, whom called the floor immediately .
[2018-11-03] MEDS: Budesonide/Formoterol 160/4.5 1 PUFF INH IH SCH (20:10)
[2018-11-03] MEDS ORDERED: *HR* Dextrose 50 % in Water (Syg) 50 ML SYRINGE IVP PRN (20:12)
[2018-11-03] MEDS ORDERED: Dextrose Gel 15 GM/37.5 ML TUBE PO PRN ×2 (20:12)
[2018-11-03] MEDS ORDERED: D5% in Water 1,000 ML IVC PRN (20:12)
[2018-11-04] MEDS: Ipratropium/Albuterol Neb 3 ML IH SCH ×7 (00:17→23:03)
[2018-11-04 01:37] LABS: Basophils # 0.1 K/mcL (0.0-0.2); Basophils % 0.9 %; Eosinophils # 0.1 K/mcL (0.0-0.6); Eosinophils % 2.5 %; Hematocrit 29.4 % (37.5-50.1); Hemoglobin 9.4 g/dL (12.9-16.9); Immature Granulocytes % 0.2 % (0-4); Lymphocytes # 0.4 K/mcL (0.6-4.6); Lymphocytes % 6.3 %; Mean Corpuscular Volume 103.2 fL (83.0-100.0); Mean Platelet Volume 10.8 fL (9.4-12.4); Monocytes # 0.4 K/mcL (0.0-1.3); Monocytes % 7.6 %; Neutrophils # 4.6 K/mcL (1.6-8.9); Platelet Count 133 K/mcL (140-400); Red Blood Count 2.85 M/mcL (4.19-5.50); Red Cell Distribution Width 14.5 % (11.5-14.5); Segmented Neutrophils % 82.5 %
[2018-11-04 01:44] LABS: INR 3.3; Prothrombin Time 37.3 Seconds (9.4-12.1)
[2018-11-04 01:56] LABS: Albumin 3.5 g/dL (3.5-5.7); Albumin/Globulin Ratio 1.2 (1.1-2.2); Bilirubin,Total 0.6 mg/dL (0.3-1.0); Calcium 8.9 mg/dL (8.6-10.3); Magnesium 1.8 mg/dL (1.6-2.6); Phosphorous 4.6 mg/dL (2.7-4.5); Potassium 4.2 mEq/L (3.5-5.1); Total Protein 6.5 g/dL (6.4-8.9)
[2018-11-04] MEDS: Doxycycline 100 MG in 0.9 % Sodium Chloride Mini Bag 100 ML IVPB SCH (06:38)
[2018-11-04] MEDS: Calcium Acetate 667 MG CAPSULE PO SCH ×3 (08:11→16:52)
[2018-11-04] MEDS: Renal Vitamin 1 CAP CAPSULE PO SCH (08:12)
[2018-11-04] MEDS: cefTRIAXone 2,000 MG in Water for inj. (sterile) 20 ML 20 ML IVP SCH (08:16)
[2018-11-04] MEDS: Furosemide 40 MG TABLET PO SCH (08:24)
[2018-11-04] MEDS ORDERED: Aspirin Enteric Coated 81 MG Tablet PO SCH (09:00)
--- NOTE | 2018-11-04 11:29 | Cardiology Consult Note ---
<Tosha Ramirez - Last Filed: 11/04/18 11:44> Date of Encounter: 11/04/18 Time of Encounter: 10:00 Assessment and Plan (1) Syncope Current Visit: Yes Status: Acute Per cardiology: -Patient reports fall, then syncopal episode after hitting head on pavement. -Reports loss of bowel. -TTE with LVEF preserved, no wall motion abnormalities. -No events on telemetry. -ECG with a.fib, HR 88. -Suspect syncope related to fall with injury. -Anticipate sign off once seen and evaluated by . Qualifiers: Syncope type: unspecified Qualified Code(s): R55 - Syncope and collapse (2) CHF (congestive heart failure) Current Visit: Yes Status: Acute Per cardiology: -Known CHF. Chest x-ray with pulmonary edema. -ON po lasix that he takes on days without dialysis. Patient reports limited urine output even with dialysis. -ESRD on dialysis M, W, F. -volume overloaded on exam, patient states chronic. -TTE with LVEF 55-60%, previously 45%. -On BB. -Strict i/os, fluid restriction, daily weights. -Appreciate nephrology recs regarding volume status. Qualifiers: Heart failure type: diastolic Heart failure chronicity: acute on chronic Qualified Code(s): I50.33 - Acute on chronic diastolic (congestive) heart failure (3) CAP (community acquired pneumonia) Current Visit: Yes Status: Acute Per cardiology: -CAP noted. -Management per primary service. Qualifiers: Laterality: right Lung location: lower lobe of lung Qualified Code(s): J18.1 - Lobar pneumonia, unspecified organism Discussion w patient/family: The assessment and plan as outlined above was discussed with the patient and/or family members who expressed understanding and agreement. All questions were answered. Thank you for involving us in the care of your patient. Please call with any questions. Discussed and reviewed with . History of Present Illness Consult date: 11/03/18 Requesting physician: Alejandra Quan Consult reason: syncope Chief complaint: fall, injury History of present illness: Mr. Hong is a 73 year old male with a relevant past medical history of DM, chronic a.fib, HTN, chronic fatigue, HLD, ESRD on HD, CAD s/p PCI, chronic anemia, who presented after syncopal event at home. Patient states he was walking to his car to go to dialysis, when he felt dizzy, lightheaded. Patient states he started to fall and hit his head on the pavement. Patient states he remembers hitting his head and then he does not remember anything for a few minutes. Patient then presented to [facility]. Patient reports loss of bowel during episode. Denies chest pain. Denies palpitations or fluttering. States he feels better today. Past Med Surg Social Fam HX - Past Medical History Attestation: Yes The following information was validated with the patient. Source: patient, old records reviewed Medical history: CHF, coronary artery disease, diabetes, dialysis, GERD, hyperlipidemia, hypertension, renal disease, other Additional medical history: kidney disease, fistula, bph, hx rheumatic fever, chronic fatigue, ESRD, anemia, CVD, cardiac stents x 4 Psychiatric history: no psych history - Past Surgical History Surgical History: appendectomy, other Additional surgical history: ear surgery, cardiac stents, fistula, BCC, lung bx, PTCA, Hernia x2 - Social History Smoking Status: Former smoker Smokeless Tobacco Status: No Alcohol use: none Drug use: none - Family History Mother Adopted: No Living Status: Hx Family Cardiac Disorders: Yes Hx Family Respiratory Disorders: No Hx Family Cancer: No Hx Family GI Disorders: No Hx Family Endocrine Disorder: No Hx Family Neuromuscular Disorders: No Hx Family Neurologic Disorders: No Hx Family HEENT Disorders: No Hx Family Autoimmune Disorders: No Medications and Allergies Amlodipine Besylate 10 mg PO DAILY 10/07/17 [History] Aspirin [Lo-Dose Aspirin EC] 81 mg PO DAILY 10/07/17 [History] Lisinopril 2.5 mg PO DAILY 10/07/17 [History] Metoprolol Tartrate 50 mg PO DAILY 10/07/17 [History] Omeprazole [PriLOSEC] 40 mg PO DAILY 10/07/17 [History] Simvastatin [Zocor] 20 mg PO HS 10/07/17 [History] Renal Vitamin [Renal Caps Softgel] 1 mg PO DAILY 02/07/18 [History] Warfarin [Coumadin] 2 mg PO MOWEFR 05/30/18 [History] Albuterol Sulfate [Ventolin Hfa] 2 puff IH Q4H PRN 11/03/18 [History] Calcium Acetate [Phos-LO] 2,001 mg PO TIDWM 11/03/18 [History] Furosemide [Lasix] 80 mg PO SUTUTHSA@0900 11/03/18 [History] Midodrine HCl 2.5 mg PO MOWEFR@0800 PRN MDD On Dialysis Days 11/03/18 [History] Warfarin Sodium 3 mg PO SUTUTHSA 11/03/18 [History] Allergy/AdvReac Type Severity Reaction Status Date / Time No Known Allergies Allergy Verified 11/03/18 06:06 All Systems Review: The remainder of the systems were reviewed and are negative - Cardiovascular Cardiovascular: as per HPI - Neurological Neurological: syncope Physical Examination Vital Signs, Last 4 Hours Temp Pulse Resp BP Pulse Ox 11/04/18 08:18 97.4 F L 108 18 145/79 92 General: Conversant, No Apparent Distress HEENT: Normocephaly, Mucus Membranes Moist, Other (Dressing noted to back of head. ) Neck: No JVD, Normal carotid pulses Cardiac: Normal S1 and S2, No Murmur, Other (Irregularly irregular. ) Lungs: Normal Breath Sounds, No Wheeze, Rales, Rhonchi Neuro: Alert and responsive, No focal deficits noted Abdomen: Soft, Non-Tender Skin: No rashes noted on visualized skin Musculoskeletal: No Chest Wall Tenderness Extremities: No Clubbing, No Cyanosis, Normal Pulses, Other (2+ bilateral lower extremity pitting edema noted. ) Results 11/04/18 01:21 11/04/18 01:21 Lab Results Impressions Echocardiogram Limited Views 11/03/18 08:43 Impressions: LVEF 55-60%. Mild concentric left ventricular hypertrophy. Atypical septal motion consistent with bundle branch block. Severely dilated left atrium. Severely dilated right atrium. There is a trivial pericardial effusion present. Left Ventricular Wall Motion: Rest Echo Findings All wall segments showed normal motion. Findings: Study Quality * Technically adequate exam. ECG Findings * Atrial fibrillation. Left Ventricle * LVEF 55-60%. * Mild concentric left ventricular hypertrophy. * Atypical septal motion consistent with bundle branch block. Left Atrium * Severely dilated left atrium. Right Atrium * Severely dilated right atrium. Pericardium * There is a trivial pericardial effusion present. Head CT 11/03/18 19:03 IMPRESSION: No acute intracranial abnormality. Diffuse atrophic changes with findings suggesting chronic microvascular ischemia D/ / Ajay Teran MD / Ajay Teran MD Interpreting Provider: Ajay Teran MD Head CT 11/04/18 07:00 IMPRESSION: No acute intracranial abnormality. Left parietal scalp swelling. Partial opacification of the mastoid air cells. D/ / 11/04/2018 08:03:59 Dany Yoo MD / veronica Interpreting Provider: Dany Yoo MD Active Medications Albuterol/Ipratropium (Duoneb) 3 ml IH [id number] [facility] Stop: 05/05/19 12:01 Last Admin: 11/04/18 11:51 Dose: Not Given Documented by: Aspirin (Aspirin Ec) 81 mg PO DAILY [facility] Stop: 05/06/19 09:01 Budesonide/Formoterol Fumarate (Symbicort) 2 puff IH BIDR [facility]; Protocol Stop: 05/05/19 22:01 Last Admin: 11/04/18 11:51 Dose: Not Given Documented by: Calcium Acetate (Phos-Lo) 2,001 mg PO TIDWM [facility] Stop: 05/05/19 12:01 Last Admin: 11/04/18 11:52 Dose: 2,001 mg Documented by: Dextrose/Water (Dextrose 50% (Syg)) 25 ml IVP AD PRN PRN Reason: Hypoglycemia Stop: 05/05/19 20:13 Doxycycline Hyclate (Doxycycline) 100 mg PO BID [facility] Stop: 05/06/19 21:01 Furosemide (Lasix) 80 mg PO SUTUTHSA@0900 [facility] Stop: 05/06/19 09:01 Last Admin: 11/04/18 08:24 Dose: 80 mg Documented by: Glucagon (Glucagen) 1 mg IM ONCE PRN PRN Reason: Hypoglycemia Stop: 05/05/19 20:13 Glucose (Gluctose) 15 gm PO ONCE PRN PRN Reason: Hypoglycemia Stop: 05/05/19 20:13 Glucose (Gluctose) 30 gm PO ONCE PRN PRN Reason: Hypoglycemia Stop: 05/05/19 20:13 Heparin Sodium (Porcine) (Heparin) 3,000 unit IV ONCE PRN PRN Reason: heparin load Ceftriaxone Sodium 2,000 mg/ (Sterile Water) 20 mls @ 600 mls/hr IVP Q24H [facility] Stop: 05/06/19 09:01 Last Admin: 11/04/18 08:16 Dose: 600 mls/hr Documented by: Sodium Chloride (0.9 % Sodium Chloride) 250 mls @ 937.5 mls/hr IVC .Q16M PRN PRN Reason: Hypotension Stop: 05/05/19 13:57 Sodium Chloride (0.9 % Sodium Chloride) 1,000 mls @ 0 mls/hr PRIME .Q0M [facility] Stop: 05/05/19 14:01 Dextrose (Dextrose 5%) 1,000 mls @ 100 mls/hr IVC .Q10H PRN PRN Reason: HYPOGLYCEMIA Stop: 05/05/19 20:13 Lisinopril (Zestril) 2.5 mg PO DAILY [facility] Stop: 05/06/19 09:01 Last Admin: 11/04/18 08:12 Dose: 2.5 mg Documented by: Metoprolol Tartrate (Lopressor) 25 mg PO BID [facility] Stop: 05/05/19 09:01 Last Admin: 11/04/18 08:12 Dose: 25 mg Documented by: Midodrine (Proamatine) 2.5 mg PO MOWEFR@0800 PRN PRN Reason: SEE COMMENTS Naloxone HCl (Narcan) 0.4 mg IVP Q2MPRN PRN PRN Reason: SEE COMMENTS Stop: 05/05/19 08:37 Omeprazole (Prilosec) 40 mg PO DAILY@0730 [facility] Stop: 05/05/19 10:31 Last Admin: 11/04/18 08:12 Dose: 40 mg Documented by: Simvastatin (Zocor) 20 mg PO HS [facility]; Protocol Stop: 05/05/19 21:01 Last Admin: 11/03/18 21:49 Dose: 20 mg Documented by: Vitamin B Complex/Vit C/Folic Acid (Renal Caps Softgel) 1 cap PO DAILY [facility] Stop: 05/05/19 09:01 Last Admin: 11/04/18 08:12 Dose: 1 cap Documented by: Laboratory Tests 11/03/18 11/03/18 11/04/18 06:28 06:28 01:21 Hgb 9.4 L Plt Count 133 L INR Creatinine Troponin I 0.03 B-Natriuretic Peptide 960 H 11/04/18 11/04/18 01:21 01:21 Hgb Plt Count INR 3.3 Creatinine 5.45 H Troponin I B-Natriuretic Peptide - Imaging and Cardiology Chest Xray: report reviewed Echo: report reviewed - EKG Interpretation EKG results cardiology: personally reviewed (ECG with a.fib, HR 88.), other (Telemetry reviewed with average HR previous 12 hours noted to be 97, a.fib. PVCs noted.) Consult Discharge Plan - Plan Referrals: Tahir Herrera Jr, MD [Primary Care Provider] - <Adriana Sanders - Last Filed: 11/04/18 12:20> Date of Encounter: 11/04/18 - Attending Attestation I examined this patient and my medical decision-making was reviewed with the PLUGGER. I agree with the documented findings, disposition and treatment plan as described. Mr. Hong appears to have felt weak in his legs and then fell. Upon falling, he hit his head and passed out. Cardiac workup has not demonstrated a cause for his presentation. No events on telemetry. No acute ECG findings. Normal heart rates. TTE with preserved LVEF. No further cardiac testing is warranted. Will defer fluid management to Nephrology. Signing off. Recommend outpatient follow up. Assessment and Plan Discussion w patient/family: The assessment and plan as outlined above was discussed with the patient and/or family members who expressed understanding and agreement. All questions were answered. Thank you for involving us in the care of your patient. Please call with any questions. History of Present Illness History of present illness: Mr. Hong is a 73 year old male All Systems Review: The remainder of the systems were reviewed and are negative Physical Examination Vital Signs, Last 4 Hours Temp Pulse Resp BP Pulse Ox 11/04/18 12:00 97.5 F L 88 18 145/84 96 Results 11/04/18 01:21 11/04/18 01:21 Lab Results 11/04/18 11/04/18 11/04/18 01:21 01:21 01:21 WBC 5.6 Hgb 9.4 L Hct 29.4 L Plt Count 133 L INR 3.3 Sodium 138 Potassium 4.2 Chloride 100 Carbon Dioxide 28 BUN 27 H Creatinine 5.45 H Glucose 95 Calcium 8.9 Magnesium 1.8 Total Bilirubin 0.6 AST 15 ALT 10 Alkaline Phosphatase 59
[2018-11-04] MEDS: Budesonide/Formoterol 160/4.5 1 PUFF INH IH SCH ×2 (11:51→19:41)
[2018-11-04] MEDS ORDERED: Azithromycin 250 MG TABLET PO SCH (12:30)
--- NOTE | 2018-11-04 12:44 | Internal Med Progress Note ---
Hospitalist Progress Note - Encounter Date of Encounter: 11/04/18 Time of Encounter: 12:42 - Subjective Interval History: I have seen and evaluated the patient at bedside. Patient reports still feeling short of breath, but better when compared to yesterday. He denies headache, nausea, or vomiting episodes. - Exam Vitals: Temp Pulse Resp BP Pulse Ox 97.5 F L 88 18 145/84 96 11/04/18 12:00 11/04/18 12:00 11/04/18 12:00 11/04/18 12:00 11/04/18 12:00 Exam: Vitals: Reviewed. General: Alert and oriented 4. In no acute distress. Cardiovascular: Irregularly regular, normal S1 & S2, no rubs, murmurs or gallops. Lungs: Decreased breath sounds in the right lower lobe, no wheezes or crackles. Abdomen: Tight, non-tender, no rigidity. Extremities: 2+ edema in the lower extremity bilaterally Neurological: Normal cognition and motor skills. Rest of the physical exam is non contributory - Assessment and Plan (1) ESRD (end stage renal disease) on dialysis Current Visit: No Status: Chronic Assessment and Plan: Continue renal replacement therapy. Nephrology recommendation. Fluid restriction to 1.5 L a day. (2) HTN (hypertension) Current Visit: No Status: Chronic Assessment and Plan: Blood pressure is well controlled on lisinopril 2.5 mg by mouth daily. (3) Frequent falls Current Visit: Yes Status: Acute Assessment and Plan: PT/OT ordered (4) Headache, post-traumatic, acute Current Visit: Yes Status: Chronic Assessment and Plan: Patient denies headache, nausea or vomiting. CT/CT head/brain wo con IMPRESSION: No acute intracranial abnormality. Left parietal scalp swelling. Partial opacification of the mastoid air cell Plan We will continue to closely monitor as patient is on warfarin. (5) Chronic disease anemia Current Visit: Yes Status: Chronic Assessment and Plan: H&H has been a stable, follow-up and transfuse per protocol. (6) Syncope and collapse Current Visit: Yes Status: Acute Assessment and Plan: Unclear etiology possible secondary to pulmonary hypertension. Continue telemetry monitoring. (7) Pulmonary HTN Current Visit: Yes Status: Chronic (8) Pleural effusion, right Current Visit: Yes Status: Chronic Assessment and Plan: As per patient's he had a thoracentesis done less than a month ago. Pulmonology consulted, recommendation appreciated. (9) Prolonged QT interval Current Visit: Yes Status: Acute (10) CAP (community acquired pneumonia) Current Visit: Yes Status: Acute Assessment and Plan: Chest CT C4. Complete collapse of the right lower lobe with suspected mucous plugging. Recommend follow-up to resolution to exclude an underlying mass. 5. Persistent large right pleural effusion, potentially partially loculated. Plan continue ceftriaxone 1 g IV daily, azithromycin 500 mg by mouth ordered. Urine for atypical organism on the sputum cultures ORDERED. Pulmonary PT. Incentive spirometry. (11) CHF (congestive heart failure) Current Visit: Yes Status: Chronic Assessment and Plan: Patient with 2+ pitting edema in the lower extremity. Nephrology consulted for assistance in diuresis. And on fluid restriction to 1.5 L a day, plus daily weight and strict intake and output. (12) CAD (coronary artery disease) Current Visit: No Status: Chronic Assessment and Plan: On aspirin 81 mg by mouth daily. (13) COPD (chronic obstructive pulmonary disease) Current Visit: Yes Status: Chronic Assessment and Plan: No wheezing on auscultation. Continue bronchodilators. Symbicort. DVT Prophylaxis: Patient on warfarin with an INR therapeutic. - Summary of Assessment and Plan Summary of Assessment and Plan: Patient to remain in the hospital following a fall, with a head trauma. Close monitoring for deterioration in his mental status as patient is on warfarin. Pneumonia. - Time Spent with Patient Total time spent is greater than 50% in coordination of care (as documented) at patient's floor/unit and/or counseling patient: Greater than 35 minutes (40) Plan of Care Discussed with: patient (his and the nurse) Internal Medicine: Result - Labs CBC & Chem 7: 11/04/18 01:21 11/04/18 01:21 Labs: Short CBC 11/04/18 Range/Units 01:21 WBC 5.6 (4.3-11.1) K/mcL Hgb 9.4 L (12.9-16.9) g/dL Hct 29.4 L (37.5-50.1) % Plt Count 133 L (140-400) K/mcL Neutrophils # 4.6 (1.6-8.9) K/mcL BMP 11/04/18 01:21 Sodium 138 Potassium 4.2 Chloride 100 Carbon Dioxide 28 BUN 27 H Creatinine 5.45 H Glucose 95 Calcium 8.9 Liver Function 11/04/18 Range/Units 01:21 Total Bilirubin 0.6 (0.3-1.0) mg/dL AST 15 (13-39) Units/L ALT 10 (7-52) Units/L Alkaline Phosphatase 59 (34-104) Units/L Albumin 3.5 (3.5-5.7) g/dL - ABG Interpretation ABG results: PT/INR, D-dimer PT 37.3 Seconds (9.4-12.1) H 11/04/18 01:21 - Impressions Impressions Echocardiogram Limited Views 11/03/18 08:43 Impressions: LVEF 55-60%. Mild concentric left ventricular hypertrophy. Atypical septal motion consistent with bundle branch block. Severely dilated left atrium. Severely dilated right atrium. There is a trivial pericardial effusion present. Left Ventricular Wall Motion: Rest Echo Findings All wall segments showed normal motion. Findings: Study Quality * Technically adequate exam. ECG Findings * Atrial fibrillation. Left Ventricle * LVEF 55-60%. * Mild concentric left ventricular hypertrophy. * Atypical septal motion consistent with bundle branch block. Left Atrium * Severely dilated left atrium. Right Atrium * Severely dilated right atrium. Pericardium * There is a trivial pericardial effusion present. Head CT 11/03/18 19:03 IMPRESSION: No acute intracranial abnormality. Diffuse atrophic changes with findings suggesting chronic microvascular ischemia D/ / Ajay Teran MD / Ajay Teran MD Interpreting Provider: Ajay Teran MD Head CT 11/04/18 07:00 IMPRESSION: No acute intracranial abnormality. Left parietal scalp swelling. Partial opacification of the mastoid air cells. D/ / 11/04/2018 08:03:59 Dany Yoo MD / veronica Interpreting Provider: Dany Yoo MD Consult Discharge Plan - Plan Referrals: Tahir Herrera Jr, MD [Primary Care Provider] - (2) HTN (hypertension) Qualifiers: Hypertension type: unspecified secondary hypertension Qualified Code(s): I15.9 - Secondary hypertension, unspecified; I15 - Secondary hypertension (4) Headache, post-traumatic, acute Qualifiers: Intractability: not intractable Qualified Code(s): G44.319 - Acute post- traumatic headache, not intractable (10) CAP (community acquired pneumonia) Qualifiers: Laterality: right Lung location: lower lobe of lung Qualified Code(s): J18.1 - Lobar pneumonia, unspecified organism (11) CHF (congestive heart failure) Qualifiers: Heart failure type: diastolic Heart failure chronicity: acute on chronic Qualified Code(s): I50.33 - Acute on chronic diastolic (congestive) heart failure (12) CAD (coronary artery disease) Qualifiers: Coronary Disease-Associated Artery/Lesion type: [place] artery [place] vs. transplanted heart: [place] heart Associated angina: without angina Qualified Code(s): I25.10 - Atherosclerotic heart disease of [place] coronary artery without angina pectoris (13) COPD (chronic obstructive pulmonary disease) Qualifiers: COPD type: unspecified COPD Qualified Code(s): J44.9 - Chronic obstructive pulmonary disease, unspecified
--- NOTE | 2018-11-04 16:55 | Pulmonology Progress Note ---
Date of Encounter: 11/04/18 Time of Encounter: 07:30 Assessment and Plan (1) Pulmonary HTN Current Visit: Yes Status: Chronic This is chronic in nature and volume management with hemodialysis is very important. (2) Pleural effusion, right Current Visit: Yes Status: Chronic This is chronic and patient stated he is feeling much better today with current treatment and bronchodilators. There is no intervention and continue bronchodilators when he is discharged home and follow-up as outpatient. Please call for any questions. (3) Pneumonia Current Visit: Yes Status: Suspected Qualifiers: Pneumonia type: due to unspecified organism Laterality: right Lung location: unspecified part of lung Qualified Code(s): J18.9 - Pneumonia, unspecified organism (4) ESRD (end stage renal disease) on dialysis Current Visit: No Status: Chronic Subjective Principal diagnosis: Dyspnea Interval history: Patient stated he is feeling much better and he is able to breath better and he feels the inhalers is working. Objective PUL Vital signs: Last Vital Signs Temp 98.2 F 11/04/18 16:45 Pulse 98 11/04/18 16:45 Resp 15 11/04/18 16:45 BP 162/81 11/04/18 16:45 Pulse Ox 94 11/04/18 16:45 General appearance: no acute distress Eyes: nonicteric ENT: oropharynx moist Neck: supple Effort: normal Auscultation: left: clear, right: diminished breath sounds Percussion: left: not dull, right: dull Tactile fremitus: left: diminished Cardiovascular: irregular rhythm, murmur noted Extremities: no cyanosis, edema normal mental status, non-focal exam mood appropriate Results - Laboratory Findings CBC and BMP: 11/04/18 01:21 11/04/18 01:21 PT/INR, D-dimer PT 37.3 Seconds (9.4-12.1) H 11/04/18 01:21 Abnormal lab findings: Abnormal lab results RBC 2.85 M/mcL (4.19-5.50) L 11/04/18 01:21 Hgb 9.4 g/dL (12.9-16.9) L 11/04/18 01:21 Hct 29.4 % (37.5-50.1) L 11/04/18 01:21 MCV 103.2 fL (83.0-100.0) H 11/04/18 01:21 MCHC 31.5 g/dL (31.6-35.5) L 11/03/18 06:28 RDW 14.7 % (11.5-14.5) H 11/03/18 06:28 Plt Count 133 K/mcL (140-400) L 11/04/18 01:21 0.4 K/mcL (0.6-4.6) L 11/04/18 01:21 PT 37.3 Seconds (9.4-12.1) H 11/04/18 01:21 APTT 43.1 Seconds (26.0-36.0) H 11/03/18 06:28 BUN 27 mg/dL (8-23) H 11/04/18 01:21 5.45 mg/dL (0.70-1.30) H 11/04/18 01:21 Est GFR ( Amer) 13 (> 60) L 11/04/18 01:21 Est GFR (Non-Af Amer) 10 (> 60) L 11/04/18 01:21 5 (6-26) L 11/04/18 01:21 Glucose 139 mg/dL (70-105) H 11/03/18 06:28 Phosphorus 4.6 mg/dL (2.7-4.5) H 11/04/18 01:21 B-Natriuretic Peptide 960 pg/mL (Less than 100) H 11/03/18 06:28 1.06 ng/mL (0.00-0.15) H 11/03/18 08:10 - Microbiology Findings Microbiology Findings: Microbiology, Last 48 Hours 11/03/18 12:00 Influenza Types A,B Antigen - Final Nasopharyngeal 11/03/18 08:05 Blood Culture - Preliminary Peripheral Venipuncture Culture is incubating and being continuously monitored for growth. Final report to follow. 11/03/18 08:10 Blood Culture - Preliminary Peripheral Venipuncture Culture is incubating and being continuously monitored for growth. Final report to follow. - Clinical Findings Intake & Output: Intake & Output 11/04/18 11/04/18 11/04/18 07:59 15:59 23:59 Intake Total 400 / 640 240 / 640 Output Total 0 / 0 Balance 400 / 640 240 / 640 Consult Discharge Plan - Plan Referrals: Tahir Herrera Jr, MD [Primary Care Provider] -
[2018-11-04] MEDS: Doxycycline 100 MG CAPSULE PO SCH (20:33)
--- NOTE | 2018-11-04 23:35 | Nephrology Progress Note ---
Date of Encounter: 11/04/18 Time of Encounter: 12:00 - Assessment and Plan (1) ESRD (end stage renal disease) on dialysis Current Visit: No Status: Chronic s/p Hd yesterday, next tomorrow with UF as tolerated Lytes stable Continue fluid restriction Continue renal diet (2) CAP (community acquired pneumonia) Current Visit: Yes Status: Acute Abx per primary team Qualifiers: Laterality: right Lung location: lower lobe of lung Qualified Code(s): J18.1 - Lobar pneumonia, unspecified organism (3) Frequent falls Current Visit: Yes Status: Acute per primary team (4) Headache, post-traumatic, acute Current Visit: Yes Status: Chronic per primary team Qualifiers: Intractability: not intractable Qualified Code(s): G44.319 - Acute post- traumatic headache, not intractable Subjective Principal diagnosis: Dyspnea Interval history: Pt seen and examined feeling better today s/p an abbreviated HD yesterday with 2kg UF Objective - Vital Signs Vital signs: Vital Signs Temp Pulse Resp BP Pulse Ox 11/04/18 23:03 18 93 11/04/18 20:32 97.4 F L 103 17 141/81 92 11/04/18 19:41 20 94 11/04/18 16:45 98.2 F 98 15 162/81 94 11/04/18 16:19 16 99 11/04/18 12:00 97.5 F L 88 18 145/84 96 11/04/18 08:18 97.4 F L 108 18 145/79 92 11/04/18 04:37 98.0 F 103 17 154/83 93 11/04/18 04:10 18 94 11/04/18 01:01 98.1 F 93 17 136/77 91 11/04/18 00:17 18 93 Intake and Output 11/04/18 11/04/18 11/04/18 07:59 15:59 23:59 Intake Total 400 / 680 240 / 680 40 / 680 Output Total 0 / 0 Balance 400 / 680 240 / 680 40 / 680 Intake: Oral 400 / 680 240 / 680 40 / 680 Output: Urine 0 / 0 Other: Meal Breakfast Dinner Percent of Meal Consumed 45% 10% Blood Glucose* 110 127 - General Appearance General appearance: Present: chronically ill, fatigue, frail EENT: Present: ATNC, mucous membranes moist Neck: Present: no JVD, supple Additional Comments: good areation with decreased BS at bases bilat Cardiology: Present: edema (Improved L>R), normal S1, normal S2 Dialysis Vascular Access: Arteriovenous Fistula thrill: Yes bruit: Yes Gastrointestinal: Present: no tenderness, no guarding Integumentary: Present: warm and dry Neurologic: Present: no focal deficit Musculoskeletal: Present: no deformities Psychiatric: Present: mood/affect appropriate - Lab 11/04/18 01:21 11/04/18 01:21 Consult Discharge Plan - Plan Referrals: Tahir Herrera Jr, MD [Primary Care Provider] -
[2018-11-05] MEDS: Ipratropium/Albuterol Neb 3 ML IH SCH ×6 (03:37→23:50)
[2018-11-05 05:23] LABS: Basophils # 0.1 K/mcL (0.0-0.2); Basophils % 1.1 %; Eosinophils # 0.2 K/mcL (0.0-0.6); Eosinophils % 3.6 %; Hematocrit 28.7 % (37.5-50.1); Hemoglobin 9.1 g/dL (12.9-16.9); Immature Granulocytes % 0.4 % (0-4); Lymphocytes # 0.4 K/mcL (0.6-4.6); Lymphocytes % 7.4 %; Mean Corpuscular HGB Conc 31.7 g/dL (31.6-35.5); Mean Corpuscular Hemoglobin 32.6 pg (28.0-33.3); Mean Corpuscular Volume 102.9 fL (83.0-100.0); Mean Platelet Volume 10.7 fL (9.4-12.4); Monocytes # 0.3 K/mcL (0.0-1.3); Neutrophils # 3.8 K/mcL (1.6-8.9); Platelet Count 121 K/mcL (140-400); Red Blood Count 2.79 M/mcL (4.19-5.50); Red Cell Distribution Width 14.4 % (11.5-14.5); Segmented Neutrophils % 80.5 %
[2018-11-05 05:42] LABS: Calcium 9.3 mg/dL (8.6-10.3); Magnesium 1.8 mg/dL (1.6-2.6); Phosphorous 5.2 mg/dL (2.7-4.5); Potassium 4.5 mEq/L (3.5-5.1)
[2018-11-05] MEDS: Budesonide/Formoterol 160/4.5 1 PUFF INH IH SCH ×2 (07:25→20:02)
[2018-11-05] MEDS ORDERED: *HR* Heparin 10,000 UNIT/10 ML VIAL IV PRN (08:28)
[2018-11-05] MEDS ORDERED: 0.9 % Sodium Chloride 250 ML IVC PRN (08:28)
[2018-11-05] MEDS: Calcium Acetate 667 MG CAPSULE PO SCH ×3 (08:28→17:06)
[2018-11-05] MEDS: cefTRIAXone 2,000 MG in Water for inj. (sterile) 20 ML 20 ML IVP SCH (08:28)
[2018-11-05] MEDS: Doxycycline 100 MG CAPSULE PO SCH ×2 (08:28→22:15)
[2018-11-05] MEDS: Renal Vitamin 1 CAP CAPSULE PO SCH (08:28)
[2018-11-05] MEDS ORDERED: 0.9 % Sodium Chloride 1,000 ML PRIME SCH (08:30)
[2018-11-05 09:19] LABS: INR 2.4; Prothrombin Time 27.1 Seconds (9.4-12.1)
--- NOTE | 2018-11-05 13:07 | Internal Med Progress Note ---
Hospitalist Progress Note - Encounter Date of Encounter: 11/05/18 Time of Encounter: 13:05 - Subjective Interval History: I have seen and evaluated the patient bedside. Today he reports feeling very weak, and in his breathing being more labored. Denies chest pain, headache, nausea or vomiting. - Exam Vitals: Temp Pulse Resp BP Pulse Ox 97.6 F 98 18 131/74 90 11/05/18 09:30 11/05/18 07:41 11/05/18 09:30 11/05/18 11:00 11/05/18 07:41 Exam: Vitals: Reviewed. General: Alert and oriented 4. In mild distress due to generalized weakness and shortness of breath. Cardiovascular: Irregularly regular, normal S1 & S2, no rubs, murmurs or gallops. Lungs: Decreased breath sounds in the right lower lobe, no wheezes or crackles. Abdomen: Tight, non-tender, no rigidity. NABS in all 4 quadrant. Extremities: 2+ edema in the lower extremity bilaterally Neurological: No focal neurological abnormality. Rest of the physical exam is non contributory - Assessment and Plan (1) ESRD (end stage renal disease) on dialysis Current Visit: No Status: Chronic Assessment and Plan: Nephro protective strategies. renal replacement therapy per nephrology team. continue fluids restrictive strategies to 1.5 litters a day. Continue furosemide 80 mg SUTHSA (2) HTN (hypertension) Current Visit: No Status: Chronic Assessment and Plan: Blood pressure remain well controlled on lisinopril 2.5 mg by mouth daily. Patient was started on midodrine 2.5 mg with hemodialysis (3) Frequent falls Current Visit: Yes Status: Acute Assessment and Plan: Daily PT/OT (4) Headache, post-traumatic, acute Current Visit: Yes Status: Resolved Assessment and Plan: . (5) Chronic disease anemia Current Visit: Yes Status: Chronic Assessment and Plan: H&H is stable. We will continue to monitor and transfuse per protocol. (6) Pleural effusion, right Current Visit: Yes Status: Chronic Assessment and Plan: Pulmonology consulted no intervention required at this time. (7) CAP (community acquired pneumonia) Current Visit: Yes Status: Acute Assessment and Plan: Continue doxycycline, ceftriaxone. Urine for atypical organism and sputum cultures ordered. (8) CHF (congestive heart failure) Current Visit: Yes Status: Chronic Assessment and Plan: Patient with 2+ pitting edema bilaterally. With mild volume overload. On furosemide 80 mg. Fluid restrictive diets 1.5 L a day. On hemodialysis, nephrology Asst. in fluid removal appreciated. (9) CAD (coronary artery disease) Current Visit: No Status: Chronic Assessment and Plan: On aspirin 81 mg by mouth daily. (10) COPD (chronic obstructive pulmonary disease) Current Visit: Yes Status: Chronic (11) Prolonged QT interval Current Visit: Yes Status: Chronic (12) Pulmonary HTN Current Visit: Yes Status: Chronic (13) Syncope and collapse Current Visit: Yes Status: Acute DVT Prophylaxis: Patient is on warfarin, held following a fall. INR therapeutic. - Summary of Assessment and Plan Summary of Assessment and Plan: Patient to remain in the hospital to continue diuresis. Reports worsening shortness of breath. Potential discharge in 24-48 hours. - Time Spent with Patient Total time spent is greater than 50% in coordination of care (as documented) at patient's floor/unit and/or counseling patient: Greater than 35 minutes (40) Plan of Care Discussed with: patient (and the nurse) Internal Medicine: Result - Labs CBC & Chem 7: 11/05/18 05:03 11/05/18 05:03 Labs: Short CBC 11/05/18 Range/Units 05:03 WBC 4.7 (4.3-11.1) K/mcL Hgb 9.1 L (12.9-16.9) g/dL Hct 28.7 L (37.5-50.1) % Plt Count 121 L (140-400) K/mcL Neutrophils # 3.8 (1.6-8.9) K/mcL BMP 11/05/18 05:03 Sodium 139 Potassium 4.5 Chloride 99 Carbon Dioxide 27 BUN 40 H Creatinine 7.15 H Glucose 110 H Calcium 9.3 - ABG Interpretation ABG results: PT/INR, D-dimer PT 27.1 Seconds (9.4-12.1) H 11/05/18 08:31 Consult Discharge Plan - Plan Referrals: Tahir Herrera Jr, MD [Primary Care Provider] - (2) HTN (hypertension) Qualifiers: Hypertension type: unspecified secondary hypertension Qualified Code(s): I15.9 - Secondary hypertension, unspecified; I15 - Secondary hypertension (4) Headache, post-traumatic, acute Qualifiers: Intractability: not intractable Qualified Code(s): G44.319 - Acute post- traumatic headache, not intractable (7) CAP (community acquired pneumonia) Qualifiers: Laterality: right Lung location: lower lobe of lung Qualified Code(s): J18.1 - Lobar pneumonia, unspecified organism (8) CHF (congestive heart failure) Qualifiers: Heart failure type: diastolic Heart failure chronicity: acute on chronic Qualified Code(s): I50.33 - Acute on chronic diastolic (congestive) heart failure (9) CAD (coronary artery disease) Qualifiers: Coronary Disease-Associated Artery/Lesion type: [place] artery [place] vs. transplanted heart: [place] heart Associated angina: without angina Qualified Code(s): I25.10 - Atherosclerotic heart disease of [place] coronary artery without angina pectoris (10) COPD (chronic obstructive pulmonary disease) Qualifiers: COPD type: unspecified COPD Qualified Code(s): J44.9 - Chronic obstructive pulmonary disease, unspecified
--- NOTE | 2018-11-05 22:33 | Nephrology Progress Note ---
Date of Encounter: 11/05/18 Time of Encounter: 12:00 - Assessment and Plan (1) ESRD (end stage renal disease) on dialysis Current Visit: No Status: Chronic Continue HD with UF as tolerated, goal of 3-4kg Lytes stable Continue fluid restriction Continue renal diet (2) CAP (community acquired pneumonia) Current Visit: Yes Status: Acute Abx per primary team Qualifiers: Laterality: right Lung location: lower lobe of lung Qualified Code(s): J18.1 - Lobar pneumonia, unspecified organism (3) Frequent falls Current Visit: Yes Status: Acute (4) Headache, post-traumatic, acute Current Visit: Yes Status: Resolved per primary team with hgb fairly stable at 9.1, will monitor Qualifiers: Intractability: not intractable Qualified Code(s): G44.319 - Acute post- traumatic headache, not intractable Subjective Principal diagnosis: Dyspnea Interval history: Pt seen and examined feeling better on HD. He has been receiving PT this admission and is eager to continue on discharge Objective - Vital Signs Vital signs: Vital Signs Temp Pulse Resp BP Pulse Ox 11/05/18 20:02 16 94 11/05/18 19:29 98.3 F 108 17 136/85 91 11/05/18 15:50 18 96 11/05/18 15:36 97.5 F L 93 18 137/78 96 11/05/18 13:18 97.7 F 18 124/81 11/05/18 13:00 134/84 11/05/18 12:45 131/81 11/05/18 12:30 131/82 11/05/18 12:15 124/79 11/05/18 12:00 134/78 11/05/18 11:45 136/78 11/05/18 11:30 124/76 11/05/18 11:15 128/77 11/05/18 11:00 131/74 11/05/18 10:45 117/79 11/05/18 10:30 126/77 11/05/18 10:15 130/78 11/05/18 10:00 142/90 11/05/18 09:45 150/90 11/05/18 09:30 97.6 F 18 148/99 11/05/18 07:41 97.7 F 98 18 130/80 90 11/05/18 07:25 17 92 11/05/18 04:30 97.9 F 101 17 138/85 90 11/05/18 03:38 16 98 11/05/18 00:10 97.8 F 93 17 138/78 94 11/04/18 23:03 18 93 Intake and Output 11/05/18 11/05/18 11/05/18 07:59 15:59 23:59 Intake Total 960 / 960 0 / 960 Output Total 4600 / 4600 0 / 4600 Balance -3640 / -3640 0 / -3640 Intake: Oral 360 / 360 0 / 360 Intake, Rinseback and Flushes 600 / 600 Output: Urine 0 / 0 Total Dialysis (HD) Output 4600 / 4600 Other: Meal Lunch Percent of Meal Consumed 0% Stool Size Large Moderate Stool Consistency loose Stool Color Brown # Voids 2 # Bowel Movements 1 1 Weight 94.8 kg Blood Glucose* 103 112 139 Hemodialysis Net Fluid Removed 4000 (mL) Patient Weight 11/05/18 23:59 Weight 94.8 kg - Lab 11/05/18 05:03 11/05/18 05:03 Consult Discharge Plan - Plan Referrals: Tahir Herrera Jr, MD [Primary Care Provider] -
[2018-11-06] MEDS: Ipratropium/Albuterol Neb 3 ML IH SCH ×5 (03:43→20:24)
[2018-11-06 07:06] LABS: Basophils % 0.8 %; Eosinophils # 0.2 K/mcL (0.0-0.6); Hematocrit 30.4 % (37.5-50.1); Hemoglobin 9.6 g/dL (12.9-16.9); Immature Granulocytes % 0.4 % (0-4); Lymphocytes # 0.3 K/mcL (0.6-4.6); Lymphocytes % 5.2 %; Mean Corpuscular HGB Conc 31.6 g/dL (31.6-35.5); Mean Corpuscular Hemoglobin 32.7 pg (28.0-33.3); Mean Corpuscular Volume 103.4 fL (83.0-100.0); Mean Platelet Volume 10.9 fL (9.4-12.4); Monocytes # 0.4 K/mcL (0.0-1.3); Monocytes % 7.1 %; Neutrophils # 4.1 K/mcL (1.6-8.9); Platelet Count 118 K/mcL (140-400); Red Blood Count 2.94 M/mcL (4.19-5.50); Red Cell Distribution Width 14.3 % (11.5-14.5); Segmented Neutrophils % 82.5 %
[2018-11-06] MEDS: Budesonide/Formoterol 160/4.5 1 PUFF INH IH SCH ×2 (07:24→20:24)
[2018-11-06] MEDS: Furosemide 40 MG TABLET PO SCH (08:12)
[2018-11-06] MEDS: Doxycycline 100 MG CAPSULE PO SCH ×2 (08:12→22:14)
[2018-11-06] MEDS: Renal Vitamin 1 CAP CAPSULE PO SCH (08:12)
[2018-11-06] MEDS: Calcium Acetate 667 MG CAPSULE PO SCH ×3 (08:12→17:30)
[2018-11-06] MEDS: cefTRIAXone 2,000 MG in Water for inj. (sterile) 20 ML 20 ML IVP SCH (08:13)
[2018-11-06 08:29] LABS: Calcium 9.1 mg/dL (8.6-10.3); Potassium 4.2 mEq/L (3.5-5.1)
[2018-11-06 08:30] LABS: Magnesium 1.8 mg/dL (1.6-2.6); Phosphorous 4.1 mg/dL (2.7-4.5)
--- NOTE | 2018-11-06 11:20 | Nephrology Progress Note ---
Date of Encounter: 11/06/18 Time of Encounter: 11:18 - Assessment and Plan (1) ESRD (end stage renal disease) on dialysis Current Visit: No Status: Chronic Plan for HD tomorrow Continue renal diet Avoid nephrotoxins if possible (2) Frequent falls Current Visit: Yes Status: Acute per primary team Patient states PT has only come to work with him once (3) CAP (community acquired pneumonia) Current Visit: Yes Status: Acute per primary team Qualifiers: Laterality: right Lung location: lower lobe of lung Qualified Code(s): J18.1 - Lobar pneumonia, unspecified organism Subjective Principal diagnosis: Dyspnea Interval history: Patient seen and examined. Feeling better Objective - Vital Signs Vital signs: Vital Signs Temp Pulse Resp BP Pulse Ox 11/06/18 07:57 98.5 F 111 16 148/80 98 11/06/18 07:27 18 92 11/06/18 04:24 97.7 F 100 17 109/49 91 11/06/18 03:44 20 97 11/05/18 23:53 97.9 F 105 18 139/71 98 11/05/18 23:50 18 100 11/05/18 20:02 16 94 11/05/18 19:29 98.3 F 108 17 136/85 91 11/05/18 15:50 18 96 11/05/18 15:36 97.5 F L 93 18 137/78 96 11/05/18 13:18 97.7 F 18 124/81 11/05/18 13:00 134/84 11/05/18 12:45 131/81 11/05/18 12:30 131/82 11/05/18 12:15 124/79 11/05/18 12:00 134/78 11/05/18 11:45 136/78 11/05/18 11:30 124/76 Intake and Output 11/05/18 11/06/18 11/06/18 23:59 07:59 15:59 Intake Total 0 / 980 120 / 360 240 / 360 Output Total 0 / 4600 0 / 0 Balance 0 / -3620 120 / 360 240 / 360 Intake: Oral 0 / 360 120 / 360 240 / 360 Output: Urine 0 / 0 0 / 0 Other: Meal Breakfast Percent of Meal Consumed 80% Weight 94 kg Blood Glucose* 139 - General Appearance General appearance: Present: well-developed, well-nourished EENT: Present: ATNC, mucous membranes moist, hearing intact, vision intact Neck: Present: supple Respiratory: Present: clear Cardiology: Present: no edema, normal S1, normal S2 Dialysis Vascular Access: Arteriovenous Fistula Gastrointestinal: Present: no tenderness, no guarding Integumentary: Present: warm and dry Neurologic: Present: alert and oriented x3 Psychiatric: Present: mood/affect appropriate, cooperative - Lab 11/06/18 06:38 11/06/18 06:38 Most recent lab results 11/06/18 11/06/18 06:38 06:38 Calcium 9.1 Phosphorus 4.1 Magnesium 1.8 Consult Discharge Plan - Plan Referrals: Tahir Herrera Jr, MD [Primary Care Provider] -
[2018-11-06] MEDS ORDERED: Nitroglycerin 0.4 MG TAB.SUBL SL PRN (12:27)
--- NOTE | 2018-11-06 15:55 | Internal Med Progress Note ---
Hospitalist Progress Note - Encounter Date of Encounter: 11/06/18 Time of Encounter: 15:50 - Subjective Interval History: Patient had one episode of dizziness and blurry vision and the throat was burning during lunchtime. It lasts for about 5 minutes, the EKG has no significant changes, troponin was mildly elevated compared to the previous one. He denies chest pain and arm numbness tingling sensation. But he had a very uncomfortable episode of feeling his throat was burning associated with shortness of breath, and dizziness. I am concerned about cardiac conditions will check serial troponin do a stress test tomorrow. - Exam Vitals: Temp Pulse Resp BP Pulse Ox 98.2 F 85 16 149/91 96 11/06/18 11:59 11/06/18 11:59 11/06/18 11:59 11/06/18 11:59 11/06/18 13:00 Exam: Vitals: Reviewed. General: Alert and oriented 4. In mild distress due to generalized weakness and shortness of breath. Cardiovascular: Irregularly regular, normal S1 & S2, no rubs, murmurs or gallops. Lungs: Decreased breath sounds in the right lower lobe, no wheezes or crackles. Abdomen: Tight, non-tender, no rigidity. NABS in all 4 quadrant. Extremities: 2+ edema in the lower extremity bilaterally Neurological: No focal neurological abnormality. Rest of the physical exam is non contributory DVT Prophylaxis: Patient is on warfarin, held following a fall. INR therapeutic. - Summary of Assessment and Plan Summary of Assessment and Plan: (1) ESRD (end stage renal disease) on dialysis Current Visit: No Status: Chronic Assessment and Plan: HD on MWF (2) HTN (hypertension) Current Visit: No Status: Chronic Assessment and Plan: Blood pressure remain well controlled on lisinopril 2.5 mg by mouth daily. Patient was started on midodrine 2.5 mg with hemodialysis (3) Frequent falls Current Visit: Yes Status: Acute Assessment and Plan: Daily PT/OT (4) Headache, post-traumatic, acute Current Visit: Yes Status: Resolved Assessment and Plan: . (5) Chronic disease anemia Current Visit: Yes Status: Chronic Assessment and Plan: H&H is stable. We will continue to monitor and transfuse per protocol. (6) Pleural effusion, right Current Visit: Yes Status: Chronic Assessment and Plan: Pulmonology consulted no intervention required at this time. (7) CAP (community acquired pneumonia) Current Visit: Yes Status: Acute Assessment and Plan: Continue doxycycline, ceftriaxone. Urine for atypical organism and sputum cultures ordered. (8) chronic diastolic CHF (congestive heart failure) with EF 55-60% Current Visit: Yes Status: Chronic Assessment and Plan: Patient with 2+ pitting edema bilaterally. With mild volume overload. On furosemide 80 mg. Fluid restrictive diets 1.5 L a day. On hemodialysis, nephrology Asst. in fluid removal appreciated. (9) CAD (coronary artery disease) Current Visit: No Status: Chronic Assessment and Plan: On aspirin 81 mg by mouth daily. (10) COPD (chronic obstructive pulmonary disease) Current Visit: Yes Status: Chronic (11) Prolonged QT interval Current Visit: Yes Status: Chronic (12) Pulmonary HTN Current Visit: Yes Status: Chronic (13) Syncope and collapse, cardiology was consulted, they signed off, patient had another episode of dizziness, throat burning, he had negative stress test in01/2018, will check Stress test tomorrow Current Visit: Yes Status: Acute DVT Prophylaxis: Patient is on warfarin, held following a fall. INR therapeutic. - Summary of Assessment and Plan Summary of Assessment and Plan: Patient to remain in the hospital to continue diuresis, Reports worsening shortness of breath. will check CXR, stress test tomorrow, Potential discharge in 24-48 hours. - Time Spent with Patient Total time spent is greater than 50% in coordination of care (as documented) at patient's floor/unit and/or counseling patient: Greater than 35 minutes Plan of Care Discussed with: family Internal Medicine: Result - Labs CBC & Chem 7: 11/06/18 06:38 11/06/18 06:38 Labs: Short CBC 11/06/18 Range/Units 06:38 WBC 5.0 (4.3-11.1) K/mcL Hgb 9.6 L (12.9-16.9) g/dL Hct 30.4 L (37.5-50.1) % Plt Count 118 L (140-400) K/mcL Neutrophils # 4.1 (1.6-8.9) K/mcL BMP 11/06/18 06:38 Sodium 136 Potassium 4.2 Chloride 101 Carbon Dioxide 29 BUN 23 Creatinine 5.17 H Glucose 106 H Calcium 9.1 Cardiac Enzymes 11/06/18 Range/Units 12:44 Troponin I 0.04 H* (< 0.04) ng/mL - ABG Interpretation ABG results: PT/INR, D-dimer PT 27.1 Seconds (9.4-12.1) H 11/05/18 08:31 - Impressions Impressions Head CT 11/06/18 00:45 IMPRESSION: No acute intracranial abnormality. Stable mild soft tissue swelling posterior left parietal scalp. No acute bony abnormalities. Stable opacification of multiple bilateral mastoid air cells. Correlate clinically as to infectious process. D/ / 11/06/2018 13:28:26 Omi Tapia MD / ganesh Interpreting Provider: Omi Tapia MD Consult Discharge Plan - Plan Referrals: Tahir Herrera Jr, MD [Primary Care Provider] -
[2018-11-07] MEDS: Ipratropium/Albuterol Neb 3 ML IH SCH ×5 (00:20→16:12)
[2018-11-07 02:16] LABS: Hematocrit 29.3 % (37.5-50.1); Hemoglobin 9.4 g/dL (12.9-16.9); Mean Corpuscular HGB Conc 32.1 g/dL (31.6-35.5); Mean Corpuscular Volume 102.8 fL (83.0-100.0); Mean Platelet Volume 10.7 fL (9.4-12.4); Platelet Count 111 K/mcL (140-400); Red Blood Count 2.85 M/mcL (4.19-5.50); Red Cell Distribution Width 13.9 % (11.5-14.5)
[2018-11-07 02:26] LABS: INR 1.5; Prothrombin Time 16.9 Seconds (9.4-12.1)
[2018-11-07 02:33] LABS: Calcium 9.7 mg/dL (8.6-10.3); Potassium 4.4 mEq/L (3.5-5.1)
[2018-11-07] MEDS ORDERED: Regadenoson 0.4 MG/5 ML SYRINGE IVP ONE (06:03)
[2018-11-07] MEDS: Calcium Acetate 667 MG CAPSULE PO SCH ×3 (07:52→16:55)
[2018-11-07] MEDS ORDERED: *HR* Heparin 10,000 UNIT/10 ML VIAL IV PRN (08:25)
[2018-11-07] MEDS ORDERED: 0.9 % Sodium Chloride 250 ML IVC PRN (08:25)
[2018-11-07] MEDS ORDERED: 0.9 % Sodium Chloride 1,000 ML PRIME SCH (08:30)
[2018-11-07] MEDS: Renal Vitamin 1 CAP CAPSULE PO SCH (09:16)
[2018-11-07] MEDS: Doxycycline 100 MG CAPSULE PO SCH (09:16)
[2018-11-07] MEDS: cefTRIAXone 2,000 MG in Water for inj. (sterile) 20 ML 20 ML IVP SCH (09:18)
--- NOTE | 2018-11-07 10:38 | Electrocardiograph Report ---
[address] [place], [place] [address] Test Date: 2018-11-06 Pat Name: Moses Hong Department: 112 Room: 2A39 Gender: M Varnish Melter Helper: : 1945 Requested By: Nessa Johnson Order Number: [id number] Reading MD: Aurelio Lange Measurements Intervals [place] Rate: 104 P: AR: 0 QRS: -39 QRSD: 109 T: 144 QT: 386 QTc: 447 Interpretive Statements ATRIAL FLUTTER/FIBRILLATION WITH RAPID VENTRICULAR RESPONSE MARKED LEFT AXIS DEVIATION INCOMPLETE RIGHT BUNDLE BRANCH BLOCK NONSPECIFIC ST & T-WAVE ABNORMALITY Electronically Signed On 11-07-2018 10:36:55 EDT by Aurelio Lange
--- NOTE | 2018-11-07 11:10 | Cardiology Progress Note ---
Date of Encounter: 11/07/18 Time of Encounter: 11:07 Assessment and Plan (1) Syncope Current Visit: Yes Status: Acute Per cardiology: -Patient reports fall, then syncopal episode after hitting head on pavement. -Reports loss of bowel. -TTE with LVEF preserved, no wall motion abnormalities. -No events on telemetry. -ECG with a.fib, HR 88. -Suspect syncope related to fall with injury. Qualifiers: Syncope type: unspecified Qualified Code(s): R55 - Syncope and collapse (2) CHF (congestive heart failure) Current Visit: Yes Status: Chronic Per cardiology: -Known CHF. Chest x-ray with pulmonary edema. -ON po lasix that he takes on days without dialysis. Patient reports limited urine output even with lasix -ESRD on dialysis M, W, F. -volume overloaded on exam, patient states chronic. -TTE with LVEF 55-60%, previously 45%. -On BB. -Strict i/os, fluid restriction, daily weights. -Appreciate nephrology recs regarding volume status. Qualifiers: Heart failure type: diastolic Heart failure chronicity: acute on chronic Qualified Code(s): I50.33 - Acute on chronic diastolic (congestive) heart failure (3) CAP (community acquired pneumonia) Current Visit: Yes Status: Acute Per cardiology: -CAP noted. -Management per primary service. Qualifiers: Laterality: right Lung location: lower lobe of lung Qualified Code(s): J18.1 - Lobar pneumonia, unspecified organism (4) Elevated troponin Current Visit: No Status: Acute Per cardiology: -Troponins negative, 0.04, 0.05 x2 in the setting of PNA, ESRD on HD, CHF. -Denies chest pain. Had episode of throat burning yesterday while eating, not anginal equivalent. -ECGs with no acute ischemic changes. -TTE with LVEF preserved, no wall motion abnormalities noted. -Stress 01/2018 negative for ischemia or infarct. -C 2014 with 80% stenosis in the Proximal LAD with TRACI placed. 80% stenosis in the Mid LAD with TRACI placed. 30% stenosis in the ostial 1st Marginal. 75%-80% stenosis in the proximal Ramus with TRACI placed. 30% stenosis in the Mid RCA. 40%-50% stenosis in the PL branch of the RCA. -Demand ischemia, no cardiac rehab consult warranted. -Cardiology will sign off, will arrange close outpatient follow up. Discussion w patient/family: The assessment and plan as outlined above was discussed with the patient and/or family members who expressed understanding and agreement. All questions were answered. Thank you for involving us in the care of your patient. Please call with any questions. Discussed and reviewed with Subjective Principal diagnosis: fall Interval history: Patient denies chest pain. Reports had episode of throat burning, eyes watering yesterday after biting into a hamburger. Objective Vital Signs, Last 4 Hours Temp Pulse Resp BP Pulse Ox 11/07/18 09:26 93 11/07/18 07:48 16 93 11/07/18 07:31 98.0 F 97 16 139/68 90 General: Conversant, No Apparent Distress HEENT: Atraumatic, Normocephaly, Mucus Membranes Moist Neck: No JVD, Normal carotid pulses Cardiac: Normal S1 and S2, No Murmur, Other (Irregularly irregular) Lungs: Normal Breath Sounds, No Wheeze, Rales, Rhonchi Neuro: Alert and responsive, No focal deficits noted Abdomen: Soft, Non-Tender Skin: No rashes noted on visualized skin Musculoskeletal: No Chest Wall Tenderness Extremities: No Clubbing, No Cyanosis, Normal Pulses, Other (Bilateral lower extremity edema noted. ) Results 11/07/18 02:00 11/07/18 02:00 Lab Results Impressions Head CT 11/06/18 00:45 IMPRESSION: No acute intracranial abnormality. Stable mild soft tissue swelling posterior left parietal scalp. No acute bony abnormalities. Stable opacification of multiple bilateral mastoid air cells. Correlate clinically as to infectious process. D/ / 11/06/2018 13:28:26 Omi Tapia MD / ganesh Interpreting Provider: Omi Tapia MD Chest X-Ray 11/06/18 16:06 IMPRESSION: Mild interval improvement in perihilar edema. Persistent moderate right pleural effusion with basilar volume loss. D/ / Pantera Moran MD / Pantera Moran MD Interpreting Provider: Pantera Moran MD Active Medications Albuterol/Ipratropium (Duoneb) 3 ml IH [id number] [facility] Stop: 05/05/19 12:01 Last Admin: 11/07/18 07:37 Dose: 3 ml Documented by: Aspirin (Aspirin Ec) 81 mg PO DAILY [facility] Stop: 05/06/19 09:01 Budesonide/Formoterol Fumarate (Symbicort) 2 puff IH BIDR [facility]; Protocol Stop: 05/05/19 22:01 Last Admin: 11/06/18 20:24 Dose: 2 puff Documented by: Calcium Acetate (Phos-Lo) 2,001 mg PO TIDWM [facility] Stop: 05/05/19 12:01 Last Admin: 11/07/18 07:52 Dose: Not Given Documented by: Dextrose/Water (Dextrose 50% (Syg)) 25 ml IVP AD PRN PRN Reason: Hypoglycemia Stop: 05/05/19 20:13 Doxycycline Hyclate (Doxycycline) 100 mg PO BID [facility] Stop: 05/06/19 21:01 Last Admin: 11/07/18 09:16 Dose: 100 mg Documented by: Furosemide (Lasix) 80 mg PO SUTUTHSA@0900 [facility] Stop: 05/06/19 09:01 Last Admin: 11/06/18 08:12 Dose: 80 mg Documented by: Glucagon (Glucagen) 1 mg IM ONCE PRN PRN Reason: Hypoglycemia Stop: 05/05/19 20:13 Glucose (Gluctose) 15 gm PO ONCE PRN PRN Reason: Hypoglycemia Stop: 05/05/19 20:13 Glucose (Gluctose) 30 gm PO ONCE PRN PRN Reason: Hypoglycemia Stop: 05/05/19 20:13 Heparin Sodium (Porcine) (Heparin) 3,000 unit IV ONCE PRN PRN Reason: heparin load Ceftriaxone Sodium 2,000 mg/ (Sterile Water) 20 mls @ 600 mls/hr IVP Q24H [facility] Stop: 05/06/19 09:01 Last Admin: 11/07/18 09:18 Dose: 600 mls/hr Documented by: Dextrose (Dextrose 5%) 1,000 mls @ 100 mls/hr IVC .Q10H PRN PRN Reason: HYPOGLYCEMIA Stop: 05/05/19 20:13 Sodium Chloride (0.9 % Sodium Chloride) 250 mls @ 937.5 mls/hr IVC .Q16M PRN PRN Reason: Hypotension Stop: 05/09/19 08:26 Sodium Chloride (0.9 % Sodium Chloride) 1,000 mls @ 0 mls/hr PRIME .Q0M [facility] Stop: 05/09/19 08:31 Lisinopril (Zestril) 2.5 mg PO DAILY [facility] Stop: 05/06/19 09:01 Last Admin: 11/07/18 09:16 Dose: 2.5 mg Documented by: Metoprolol Tartrate (Lopressor) 25 mg PO BID [facility] Stop: 05/05/19 09:01 Last Admin: 11/07/18 09:16 Dose: 25 mg Documented by: Midodrine (Proamatine) 2.5 mg PO MOWEFR@0800 PRN PRN Reason: SEE COMMENTS Naloxone HCl (Narcan) 0.4 mg IVP Q2MPRN PRN PRN Reason: SEE COMMENTS Stop: 05/05/19 08:37 Nitroglycerin (Nitroglycerin) 0.4 mg SL Q5MPRN PRN PRN Reason: Chest Pain Stop: 05/08/19 12:28 Omeprazole (Prilosec) 40 mg PO DAILY@0730 [facility] Stop: 05/05/19 10:31 Last Admin: 11/07/18 07:52 Dose: Not Given Documented by: Simvastatin (Zocor) 20 mg PO HS [facility]; Protocol Stop: 05/05/19 21:01 Last Admin: 11/06/18 22:14 Dose: 20 mg Documented by: Vitamin B Complex/Vit C/Folic Acid (Renal Caps Softgel) 1 cap PO DAILY [facility] Stop: 05/05/19 09:01 Last Admin: 11/07/18 09:16 Dose: 1 cap Documented by: Warfarin Sodium (Coumadin Perpt) 1 each PO DAILY@1800 PRN PRN Reason: SEE COMMENTS Stop: 05/09/19 18:01 Laboratory Tests 11/03/18 11/06/18 11/06/18 06:28 12:44 19:07 Hgb Creatinine Troponin I 0.03 0.04 H* 0.05 H* 11/07/18 11/07/18 11/07/18 02:00 02:00 02:00 Hgb 9.4 L Creatinine 6.24 H Troponin I 0.05 H* - Imaging and Cardiology Chest Xray: report reviewed Stress Test: report reviewed Echo: report reviewed Cardiac cath: report reviewed - EKG Interpretation EKG results cardiology: personally reviewed (ECG with a.fib, HR 104.), other (Telemetry reviewed with average HR previous 12 hours noted to be 98, a.fib. PVCs noted.) Consult Discharge Plan - Plan Referrals: Tahir Herrera Jr, MD [Primary Care Provider] -
[2018-11-07] MEDS: Budesonide/Formoterol 160/4.5 1 PUFF INH IH SCH (11:21)
--- NOTE | 2018-11-07 12:02 | Nephrology Progress Note ---
Date of Encounter: 11/07/18 Time of Encounter: 09:30 - Assessment and Plan (1) ESRD (end stage renal disease) on dialysis Current Visit: No Status: Chronic - Patient to undergo HD today. - Continue renal diet. - Avoid nephrotoxins if possible. (2) CAP (community acquired pneumonia) Current Visit: Yes Status: Acute Management per primary team. Qualifiers: Laterality: right Lung location: lower lobe of lung Qualified Code(s): J18.1 - Lobar pneumonia, unspecified organism (3) Pleural effusion, right Current Visit: Yes Status: Chronic CXR shows mild interval improvement in perihilar edema. Persistent moderate right pleural effusion with basilar volume loss. (4) Frequent falls Current Visit: Yes Status: Acute per primary team Patient states PT has only come to work with him once Subjective Principal diagnosis: fall Interval history: When seen today, patient denies any chest pain. He admits to SOB with exertion, but minimal with rest. Denies any abdominal pain, Denies any nausea or vomiting. Denies any fever, cough, or wheezing. Denies any light-headedness of FAJARDO. Says th e swelling in his legs have improved. Patient mentions that yesterday after during his lunch meal, he started feeling light-headed and had a burning sensation in his throat. Objective - Vital Signs Vital signs: Vital Signs Temp Pulse Resp BP Pulse Ox 11/07/18 11:33 97.4 F L 100 17 157/80 100 11/07/18 11:27 14 97 11/07/18 09:26 93 11/07/18 07:48 16 93 11/07/18 07:31 98.0 F 97 16 139/68 90 11/07/18 04:16 97.8 F 101 17 133/69 90 11/07/18 03:35 14 94 11/07/18 00:21 14 93 11/06/18 23:35 98.3 F 81 17 135/66 98 11/06/18 20:32 98.1 F 87 17 144/65 98 11/06/18 20:24 14 95 11/06/18 16:21 97.7 F 105 18 155/86 95 11/06/18 13:00 96 Intake and Output 11/06/18 11/07/18 11/07/18 23:59 07:59 15:59 Intake Total 260 / 1470 0 / 0 Output Total 20 / 20 0 / 0 Balance 240 / 1450 0 / 0 Intake: IV Fluids 20 / 370 Rocephin 2,000 MG In Water for 20 inj. (sterile) 20 ML @ 600 mls/ hr IVP Q24H ALISA Rx#:[id number] Oral 240 / 1100 0 / 0 Output: Urine 20 / 20 0 / 0 Other: Meal Dinner Breakfast NPO Percent of Meal Consumed 10% Stool Size Small Stool Consistency soft formed Stool Color Brown # Voids 1 # Bowel Movements 1 1 Blood Glucose* 124 94 104 - General Appearance General appearance: Present: well-developed, well-nourished, appears started age EENT: Present: mucous membranes moist Neck: Present: no JVD Respiratory: Present: clear Cardiology: Present: no murmurs, no rub, no gallops, no edema, regular rate, regular rhythm, normal S1, normal S2 Dialysis Vascular Access: Arteriovenous Fistula Gastrointestinal: Present: normoactive bowel sounds, no tenderness, no guarding, no masses Integumentary: Present: warm and dry Neurologic: Present: no focal deficit, alert and oriented x3 Musculoskeletal: Present: no deformities, no cyanosis, no clubbing Psychiatric: Present: mood/affect appropriate, cooperative - Lab 11/07/18 02:00 11/07/18 02:00 Most recent lab results 11/07/18 02:00 Calcium 9.7 Consult Discharge Plan - Plan Referrals: Tahir Herrera Jr, MD [Primary Care Provider] -
--- NOTE | 2018-11-07 14:43 | Discharge Summary ---
Orders not resulted at time of discharge: Pending orders 11/03/18 08:05 Culture,Blood [BC] Stat 11/03/18 08:45 UA w. reflex culture [Urinalysis Reflex Cult & Micro] [URIN] Routine 11/03/18 09:58 Legionella Antigen [RM] Stat Streptococcal pneumoniae urin antigen [S. Pneumoniae Antigen] [RM] Stat 11/05/18 13:10 Sputum Culture [Culture,Sputum with Gram Stain] [RM] Stat 11/07/18 04:00 Complete Blood Count [HEME] AM 0400 11/08/18 04:00 Basic Metabolic Panel AM 0400 CBC no Diff [Complete Blood Count w/o Diff] [HEME] AM 0400 PT/INR [Prothrombin Time INR] [COAG] AM 04011/09/18 04:00 Basic Metabolic Panel AM 0400 CBC no Diff [Complete Blood Count w/o Diff] [HEME] AM 0400 PT/INR [Prothrombin Time INR] [COAG] AM 0400 11/10/18 04:00 Basic Metabolic Panel AM 0400 CBC no Diff [Complete Blood Count w/o Diff] [HEME] AM 0400 PT/INR [Prothrombin Time INR] [COAG] AM 0400 11/11/18 04:00 Basic Metabolic Panel AM 0400 CBC no Diff [Complete Blood Count w/o Diff] [HEME] AM 0400 PT/INR [Prothrombin Time INR] [COAG] AM 0400 11/12/18 04:00 PT/INR [Prothrombin Time INR] [COAG] AM 0400 Date of Encounter: 11/07/18 Time of Encounter: 16:49 Hospital course: Mr. Hong is a 73 year old male with history of ESRD on dialysis MWF, CHF, severe obstructive pulmonary disease and CAD presented to the emergency department with complaint of fall adn head trauma +ve LOC. As per patient and at bedside he was walking to his car using his walker and next thing her remebers was that he was on the ground. He reports that he hit the back of his head however denies loss of consciousness. He denies pre-or post fall diaphoresis, chest pain, palpitations, vision changes, headache, nausea, shortness of breath. He did also report that he hit his back. He denies mechanical fall. He reports that he has been weak for many months now and has been following up with his primary care physician however the cause is unknown. He denies bowel or bladder incontinence, denies seizure like activity, there was no foaming of the mouth or tongue biting. reports that immediately after he fell his eyes were open however for about 2-3 minutes he was unable to communicate verbally with her. He reports that his weakness is chronic and has been using his walker. Does have history of falls however no recent falls with head trauma. He has atrial fibrillation and is on Coumadin. (1) ESRD (end stage renal disease) on dialysis Current Visit: No Status: Chronic Assessment and Plan: HD on MWF (2) HTN (hypertension) Current Visit: No Status: Chronic Assessment and Plan: Blood pressure remain well controlled on lisinopril 2.5 mg by mouth daily. Patient was started on midodrine 2.5 mg with hemodialysis (3) Frequent falls Current Visit: Yes Status: Acute Assessment and Plan: Daily PT/OT (4) Headache, post-traumatic, acute Current Visit: Yes Status: Resolved Assessment and Plan: . (5) Chronic disease anemia Current Visit: Yes Status: Chronic Assessment and Plan: H&H is stable. We will continue to monitor and transfuse per protocol. (6) Pleural effusion, right Current Visit: Yes Status: Chronic Assessment and Plan: Pulmonology consulted no intervention required at this time. (7) CAP (community acquired pneumonia), discharge on doxyclycine Current Visit: Yes Status: Acute Assessment and Plan: Continue doxycycline, ceftriaxone. Urine for atypical organism and sputum cultures ordered. (8) chronic diastolic CHF (congestive heart failure) with EF 55-60%, CXR improved with HD fluid removal Current Visit: Yes Status: Chronic Assessment and Plan: Patient with 2+ pitting edema bilaterally. With mild volume overload. On furosemide 80 mg. Fluid restrictive diets 1.5 L a day. On hemodialysis, nephrology Asst. in fluid removal appreciated. (9) CAD (coronary artery disease) Current Visit: No Status: Chronic Assessment and Plan: On aspirin 81 mg by mouth daily. (10) COPD (chronic obstructive pulmonary disease), on 4 L NC at home Current Visit: Yes Status: Chronic (11) Prolonged QT interval Current Visit: Yes Status: Chronic (12) Pulmonary HTN Current Visit: Yes Status: Chronic (13) Syncope and collapse, cardiology was consulted, they signed off, patient had another episode of dizziness, throat burning, he had negative stress test in01/2018, cardiology waas reconsulted today, they did not think that kthe episode is ACS, no further cardiac testing/ Current Visit: Yes Status: Acute DVT Prophylaxis: Patient is on warfarin, discharge home with home care - Time Spent with Patient Total time spent providing and/or coordinating discharge services: Time spent: Greater than 30 minutes - Discharge Medications Prescriptions: New Doxycycline 100 mg PO BID #10 capsule Continued Aspirin [Lo-Dose Aspirin EC] 81 mg PO DAILY Metoprolol Tartrate 50 mg PO DAILY Lisinopril 2.5 mg PO DAILY Amlodipine Besylate 10 mg PO DAILY Simvastatin [Zocor] 20 mg PO HS Omeprazole [PriLOSEC] 40 mg PO DAILY Renal Vitamin [Renal Caps Softgel] 1 mg PO DAILY Warfarin [Coumadin] 2 mg PO MOWEFR Midodrine HCl 2.5 mg PO MOWEFR@0800 PRN MDD On Dialysis Days PRN Reason: See Comments Furosemide [Lasix] 80 mg PO SUTUTHSA@0900 Calcium Acetate [Phos-LO] 2,001 mg PO TIDWM Warfarin Sodium 3 mg PO SUTUTHSA Albuterol Sulfate [Ventolin Hfa] 2 puff IH Q4H PRN PRN Reason: Shortness Of Breath Home Medications: Amlodipine Besylate 10 mg PO DAILY 10/07/17 [History] Aspirin [Lo-Dose Aspirin EC] 81 mg PO DAILY 10/07/17 [History] Lisinopril 2.5 mg PO DAILY 10/07/17 [History] Metoprolol Tartrate 50 mg PO DAILY 10/07/17 [History] Omeprazole [PriLOSEC] 40 mg PO DAILY 10/07/17 [History] Simvastatin [Zocor] 20 mg PO HS 10/07/17 [History] Renal Vitamin [Renal Caps Softgel] 1 mg PO DAILY 02/07/18 [History] Warfarin [Coumadin] 2 mg PO MOWEFR 05/30/18 [History] Albuterol Sulfate [Ventolin Hfa] 2 puff IH Q4H PRN 11/03/18 [History] Calcium Acetate [Phos-LO] 2,001 mg PO TIDWM 11/03/18 [History] Furosemide [Lasix] 80 mg PO SUTUTHSA@0900 11/03/18 [History] Midodrine HCl 2.5 mg PO MOWEFR@0800 PRN MDD On Dialysis Days 11/03/18 [History] Warfarin Sodium 3 mg PO SUTUTHSA 11/03/18 [History] Doxycycline 100 mg PO BID #10 capsule 11/07/18 [Rx] Allergies/Adverse Reactions: Allergy/AdvReac Type Severity Reaction Status Date / Time No Known Allergies Allergy Verified 11/03/18 06:06 Date of admission: 11/04/18 11:56 Primary care physician: Tahir Herrera Jr, MD Consults: 11/03/18 08:41 Consult to Case Management [CONS] Routine Comment: Consult to Physical Therapy [CONS] Routine Comment: Evaluate, develop and implement POC Reason for Consult: dispostion Does patient have active BEDREST order?: No Is patient medically & hemodynamically stable?: Yes Patient assessed for mobility or mobilized this visit?: Yes 11/03/18 08:42 Consult to Nephrology [CONS] Routine Consulting Provider: Kidney Vandana/LEMUEL/RYAN/WILL Reason for Consult: esrd on dialysis with pum edema Call Completed: No 11/03/18 09:40 Consult to Cardiology [CONS] Routine Comment: Consulting Provider: Cardiology Vandana Reason for Consult: syncope, new ekg changes RBBB LAFB Call Completed: No 11/03/18 11:04 Consult to Nutrition [CONS] Routine Comment: Consulting Provider: NUTRITION Reason for Dietary Consult: MST Score 11/03/18 12:59 Consult to Pulmonology [CONS] Routine Consulting Provider: [facility] [place] Reason for Consult: right sided pleural effusion Call Completed: Yes 11/03/18 14:00 Consult to Dialysis [CONS] ONCE 11/04/18 08:58 Consult to Nurse Navigator [CONS] Routine Comment: pn, hd 11/05/18 08:30 Consult to Dialysis [CONS] ONCE 11/07/18 08:30 Consult to Dialysis [CONS] ONCE 11/07/18 10:32 Consult to Cardiology [CONS] Routine Comment: Consulting Provider: Cardiology [place] Reason for Consult: chest pain, trop elevation Call Completed: Yes - Constitutional Vitals: Temp Pulse Resp BP Pulse Ox 97.4 F L 100 17 157/80 100 11/07/18 11:33 11/07/18 11:33 11/07/18 11:33 11/07/18 11:33 05 11:33 General appearance: Present: A&O X 3 Exam: Vitals: Reviewed. General: Alert and oriented 4. In mild distress due to generalized weakness and shortness of breath. Cardiovascular: Irregularly regular, normal S1 & S2, no rubs, murmurs or gallops. Lungs: Decreased breath sounds in the right lower lobe, no wheezes or crackles. Abdomen: Tight, non-tender, no rigidity. NABS in all 4 quadrant. Extremities: 2+ edema in the lower extremity bilaterally Neurological: No focal neurological abnormality. Rest of the physical exam is non contributory - Patient Status Disposition: Home Health Service Condition: Good Functional capacity at discharge: independent ambulation Overall status at discharge: patient is back to baseline - Discharge Instructions Follow Up With: Tahir Herrera Jr, MD [Primary Care Provider] - - Diet and Activity Activity: wear oxygen at all times
[2018-11-07 16:20] VITALS: BP 138/79
--- NOTE | 2018-11-07 17:00 | Physician Discharge Referral ---
Home Health/Hosp Referral Info Transfer to: Home Health Provider in Charge Post Discharge: PCP - Respiratory Orders Smoking Cessation: Smoking cessation has been advised. For more information, call the [place] Tobacco Quit Line at 0-741-BUAU-NOW. - Diet/Nutrition Diet/Nutrition Orders: Renal - Services Needed Following services are medically necessary services: Nursing, Physical Therapy, Occupational Therapy - Transfer Medications Prescriptions: Doxycycline 100 mg PO BID #10 capsule Home Medications: Amlodipine Besylate 10 mg PO DAILY 10/07/17 [History] Aspirin [Lo-Dose Aspirin EC] 81 mg PO DAILY 10/07/17 [History] Lisinopril 2.5 mg PO DAILY 10/07/17 [History] Metoprolol Tartrate 50 mg PO DAILY 10/07/17 [History] Omeprazole [PriLOSEC] 40 mg PO DAILY 10/07/17 [History] Simvastatin [Zocor] 20 mg PO HS 10/07/17 [History] Renal Vitamin [Renal Caps Softgel] 1 mg PO DAILY 02/07/18 [History] Warfarin [Coumadin] 2 mg PO MOWEFR 05/30/18 [History] Albuterol Sulfate [Ventolin Hfa] 2 puff IH Q4H PRN 11/03/18 [History] Calcium Acetate [Phos-LO] 2,001 mg PO TIDWM 11/03/18 [History] Furosemide [Lasix] 80 mg PO SUTUTHSA@0900 11/03/18 [History] Midodrine HCl 2.5 mg PO MOWEFR@0800 PRN MDD On Dialysis Days 11/03/18 [History] Warfarin Sodium 3 mg PO SUTUTHSA 11/03/18 [History] Doxycycline 100 mg PO BID #10 capsule 11/07/18 [Rx] Allergies/Adverse Reactions: Allergy/AdvReac Type Severity Reaction Status Date / Time No Known Allergies Allergy Verified 11/03/18 06:06 Certification: Further, I certify that my clinical findings support that this patient is homebound (i.e. absences from home require considerable and taxing effort and are for medical reasons or [employer] services or infrequently or short duration when for other reasons) because: Homebound Reason: Patient requires assistance of a person or device to safely leave home Attestation: My signature below is to certify that this patient is under my care and that I, or nurse practitioner, or a physician's educational assistant teacher working with me, has a [id number] encounter with this patient.
[2018-11-07] MEDS ORDERED: Warfarin perPT PO PRN (18:00)
[2018-11-07] MEDS ORDERED: *HR* Warfarin 2 MG TABLET PO ONE (18:00)
== END 2018-11-07 18:47 | disposition home health service (06) | DRG 102 ==
LOC: 2ANU 05:28 → EMEROOARM 05:28 → 2ANU 09:59 → SUATTDRO 11-04 11:56
PROVIDERS: ADMIT Internal Medicine; ATTEND Hospitalist

== ENCOUNTER 2018-11-13 13:02 | Inpatient (IN) ==
--- NOTE | 2018-11-13 14:16 | Emergency Department Note ---
Disposition Clinical Impression: Hemodialysis AV fistula aneurysm Qualifiers: Encounter type: initial encounter Qualified Code(s): T82.898A - Other specified complication of vascular prosthetic devices, implants and grafts, initial encounter Disposition: Admitted As Inpatient Referrals: Tahir Herrera Jr, MD [Primary Care Provider] - Forms: ED Satisfaction Letter Time of Disposition: 15:37 General Adult HPI - General Chief complaint: ED Extremity Problem,Nontraumatic Stated complaint: Right arm swelling (Fistula Site) Time Seen by Provider: 11/13/18 13:05 Source: patient Limitations: no limitations - History of Present Illness Pain Scale: 8 - Related Data Home Medications Medication Instructions Recorded Confirmed Amlodipine Besylate 10 mg PO DAILY 10/07/17 11/03/18 Aspirin [Lo-Dose Aspirin EC] 81 mg PO DAILY 10/07/17 11/03/18 Lisinopril 2.5 mg PO DAILY 10/07/17 11/03/18 Metoprolol Tartrate 50 mg PO DAILY 10/07/17 11/03/18 Omeprazole [PriLOSEC] 40 mg PO DAILY 10/07/17 11/03/18 Simvastatin [Zocor] 20 mg PO HS 10/07/17 11/03/18 Renal Vitamin [Renal Caps Softgel] 1 mg PO DAILY 02/07/18 11/03/18 Warfarin [Coumadin] 2 mg PO MOWEFR 05/30/18 11/03/18 Albuterol Sulfate [Ventolin Hfa] 2 puff IH Q4H PRN 11/03/18 11/03/18 Calcium Acetate [Phos-LO] 2,001 mg PO TIDWM 11/03/18 11/03/18 Furosemide [Lasix] 80 mg PO SUTUTHSA@0900 11/03/18 11/03/18 Midodrine HCl 2.5 mg PO MOWEFR@0800 PRN MDD On 11/03/18 11/03/18 Dialysis Days Warfarin Sodium 3 mg PO SUTUTHSA 11/03/18 11/03/18 Previous Rx's Medication Instructions Recorded Doxycycline 100 mg PO BID #10 capsule 11/07/18 Allergies Allergy/AdvReac Type Severity Reaction Status Date / Time No Known Allergies Allergy Verified 11/03/18 06:06 Past Medical History - Past Medical History Medical history: Reports: CHF, coronary artery disease, diabetes, dialysis, GERD, hyperlipidemia, hypertension, renal disease, other Surgical history: Reports: appendectomy, other Psychiatric history: Reports: no psych history - Social History Smoking Status: Former smoker Smokeless Tobacco Status: No Alcohol use: Reports: none Drug use: Reports: none Physical Exam - General Limitations: no limitations General appearance: in no apparent distress Course Vital Signs Temperature 97.5 F L 11/13/18 13:11 Pulse Rate 88 11/13/18 13:11 Respiratory Rate 18 11/13/18 13:11 Blood Pressure 119/79 11/13/18 13:11 O2 Sat by Pulse Oximetry 96 11/13/18 13:11 Temperature 97.5 F L 11/13/18 13:11 Pulse Rate 80 11/13/18 15:03 Respiratory Rate 16 11/13/18 15:03 Blood Pressure 130/108 11/13/18 15:03 O2 Sat by Pulse Oximetry 98 11/13/18 15:03 Oxygen Delivery Oxygen Delivery Nasal Cannula Medical Decision Making - Lab Data Result diagrams: 11/13/18 13:47 11/13/18 13:47 Lab Results 11/13/18 11/13/18 11/13/18 Range/Units 13:47 13:47 13:47 WBC 5.6 (4.3-11.1) K/mcL RBC 2.97 L (4.19-5.50) M/mcL Hgb 9.6 L (12.9-16.9) g/dL Hct 30.4 L (37.5-50.1) % MCV 102.4 H (83.0-100.0) fL MCH 32.3 (28.0-33.3) pg MCHC 31.6 (31.6-35.5) g/dL RDW 13.7 (11.5-14.5) % Plt Count 142 (140-400) K/mcL MPV 11.3 (9.4-12.4) fL Immature Gran % 0.4 (0-4) % Seg Neutrophils % 79.8 % Lymphocytes % 8.3 % Monocytes % 6.5 % Eosinophils % 4.1 % Basophils % 0.9 % Neutrophils # 4.4 (1.6-8.9) K/mcL Lymphocytes # 0.5 L (0.6-4.6) K/mcL Monocytes # 0.4 (0.0-1.3) K/mcL Eosinophils # 0.2 (0.0-0.6) K/mcL Basophils # 0.1 (0.0-0.2) K/mcL PT 17.0 H (9.4-12.1) Seconds INR 1.5 Sodium 141 (136-145) mEq/L Potassium 4.8 (3.5-5.1) mEq/L Chloride 102 (98-107) mEq/L Carbon Dioxide 27 (23-29) mEq/L BUN 35 H (8-23) mg/dL Creatinine 6.75 H (0.70-1.30) mg/dL Est GFR ( Amer) 10 L (> 60) Est GFR (Non-Af Amer) 8 L (> 60) BUN/Creatinine Ratio 5 L (6-26) Glucose 95 (70-105) mg/dL Calculated Osmolality 300 (280-300) Calcium 8.7 (8.6-10.3) mg/dL Attestation Statement - Attestation Attestation: I examined this patient and my medical decision-making was reviewed with the Resident Physician. I agree with the documented findings, disposition and treatment plan as described except to the extent set forth below. Patient to the ED with a chief complaint of swelling of his fistula. Patient received dialysis yesterday. I will have after dialysis it swelled. He was sent in by his trial paralegal for imaging and admission for a new dialysis access port. On examination he has a fistula in his right forearm. There is notable swelling to the area. It does not have a thrill or pulse to the swelling. Plan. Arterial imaging. Until imaging showed a hematoma and aneurysm. Discussed with on-call vascular. Dr. Nolasco is taking the patient to surgery.
[2018-11-13 14:20] LABS: Basophils # 0.1 K/mcL (0.0-0.2); Basophils % 0.9 %; Eosinophils # 0.2 K/mcL (0.0-0.6); Eosinophils % 4.1 %; Hematocrit 30.4 % (37.5-50.1); Hemoglobin 9.6 g/dL (12.9-16.9); Immature Granulocytes % 0.4 % (0-4); Lymphocytes # 0.5 K/mcL (0.6-4.6); Lymphocytes % 8.3 %; Mean Corpuscular HGB Conc 31.6 g/dL (31.6-35.5); Mean Corpuscular Hemoglobin 32.3 pg (28.0-33.3); Mean Corpuscular Volume 102.4 fL (83.0-100.0); Mean Platelet Volume 11.3 fL (9.4-12.4); Monocytes # 0.4 K/mcL (0.0-1.3); Monocytes % 6.5 %; Neutrophils # 4.4 K/mcL (1.6-8.9); Platelet Count 142 K/mcL (140-400); Red Blood Count 2.97 M/mcL (4.19-5.50); Red Cell Distribution Width 13.7 % (11.5-14.5); Segmented Neutrophils % 79.8 %
[2018-11-13 14:29] LABS: INR 1.5
[2018-11-13 14:42] LABS: Calcium 8.7 mg/dL (8.6-10.3); Potassium 4.8 mEq/L (3.5-5.1)
--- NOTE | 2018-11-13 15:02 | Emergency Department Note ---
Disposition Clinical Impression: Hemodialysis AV fistula aneurysm Qualifiers: Encounter type: initial encounter Qualified Code(s): T82.898A - Other specified complication of vascular prosthetic devices, implants and grafts, initial encounter Disposition: Admitted As Inpatient Referrals: Tahir Herrera Jr, MD [Primary Care Provider] - Forms: ED Satisfaction Letter General Adult HPI - General Chief complaint: ED Extremity Problem,Nontraumatic Stated complaint: Right arm swelling (Fistula Site) Time Seen by Provider: 11/13/18 13:05 Source: patient Mode of arrival: ambulatory Limitations: no limitations Nursing Notes Reviewed: Yes Vital Signs Reviewed: Yes - History of Present Illness HPI Narrative: 73-year-old male with significant past medical history of end-stage renal disease currently receiving dialysis Saturday, Saturday and Saturday presenting to the emergency department chief complaint of swelling over his AV fistula site. According to the patient yesterday when they accessed his AV fistula site approximately an hour and a 2:30 hours into the session he started having severe swelling and pain in the site. They remove the IV. He had swelling a few hours later in the site. Today he went to get the site looked at at his dialysis center and they were concerned for possible aneurysm and sent him here for further evaluation. Patient states the site is painful to touch but is otherwise asymptomatic. Pain Scale: 8 - Related Data Home Medications Medication Instructions Recorded Confirmed Amlodipine Besylate 10 mg PO DAILY 10/07/17 11/03/18 Aspirin [Lo-Dose Aspirin EC] 81 mg PO DAILY 10/07/17 11/03/18 Lisinopril 2.5 mg PO DAILY 10/07/17 11/03/18 Metoprolol Tartrate 50 mg PO DAILY 10/07/17 11/03/18 Omeprazole [PriLOSEC] 40 mg PO DAILY 10/07/17 11/03/18 Simvastatin [Zocor] 20 mg PO HS 10/07/17 11/03/18 Renal Vitamin [Renal Caps Softgel] 1 mg PO DAILY 02/07/18 11/03/18 Warfarin [Coumadin] 2 mg PO MOWEFR 05/30/18 11/03/18 Albuterol Sulfate [Ventolin Hfa] 2 puff IH Q4H PRN 11/03/18 11/03/18 Calcium Acetate [Phos-LO] 2,001 mg PO TIDWM 11/03/18 11/03/18 Furosemide [Lasix] 80 mg PO SUTUTHSA@0900 11/03/18 11/03/18 Midodrine HCl 2.5 mg PO MOWEFR@0800 PRN MDD On 11/03/18 11/03/18 Dialysis Days Warfarin Sodium 3 mg PO SUTUTHSA 11/03/18 11/03/18 Previous Rx's Medication Instructions Recorded Doxycycline 100 mg PO BID #10 capsule 11/07/18 Allergies Allergy/AdvReac Type Severity Reaction Status Date / Time No Known Allergies Allergy Verified 11/03/18 06:06 All systems ED: reviewed and negative except as stated. Constitutional: Denies: fever Eyes: Reports: as per HPI ENT ED: Reports: as per HPI Cardiovascular: Denies: chest pain Respiratory: Denies: dyspnea Gastrointestinal: Denies: abdominal pain Genitourinary: Reports: as per HPI Musculoskeletal: Reports: as per HPI Integumentary: Reports: as per HPI Neurological: Reports: as per HPI Psychiatric: Reports: as per HPI Endocrine: Reports: as per HPI Hematological/Lymphatic: Reports: as per HPI Allergic/Immunologic: Reports: as per HPI Past Medical History - Past Medical History Attestation: Yes The following information was validated with the patient. Medical history: Reports: CHF, coronary artery disease, diabetes, dialysis, GERD, hyperlipidemia, hypertension, renal disease, other Surgical history: Reports: appendectomy, other Psychiatric history: Reports: no psych history - Social History Smoking Status: Former smoker Smokeless Tobacco Status: No Alcohol use: Reports: none Drug use: Reports: none Physical Exam - General Limitations: no limitations General appearance: alert, in no apparent distress - Head Head exam: atraumatic, normocephalic, normal inspection - Eye Eye exam: Absent: scleral icterus - ENT ENT exam: mucous membranes moist - Neck Neck exam: Present: full ROM - Chest Chest inspection: Present: symmetric chest wall rise - Respiratory Respiratory exam: Present: normal lung sounds bilaterally. Absent: respiratory distress, wheezes - Cardiovascular Cardiovascular exam: Present: normal rhythm, normal heart sounds - Abdominal Exam Abdominal exam: Present: soft, Non-Tender. Absent: distention, guarding, rebound - Extremities Exam Extremities exam: Present: full ROM, other (Patient with large swelling and tenderness over the right AC at site of the AV fistula.) - Neurological Exam Neurological exam: Present: alert, oriented X3 - Psychiatric Psychiatric exam: Present: normal affect - Skin Skin exam: Present: warm Course Course Narrative: 73-year-old male presenting to the emergency department chief complaint of swelling over his AV fistula site. In the room is alert and oriented 3 and hemodynamically stable. There is a large, swollen tender site over the AV fistula. Concerning for aneurysm. I spoke with the window shade ring sewer on-call Dr. Millan who would like us to get an arterial Doppler of the extremity and pe rform basic laboratory analysis. Disposition pending the most likely admission versus transfer. Patient agrees with this plan. - Reevaluation(s) Reevaluation #1: Patient's initial imaging concerning for aneurysm at the AV fistula. Partial thrombosis. I spoke with the vascular surgeon on-call Dr. Goodrich who will consult Dr. Nolasco for further recommendations. Patient's laboratory analysis unchanged from baseline. Disposition pending at this time. Reevaluation #2: Dr. Nolasco evaluated the patient in the emergency department we will take him emergently to surgery. Patient to be admitted to hospitalist team. At this time patient remains alert and oriented 3 and hemodynamically stable. Patient agrees with this plan. Patient to be admitted to hospitalist. I spoke with the hospitalist radio station manager Dr. Hedrick who agrees to accept the patient at this time. Vital Signs Temperature 97.5 F L 11/13/18 13:11 Pulse Rate 88 11/13/18 13:11 Respiratory Rate 18 11/13/18 13:11 Blood Pressure 119/79 11/13/18 13:11 O2 Sat by Pulse Oximetry 96 11/13/18 13:11 Temperature 97.5 F L 11/13/18 13:11 Pulse Rate 80 11/13/18 15:03 Respiratory Rate 16 11/13/18 15:03 Blood Pressure 130/108 11/13/18 15:03 O2 Sat by Pulse Oximetry 98 11/13/18 15:03 Oxygen Delivery Oxygen Delivery Nasal Cannula Medical Decision Making - Lab Data Result diagrams: 11/13/18 13:47 11/13/18 13:47 Lab Results 11/13/18 11/13/18 11/13/18 Range/Units 13:47 13:47 13:47 WBC 5.6 (4.3-11.1) K/mcL RBC 2.97 L (4.19-5.50) M/mcL Hgb 9.6 L (12.9-16.9) g/dL Hct 30.4 L (37.5-50.1) % MCV 102.4 H (83.0-100.0) fL MCH 32.3 (28.0-33.3) pg MCHC 31.6 (31.6-35.5) g/dL RDW 13.7 (11.5-14.5) % Plt Count 142 (140-400) K/mcL MPV 11.3 (9.4-12.4) fL Immature Gran % 0.4 (0-4) % Seg Neutrophils % 79.8 % Lymphocytes % 8.3 % Monocytes % 6.5 % Eosinophils % 4.1 % Basophils % 0.9 % Neutrophils # 4.4 (1.6-8.9) K/mcL Lymphocytes # 0.5 L (0.6-4.6) K/mcL Monocytes # 0.4 (0.0-1.3) K/mcL Eosinophils # 0.2 (0.0-0.6) K/mcL Basophils # 0.1 (0.0-0.2) K/mcL PT 17.0 H (9.4-12.1) Seconds INR 1.5 Sodium 141 (136-145) mEq/L Potassium 4.8 (3.5-5.1) mEq/L Chloride 102 (98-107) mEq/L Carbon Dioxide 27 (23-29) mEq/L BUN 35 H (8-23) mg/dL Creatinine 6.75 H (0.70-1.30) mg/dL Est GFR ( Amer) 10 L (> 60) Est GFR (Non-Af Amer) 8 L (> 60) BUN/Creatinine Ratio 5 L (6-26) Glucose 95 (70-105) mg/dL Calculated Osmolality 300 (280-300) Calcium 8.7 (8.6-10.3) mg/dL
--- NOTE | 2018-11-13 15:53 | Vascular/Endovasc Consult Note ---
Date of Encounter: 11/13/18 Time of Encounter: 15:05 Assessment and Plan (1) Pseudoaneurysm of AV hemodialysis fistula Current Visit: Yes Status: Acute Patient has an expanding hematoma and large pseudoaneurysm on proximal aspect of cephalic vein. This is part of the AV fistula runoff system. Patient demonstrates venous aneurysmal changes. Evaluation of duplex scan shows areas of hematoma and pseudoaneurysm formation with active pulsatile flow into the pseudoaneurysm. Patient is on long-term anticoagulation which exacerbates the issue and requires surgical intervention. I did explain this to the patient and his . We'll proceed with surgery as an emergency this afternoon. All questions were answered. Nephrology to decide on further access plans though I anticipate tunneled hemodialysis catheter will need to be placed tomorrow by interventional radiology. Qualifiers: Encounter type: initial encounter Qualified Code(s): T82.898A - Other specified complication of vascular prosthetic devices, implants and grafts, initial encounter (2) CAD (coronary artery disease) Current Visit: No Status: Chronic Chronic coronary artery disease Qualifiers: Coronary Disease-Associated Artery/Lesion type: [place] artery [place] vs. transplanted heart: [place] heart Associated angina: without angina Qualified Code(s): I25.10 - Atherosclerotic heart disease of [place] coronary artery without angina pectoris (3) CHF (congestive heart failure) Current Visit: No Status: Chronic Chronic congestive heart failure Qualifiers: Heart failure type: diastolic Heart failure chronicity: acute on chronic Qualified Code(s): I50.33 - Acute on chronic diastolic (congestive) heart failure (4) COPD (chronic obstructive pulmonary disease) Current Visit: No Status: Chronic Chronic COPD Qualifiers: COPD type: unspecified COPD Qualified Code(s): J44.9 - Chronic obstructive pulmonary disease, unspecified (5) Chronic disease anemia Current Visit: No Status: Chronic Patient has chronic anemia from multiple ongoing chronic medical problems. (6) Diabetes mellitus Current Visit: No Status: Chronic Chronic diabetes Qualifiers: Diabetes mellitus type: type 2 Diabetes mellitus halfway insulin use: without halfway use Diabetes mellitus complication status: with kidney complications Diabetes mellitus complication detail: with chronic kidney disease Chronic kidney disease stage: on chronic dialysis Qualified Code(s): E11.22 - Type 2 diabetes mellitus with diabetic chronic kidney disease; N18.6 - End stage renal disease; Z99.2 - Dependence on renal dialysis (7) ESRD (end stage renal disease) on dialysis Current Visit: No Status: Chronic Patient has been dialyzed since 2013. He is dialyzing on a Saturday schedule. - History of Present Illness Consult date: 11/13/18 Consult reason: Right forearm expanding hematoma Chief complaint: Right forearm swelling and pain History of present illness: Mr. Hong is a 73 year old male Who is seen in the emergency room as an emergent consultation for expanding painful right forearm hematoma. The patient is a chronic renal failure patient receiving dialysis therapy on Saturday. The patient had dialysis yesterday morning. [place] through his dialysis he developed swelling and pain at the needle puncture site in the proximal right forearm. Patient has a right wrist arteriovenous fistula. The right wrist arteriovenous fistula was created in 2013 at [facility]. The patient has been receiving dialysis since October 2013. Patient had persistent swelling and pain in this area as well as progressive discoloration. He had contacted the nephrology office and then was directed to come to the emergency room for further evaluation. She was seen by the emergency room doctor and an arterial duplex scan was performed. I personally reviewed these images. These demonstrated patent arteriovenous fistula with a large pseudoaneurysm that is greater than 2-1/2 cm in size. The vein itself was also dilated and not amenable or appropriate for endovascular intervention. The patient has a very complicated past medical history and he is a frail patient. He was recently discharged from the hospital after a syncopal episode and pneumonia. He was discharged last Saturday. His multiple diagnoses include endstage renal disease, congestive heart failure, or urinary artery disease, atrial fibrillation with ongoing Coumadin therapy, diabetes, hypertension, hyperlipidemia, and gastroesophageal reflux. The patient also has severe COPD. Past Med Surg Social Fam HX - Past Medical History Medical history: CHF, coronary artery disease, diabetes, dialysis, GERD, hyperlipidemia, hypertension, renal disease, other Additional medical history: kidney disease, fistula, bph, hx rheumatic fever, chronic fatigue, ESRD, anemia, CVD, cardiac stents x 4 Psychiatric history: no psych history - Past Surgical History Surgical History: appendectomy, vascular surgery (Right wrist arterial venous fistula at [facility] 2013), other Additional surgical history: ear surgery, cardiac stents, fistula, BCC, lung bx, PTCA, Hernia x2 - Social History Smoking Status: Former smoker Smokeless Tobacco Status: No Alcohol use: none Drug use: none - Family History Mother Adopted: No Living Status: Hx Family Cardiac Disorders: Yes Hx Family Respiratory Disorders: No Hx Family Cancer: No Hx Family GI Disorders: No Hx Family Endocrine Disorder: No Hx Family Neuromuscular Disorders: No Hx Family Neurologic Disorders: No Hx Family HEENT Disorders: No Hx Family Autoimmune Disorders: No Medications and Allergies Amlodipine Besylate 10 mg PO QPM 10/07/17 [History] Aspirin [Lo-Dose Aspirin EC] 81 mg PO QPM 10/07/17 [History] Lisinopril 2.5 mg PO QAM 10/07/17 [History] Metoprolol Tartrate 50 mg PO QAM 10/07/17 [History] Omeprazole [PriLOSEC] 40 mg PO QAM 10/07/17 [History] Simvastatin [Zocor] 20 mg PO QAM 10/07/17 [History] Renal Vitamin [Renal Caps Softgel] 1 mg PO DAILY 02/07/18 [History] Warfarin [Coumadin] 2 mg PO MOWEFR 05/30/18 [History] Albuterol Sulfate [Ventolin Hfa] 2 puff IH Q4H PRN 11/03/18 [History] Calcium Acetate [Phos-LO] 2,001 mg PO TIDWM 11/03/18 [History] Furosemide [Lasix] 80 mg PO SUTUTHSA@0900 11/03/18 [History] Midodrine HCl 2.5 mg PO MOWEFR@0800 PRN MDD On Dialysis Days 11/03/18 [History] Warfarin Sodium 3 mg PO SUTUTHSA 11/03/18 [History] Fluticasone/Vilanterol [Breo Ellipta 100-25 Mcg INH] 1 puff IH DAILY 11/13/18 [History] Allergy/AdvReac Type Severity Reaction Status Date / Time No Known Allergies Allergy Verified 11/03/18 06:06 All Systems Review: The remainder of the systems were reviewed and are negative Exam Vital Signs, Last 4 Hours Temp Pulse Resp BP Pulse Ox 11/13/18 15:03 80 16 130/108 98 11/13/18 13:11 97.5 F L 88 18 119/79 96 General: Present: Conversant HEENT: Present: Atraumatic, Normocephaly, Trachea midline, Pupils equal, Other (Muscle wasting of face and neck) Neck: Absent: JVD, Midline deformity, Tracheal deviation Cardiac: Present: Irregular Rhythm Lungs: Present: Normal Breath Sounds Neuro: Present: Alert and responsive, No focal deficits noted, Cranial nerves grossly intact Vascular: Present: Other (Patient has a easily identifiable pulsatile mass in right proximal forearm on the ventral surface. There is gross ecchymosis over the proximal third of the right forearm. Patient has venous dilatation and areas of aneurysmal degeneration of the cephalic vein of the right forearm. Patient has an easily palpable thrill over the arteriovenous fistula with a loud bruit. The pulsatile hematoma and pseudoaneurysm is tender to touch. There is no sign of infection. There is no cellulitis. There is no purulence. There is no active external bleeding at this time.) Consult Discharge Plan - Plan Referrals: Tahir Herrera Jr, MD [Primary Care Provider] -
--- NOTE | 2018-11-13 15:55 | Anesthesia Evaluation PreOp ---
Date of Encounter: 11/13/18 Time of Encounter: 15:52 - Past History Planned Operation: Right Forearm Evacuation of Hematoma Cardiac History: CHF, HTN, Hyperlipidemia, Cardiac Stent (x4 2013), Other (CAD) Pulmonary History: Former smoker SOFTWARE [employer]INE[employer] History: Syncope Other Medical History: Renal (ESRD), Diabetes Type II, GERD, Other (bph, hx rheumatic fever, chronic fatigue) Anesthesia History: No Prior Anesthetic Complications, Past Anesthesia (ear surgery, cardiac stents, fistula, BCC, lung bx, PTCA, Hernia x2) Alcohol Use: none Drug use: none Medications and Allergies Amlodipine Besylate 10 mg PO QPM 10/07/17 [History] Aspirin [Lo-Dose Aspirin EC] 81 mg PO QPM 10/07/17 [History] Lisinopril 2.5 mg PO QAM 10/07/17 [History] Metoprolol Tartrate 50 mg PO QAM 10/07/17 [History] Omeprazole [PriLOSEC] 40 mg PO QAM 10/07/17 [History] Simvastatin [Zocor] 20 mg PO QAM 10/07/17 [History] Renal Vitamin [Renal Caps Softgel] 1 mg PO DAILY 02/07/18 [History] Warfarin [Coumadin] 2 mg PO MOWEFR 05/30/18 [History] Albuterol Sulfate [Ventolin Hfa] 2 puff IH Q4H PRN 11/03/18 [History] Calcium Acetate [Phos-LO] 2,001 mg PO TIDWM 11/03/18 [History] Furosemide [Lasix] 80 mg PO SUTUTHSA@0900 11/03/18 [History] Midodrine HCl 2.5 mg PO MOWEFR@0800 PRN MDD On Dialysis Days 11/03/18 [History] Warfarin Sodium 3 mg PO SUTUTHSA 11/03/18 [History] Fluticasone/Vilanterol [Breo Ellipta 100-25 Mcg INH] 1 puff IH DAILY 11/13/18 [History] Allergy/AdvReac Type Severity Reaction Status Date / Time No Known Allergies Allergy Verified 11/03/18 06:06 - Meds/Allergy Pre-op Review Medications Reviewed: Yes Allergies Reviewed: Yes Beta Blockers on Current Med List: Yes If Beta Blockers taken, Date/Time (Last Dose taken): 16: 18 Today Anesthesia Results - Labs 11/13/18 13:47 11/13/18 13:47 - Imaging EKG: report reviewed (ATRIAL FLUTTER/FIBRILLATION WITH RAPID VENTRICULAR RESPONSE MARKED LEFT AXIS DEVIATION INCOMPLETE RIGHT BUNDLE BRANCH BLOCK NONSPECIFIC ST & T-WAVE ABNORMALITY) Additional studies: Limited Echocardiogram Name: Moses Hong Date of Study: 11/03/2018 EV/EV limited echocardiogram Impressions: LVEF 55-60%. Mild concentric left ventricular hypertrophy. Atypical septal motion consistent with bundle branch block. Severely dilated left atrium. Severely dilated right atrium. There is a trivial pericardial effusion present. Anesthesia Exam Vital Signs/O2 Sat, Most Current Temp Pulse Resp BP Pulse Ox 97.5 F L 80 16 130/108 98 11/13/18 13:11 11/13/18 15:03 11/13/18 15:03 11/13/18 15:03 11/13/18 15:03 - HEENT Pupil (Motor): Pupils equal, EOMI Mallampati: II Teeth: Poor dentition Oral Opening: Greater than 3 - SOFTWARE [employer] LOC: Oriented SOFTWARE [employer] Motor: Normal RUE, Normal LUE, Normal RLE, Normal LLE, Normal Face [employer] Sensory: Normal: RUE, LUE, RLE, LLE, Face - Cardiac Rhythm: Regular Murmur: None JVD: No Carotid Bruit: No - Pulmonary Breath Sounds: bilateral Clear Respiratory Effort: Symmetrical Anesthesia Assess/Plan ASA Score: 4 Level of consciousness: Cooperative Anesthetic Plan: General Autologous Blood: Yes Recovery Plan: PACU
--- NOTE | 2018-11-13 16:07 | Internal Med History&Physical ---
<Pantera Wren - Last Filed: 11/13/18 17:49> Date of Encounter: 11/13/18 Time of Encounter: 15:40 Internal Medicine - H&P: HPI Chief complaint: Fistula swelling Admitted From: Emergency Dept History of present illness: Mr. Hong is a 73 year old male with a past medical history of hypertension, CAD, atrial fibrillation on Coumadin, and ESRD on hemodialysis every Saturday/ Saturday/ Saturday who presented to the ED complaining of right upper extremity AV fistula swelling associated with hemodialysis yesterday. Kenna through his dialysis he developed swelling and pain at the needle puncture site in the proximal right forearm. The right wrist arteriovenous fistula was created in 2013 at [facility]. The patient has been receiving dialysis since October 2013. Patient was evaluated by his life care planner, Dr. Millan and sent to the ED for further workup. In the ED, right upper extremity ultrasound revealed TDS poor visualization d/t size of swelling on arm. 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 Unclear if connected to AVF anastamosis or kot[place] vessel. Thrombosed structure also noted on medial aspect of antecubital area. Both vascular surgery and nephrology have been consulted. Past Med Surg Social Fam HX - Past Medical History Medical history: CHF, coronary artery disease, diabetes, dialysis, GERD, h yperlipidemia, hypertension, renal disease, other Additional medical history: kidney disease, fistula, bph, hx rheumatic fever, chronic fatigue, ESRD, anemia, CVD, cardiac stents x 4 Psychiatric history: no psych history - Past Surgical History Surgical History: appendectomy, vascular surgery (Right wrist arterial venous fistula at [facility] 2013), other Additional surgical history: ear surgery, cardiac stents, fistula, BCC, lung bx, PTCA, Hernia x2 - Social History Smoking Status: Former smoker Smokeless Tobacco Status: No Alcohol use: none Drug use: none - Family History Mother Adopted: No Living Status: Hx Family Cardiac Disorders: Yes (HTN) Hx Family Respiratory Disorders: No Hx Family Cancer: No Hx Family GI Disorders: No Hx Family Endocrine Disorder: No Hx Family Neuromuscular Disorders: No Hx Family Neurologic Disorders: No Hx Family HEENT Disorders: No Hx Family Autoimmune Disorders: No Father Living Status: Internal Medicine - H&P: Meds Amlodipine Besylate 10 mg PO QPM 10/07/17 [History] Aspirin [Lo-Dose Aspirin EC] 81 mg PO QPM 10/07/17 [History] Lisinopril 2.5 mg PO QAM 10/07/17 [History] Metoprolol Tartrate 50 mg PO QAM 10/07/17 [History] Omeprazole [PriLOSEC] 40 mg PO QAM 10/07/17 [History] Simvastatin [Zocor] 20 mg PO QAM 10/07/17 [History] Renal Vitamin [Renal Caps Softgel] 1 mg PO DAILY 02/07/18 [History] Warfarin [Coumadin] 2 mg PO MOWEFR 05/30/18 [History] Albuterol Sulfate [Ventolin Hfa] 2 puff IH Q4H PRN 11/03/18 [History] Calcium Acetate [Phos-LO] 2,001 mg PO TIDWM 11/03/18 [History] Furosemide [Lasix] 80 mg PO SUTUTHSA@0900 11/03/18 [History] Midodrine HCl 2.5 mg PO MOWEFR@0800 PRN MDD On Dialysis Days 11/03/18 [History] Warfarin Sodium 3 mg PO SUTUTHSA 11/03/18 [History] Fluticasone/Vilanterol [Breo Ellipta 100-25 Mcg INH] 1 puff IH DAILY 11/13/18 [History] Allergy/AdvReac Type Severity Reaction Status Date / Time No Known Allergies Allergy Verified 11/03/18 06:06 All Systems PM: A 10-system review of systems was performed and is negative for pertinent findings except as documented above in the HPI. - Constitutional Constitutional: weakness, no chills, no fever(s) - EENT Eyes: no blurry vision, no diplopia Nose, mouth and throat: no sinus pain, no sore throat - Cardiovascular Cardiovascular ROS IM: no chest pain, no dyspnea - Respiratory Respiratory: no cough, no dyspnea - Gastrointestinal Gastrointestinal: no abdominal pain, no diarrhea, no nausea, no vomiting - Genitourinary Genitourinary ROS male: no dysuria, no urinary frequency, no urinary urgency - Musculoskeletal Musculoskeletal ROS IM: no numbness, no tingling - Integumentary Integumentary IM: other (fistula swelling), no rash, no jaundice - Neurological Neurological ROS: no numbness, no tingling - Psychiatric Psychiatric: no anxiety, no depression - Endocrine Endocrine IM: no polydipsia, no polyphagia, no polyuria - Constitutional Vitals: Temp Pulse Resp BP Pulse Ox 97.5 F L 80 16 130/108 98 11/13/18 13:11 11/13/18 15:03 11/13/18 15:03 11/13/18 15:03 11/13/18 15:03 General appearance: Present: cooperative, A&O X 3, pleasant, no acute distress, answers questions appropriately Exam: awake - Head Head exam: Present: atraumatic, normocephalic - Eye Eye exam: Present: EOMI, conjuntiva pink, sclera anicteric - ENT ENT exam: Present: mucous membranes moist, normal oropharynx - Neck Neck exam general surgery: Present: supple, trachea midline. Absent: lymphadenopathy - Respiratory Respiratory exam: Present: CTAB. Absent: accessory muscle use, rales, rhonchi, wheezes - Cardiovascular Cardiovascular exam: Present: RRR, +S1, +S2. Absent: diastolic murmur, gallop, rubs, systolic murmur - GI/Abdominal GI/Abdominal exam: Present: normal bowel sounds, soft, no peritoneal signs. Absent: distended, tenderness - Extremities Exam Extremities exam: Present: warm. Absent: calf tenderness, cyanotic, pedal edema - Expanded Upper Extremities Exam Vascular exam: Present: brachial pulse (right upper extremity AV fistula pseudoaneurysm, negative arm elevation test, positive thrill, positive bruit) - Back Exam Back exam: Present: normal inspection. Absent: paraspinal tenderness, tenderness - Neurological Exam Neurological exam: Present: alert, CN II-XII intact, oriented X3, no focal deficits. Absent: facial droop, speech deficit - Psychiatric Psychiatric exam: Present: normal affect, normal mood - Skin Skin exam: Present: dry, erythema, intact Internal Med - H&P Results - Labs CBC & Chem 7: 11/13/18 13:47 11/13/18 13:47 Labs: Short CBC 11/13/18 Range/Units 13:47 WBC 5.6 (4.3-11.1) K/mcL Hgb 9.6 L (12.9-16.9) g/dL Hct 30.4 L (37.5-50.1) % Plt Count 142 (140-400) K/mcL Neutrophils # 4.4 (1.6-8.9) K/mcL BMP 11/13/18 13:47 Sodium 141 Potassium 4.8 Chloride 102 Carbon Dioxide 27 BUN 35 H Creatinine 6.75 H Glucose 95 Calcium 8.7 - Pulse Oximetry Interpretation Digit-Finger O2 Sat by Pulse Oximetry: 96 (On 4L supplemental oxygen) Actions taken: none - Assessment and Plan (1) Pseudoaneurysm of AV hemodialysis fistula Current Visit: Yes Status: Acute Assessment and plan: Patient presents with right upper extremity AV fistula pseudoaneurysm, negative arm elevation test, positive thrill, positive bruit. Right upper extremity ultrasound revealed TDS poor visualization d/t size of swelling on arm. 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 Unclear if connected to AVF anastamosis or kotlik vessel. Thrombosed structure also noted on medial aspect of antecubital area. Hold Coumadin. Vascular surgery and nephrology following, appreciate recommendations. Qualifiers: Encounter type: initial encounter Qualified Code(s): T82.898A - Other specified complication of vascular prosthetic devices, implants and grafts, initial encounter (2) ESRD (end stage renal disease) on dialysis Current Visit: Yes Status: Chronic Assessment and plan: Patient with ESRD on hemodialysis every Saturday/ Saturday/ Saturday Nephrology following (3) Hypertension Current Visit: No Status: Chronic Assessment and plan: Blood pressure controlled Continue home meds Qualifiers: Hypertension type: essential hypertension Qualified Code(s): I10 - Essential (primary) hypertension (4) CAD (coronary artery disease) Current Visit: No Status: Chronic Assessment and plan: Continue home meds Qualifiers: Coronary Disease-Associated Artery/Lesion type: k[place] artery [place] vs. transplanted heart: kotlik heart Associated angina: without angina Qualified Code(s): I25.10 - Atherosclerotic heart disease of k[place] coronary artery without angina pectoris (5) COPD (chronic obstructive pulmonary disease) Current Visit: No Status: Chronic Qualifiers: COPD type: unspecified COPD Qualified Code(s): J44.9 - Chronic obstructive pulmonary disease, unspecified (6) DVT prophylaxis Current Visit: No Status: Acute Assessment and plan: SCDs (7) A-fib Current Visit: No Status: Chronic Assessment and plan: Continue Metoprolol Hold Coumadin secondary to right arm aneurysm Qualifiers: Atrial fibrillation type: paroxysmal Qualified Code(s): I48.0 - Paroxysmal atrial fibrillation - Time Spent With Patient Total time spent is greater than 50% in coordination of care (as documented) at patient's floor/unit and/or counseling patient: <Luna Hedrick - Last Filed: 11/14/18 03:39> Date of Encounter: 11/13/18 Internal Medicine - H&P: HPI History of present illness: Mr. Hong is a 73 year old male All Systems PM: A 10-system review of systems was performed and is negative for pertinent findings except as documented above in the HPI. - Constitutional Vitals: Temp Pulse Resp BP Pulse Ox 98.1 F 78 14 108/69 99 11/14/18 03:09 11/14/18 03:09 11/14/18 03:09 11/14/18 03:09 11/14/18 03:09 Internal Med - H&P Results - Labs CBC & Chem 7: 11/13/18 13:47 11/13/18 13:47 Labs: Short CBC 11/13/18 Range/Units 13:47 WBC 5.6 (4.3-11.1) K/mcL Hgb 9.6 L (12.9-16.9) g/dL Hct 30.4 L (37.5-50.1) % Plt Count 142 (140-400) K/mcL Neutrophils # 4.4 (1.6-8.9) K/mcL BMP 11/13/18 13:47 Sodium 141 Potassium 4.8 Chloride 102 Carbon Dioxide 27 BUN 35 H Creatinine 6.75 H Glucose 95 Calcium 8.7 - Assessment and Plan (1) CAD (coronary artery disease) Current Visit: No Status: Chronic Qualifiers: Coronary Disease-Associated Artery/Lesion type: [place] artery [place] vs. transplanted heart: [place] heart Associated angina: without angina Qualified Code(s): I25.10 - Atherosclerotic heart disease of [place] coronary artery without angina pectoris (2) ESRD (end stage renal disease) on dialysis Current Visit: Yes Status: Chronic (3) Hypertension Current Visit: No Status: Chronic Qualifiers: Hypertension type: essential hypertension Qualified Code(s): I10 - Essential (primary) hypertension (4) DVT prophylaxis Current Visit: No Status: Acute (5) COPD (chronic obstructive pulmonary disease) Current Visit: No Status: Chronic Qualifiers: COPD type: unspecified COPD Qualified Code(s): J44.9 - Chronic obstructive pulmonary disease, unspecified (6) Pseudoaneurysm of AV hemodialysis fistula Current Visit: Yes Status: Acute Qualifiers: Encounter type: initial encounter Qualified Code(s): T82.898A - Other speci fied complication of vascular prosthetic devices, implants and grafts, initial encounter (7) A-fib Current Visit: No Status: Chronic Qualifiers: Atrial fibrillation type: paroxysmal Qualified Code(s): I48.0 - Paroxysmal atrial fibrillation - Time Spent With Patient Total time spent is greater than 50% in coordination of care (as documented) at patient's floor/unit and/or counseling patient: - Attending Attestation I personally and independently interviewed and examined the patient, and I reviewed the patient's medical records. I am in agreement with the assessment and proposed treatment plan. I discussed my findings and recommendation with the patient and answer his questions. The patient's medical records were edited to accurately reflect this encounter.
[2018-11-13] MEDS ORDERED: Acetaminophen 325 MG TABLET PO PRN ×2 (16:08→20:56)
[2018-11-13] MEDS ORDERED: Ondansetron 4 MG/2 ML VIAL IVP PRN ×2 (16:08→20:56)
[2018-11-13] MEDS ORDERED: Naloxone 0.4 MG/ML INJ IVP PRN ×3 (16:08→20:56)
[2018-11-13] MEDS ORDERED: Heparin 1,000 UNITS/500 mL 1,000 ML ONE (16:24)
[2018-11-13] MEDS ORDERED: *HR* Succinylcholine 200 MG/10 ML VIAL IVP ONE (16:37)
[2018-11-13] MEDS ORDERED: Dexamethasone 4 MG/ML VIAL ONE (16:37)
[2018-11-13] MEDS ORDERED: Lidocaine -MPF 2% 2 ML VIAL ONE (16:37)
[2018-11-13] MEDS ORDERED: *HR* Propofol 200 MG/20 ML VIAL IVP ONE (16:38)
[2018-11-13] MEDS ORDERED: *HR* FentaNYL (PF) 100 MCG/2 ML VIAL ONE (16:38)
[2018-11-13] MEDS ORDERED: Calcium Acetate 667 MG CAPSULE PO SCH (17:00)
[2018-11-13] MEDS ORDERED: *HR* PHENYLEPHRINE 1,000 MCG/10 ML SYRINGE IVP ONE ×4 (17:10→18:48)
[2018-11-13] MEDS ORDERED: ceFAZolin 2,000 MG in Water for inj. (sterile) 20 ML IVP ONE ×2 (17:52→20:56)
[2018-11-13] MEDS ORDERED: Aspirin Enteric Coated 81 MG Tablet PO SCH (18:00)
[2018-11-13] MEDS ORDERED: amLODIPine 5 MG TABLET PO SCH (18:00)
--- NOTE | 2018-11-13 18:46 | Operative Note ---
Date of procedure: 11/13/18 Pre-op diagnosis: Expanding hematoma right forearm and right arteriovenous fistula pseudoaneu Post-op diagnosis: same Procedure: Exploration of right forearm and resection and ligation of right arteriovenous fistula pseudoaneurysm Complications: None Anesthesia: GETA Surgeon: Mitch Nolasco Was there an residential living assistant present: No Estimated blood loss (cc): 150 Specimen: Hematoma/pseudoaneurysm Condition: stable Disposition: PACU Procedure in Detail: History Moses Hankins is a 73-year-old white male that was seen in emergent consultation in the emergency room this afternoon. He had had dialysis yesterday and developed pain and swelling in the right forearm. This continued overnight was worse this morning. Patient is on Coumadin. He had had a right arteriovenous fistula created at [facility] in 2013. He is dialyzed on a Saturday was a Saturday basis. The patient has multiple ongoing chronic medical problems. Procedure After informed consent was obtained the patient was taken to the operating room. General endotracheal anesthesia was established. The right upper extremity was sterilely prepped and draped. A timeout protocol was observed. The initial incision made was near the left wrist. This would allow me to control and ligate the runoff cephalic vein from the arteriovenous fistula so that the arterial expansion of the hematoma would stop and hemostasis would be easier to control. This was ligated with 2 2-0 silk sutures. Second incision was then made near the antecubital area. This was done to dissect the vein above the area of the pseudoaneurysm. The third incision was an oblique incision over the main body of the hematoma and pseudoaneurysm. A large hematoma was encountered that was larger than the size of a golf ball. The cephalic vein was identified below this hematoma. This was a very large and distended and aneurysmal vein. A section of this vein was resected where the pseudoaneurysm originated. The divided vein was sewn proximally and distally with 6-0 Prolene suture to secure hemostasis. The wounds were then irrigated with antibody containing solution. Hemostasis was achieved. The wounds were then closed in layers using absorbable suture except at the hematoma drainage site. Here the skin edges were approximated with a running 4-0 nylon suture. A bulky dry dressing was then applied to the right forearm. There were no intraoperative complications. The patient will be taken from the operating room to the recovery room.
--- NOTE | 2018-11-13 22:39 | Anesthesia Evaluation Post Op ---
Date of Encounter: 11/13/18 Time of Encounter: 20:24 - Vital Signs Vital Signs: Vital Signs/O2 Sat/Glucose, Most Current Temp Pulse Resp BP Pulse Ox 11/13/18 20:38 97.5 F L 80 16 121/65 93 11/13/18 20:28 97.5 F L 82 16 116/75 93 11/13/18 20:18 84 16 119/66 93 11/13/18 20:08 86 16 114/69 92 11/13/18 19:58 97.5 F L 86 16 121/71 94 11/13/18 19:48 92 18 116/67 93 11/13/18 19:38 78 18 122/62 94 11/13/18 19:28 97.5 F L 83 18 128/72 94 11/13/18 19:18 79 18 119/81 97 11/13/18 19:08 78 20 109/65 96 11/13/18 18:58 97.4 F L 75 20 114/71 97 - Lungs Lungs: Clear Ascult./Percussion - Airway Airway: Non-obstructed - Cardiovascular Baseline Rhythm - Mental Status Mental Status: Alert & Oriented, Answers Appropriately - Pain Pain Scale: 0 Pain Scale used: Numeric (1 - 10) - Nausea Vomiting Nausea Vomiting: Not Present - Hydration Hydration: Ice chips, Has not voided - Discharge PostOp Status: Transfer Patient to floor Anes Supervising Prov Stmt: Pt VSS and has met criteria for discharge to floor. - MD Cande
[2018-11-14] MEDS ORDERED: 0.9 % Sodium Chloride 250 ML IVC PRN (07:33)
[2018-11-14] MEDS ORDERED: 0.9 % Sodium Chloride 1,000 ML PRIME SCH (07:45)
[2018-11-14] MEDS: Calcium Acetate 667 MG CAPSULE PO SCH ×3 (08:13→20:54)
[2018-11-14] MEDS: Renal Vitamin 1 CAP CAPSULE PO SCH (08:14)
[2018-11-14] MEDS: *HR* HYDROcodone/Acet 5/325 mg TABLET PO PRN ×2 (08:23→13:51)
--- NOTE | 2018-11-14 10:21 | Electrocardiograph Report ---
[address] [place], [place] [address] Test Date: 2018-11-13 Pat Name: Moses Hong Department: 110 Room: 2N04 Gender: M Vehicle [employer] Equipment [employer]: : 1945 Requested By: Mitch Nolasco Order Number: [id number] Reading MD: Jamshid Medrano Measurements Intervals [place] Rate: 82 P: MS: 0 QRS: -46 QRSD: 115 T: 162 QT: 414 QTc: 452 Interpretive Statements ATRIAL FIBRILLATION INCOMPLETE RIGHT BUNDLE BRANCH BLOCK LEFT ANTERIOR FASCICULAR BLOCK ST DEVIATION AND MODERATE T-WAVE ABNORMALITY, CONSIDER LATERAL ISCHEMIA Electronically Signed On 11-14-2018 10:19:46 EDT by Jamshid Medrano
[2018-11-14 11:03] LABS: INR 1.5; Prothrombin Time 16.5 Seconds (9.4-12.1)
[2018-11-14 11:04] LABS: Hematocrit 30.1 % (37.5-50.1); Hemoglobin 9.4 g/dL (12.9-16.9); Mean Corpuscular HGB Conc 31.2 g/dL (31.6-35.5); Mean Corpuscular Hemoglobin 32.5 pg (28.0-33.3); Mean Corpuscular Volume 104.2 fL (83.0-100.0); Platelet Count 146 K/mcL (140-400); Red Blood Count 2.89 M/mcL (4.19-5.50); Red Cell Distribution Width 13.7 % (11.5-14.5)
[2018-11-14 11:13] LABS: Calcium 8.6 mg/dL (8.6-10.3); Magnesium 1.7 mg/dL (1.6-2.6); Phosphorous 6.8 mg/dL (2.7-4.5); Potassium 5.2 mEq/L (3.5-5.1)
--- NOTE | 2018-11-14 12:02 | Nephrology Consult Note ---
Date of Encounter: 11/14/18 Time of Encounter: 10:30 Assessment and Plan (1) ESRD (end stage renal disease) on dialysis Status: Chronic I happened be rounding in the dialysis unit yesterday (), when the patient called the dialysis unit and requested to be seen to assess his arm that was worsening. Note was in his dialysis today, he came in and I found that he had a large pulsatile mass overlying his right arm fistula. This appeared to be a vascular emergency, and I sent him to the emergency department. I called the ER and updated them about his name and date of . Appreciate the ER, and the hospitalist. Dr. velasco will updated me yesterday, and then I called Dr. Nolasco who reported that the patient had one option and that was AV fistula ligation. The patient will need dialysis today, as he is dialysis dependent and receives his treatments every Saturday/Saturday/Saturday. He will need a permacath ultimately, and I spoke with the interventional radiology department to request a dialysis catheter. Since he has been on Coumadin there is a chance he might end up with a temporary dialysis catheter. He will get dialysis today, which I have ordered. So long as things go smoothly with dialysis, and so long as he gets a functioning permacath, then he would be able to be discharged and follow up with his vascular surgeon of choice. (2) Hemodialysis AV fistula aneurysm Status: Acute Appreciate Vascular Surgery and the Hospitalist. Qualifiers: Encounter type: initial encounter Qualified Code(s): T82.898A - Other specified complication of vascular prosthetic devices, implants and grafts, initial encounter (3) Pseudoaneurysm of AV hemodialysis fistula Status: Acute See above Qualifiers: Encounter type: subsequent encounter Qualified Code(s): T82.898D - Other specified complication of vascular prosthetic devices, implants and grafts, subsequent encounter (4) Anemia Status: Chronic Goal Hgb is 10-11. Will monitor and provide EPO and/or IV iron as needed. Qualifiers: Anemia type: due to chronic kidney disease Chronic kidney disease stage: on chronic dialysis Qualified Code(s): N18.6 - End stage renal disease; D63.1 - Anemia in chronic kidney disease; Z99.2 - Dependence on renal dialysis History of Present Illness - Reason for Consult Consult date: 11/14/18 Requesting physician: Orquidea Brady - Chief Complaint ESRD with av access dysfunction - History of Present Illness The patient is a very pleasant 73-year-old male with a past medical history of ESRD on thrice weekly hemodialysis Saturday/Saturday/Saturday who presented after developing a large pulsatile lesion overlying his AV fistula. Nephrology was consulted to help maintain his dialysis schedule. He last completed dialysis a few days ago, but his treatment was abruptly stopped early when his AV fistula started to swell. It was presumed to be a hematoma, per report, and he was sent home. The next day he complained of worsening swelling overlying the AV fistula and he was instructed to visit the dialysis unit to assess hia AVF. I happen to be rounding at the [facility] for [facility] patients at the time, and it was noted that there was a large aneurysm on the AV fistula. I sent him to the emergency department out of concern for a potential vascular emergency. He complained of swelling in the arm, but no new tingling in the hands. He denied having fevers, chills, chest pain, shortness of breath, nausea, vomiting, diarrhea, abdominal pain. Past Med Surg Social Fam HX - Past Medical History Medical history: CHF, coronary artery disease, diabetes, dialysis, GERD, hyperlipidemia, hypertension, renal disease, other Additional medical history: kidney disease, fistula, bph, hx rheumatic fever, chronic fatigue, ESRD, anemia, CVD, cardiac stents x 4 Psychiatric history: no psych history - Past Surgical History Surgical History: appendectomy, vascular surgery, other Additional surgical history: ear surgery, cardiac stents, fistula, BCC, lung bx, PTCA, Hernia x2 - Social History Smoking Status: Former smoker Smokeless Tobacco Status: No Alcohol use: none Drug use: none - Family History Mother Adopted: No Living Status: Hx Family Cardiac Disorders: Yes (HTN) Hx Family Respiratory Disorders: No Hx Family Cancer: No Hx Family GI Disorders: No Hx Family Endocrine Disorder: No Hx Family Neuromuscular Disorders: No Hx Family Neurologic Disorders: No Hx Family HEENT Disorders: No Hx Family Autoimmune Disorders: No Father Living Status: Medications and Allergies Amlodipine Besylate 10 mg PO QPM 10/07/17 [History] Aspirin [Lo-Dose Aspirin EC] 81 mg PO QPM 10/07/17 [History] Lisinopril 2.5 mg PO QAM 10/07/17 [History] Metoprolol Tartrate 50 mg PO QAM 10/07/17 [History] Omeprazole [PriLOSEC] 40 mg PO QAM 10/07/17 [History] Simvastatin [Zocor] 20 mg PO QAM 10/07/17 [History] Renal Vitamin [Renal Caps Softgel] 1 mg PO DAILY 02/07/18 [History] Warfarin [Coumadin] 2 mg PO MOWEFR 05/30/18 [History] Albuterol Sulfate [Ventolin Hfa] 2 puff IH Q4H PRN 11/03/18 [History] Calcium Acetate [Phos-LO] 2,001 mg PO TIDWM 11/03/18 [History] Furosemide [Lasix] 80 mg PO SUTUTHSA@0900 11/03/18 [History] Midodrine HCl 2.5 mg PO MOWEFR@0800 PRN MDD On Dialysis Days 11/03/18 [History] Warfarin Sodium 3 mg PO SUTUTHSA 11/03/18 [History] Fluticasone/Vilanterol [Breo Ellipta 100-25 Mcg INH] 1 puff IH DAILY 11/13/18 [History] Allergy/AdvReac Type Severity Reaction Status Date / Time No Known Allergies Allergy Verified 11/03/18 06:06 Review of Systems All Systems: reviewed and no additional remarkable complaints except as stated Exam - Vital Signs Vital signs: Initial Vital Signs Temp Pulse Resp BP Pulse Ox 97.5 F L 88 18 119/79 96 11/13/18 13:11 11/13/18 13:11 11/13/18 13:11 11/13/18 13:11 11/13/18 13:11 Vital Signs - Last 8 Hours Temp Pulse Resp BP Pulse Ox 11/14/18 11:22 97.9 F 79 18 117/64 11/14/18 08:26 98 11/14/18 07:30 97.7 F 76 18 129/78 98 Intake and Output 11/13/18 11/14/18 11/14/18 23:59 07:59 15:59 Intake Total 100 / 100 0 / 100 Output Total 150 / 150 Balance -150 / -150 100 / 100 0 / 100 Intake: IV Fluids 100 / 100 Ancef 2,000 MG In 0.9 % Sodium 100 / 100 Chloride 100 ML @ 200 mls/hr IVPB Q8HR ALISA Rx#:[id number] Oral 0 / 0 Output: Estimated Blood Loss 150 / 150 Other: Meal NPO Percent of Meal Consumed 0% Stool Size Small Stool Consistency loose Stool Color Brown # Bowel Movements 1 Weight 92.5 kg 93 kg Blood Glucose* 100 81 84 Patient Weight 11/14/18 23:59 Weight 93 kg - General Appearance General appearance: well-developed, well-nourished, fatigue, frail EENT: ATNC, PERRL, mucous membranes moist Neck: supple Respiratory: clear Cardiology: edema (1+ pretibial pitting edema bilaterally), regular rate, regular rhythm, normal S1, normal S2 - Dialysis Access Additional Comments: Dialysis access: His right upper extremity is gently wrapped in dressing that was clean and dry. The temperature of his right hand was warm. He does not yet have a temporary or tunneled dialysis catheter Gastrointestinal: normoactive bowel sounds, no tenderness Integumentary: warm and dry Neurologic: no focal deficit, no asterixis, alert and oriented x3 Musculoskeletal: no erythema, no cyanosis, no clubbing Psychiatric: mood/affect appropriate, cooperative Results - Lab Results 11/15/18 04:10 11/15/18 04:10 Most recent lab results 11/14/18 09:40 Calcium 8.6 Phosphorus 6.8 H Magnesium 1.7 Consult Discharge Plan - Plan Additional Instructions: - No changes were made in your home medicines during this hospitalization. - Discuss with your flag signalman whether you still need to take Lasix while on dialysis. -Wound Care: Daily Remove old dressing, wash with CHG soap and pat dry. Apply adaptive gauze, pad with dry gauze, and wrap with gauze wrap. Secure with tape. Referrals: Tahir Herrera Jr, MD [Primary Care Provider] - 11/21/18 9:15 am Mitch Nolasco MD [Partnered Physician] - 12/03/18 9:45 am
--- NOTE | 2018-11-14 12:56 | Internal Med Progress Note ---
Hospitalist Progress Note - Encounter Date of Encounter: 11/14/18 Time of Encounter: 12:54 - Subjective Interval History: Patient seen and examined at bedside. Patient states that he feels pretty good today. He denies any pain in his right arm. Denies any fevers, chills, evidence of bleeding. - Exam Vitals: Temp Pulse Resp BP Pulse Ox 97.9 F 79 18 117/64 98 11/14/18 11:22 11/14/18 11:22 11/14/18 11:22 11/14/18 11:11/14/18 08:26 Exam: Gen.: Oriented 3, no acute distress Heart: Regular rate and rhythm, no murmurs, rubs, gallops Lungs: Clear to auscultation bilaterally, no rales, rhonchi, wheezes Extremities: Right upper extremity has dressing in place, dressing clean dry and intact. - Assessment and Plan (1) Pseudoaneurysm of AV hemodialysis fistula Current Visit: Yes Status: Acute Assessment and Plan: Postop day 1 status post ligation of the patient's AV fistula. Seems to be recovering well. Patient wishes to follow-up with Dr. Nolasco as an outpatient for management of his recent surgery as well as evaluating for another AV fistu la. (2) ESRD (end stage renal disease) on dialysis Current Visit: Yes Status: Chronic Assessment and Plan: Patient currently undergoes dialysis Saturday, Saturday, Saturday. Fistula ligated as above so patient will need permacath placed today by IR. Plan for hemodialysis today per nephrology recommendations. (3) A-fib Current Visit: No Status: Chronic Assessment and Plan: Rate currently controlled. Continue rate controlling medications. Coumadin on hold while awaiting permacath placement. We will restart after procedure. (4) CAD (coronary artery disease) Current Visit: No Status: Chronic Assessment and Plan: Chest pain-free at this time. Continue aspirin, statin. (5) Hypertension Current Visit: No Status: Chronic Assessment and Plan: Blood pressure good control. Continue medications. (6) COPD (chronic obstructive pulmonary disease) Current Visit: No Status: Chronic Assessment and Plan: No evidence of acute exacerbation. (7) DVT prophylaxis Current Visit: No Status: Acute Assessment and Plan: Coumadin currently being held but will restart after procedures today. - Time Spent with Patient Total time spent is greater than 50% in coordination of care (as documented) at patient's floor/unit and/or counseling patient: Internal Medicine: Result - Labs CBC & Chem 7: 11/14/18 09:40 11/14/18 09:40 Labs: Short CBC 11/13/18 11/14/18 Range/Units 13:47 09:40 WBC 5.6 7.1 (4.3-11.1) K/mcL Hgb 9.6 L 9.4 L (12.9-16.9) g/dL Hct 30.4 L 30.1 L (37.5-50.1) % Plt Count 142 146 (140-400) K/mcL Neutrophils # 4.4 (1.6-8.9) K/mcL BMP 11/13/18 11/14/18 13:47 09:40 Sodium 141 141 Potassium 4.8 5.2 H Chloride 102 103 Carbon Dioxide 27 25 BUN 35 H 44 H Creatinine 6.75 H 7.98 H Glucose 95 79 Calcium 8.7 8.6 - ABG Interpretation ABG results: PT/INR, D-dimer PT 16.5 Seconds (9.4-12.1) H 11/14/18 09:40 Consult Discharge Plan - Plan Referrals: Tahir Herrera Jr, MD [Primary Care Provider] - 11/21/18 9:15 am Mitch Nolasco MD [Partnered Physician] - 12/03/18 9:45 am (1) Pseudoaneurysm of AV hemodialysis fistula Qualifiers: Encounter type: initial encounter Qualified Code(s): T82.898A - Other specified complication of vascular prosthetic devices, implants and grafts, initial encounter (3) A-fib Qualifiers: Atrial fibrillation type: paroxysmal Qualified Code(s): I48.0 - Paroxysmal atrial fibrillation (4) CAD (coronary artery disease) Qualifiers: Coronary Disease-Associated Artery/Lesion type: [place] artery [place] vs. transplanted heart: [place] heart Associated angina: without angina Qualified Code(s): I25.10 - Atherosclerotic heart disease of [place] coronary artery without angina pectoris (5) Hypertension Qualifiers: Hypertension type: essential hypertension Qualified Code(s): I10 - Essential (primary) hypertension (6) COPD (chronic obstructive pulmonary disease) Qualifiers: COPD type: unspecified COPD Qualified Code(s): J44.9 - Chronic obstructive pulmonary disease, unspecified
[2018-11-14] MEDS ORDERED: Heparin 1,000 UNITS/500 mL 500 ML ONE (13:57)
--- NOTE | 2018-11-14 14:11 | Vascular/[facility]as Progress Note ---
Date of Encounter: 11/14/18 Time of Encounter: 13:10 - Assessment and plan (1) Pseudoaneurysm of AV hemodialysis fistula Current Visit: Yes Status: Acute The patient is postoperative day #1 after exploration of the right forearm resection and ligation of the right arteriovenous fistula pseudoaneurysm. He has no evidence of bleeding or pulsatile mass. His arm is viable. His incision is clean, dry and intact. He has no evidence of infection. The patient will continue with local wound care. He will follow-up in vascular clinic with Dr. Nolasco after discharge. Qualifiers: Encounter type: subsequent encounter Qualified Code(s): T82.898D - Other specified complication of vascular prosthetic devices, implants and grafts, subsequent encounter - Subjective Interval history: The patient reports his right arm feels much better. He denies any fevers or chills. He denies any chest or shortness of breath. Vital Signs, Last 4 Hours Temp Pulse Resp BP 11/14/18 11:22 97.9 F 79 18 117/64 - Physical Examination General: Present: Conversant, No Apparent Distress Neck: Absent: JVD Cardiac: Present: Reg Rate and Rhythm Lungs: Present: Normal Breath Sounds Neuro: Present: Alert and responsive Vascular: Present: Normal capillary refill, Pulse, normal (Right radial pulse n ormal), Surgical incisions (Incision clean, dry and intact without erythema or drainage). Absent: Cyanosis Abdomen: Present: Soft Skin: Present: No rashes noted on visualized skin, Other (Ecchymosis present on the right arm and forearm) Results 11/14/18 09:40 11/14/18 09:40 Lab Results, Last 24 hours 11/13/18 11/13/18 11/13/18 13:47 13:47 13:47 WBC 5.6 Hgb 9.6 L Hct 30.4 L Plt Count 142 INR 1.5 Sodium 141 Potassium 4.8 Chloride 102 Carbon Dioxide 27 BUN 35 H Creatinine 6.75 H Glucose 95 Calcium 8.7 Magnesium 11/14/18 11/14/18 11/14/18 09:40 09:40 09:40 WBC 7.1 Hgb 9.4 L Hct 30.1 L Plt Count 146 INR 1.5 Sodium 141 Potassium 5.2 H Chloride 103 Carbon Dioxide 25 BUN 44 H Creatinine 7.98 H Glucose 79 Calcium 8.6 Magnesium 1.7 Consult Discharge Plan - Plan Referrals: Tahir Herrera Jr, MD [Primary Care Provider] - 11/21/18 9:15 am Mitch Nolasco MD [Partnered Physician] - 12/03/18 9:45 am
[2018-11-14] MEDS ORDERED: *HR* FentaNYL (PF) 100 MCG/2 ML VIAL IVP ONE (14:19)
[2018-11-14] MEDS ORDERED: CeFAZolin Premix DUPLEX 2,000 MG/50 ML BAG IVPB ONE (14:19)
[2018-11-14] MEDS ORDERED: *HR* FentaNYL (PF) 100 MCG/2 ML VIAL ONE (14:30)
[2018-11-14] MEDS ORDERED: 0.9 % Sodium Chloride 500 ML ONE (14:30)
--- NOTE | 2018-11-14 14:48 | IR Procedure Note ---
Date of procedure: 11/14/18 Consent Obtained: Verbal consent Timeout: Correct patient and procedure verified, Correct site verified, Time out performed, Skin prep completed Local anesthetic: Lidocaine 1% Indications: Non-working UE AVF, in need of dialysis Procedure Performed: Tunneled HD catheter placement. Was there an anesthesiologist assistant certified present: No Site/Technique: LIJV used for access. Tolerated well. No immediate complications. Results/Findings: 28cm cath used. Working well. Estimated blood loss (cc): 2 Complications: None; Tolerated procedure well Post Procedure Treatment Plan: Monitoring in VIR, then to room Specimen: n/a
[2018-11-14] MEDS ORDERED: *HR* Heparin 5,000 UNIT/ML VIAL ONE (14:51)
[2018-11-14] MEDS ORDERED: Aspirin Enteric Coated 81 MG Tablet PO SCH (18:00)
[2018-11-14] MEDS ORDERED: amLODIPine 5 MG TABLET PO SCH (18:00)
[2018-11-14] MEDS ORDERED: 0.9 % Sodium Chloride 1,000 ML ONE (18:58)
[2018-11-15 05:18] LABS: Basophils # 0.1 K/mcL (0.0-0.2); Eosinophils # 0.3 K/mcL (0.0-0.6); Eosinophils % 5.6 %; Hematocrit 25.4 % (37.5-50.1); Hemoglobin 8.2 g/dL (12.9-16.9); Immature Granulocytes % 0.4 % (0-4); Lymphocytes # 0.4 K/mcL (0.6-4.6); Lymphocytes % 7.2 %; Mean Corpuscular HGB Conc 32.3 g/dL (31.6-35.5); Mean Corpuscular Hemoglobin 32.5 pg (28.0-33.3); Mean Corpuscular Volume 100.8 fL (83.0-100.0); Mean Platelet Volume 11.6 fL (9.4-12.4); Monocytes # 0.4 K/mcL (0.0-1.3); Monocytes % 8.3 %; Platelet Count 126 K/mcL (140-400); Red Blood Count 2.52 M/mcL (4.19-5.50); Red Cell Distribution Width 13.6 % (11.5-14.5); Segmented Neutrophils % 77.5 %
[2018-11-15 05:34] LABS: Calcium 8.4 mg/dL (8.6-10.3); Potassium 3.9 mEq/L (3.5-5.1)
[2018-11-15] MEDS: Renal Vitamin 1 CAP CAPSULE PO SCH (07:42)
[2018-11-15] MEDS: Calcium Acetate 667 MG CAPSULE PO SCH ×2 (07:42→11:06)
[2018-11-15] MEDS ORDERED: Furosemide 40 MG TABLET PO SCH ×2 (09:00)
--- NOTE | 2018-11-15 10:40 | Vascular/[facility] Progress Note ---
Date of Encounter: 11/15/18 Time of Encounter: 10:39 Discussion with patient/family: Assessment: Satisfactory progress status post ligation of AV fistula right radiocephalic/right forearm Plan: Patient is for probable discharge today. Seems good from a vascular perspective. Tunneled dialysis catheter is present in the right internal jugular position tunneled to the right anterior chest wall for access. - Subjective Interval history: This 89-year-old male was seen in follow-up on repair of a pseudoaneurysm of the right forearm with ligation of his right radiocephalic fistula. No new complaints are given at this time. The patient is expecting to go home today. Vital Signs, Last 4 Hours Temp Pulse Resp BP Pulse Ox 11/15/18 06:57 98.2 F 79 16 128/72 93 Exam: 89-year-old male in no acute distress. He is awake, alert, coherent, and cooperative. The arm shows some ecchymosis, but it does not appear to be significant in amount. All 3 incisions are clean, dry, intact, and well approximated. Radial pulses easily palpable, the hand is warm and viable. Pain is controlled. Results 11/15/18 04:10 11/15/18 04:10 Lab Results, Last 24 hours 11/14/18 11/14/18 11/14/18 09:40 09:40 09:40 WBC 7.1 Hgb 9.4 L Hct 30.1 L Plt Count 146 INR 1.5 Sodium 141 Potassium 5.2 H Chloride 103 Carbon Dioxide 25 BUN 44 H Creatinine 7.98 H Glucose 79 Calcium 8.6 Magnesium 1.7 11/15/18 11/15/18 04:10 04:10 WBC 5.2 Hgb 8.2 L Hct 25.4 L Plt Count 126 L INR Sodium 137 Potassium 3.9 Chloride 101 Carbon Dioxide 28 BUN 22 Creatinine 5.09 H Glucose 89 Calcium 8.4 L Magnesium Consult Discharge Plan - Plan Referrals: Tahir Herrera Jr, MD [Primary Care Provider] - 11/21/18 9:15 am Mitch Nolasco MD [Partnered Physician] - 12/03/18 9:45 am
[2018-11-15 10:57] VITALS: BP 109/64
--- NOTE | 2018-11-15 11:39 | Nephrology Progress Note ---
Date of Encounter: 11/15/18 Time of Encounter: 12:48 - Assessment and Plan (1) ESRD (end stage renal disease) on dialysis Status: Chronic Next HD planned for Saturday. He would not need extra dialysis today (Saturday). Okay to discharge from a nephrology perspective. He voiced that he hopes to follow up with Dr. Nolasco whom he voiced that he liked very well, and he said he appreciated Dr. Nolasco for working late to help address the aneurysm in his arm. The patient will need vascular surgery follow-up. (2) Hemodialysis AV fistula aneurysm Status: Acute Appreciate Vascular Surgery and the Hospitalist. Qualifiers: Encounter type: initial encounter Qualified Code(s): T82.898A - Other specified complication of vascular prosthetic devices, implants and grafts, initial encounter (3) Pseudoaneurysm of AV hemodialysis fistula Status: Acute See above Qualifiers: Encounter type: subsequent encounter Qualified Code(s): T82.898D - Other specified complication of vascular prosthetic devices, implants and grafts, subsequent encounter (4) Anemia Status: Chronic Goal Hgb is 10-11. Will monitor and provide EPO and/or IV iron as needed. Qualifiers: Anemia type: due to chronic kidney disease Chronic kidney disease stage: on chronic dialysis Qualified Code(s): N18.6 - End stage renal disease; D63.1 - Anemia in chronic kidney disease; Z99.2 - Dependence on renal dialysis Subjective Principal diagnosis: ESRD s/p AVF dysfunction Interval history: The patient was seen and examined in his hospital room. He reported feeling better already, and he was accompanied by his spouse. They have voiced anticipation and hopes to be discharged home soon. He did not affirm nausea, vomiting, or difficulty with bowel movements. Objective - Vital Signs Vital signs: Vital Signs Temp Pulse Resp BP Pulse Ox 11/15/18 10:56 98.0 F 79 16 109/64 91 11/15/18 06:57 98.2 F 79 16 128/72 93 11/15/18 03:14 98.7 F 85 17 127/70 96 11/14/18 23:23 98.4 F 82 17 121/67 97 11/14/18 20:39 98.4 F 76 16 120/53 96 11/14/18 19:45 97.5 F L 16 114/69 11/14/18 19:30 113/71 11/14/18 19:15 113/70 11/14/18 19:00 100/62 11/14/18 18:45 111/66 11/14/18 18:30 117/73 11/14/18 18:15 115/68 11/14/18 18:00 126/73 11/14/18 17:45 123/73 11/14/18 17:30 122/72 11/14/18 17:15 118/76 11/14/18 17:00 132/77 11/14/18 16:45 140/87 11/14/18 16:30 146/85 11/14/18 16:15 137/85 11/14/18 16:00 97.4 F L 18 138/84 Intake and Output 11/14/18 11/15/18 11/15/18 23:59 07:59 15:59 Intake Total 600 / 800 480 / 480 Output Total 3100 / 3100 Balance -2500 / -2300 480 / 480 Intake: Oral 480 / 480 Intake, Rinseback and Flushes 600 / 600 Output: Total Dialysis (HD) Output 3100 / 3100 Other: Meal Breakfast Percent of Meal Consumed 100% Weight 93 kg Blood Glucose* 113 90 165 Hemodialysis Net Fluid Removed 2500 (mL) - General Appearance Exam: General appearance: well-developed, well-nourished, fatigue, frail EENT: ATNC, PERRL, mucous membranes moist Neck: supple Respiratory: clear Cardiology: edema (1+ pretibial pitting edema bilaterally), regular rate, regular rhythm, normal S1, normal S2 - Dialysis Access Additional Comments: Dialysis access: His right upper extremity is gently wrapped in dressing that was clean and dry. The temperature of his right hand was warm. The tunneled dialysis catheter was in position with dressing C/D/I Gastrointestinal: normoactive bowel sounds, no tenderness Integumentary: warm and dry Neurologic: no focal deficit, no asterixis, alert and oriented x3 Musculoskeletal: no erythema, no cyanosis, no clubbing Psychiatric: mood/affect appropriate, cooperative - Lab 11/15/18 04:10 11/15/18 04:10 Most recent lab results 11/15/18 04:10 Calcium 8.4 L Consult Discharge Plan - Plan Additional Instructions: - No changes were made in your home medicines during this hospitalization. - Discuss with your silk conditioner whether you still need to take Lasix while on dialysis. -Wound Care: Daily Remove old dressing, wash with CHG soap and pat dry. Apply adaptive gauze, pad with dry gauze, and wrap with gauze wrap. Secure with tape. Referrals: Tahir Herrera Jr, MD [Primary Care Provider] - 11/21/18 9:15 am Mitch Nolasco MD [Partnered Physician] - 12/03/18 9:45 am
--- NOTE | 2018-11-15 12:37 | Internal Med Progress Note ---
Hospitalist Progress Note - Encounter Date of Encounter: 11/15/18 - Exam Vitals: Temp Pulse Resp BP Pulse Ox 98.0 F 79 16 109/64 91 11/15/18 10:56 11/15/18 10:56 11/15/18 10:56 11/15/18 10:56 11/15/18 10:56 - Time Spent with Patient Total time spent is greater than 50% in coordination of care (as documented) at patient's floor/unit and/or counseling patient: Internal Medicine: Result - Labs CBC & Chem 7: 11/15/18 04:10 11/15/18 04:10 Labs: Short CBC 11/15/18 Range/Units 04:10 WBC 5.2 (4.3-11.1) K/mcL Hgb 8.2 L (12.9-16.9) g/dL Hct 25.4 L (37.5-50.1) % Plt Count 126 L (140-400) K/mcL Neutrophils # 4.0 (1.6-8.9) K/mcL BMP 11/15/18 04:10 Sodium 137 Potassium 3.9 Chloride 101 Carbon Dioxide 28 BUN 22 Creatinine 5.09 H Glucose 89 Calcium 8.4 L - ABG Interpretation ABG results: PT/INR, D-dimer PT 16.5 Seconds (9.4-12.1) H 11/14/18 09:40 - Impressions Impressions Guidance Ultrasound 11/14/18 00:00 IMPRESSION: Successful ultrasound and fluoroscopy guided tunneled catheter placement . D/ / Pantera Mejia MD / Pantera Mejia MD Interpreting Provider: Pantera Mejia MD Insertion Tunneled Catheter 11/14/18 00:00 IMPRESSION: Successful ultrasound and fluoroscopy guided tunneled catheter placement . D/ / Pantera Mejia MD / Pantera Mejia MD Interpreting Provider: Pantera Mejia MD Consult Discharge Plan - Plan Additional Instructions: - No changes were made in your home medicines during this hospitalization. - Discuss with your scientist immunology whether you still need to take Lasix while on dialysis. Referrals: Tahir Herrera Jr, MD [Primary Care Provider] - 11/21/18 9:15 am Mitch Nolasco MD [Partnered Physician] - 12/03/18 9:45 am
--- NOTE | 2018-11-15 13:12 | Discharge Summary ---
- NOTES TO OUTPATIENT PROVIDER Notes to Outpatient Provider: please follow up on surgical pathology results. Check INR in 2-3 days. Orders not resulted at time of discharge: Pending orders 11/13/18 18:11 Surgical Pathology [PTH] Routine Date of Encounter: 11/15/18 Time of Encounter: 13:06 - Discharge Diagnosis (1) CAD (coronary artery disease) Priority: Secondary Status: Chronic Qualifiers: Coronary Disease-Associated Artery/Lesion type: [place] artery [place] vs. transplanted heart: [place] heart Associated angina: without angina Qualified Code(s): I25.10 - Atherosclerotic heart disease of [place] coronary artery without angina pectoris (2) ESRD (end stage renal disease) on dialysis Priority: Secondary Status: Chronic (3) HTN (hypertension) Priority: Secondary Status: Chronic Qualifiers: Hypertension type: unspecified secondary hypertension Qualified Code(s): I15.9 - Secondary hypertension, unspecified; I15 - Secondary hypertension (4) Pseudoaneurysm of AV hemodialysis fistula Priority: Primary Status: Acute Qualifiers: Encounter type: subsequent encounter Qualified Code(s): T82.898D - Other specified complication of vascular prosthetic devices, implants and grafts, subsequent encounter (5) A-fib Priority: Secondary Status: Chronic Qualifiers: Atrial fibrillation type: paroxysmal Qualified Code(s): I48.0 - Paroxysmal atrial fibrillation Hospital course: 73 year old man with hypertension, CAD, atrial fibrillation on Coumadin, and ESRD on hemodialysis every Saturday/ Saturday/ Saturday presented to the ED complaining of right upper extremity AV fistula swelling associated with hemodialysis. Fpc through his dialysis he developed swelling and pain at the needle puncture site in the proximal right forearm. The right wrist arteriovenous fistula was created in [address] [facility]. The patient has been receiving dialysis since October 2013. Patient was evaluated by his unmanned aircraft systems roboticist, Dr. Millan and sent to the ED for further workup. In the ED, right upper extremity ultrasound revealed TDS poor visualization d/t size of swelling on arm. 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 Both vascular surgery and nephrology were consulted. He underwent ligation of RUE AV fistula and a tunneled catheter in right upper chest for dialysis until another AV fistula is created. He is being discharged for outpatient follow up. His Coumadin was held for the procedures, and resumed on discharge. No other changes were made in his home medicines. Discharge discussed with: patient, family, nurse - Time Spent with Patient Total time spent providing and/or coordinating discharge services: Time spent: Greater than 30 minutes - Discharge Medications Prescriptions: Continued Aspirin [Lo-Dose Aspirin EC] 81 mg PO QPM Metoprolol Tartrate 50 mg PO QAM Lisinopril 2.5 mg PO QAM Amlodipine Besylate 10 mg PO QPM Simvastatin [Zocor] 20 mg PO QAM Omeprazole [PriLOSEC] 40 mg PO QAM Renal Vitamin [Renal Caps Softgel] 1 mg PO DAILY Warfarin [Coumadin] 2 mg PO MOWEFR Midodrine HCl 2.5 mg PO MOWEFR@0800 PRN MDD On Dialysis Days PRN Reason: See Comments Furosemide [Lasix] 80 mg PO SUTUTHSA@0900 Calcium Acetate [Phos-LO] 2,001 mg PO TIDWM Warfarin Sodium 3 mg PO SUTUTHSA Albuterol Sulfate [Ventolin Hfa] 2 puff IH Q4H PRN PRN Reason: Shortness Of Breath Fluticasone/Vilanterol [Breo Ellipta 100-25 Mcg INH] 1 puff IH DAILY Home Medications: Amlodipine Besylate 10 mg PO QPM 10/07/17 [History] Aspirin [Lo-Dose Aspirin EC] 81 mg PO QPM 10/07/17 [History] Lisinopril 2.5 mg PO QAM 10/07/17 [History] Metoprolol Tartrate 50 mg PO QAM 10/07/17 [History] Omeprazole [PriLOSEC] 40 mg PO QAM 10/07/17 [History] Simvastatin [Zocor] 20 mg PO QAM 10/07/17 [History] Renal Vitamin [Renal Caps Softgel] 1 mg PO DAILY 02/07/18 [History] Warfarin [Coumadin] 2 mg PO MOWEFR 05/30/18 [History] Albuterol Sulfate [Ventolin Hfa] 2 puff IH Q4H PRN 11/03/18 [History] Calcium Acetate [Phos-LO] 2,001 mg PO TIDWM 11/03/18 [History] Furosemide [Lasix] 80 mg PO SUTUTHSA@0900 11/03/18 [History] Midodrine HCl 2.5 mg PO MOWEFR@0800 PRN MDD On Dialysis Days 11/03/18 [History] Warfarin Sodium 3 mg PO SUTUTHSA 11/03/18 [History] Fluticasone/Vilanterol [Breo Ellipta 100-25 Mcg INH] 1 puff IH DAILY 11/13/18 [History] Allergies/Adverse Reactions: Allergy/AdvReac Type Severity Reaction Status Date / Time No Known Allergies Allergy Verified 11/03/18 06:06 Date of admission: 11/13/18 20:25 Primary care physician: Tahir Herrera Jr, MD Consults: 11/13/18 13:51 Consult to Nephrology [CONS] Stat Consulting Provider: Kidney Emma/LEMUEL/RYAN/WILL Reason for Consult: Known patient Call Completed: Yes 11/13/18 15:29 Consult to Vascular Surgery [CONS] Stat Consulting Provider: Vascular Surgery Emma Reason for Consult: AV fistula aneurysm Call Completed: Yes 11/14/18 07:31 Consult to Interventional Radiology [CONS] Routine Consulting Provider: Radiology Interventional Cols Reason for Consult: Please eval for Permacath placement today (his AVF was ligated last night and will need a Permacath before discharge. If a Permacath is not an option today, please place a temporary HD catheter). I tried to call [facility] but it went straight to Voice mail. Thank you. Call Completed: No 11/14/18 07:45 Consult to Dialysis [CONS] QMWF 11/17/18 07:45 Consult to Dialysis [CONS] QMWF 11/19/18 07:45 Consult to Dialysis [CONS] QMWF 11/21/18 07:45 Consult to Dialysis [CONS] QMWF Discharging clinician: Mehul Luis Anticipated date of discharge: 11/15/18 - Constitutional Vitals: Temp Pulse Resp BP Pulse Ox 98.0 F 79 16 109/64 91 11/15/18 10:56 11/15/18 10:56 11/15/18 10:56 11/15/18 10:56 11/15/18 10:56 General appearance: Present: cooperative, A&O X 3, pleasant, no acute distress, answers questions appropriately Exam: Gen.: Oriented 3, no acute distress Heart: Regular rate and rhythm, no murmurs, rubs, gallops Lungs: Clear to auscultation bilaterally, no rales, rhonchi, wheezes Extremities: Right upper extremity has dressing in place, dressing clean dry and intact. Right upper chest HD catheter site without swelling or discharge - Patient Status Disposition: Home, Self-Care Condition: Good Functional capacity at discharge: independent ambulation Overall status at discharge: patient is back to baseline - Discharge Instructions Follow Up With: Tahir Herrera Jr, MD [Primary Care Provider] - 11/21/18 9:15 am Mitch Nolasco MD [Partnered Physician] - 12/03/18 9:45 am Additional Instructions: - No changes were made in your home medicines during this hospitalization. - Discuss with your unmanned aircraft systems roboticist whether you still need to take Lasix while on dialysis. - Diet and Activity Activity: increase activity as tolerated Diet: advance to your usual diet
== END 2018-11-15 14:02 | disposition home or self-care (01) | DRG 252 ==
LOC: 2ANU 13:02 → EMEROOARM 13:02 → 2ANU 16:17 → 2NNU 17:41 → 2ANU 11-14 18:48
PROVIDERS: ADMIT Internal Medicine Nephrology; ATTEND Internal Medicine Nephrology
PROC: IRPERMA (2018-11-14 13:00)